=== PATIENT | female | born 1955 | race Caucasian/White ===

== ENCOUNTER → 2020-03-27 14:17 | Outpatient (BNVA) | payer OTHER, SELFPAY | PROVIDERS: PCP Internal Medicine; Referring Provider Internal Medicine; Visit Provider Orthopaedic Surgery | DX: M75.41 Impingement syndrome of right shoulder (principal) | CPT/HCPCS: 99213 ==

== ENCOUNTER 2020-04-03 08:35 | Outpatient (REF) | payer OTHER, SELFPAY ==
[2020-04-03 10:40] LABS: Hematocrit 34.2 % (37-47); Hemoglobin 10.8 g/dl (12.0-16.0); Mean Corpuscular HGB Conc 31.6 g/dl (31.0-35.0); Mean Corpuscular Hemoglobin 27.8 pg (27.0-33.0); Mean Corpuscular Volume 87.9 fL (80-98); Mean Platelet Volume 9.6 fL (9.4-12.3); Platelet Count 395 X10*3/uL (160-400); Red Blood Count 3.89 X10*6/uL (4.20-5.50); Red Cell Distribution Width 12.7 % (11.0-16.0); White Blood Count 7.3 X10*3/uL (4.8-10.8)
[2020-04-03 11:05] LABS: Anion Gap 16 (12-20); Blood Urea Nitrogen 13 mg/dL (9-16); Calcium 9.7 mg/dL (8.4-10.2); Carbon Dioxide 28 mmol/L (22-29); Chloride 97 mmol/L (96-108); Estimated Glomerular Filt Rate > 60; Glucose Random 145 mg/dL (60-115); Potassium 4.4 mmol/l (3.3-5.1); Sodium 137 mmol/L (135-145)
== END 2020-04-03 08:36 | disposition home or self-care (01) ==
LOC: HO.LAB 08:35
PROVIDERS: PCP Internal Medicine; Visit Provider Internal Medicine Cardiovascular Disease
DX: I10 Essential (primary) hypertension (principal); D64.9 Anemia, unspecified
CPT/HCPCS: 36415; 80048; 85027; 99212

== ENCOUNTER 2020-04-09 07:53 | Outpatient (REF) | payer OTHER, SELFPAY ==
[2020-04-09 09:32] LABS: Basophils Percent Auto 0.5 % (0-2); Eosinophils Absolute Auto 0.1 X10*3/uL (0.0-0.4); Eosinophils Percent Auto 2.6 % (0-4); Hematocrit 32.4 % (37-47); Hemoglobin 10.4 g/dl (12.0-16.0); Imm Gran Abs Auto 0.01 X10*3/uL (0.00-0.03); Imm Gran Pct Auto 0.3 % (0.0-0.4); Lymphocytes Absolute Auto 1.6 X10*3/uL (1.2-4.9); Lymphocytes Percent Auto 40.4 % (20-40); MANUAL DIFF FLAG NO; Mean Corpuscular HGB Conc 32.1 g/dl (31.0-35.0); Mean Corpuscular Hemoglobin 28.1 pg (27.0-33.0); Mean Corpuscular Volume 87.6 fL (80-98); Mean Platelet Volume 9.6 fL (9.4-12.3); Monocytes Absolute Auto 0.4 X10*3/uL (0.1-1.2); Monocytes Percent Auto 9.6 % (2-11); Neutrophils Absolute Auto 1.8 X10*3/uL (2.0-8.3); Neutrophils Percent Auto 46.6 % (45-73); Platelet Count 368 X10*3/uL (160-400); Red Cell Distribution Width 12.5 % (11.0-16.0); White Blood Count 3.8 X10*3/uL (4.8-10.8)
[2020-04-09 10:18] LABS: Alanine Aminotransferase 19 U/L (0-31); Albumin Level 4.3 g/dL (3.5-5.0); Alkaline Phosphatase 103 U/L (39-117); Anion Gap 14 (12-20); Aspartate Amino Transferase 19 U/L (5-31); Bilirubin Total 0.4 mg/dL (0.0-1.0); Blood Urea Nitrogen 17 mg/dL (9-16); C Reactive Protein 2.16 mg/dL (< or = 0.50); Calcium 8.9 mg/dL (8.4-10.2); Carbon Dioxide 30 mmol/L (22-29); Chloride 100 mmol/L (96-108); Estimated Glomerular Filt Rate > 60; Glucose Random 209 mg/dL (60-115); Potassium 4.2 mmol/l (3.3-5.1); Sodium 140 mmol/L (135-145); Total Protein 8.2 g/dL (6.5-8.0)
[2020-04-09 10:24] LABS: Thyroid Stimulating Hormone 1.64 mIU/mL (0.32-4.0)
[2020-04-09 10:31] LABS: Erythrocyte Sedimentation Rate 70 MM/HR (0-20)
[2020-04-10 14:11] LABS: Cyclic Citrullinated Peptide <16 UNITS
[2020-04-11 14:47] LABS: Anti Nuclear Antibody Screen NEGATIVE (NEGATIVE)
[2020-04-11 15:11] LABS: Prot Elec - Albumin 3.7 g/dL (3.8-4.8); Prot Elec - Alpha1 0.4 g/dL (0.2-0.3); Prot Elec - Alpha2 1.1 g/dL (0.5-0.9); Prot Elec - Beta 1 0.5 g/dL (0.4-0.6); Prot Elec - Beta 2 0.6 g/dL (0.2-0.5); Prot Elec - Gamma 1.6 g/dL (0.8-1.7)
[2020-04-11 16:41] LABS: PEU-Protein Creat Ratio Rand 0.137 (0.021-0.161); PEU-Rand. Prot/Creat Ratio 137 mg/g creat (21-161); PEU-Random Ur. Gamma Globulin 0 %; PEU-Random Urine A1 Globulin 0 %; PEU-Random Urine A2 Globulin 0 %; PEU-Random Urine Albumin 100 %; PEU-Random Urine Beta Globulin 0 %; PEU-Random Urine Creatinine 73 mg/dL (20-275); PEU-Random Urine Protein 10 mg/dL (5-24)
[2020-04-12 10:26] LABS: Antibody to SS-A Antigen <1.0 NEG AI (<1.0 NEG); Antibody to SS-B Antigen <1.0 NEG AI (<1.0 NEG)
[2020-04-13 13:11] LABS: Vitamin D 25-OH, D2 <4 ng/mL; Vitamin D 25-OH, D3 25 ng/mL; Vitamin D 25-OH, Total 25 ng/mL (30-100)
[2020-04-15 13:02] LABS: IgA 417 mg/dL (70-320); IgG 1798 mg/dL (600-1540); IgM 123 mg/dL (50-300)
== END 2020-04-09 07:54 | disposition home or self-care (01) ==
LOC: HO.LAB 07:53
PROVIDERS: PCP Internal Medicine; Referring Provider Internal Medicine; Visit Provider Student in an Organized Health Care Education/Training Program
DX: R79.82 Elevated C-reactive protein (CRP) (principal); M25.50 Pain in unspecified joint; M70.62 Trochanteric bursitis, left hip
CPT/HCPCS: 36415; 80053; 82306; 82570; 82784; 84155; 84156; 84165; 84166; 84443; 85025; 85652; 86038; 86039; 86140; 86200; 86235; 86334; 86335; 99202

== ENCOUNTER 2020-04-25 07:31 | Outpatient (RCR) | payer OTHER, SELFPAY ==
--- NOTE | 2020-04-25 13:54 | MHC.PT.EP ---
[facility] [place] Office [place] Office [place] Office [address] [phone] F: [phone] F: [phone] F: [phone] F: [phone] Physical Therapy Plan of Care Date of Evaluation: 04/25/20 Date of Surgery: NA Diagnosis: HIP PAIN Assessment: MIGUEL PRESENTS WITH LATERAL HIP PAIN FOLLOWING MECHANICAL FALL ABOUT 6 MONTHS AGO. SINCE THAT TIME SHE HAS BEEN REPORTING INCREASED HIP AND THIGH PAIN WITH IMPAIRMENTS INCLUDING DECREASED ROM, DECREASED STRENGTH, ALTERED POSTURE AND POSITIONING BOTH SEATED AND STANDING, INCREASED PAIN. FUNCTIONAL LIMITATIONS INCLUDE DECREASED TOLERANCE TO STATIC STANDING AND AMBULATION, DECREASED TOLERANCE TO STAIRS, DECREASED ABILITY TO PERFORM HOMEMAKING TASKS AND ADLs. DURING EVAL TODAY SHE BECAME NAUSEOUS AND DEMONSTRATED SOME S/S OF BPPV ? HORIZONTAL CANALITHISIS ALTHOUGH FAMILY STATES SHE HAS BEEN VOMITTING FOR 3 DAYS AND PCP FELT THIS WAS SECONDARY TO ANEMIA. AT THE CONCLUSION OF TREATMENT THE SON EXPRESSED DESIRE TO BRING MOM TO EMERGENCY DEPARTMENT TO ADDRESS N/V. THEY WILL CALL TO SCHEDULE VISITS PENDING ED VISIT. OF NOTE THERE IS SOME CONCERN OF HIP FRACTURE DUE TO RENE AND IMPAIRMENTS NOTED DURING EVAL. WE WILL ATTEMPT TO EVALUATE THIS FURTHER AT NEXT VISIT AND CONTACT MD PRN TO PURSUE RADIOGRAPHS. Frequency and Duration: The patient will be seen 2 X WEEK FOR 4 WEEKS Short Term Goals: INITATE HEP AND SELF MANAGEMENT OF SYMPTOMS IN 2 WEEKS TO CONTACT MD PRN FOR VESTIBULAR TREATMENT/NEED FOR RADIOGRAPHS Residential Goals: TO TOLERATE AMBULATION GREATER THAN 15 MINUTES WITHOUT SEATED REST BREAKS IN 4 WEEKS TO ASCEND AND DESCEND STAIRS WITHOUT PAIN GREATER THAN 2/10 IN 4 WEEKS TO RETURN TO HOMEMAKING TASKS WITHOUT RESTRICTION IN 4 WEEKS Treatment Plan: Modalities to reduce pain, spasms and effusion. Manual therapy to restore motion and function. Therapeutic exercise to improve strength and flexibility. Neuromuscular re-education for posture and balance. Therapeutic activities to return to functional activities of daily living. Please sign and return to therapist. Thank you for your referral.
--- NOTE | 2020-05-20 09:32 | MHC.PT.DC ---
[facility] [place] Office [place] Office [place] Office [address] [phone] F: [phone] F: [phone] F: [phone] F: [phone] Physical Therapy Discharge Report Diagnosis: HIP PAIN Date of Surgery: NA Date of Evaluation: 04/25/20 Date of Discharge: 05/20/20 Treatments to Date: 1 Cancellations to Date: 1 No Shows to Date: 0 Discharge Status: Patient Elected to Stop Visit Non-compliance Discharge Summary: ATTENDED INITIAL EVAL ONLY. ARRIVED IN CLINIC WITH NAUSEA AND VOMITING. LIMITED HISTORY OBTAINED AND PATIENT'S SON REQUESTED ED VISIT MOM HAD BEEN WITH N/V FOR SEVERAL DAYS. EVALUATION TERMINATED AND CLIENT WAS TO CONTACT US FOR ADDITIONAL VISITS BUT WE HAVE NOT HEARD FROM HER AND ARE DISCHARGING HER AT THIS TIME. Electronically signed by: NEVILLE ESTEVEZ PT, DPT Please sign and return to therapist. Thank you for your referral.
== END 2020-05-20 09:33 | disposition other institution (70) ==
LOC: HO.PT 07:31
PROVIDERS: Visit Provider Student in an Organized Health Care Education/Training Program
DX: M70.62 Trochanteric bursitis, left hip (principal)
CPT/HCPCS: 97163

== ENCOUNTER 2020-04-25 09:07 | Emergency (ER) | payer OTHER, SELFPAY ==
[2020-04-25 12:30] VITALS: BP 150/73; PULSE 74; RESP 16; TEMP 36.6; O2SAT 100; BMI 33.5
--- NOTE | 2020-04-25 12:59 | ECG_ITS ---
Test Reason : DIZZINESS Blood Pressure : / mmHG Vent. Rate : 080 BPM Atrial Rate : 080 BPM P-R Int : 142 ms QRS Dur : 078 ms QT Int : 384 ms P-R-T Axes : 040 -04 -03 degrees QTc Int : 442 ms Normal sinus rhythm Normal ECG When compared with ECG of 23-OCT-2019 11:48, No significant change was found Referred By: Sami Espinosa Electronically Signed By:TRICE PADILLA MD
--- NOTE | 2020-04-25 13:04 | CT_ITS ---
EXAMINATION: CT HEAD WITHOUT CONTRAST CLINICAL INFORMATION: Dizziness COMPARISON: None. TECHNIQUE: Contiguous axial imaging was performed from the skull base to vertex without intravenous contrast. This CT examination was performed using dose optimization techniques as appropriate, variously including the following: * Automated exposure control * Adjustment of mA and/or kV according to patient size (this includes techniques or standardized protocols for targeted exams where dose is matched to indication/reason for exam; i.e. extremities or head) Use of iterative reconstruction technique DLP: 624 mGy-cm. FINDINGS: There is no evidence of acute intracranial hemorrhage or territorial infarction. No abnormal mass effect or midline shift is seen. Villanueva to white matter differentiation is well preserved. No extra-axial fluid collections are identified. No hydrocephalus. Proportional prominence of the ventricles and sulcal spaces is consistent with mild volume loss. Patchy periventricular and deep white matter hypoattenuation is consistent with mild small vessel ischemic changes. The osseous structures and soft tissues are normal. The mastoid air cells and visualized portions of the paranasal sinuses are well aerated. CT/CT head/brain wo con IMPRESSION: No acute intracranial pathology.
--- NOTE | 2020-04-25 13:10 | ED_ITS ---
HPI - Dizziness General Chief Complaint: Dizziness Stated Complaint: vomiting,weak Time Seen by Provider: 04/25/20 12:59 Source: patient Mode of arrival: ambulatory Limitations: no limitations History of Present Illness HPI Narrative: Yg varnisher used for patient. patient states to the ED for dizziness, nausea, vomitting, and epigsatric pain radiating to chest after vomitting. patient describes chest pain occurs after vomitting. patient states 3 days of dizziness, nausea, and vomitting. patient describes dizziness as the room spinning, especially when she changes position. patient states no slurred speech, loss of vision, or paralysis of extremies. Patient denies facial droop. patient states no head trauma. patient states no headache. Patient states this happened to her 6 months ago and resolved after being given some pills as patient states. Patient denies any swelling of lower extretmies, calf pain, coughing, recent long travel, or recent surgery. patient states dizziness spell occurred again at 8:00am this morning while at therapy while changing position. Related Data Home Medications Medication Instructions Recorded Confirmed amlodipine 5 mg tablet 5 mg PO DAILY 03/07/20 03/13/20 apixaban 5 mg tablet 5 mg PO BID 03/07/20 03/13/20 cetirizine 10 mg tablet 10 mg PO DAILY 03/07/20 03/13/20 docusate sodium 100 mg capsule 100 mg PO BID 03/07/20 03/13/20 gabapentin 300 mg capsule 300 mg PO BEDTIME 03/07/20 03/13/20 metformin 500 mg tablet,extended 500 mg PO BID 03/07/20 03/13/20 release 24 hr omeprazole 40 mg capsule,delayed 40 mg PO BID 03/07/20 03/13/20 release ondansetron HCl 4 mg tablet 0 mg PO 03/07/20 03/13/20 simethicone 180 mg capsule 180 mg PO DAILY 03/07/20 03/13/20 atorvastatin 40 mg tablet 40 mg PO tab 04/03/20 chlorthalidone 25 mg tablet 25 mg PO DAILY 04/03/20 acetaminophen 650 mg 650 mg PO Q8H PRN 04/09/20 tablet,extended release Previous Rx's Medication Instructions Recorded lisinopril 40 mg tablet 40 mg PO DAILY 90 Days #90 tab 03/29/20 insulin glargine 100 unit/mL (3 30 unit SUBCUT BID 30 Days #18 ml 04/02/20 mL) subcutaneous pen diclofenac sodium 1 % topical gel 2 g TOPICAL QID #100 g 04/09/20 Allergies Allergy/AdvReac Type Severity Reaction Status Date / Time No Known Allergies Allergy Verified 04/09/20 08:01 [No Known Allergies*] Review of Systems Review of Systems: Yes all other systems are reviewed and are negative Constitutional: Constitutional: Reports as per HPI and Reports no additional constitutional complaints Eyes: Eyes: Reports as per HPI and Reports no additional eye complaints ENT: Reports system reviewed and no additional complaints, except as documented, Reports as per HPI, Reports vertigo and Reports dizziness Cardiovascular: Cardiovascular: Reports as per HPI, Reports no additional cardiovascular complaints and Reports chest pain (epigastric burning sensation after vomitting. ) Respiratory: Respiratory: Reports as per HPI and Reports no additional respiratory complaints Gastrointestinal: Gastrointestinal: Reports heartburn, Reports nausea and Reports vomiting Genitourinary: Genitourinary: Reports no additional female genitourinary complaints and Reports as per HPI Musculoskeletal: Musculoskeletal: Reports no additional musculoskeletal complaints and Reports as per HPI Neurologic: Reports system reviewed and no additional complaints, except as documented, Reports as per HPI, Reports vertigo and Reports dizziness Psychiatric: Psychiatric: Reports no additional psychiatric complaints and Reports as per HPI PMFSH Past Medical History Medical History (Updated 04/25/20 @ 17:25 by MARCEL Vanegas) Anemia Chronic GERD Chronic vertigo Constipation by delayed colonic transit Diabetic neuropathy Environmental allergies History of miscarriage Hypertension, essential IBS (irritable bowel syndrome) Insulin dependent diabetes mellitus Lipid disorder NSTEMI (non-ST elevated myocardial infarction) Surgical History Hx of cardiac cath Hx of colonoscopy Hx of endoscopy Family History Family History Father No problems noted. Mother No problems noted. Social History Social History Alcohol intake: never Smoking Status: Never smoker Smoked in Last 30 Days: No Use of substances other than those prescribed or required for medical reasons: No Advance Directives: No Advance Directives Information Provided: Yes Current occupation: Left handed Physical Exam Vital Signs: Vital Signs: Last Vital Signs Temp 97.9 F 04/25/20 12:30 Pulse 64 04/25/20 16:30 Resp 18 04/25/20 16:30 BP 111/62 04/25/20 16:30 Pulse Ox 98 04/25/20 16:30 Body Mass Index 33.5 Const: General: cooperative, healthy appearing, comfortable, no acute distress and well developed Orientation/consciousness: patient oriented x3 HENMT: Head: Yes normal to inspection and Yes No palpable skull fracture present Eyes: General: appearance normal, both eyes and all related structures Neck: Neck: Yes normal visual inspection, Yes full ROM, Yes no lymphadenopathy, Yes no meningeal signs, Yes trachea midline and No tender Chest: Chest palpation & inspection: normal inspection of the chest, normal palpation of entire chest wall and no localized rib tenderness Resp: Effort & Inspection: normal respiratory effort and able to speak in complete sentences Auscultation: clear to auscultation bilaterally Cardio: Jugular venous distension: no JVD Heart sounds: S1 normal heart sound present and S2 normal heart sound present GI: Inspection: Yes normal to inspection and No abdominal wall ecchymosis Palpation (GI): Soft to palpation, not firm, nontender and no guarding : General: No CVA tenderness and Yes no CVA tenderness Back/Spine/Pelvis: Back: no CVA tenderness, No CVA tenderness and No back tenderness Skin: General skin exam: no rashes or lesions noted Neuro: Other: positive for horizontal nystagmus to the left. Negative for vertical nystagmus. Negative for facial droop. Negative for pronator drift. Motor and strength of all extremities is intact. Patient's speech is normal. When patient was put down flat on the bed and should check for nystagmus she became extremely dizzy. General: patient oriented x3, no meningeal signs and CN's II-XI intact bilaterally Extrem: General: Yes normal to inspection and Yes full ROM Psych: Appearance: grossly normal, well kempt and not disheveled NIH Stroke Scale Internal: Initial- Upon Arrival Level of Consciousness: Alert Level of Consciousness Questions: Answers both questions correctly Level of Consciousness Commands: Performs both tasks correctly Best Gaze: Normal Visual: No visual loss Facial Palsy: Normal Motor Arm (Right): No drift Motor Arm (Left): No drift Motor Leg (Right): No drift Motor Leg (Left): No drift Limb Ataxia: Absent Sensory: Normal Best Language: No aphasia Dysarthia: Normal Extinction and Inattention: No abnormality Score: 0 Course Course Course Narrative: presently history physical exam did not indicate stroke. Negative for neuro deficit. History and exam presents vertigo versus atypical SC possibility. Patient will have EKG, labs, troponin, and head CT. Patient also has history of GERD will be giving antacid medications. patient NIH score 0. patient is on blood thinner Eliquis and his past 4 hours. Time stamp: 1:46pm Reevaluation(s) Reevaluation #1: Patient ordered Zofran, Pepcid, Reglan, and fluids. Time: 13:50 Reevaluation #2: patient main complaint presently is just dizziness. Patient denies any chest pain. Waiting for head CT results. Upon reviewing notes from Cardiology Dr. Gardiner he states patient was at [facility] in October 2019 with similar presentation and was admitted for NSTEMI. this indcates more cardiac presentation. awaiting from [facility] discharge papers and admission reports. [facility] Discharge papers were reviewed and showed that patient has similar presentation in october. Time: 14:40 Reevaluation #3: Patient was reassessed and states feeling dizzy on movement still. Patient able to do rapid hand movements and finger to nose exam are intact. Negative Romberg. No indication for MRI. Will order Ativan and Zofran. Orthostatics are negative. WHile changing position in bed patient state s dizziness sensation ( room spinning). Patient presently denies any chest pain. Case was discussed with Dr. Sandoval who agrees patient is not having an acute stroke or posterior cebellar infarction and no MRI indicated. She recommeds giving patient ativan 1mg. Time: 15:33 Additional Reevaluation(s): Case signed out to ALDEN ABDI - Dizziness Lab Data Result diagrams: 04/25/20 13:59 04/25/20 14:40 Labs: Lab Results 04/25/20 04/25/20 04/25/20 Range/Units 13:59 13:59 13:59 WBC 8.1 (4.8-10.8) X10*3/uL RBC 3.87 L (4.20-5.50) X10*6/uL Hgb 10.8 L (12.0-16.0) g/dl Hct 33.3 L (37-47) % MCV 86.0 (80-98) fL MCH 27.9 (27.0-33.0) pg MCHC 32.4 (31.0-35.0) g/dl RDW 12.5 (11.0-16.0) % Plt Count 437 H (160-400) X10*3/uL MPV 9.9 (9.4-12.3) fL Immature Gran % (Auto) 0.4 (0.0-0.4) % Neut % (Auto) 67.0 (45-73) % Lymph % (Auto) 28.0 (20-40) % [place] % (Auto) 4.0 (2-11) % Eos % (Auto) 0.2 (0-4) % Baso % (Auto) 0.4 (0-2) % Lymph # (Auto) 2.3 (1.2-4.9) X10*3/uL [place] # (Auto) 0.3 (0.1-1.2) X10*3/uL Eos # (Auto) 0.0 (0.0-0.4) X10*3/uL Baso # (Auto) 0.0 (0.0-0.2) X10*3/uL Abs Immat Gran (auto) 0.03 (0.00-0.03) X10*3/uL Absolute Neuts (auto) 5.4 (2.0-8.3) X10*3/uL Absolute Nucleated RBC 0.000 (0.0-0.012) X10*3/uL Nucleated RBC % (auto) 0.0 (0.0-0.2) /100WBC PT (10.8-13.0) SEC INR (0.9-1.1) APTT 38.5 H (24.1-38.0) SEC Sodium Cancelled Potassium Cancelled Chloride Cancelled Carbon Dioxide Cancelled Anion Gap Cancelled BUN Cancelled Creatinine Cancelled Estim Creat Clear Calc Cancelled Estimated GFR Cancelled POC Glucose (60-115) mg/dL Random Glucose Cancelled Calcium Cancelled Total Bilirubin Cancelled Direct Bilirubin Cancelled AST Cancelled ALT Cancelled Alkaline Phosphatase Cancelled Troponin I High Sens (<3.5-17.0) ng/L Total Protein Cancelled Albumin Cancelled Lipase Cancelled 04/25/20 04/25/20 04/25/20 Range/Units 13:59 14:40 16:17 WBC (4.8-10.8) X10*3/uL RBC (4.20-5.50) X10*6/uL Hgb (12.0-16.0) g/dl Hct (37-47) % MCV (80-98) fL MCH (27.0-33.0) pg MCHC (31.0-35.0) g/dl RDW (11.0-16.0) % Plt Count (160-400) X10*3/uL MPV (9.4-12.3) fL Immature Gran % (Auto) (0.0-0.4) % Neut % (Auto) (45-73) % Lymph % (Auto) (20-40) % [place] % (Auto) (2-11) % Eos % (Auto) (0-4) % Baso % (Auto) (0-2) % Lymph # (Auto) (1.2-4.9) X10*3/uL [place] # (Auto) (0.1-1.2) X10*3/uL Eos # (Auto) (0.0-0.4) X10*3/uL Baso # (Auto) (0.0-0.2) X10*3/uL Abs Immat Gran (auto) (0.00-0.03) X10*3/uL Absolute Neuts (auto) (2.0-8.3) X10*3/uL Absolute Nucleated RBC (0.0-0.012) X10*3/uL Nucleated RBC % (auto) (0.0-0.2) /100WBC PT (10.8-13.0) SEC INR (0.9-1.1) APTT (24.1-38.0) SEC Sodium 140 Potassium 3.8 Chloride 101 Carbon Dioxide 26 Anion Gap 17 BUN 14 Creatinine 0.82 Estim Creat Clear Calc 64.7 Estimated GFR > 60 POC Glucose 183 H (60-115) mg/dL Random Glucose 200 H Calcium 9.0 Total Bilirubin 0.4 Direct Bilirubin < 0.2 AST 15 ALT 14 Alkaline Phosphatase 104 Troponin I High Sens 17.7 H (<3.5-17.0) ng/L Total Protein 8.0 Albumin 4.2 Lipase 19 //20 Range/Units 17:00 WBC (4.8-10.8) X10*3/uL RBC (4.20-5.50) X10*6/uL Hgb (12.0-16.0) g/dl Hct (37-47) % MCV (80-98) fL MCH (27.0-33.0) pg MCHC (31.0-35.0) g/dl RDW (11.0-16.0) % Plt Count (160-400) X10*3/uL MPV (9.4-12.3) fL Immature Gran % (Auto) (0.0-0.4) % Neut % (Auto) (45-73) % Lymph % (Auto) (20-40) % [place] % (Auto) (2-11) % Eos % (Auto) (0-4) % Baso % (Auto) (0-2) % Lymph # (Auto) (1.2-4.9) X10*3/uL [place] # (Auto) (0.1-1.2) X10*3/uL Eos # (Auto) (0.0-0.4) X10*3/uL Baso # (Auto) (0.0-0.2) X10*3/uL Abs Immat Gran (auto) (0.00-0.03) X10*3/uL Absolute Neuts (auto) (2.0-8.3) X10*3/uL Absolute Nucleated RBC (0.0-0.012) X10*3/uL Nucleated RBC % (auto) (0.0-0.2) /100WBC PT 14.1 H (10.8-13.0) SEC INR 1.2 H (0.9-1.1) APTT (24.1-38.0) SEC Sodium Potassium Chloride Carbon Dioxide Anion Gap BUN Creatinine Estim Creat Clear Calc Estimated GFR POC Glucose (60-115) mg/dL Random Glucose Calcium Total Bilirubin Direct Bilirubin AST ALT Alkaline Phosphatase Troponin I High Sens (<3.5-17.0) ng/L Total Protein Albumin Lipase ECG Data Interpretation: NOrmal sinus rhythm, Vent rate 80. OR interval 142, QRS 78. negative stemi Discharge Plan Discharge Clinical Impression: Vertigo Prescriptions: No Action lisinopril 40 mg tablet 40 mg PO DAILY 90 Days Qty: 90 RF: 0 Lantus Solostar U-100 Insulin 100 unit/mL (3 mL) insulin pen 30 unit subcut BID 30 Days Qty: 18 RF: 2 acetaminophen [Tylenol 8 Hour] 650 mg tablet extended release 650 mg PO Q8H PRNRF: 0 diclofenac sodium [Voltaren] 1 % gel 2 g topical QID Qty: 100 RF: 2 omeprazole 40 mg capsule,delayed release(DR/EC) 40 mg PO BID RF: 0 ondansetron HCl 4 mg tablet 0 mg PO RF: 0 Eliquis 5 mg tablet 5 mg PO BID RF: 0 docusate sodium [Colace] 100 mg capsule 100 mg PO BID RF: 0 simethicone 180 mg capsule 180 mg PO DAILY RF: 0 amlodipine 5 mg tablet 5 mg PO DAILY RF: 0 cetirizine 10 mg tablet 10 mg PO DAILY RF: 0 gabapentin 300 mg capsule 300 mg PO BEDTIME RF: 0 metformin 500 mg tablet extended release 24 hr 500 mg PO BID RF: 0 atorvastatin 40 mg tablet 40 mg PO RF: 0 chlorthalidone 25 mg tablet 25 mg PO DAILY RF: 0
[2020-04-25 14:04] LABS: MANUAL DIFF FLAG NO
[2020-04-25] MEDS: Meclizine HCl 25 MG TABLET PO (14:06)
[2020-04-25] MEDS: 0.9 % Sodium Chloride 1,000 ML 999 ML IVCONT (14:06)
[2020-04-25] MEDS: Metoclopramide HCl 10 MG/2 ML VIAL IVPUSH (14:06)
[2020-04-25] MEDS: Famotidine/PF 20 MG/2 ML VIAL IVPUSH (14:06)
[2020-04-25 14:10] LABS: Basophils Percent Auto 0.4 % (0-2); Eosinophils Percent Auto 0.2 % (0-4); Hematocrit 33.3 % (37-47); Hemoglobin 10.8 g/dl (12.0-16.0); Imm Gran Abs Auto 0.03 X10*3/uL (0.00-0.03); Imm Gran Pct Auto 0.4 % (0.0-0.4); Lymphocytes Absolute Auto 2.3 X10*3/uL (1.2-4.9); Mean Corpuscular HGB Conc 32.4 g/dl (31.0-35.0); Mean Corpuscular Hemoglobin 27.9 pg (27.0-33.0); Mean Platelet Volume 9.9 fL (9.4-12.3); Monocytes Absolute Auto 0.3 X10*3/uL (0.1-1.2); Neutrophils Absolute Auto 5.4 X10*3/uL (2.0-8.3); Platelet Count 437 X10*3/uL (160-400); Red Blood Count 3.87 X10*6/uL (4.20-5.50); Red Cell Distribution Width 12.5 % (11.0-16.0); White Blood Count 8.1 X10*3/uL (4.8-10.8)
[2020-04-25 14:13] VITALS: PULSE 76; RESP 20
[2020-04-25 14:15] LABS: Partial Thromboplastin Time 38.5 SEC (24.1-38.0)
[2020-04-25 14:40] LABS: Troponin-I High Sensitivity 17.7 ng/L (<3.5-17.0)
--- NOTE | 2020-04-25 14:45 | PC.NURSE ---
pt still reports dizziness at this time. resting in bed. nsr 70s. aware of plan of care for repeat labs. denied having any questions.
[2020-04-25 15:09] VITALS: BP 126/60; BP 151/73; PULSE 73; PULSE 83
[2020-04-25 15:12] LABS: Alanine Aminotransferase 14 U/L (0-31); Albumin Level 4.2 g/dL (3.5-5.0); Alkaline Phosphatase 104 U/L (39-117); Anion Gap 17 (12-20); Aspartate Amino Transferase 15 U/L (5-31); Bilirubin Direct < 0.2 mg/dL (0.0-0.5); Bilirubin Total 0.4 mg/dL (0.0-1.0); Blood Urea Nitrogen 14 mg/dL (9-16); Carbon Dioxide 26 mmol/L (22-29); Chloride 101 mmol/L (96-108); Creatinine Clr Calc Pharmacy 64.7; Estimated Glomerular Filt Rate > 60; Glucose Random 200 mg/dL (60-115); Lipase 19 U/L (8-78); Potassium 3.8 mmol/l (3.3-5.1); Sodium 140 mmol/L (135-145)
[2020-04-25 15:14] VITALS: BP 138/75; PULSE 89
--- NOTE | 2020-04-25 15:23 | XR_ITS ---
EXAMINATION: XR CHEST CLINICAL INFORMATION: Resolved chest pain, dizziness. COMPARISON: Chest radiographs 10/23/2019, 03/28/2009 TECHNIQUE: Portable upright AP view of the chest was obtained. FINDINGS: There is mild fullness cardiopericardial silhouette similar to prior studies. The vascularity is normal. There is no airspace consolidation or groundglass opacity or effusion. The hilar and mediastinal contours and bony structures are stable. XR/XR chest 1V IMPRESSION: Unremarkable examination.
[2020-04-25] MEDS: LORazepam 2 MG/ML VIAL 1 MG IVPUSH (15:39)
[2020-04-25] MEDS: ondansetron HCL 4 MG/2 ML VIAL IVPUSH (15:39)
[2020-04-25 16:21] LABS: Glucose, Whole Blood 183 mg/dL (60-115)
[2020-04-25 16:30] VITALS: BP 111/62; PULSE 64; RESP 18; O2SAT 98
[2020-04-25 17:18] LABS: INTERNATIONAL NORM RATIO 1.2 (0.9-1.1); Prothrombin Time 14.1 SEC (10.8-13.0)
[2020-04-25 17:35] LABS: Troponin-I High Sensitivity 14.3 ng/L (<3.5-17.0)
--- NOTE | 2020-04-25 18:00 | PC.NURSE ---
SPOKE WITH MULTIPLE FAMILY MEMBERS. PLAN TO DC HOME. PT AWAITING RIDE FROM FAMILY
== END 2020-04-25 18:37 | disposition home or self-care (01) ==
PROVIDERS: Physician Assistant; Emergency Provider Emergency Medicine; PCP Internal Medicine
DX: R42 Dizziness and giddiness (principal); E11.9 Type 2 diabetes mellitus without complications; R07.9 Chest pain, unspecified; R10.13 Epigastric pain; R29.700 NIHSS score 0; Z79.899 Other long term (current) drug therapy; Z79.4 Long term (current) use of insulin
CPT/HCPCS: 36415; 70450; 71045; 80053; 80076; 82248; 82947; 83690; 84484; 85025; 85610; 85730; 93005; 96361; 96374; 96375; 99284; J2060; J2405; J2765

== ENCOUNTER → 2020-05-09 08:15 | Outpatient (BNVA) | payer OTHER, SELFPAY | PROVIDERS: PCP Internal Medicine; Referring Provider Internal Medicine; Visit Provider Student in an Organized Health Care Education/Training Program | DX: M35.3 Polymyalgia rheumatica (principal); M25.50 Pain in unspecified joint; M70.62 Trochanteric bursitis, left hip; R79.82 Elevated C-reactive protein (CRP); Z79.52 Long term (current) use of systemic steroids | CPT/HCPCS: 99212 ==

== ENCOUNTER → 2020-07-10 08:43 | Outpatient (BNVA) | payer OTHER, SELFPAY | PROVIDERS: PCP Internal Medicine; Visit Provider Internal Medicine Cardiovascular Disease | DX: I10 Essential (primary) hypertension (principal); R07.89 Other chest pain; I48.0 Paroxysmal atrial fibrillation | CPT/HCPCS: 99212 ==

== ENCOUNTER 2020-07-18 07:47 | Outpatient (REF) | payer OTHER, SELFPAY ==
[2020-07-18 09:57] LABS: MANUAL DIFF FLAG NO
[2020-07-18 10:06] LABS: Basophils Percent Auto 0.5 % (0-2); Eosinophils Absolute Auto 0.1 X10*3/uL (0.0-0.4); Eosinophils Percent Auto 0.8 % (0-4); Hematocrit 34.6 % (37-47); Imm Gran Abs Auto 0.03 X10*3/uL (0.00-0.03); Imm Gran Pct Auto 0.3 % (0.0-0.4); Lymphocytes Absolute Auto 3.7 X10*3/uL (1.2-4.9); Lymphocytes Percent Auto 42.7 % (20-40); Mean Corpuscular HGB Conc 31.8 g/dl (31.0-35.0); Mean Corpuscular Hemoglobin 27.4 pg (27.0-33.0); Mean Corpuscular Volume 86.3 fL (80-98); Mean Platelet Volume 10.2 fL (9.4-12.3); Monocytes Absolute Auto 0.6 X10*3/uL (0.1-1.2); Neutrophils Absolute Auto 4.3 X10*3/uL (2.0-8.3); Neutrophils Percent Auto 48.7 % (45-73); Platelet Count 406 X10*3/uL (160-400); Red Blood Count 4.01 X10*6/uL (4.20-5.50); Red Cell Distribution Width 13.3 % (11.0-16.0); White Blood Count 8.8 X10*3/uL (4.8-10.8)
[2020-07-18 10:24] LABS: Anion Gap 18 (12-20); Blood Urea Nitrogen 18 mg/dL (9-16); C Reactive Protein 1.37 mg/dL (< or = 0.50); Calcium 9.4 mg/dL (8.4-10.2); Carbon Dioxide 29 mmol/L (22-29); Chloride 102 mmol/L (96-108); Cholesterol 185 mg/dL; Estimated Glomerular Filt Rate 58; Glucose Fasting 97 mg/dL (60-99); HDL Cholesterol 53 mg/dL; LDL Cholesterol Calculated 100 mg/dl; Potassium 4.6 mmol/L (3.3-5.1); Sodium 144 mmol/L (135-145); Triglycerides 162 mg/dL
[2020-07-18 10:32] LABS: Creatinine Urine 61.28 mg/dL; Estimated Average Glucose 206 mg/dL; Hemoglobin A1c % 8.8 %; Microalbum/Creatinine Ratio Ur 24.4 ug/mg cr
[2020-07-18 11:49] LABS: Erythrocyte Sedimentation Rate 67 MM/HR (0-20)
== END 2020-07-18 07:48 | disposition home or self-care (01) ==
LOC: HO.LAB 07:47
PROVIDERS: PCP Internal Medicine; Referring Provider Internal Medicine; Visit Provider Student in an Organized Health Care Education/Training Program
DX: M35.3 Polymyalgia rheumatica (principal); Z79.52 Long term (current) use of systemic steroids; I10 Essential (primary) hypertension; E78.9 Disorder of lipoprotein metabolism, unspecified; K59.01 Slow transit constipation; K58.9 Irritable bowel syndrome, unspecified; K21.9 Gastro-esophageal reflux disease without esophagitis; E11.40 Type 2 diabetes mellitus with diabetic neuropathy, unspecified; R42 Dizziness and giddiness; Z91.09 Other allergy status, other than to drugs and biological substances
CPT/HCPCS: 36415; 80048; 80061; 82043; 83036; 85025; 85652; 86140; 99212

== ENCOUNTER 2020-07-25 08:30 | Outpatient (REF) | payer OTHER, SELFPAY ==
--- NOTE | ~2020-07-25 | MM_ITS ---
EXAMINATION: BONE DENSITOMETRY CLINICAL INDICATION: Polymyalgia rheumatica. COMPARISON: This is the patient's baseline examination. TECHNIQUE: Using a [employer] Display System DXA System (software version: 13.1) manufactured by [employer], dual-energy x-ray absorptiometry was performed of the lumbar spine and left hip. The images are of good technical quality. Summary results are attached. FINDINGS: AP SPINE L1-L4: BMD 0.977 g/cm2, Z-score -0.6, T-score -1.7, osteopenia. LEFT FEMUR, NECK: BMD 0.829 g/cm2, Z-score -0.4, T-score -1.5, osteopenia. LEFT FEMUR, TOTAL: BMD 1.016 g/cm2, Z-score 0.9, T-score 0.1, normal. IDENTIFIED RISK FACTORS: Menopause, anticonvulsants, glucocorticoids (chronic). HISTORY OF FRACTURE: None listed. MEDICATIONS: None listed. MM/XR DEXA axial skeleton IMPRESSION: 1. DIAGNOSIS: Osteopenia based on the lowest T-score value of -1.7 in the lumbar spine applying World Health Organization criteria. 2. 10-YEAR FRACTURE RISK PREDICTION, FRAX: Major osteoporotic fracture (clinical spine, forearm, hip or shoulder) 13.0%. Hip fracture 1.5%. 3. Treatment Recommendations: NOF guidelines recommend consideration for treatment in postmenopausal women and men age 50 and older presenting with the following: -A hip or vertebral (clinical or morphometric) fracture. -T-score less than or equal to -2.5 at the femoral neck or spine after appropriate evaluation to exclude secondary causes. -Low bone mass at the hip or spine and a 10-year fracture probability by FRAX of greater than or equal to 3% for hip fracture or greater than or equal to 20% for major osteoporotic fracture based on the [place] adapted WHO algorithm. 4. Other Recommendations: All treatment decisions require clinical judgment and consideration of individual patient factors, including patient preferences, comorbidities, previous drug use, risk factors not captured in the FRAX model (e.g. frailty, falls, vitamin D deficiency, increased bone turnover, interval significant decline in bone density) and possible under or overestimation of fracture risk by FRAX. Additional medical evaluation for secondary cause of low bone mineral density may be appropriate. FUTURE SCAN RECOMMENDATION: People with diagnosed cases of osteoporosis or at high risk for fracture should have regular bone mineral density tests. For patients eligible for Medicare, routine testing is allowed once every 2 years. The testing frequency can be increased to one year for patients who have rapidly progressing disease, those who are receiving or discontinuing medical therapy to restore bone mass, or have additional risk factors.
== END 2020-07-25 08:31 | disposition home or self-care (01) ==
LOC: HO.MAMMO 08:30
PROVIDERS: Visit Provider Student in an Organized Health Care Education/Training Program
DX: Z13.820 Encounter for screening for osteoporosis (principal); Z78.0 Asymptomatic menopausal state; M35.3 Polymyalgia rheumatica; Z79.52 Long term (current) use of systemic steroids; Z79.899 Other long term (current) drug therapy
CPT/HCPCS: 77080

== ENCOUNTER 2020-09-04 07:18 | Outpatient (REF) | payer OTHER, SELFPAY ==
--- NOTE | ~2020-09-04 | XR_ITS ---
EXAMINATION: XR BILATERAL SHOULDERS: 4 VIEWS EACH CLINICAL INFORMATION: Elevated CRP COMPARISON: Left shoulder radiographs dated 08/23/2018 TECHNIQUE: AP, Grashey, transscapular Y and axillary views of each shoulder FINDINGS: No acute fracture or dislocation. Small acromioclavicular marginal osteophytes. Glenohumeral joint unremarkable. No erosive changes. Soft tissues unremarkable. XR/XR shoulder RT min 2V IMPRESSION: No acute fracture or dislocation. No evidence of inflammatory arthropathy. Small marginal osteophytes along the bilateral acromioclavicular joints.
--- NOTE | ~2020-09-04 | XR_ITS ---
EXAMINATION: XR BILATERAL SHOULDERS: 4 VIEWS EACH CLINICAL INFORMATION: Elevated CRP COMPARISON: Left shoulder radiographs dated 08/23/2018 TECHNIQUE: AP, Grashey, transscapular Y and axillary views of each shoulder FINDINGS: No acute fracture or dislocation. Small acromioclavicular marginal osteophytes. Glenohumeral joint unremarkable. No erosive changes. Soft tissues unremarkable. XR/XR shoulder LT min 2V IMPRESSION: No acute fracture or dislocation. No evidence of inflammatory arthropathy. Small marginal osteophytes along the bilateral acromioclavicular joints.
--- NOTE | ~2020-09-04 | XR_ITS ---
EXAMINATION: XR HIP, LEFT CLINICAL INFORMATION: Pain COMPARISON: None TECHNIQUE: Two views of the left hip. FINDINGS: No acute fracture or dislocation. Mild joint space narrowing. Small acetabular osteophytes. Femoral head is spherical. Mild bilateral sacroiliac arthrosis. Mild degenerative change of the symphysis pubis. No suspicious osseous lesions. Soft tissues unremarkable. XR/XR hip LT min 2V IMPRESSION: No acute findings. Mild left hip arthrosis.
[2020-09-04 10:13] LABS: C Reactive Protein 1.36 mg/dL (< or = 0.50)
[2020-09-04 11:05] LABS: Erythrocyte Sedimentation Rate 72 MM/HR (0-20)
[2020-09-05 13:26] LABS: Prot Elec - Albumin 3.7 g/dL (3.8-4.8); Prot Elec - Alpha1 0.4 g/dL (0.2-0.3); Prot Elec - Alpha2 1.1 g/dL (0.5-0.9); Prot Elec - Beta 1 0.6 g/dL (0.4-0.6); Prot Elec - Beta 2 0.5 g/dL (0.2-0.5); Prot Elec - Gamma 1.4 g/dL (0.8-1.7); Prot Elec - Total Protein 7.6 g/dL (6.1-8.1)
[2020-09-05 18:17] LABS: IgA 388 mg/dL (70-320); IgG 1560 mg/dL (600-1540); IgM 126 mg/dL (50-300)
== END 2020-09-04 07:19 | disposition home or self-care (01) ==
LOC: HO.LAB 07:18
PROVIDERS: PCP Internal Medicine; Visit Provider Student in an Organized Health Care Education/Training Program
DX: M35.3 Polymyalgia rheumatica (principal); D64.9 Anemia, unspecified; M25.50 Pain in unspecified joint; R79.82 Elevated C-reactive protein (CRP); Z79.52 Long term (current) use of systemic steroids
CPT/HCPCS: 73030; 73502; 82784; 84155; 84165; 85652; 86140; 86334; 86335; 99212

== ENCOUNTER → 2020-10-25 07:46 | Outpatient (BNVA) | payer OTHER, SELFPAY | PROVIDERS: PCP Internal Medicine; Visit Provider Student in an Organized Health Care Education/Training Program | DX: M35.3 Polymyalgia rheumatica (principal); Z79.52 Long term (current) use of systemic steroids; D64.9 Anemia, unspecified | CPT/HCPCS: 99212 ==

== ENCOUNTER → 2020-11-12 08:56 | Outpatient (BNVA) | payer OTHER, SELFPAY | PROVIDERS: PCP Internal Medicine; Visit Provider Internal Medicine Gastroenterology | DX: D64.9 Anemia, unspecified (principal); K21.9 Gastro-esophageal reflux disease without esophagitis | CPT/HCPCS: 99212 ==

== ENCOUNTER 2020-11-14 09:05 | Day surgery (SDC) | payer OTHER, SELFPAY ==
--- NOTE | 2020-11-13 08:54 | HO.ANESPROP2 ---
Documented by User: Kelli Bazzi 11/13/20 08:59 HPI - Anesthesia Eval Consult details Narrative: 65yo F for Upper Endoscopy Eliquis for afib Stable at routine cardiac visit 07/2020 Chronic prednisone PMFSH Active Problems Active Problems: All Active Problems (Updated 10/30/20 @ 08:58 by John Fan MD) PAF (paroxysmal atrial fibrillation) (Acute) Musculoskeletal chest pain (Acute) senior living systemic 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 (Acute) Polymyalgia rheumatica (Acute) Trochanteric bursitis, left hip (Acute) Polyarthralgia (Acute) Elevated C-reactive protein (CRP) (Acute) Anemia (Acute) Rotator cuff impingement syndrome of right shoulder (Acute) Pelvic pain (Acute) Chronic vertigo (Acute) Diabetic neuropathy (Acute) Hypertension, essential (Acute) Chronic GERD (Acute) Environmental allergies (Acute) Insulin dependent diabetes mellitus (Acute) Lipid disorder (Acute) Constipation by delayed colonic transit (Acute) IBS (irritable bowel syndrome) (Acute) Past Medical History Medical History Anemia Chronic GERD Chronic vertigo Constipation by delayed colonic transit Diabetic neuropathy Environmental allergies History of miscarriage Hypertension, essential IBS (irritable bowel syndrome) Insulin dependent diabetes mellitus Lipid disorder senior living systemic 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 NSTEMI (non-ST elevated myocardial infarction) PAF (paroxysmal atrial fibrillation) Family History Family History Father No problems noted. Mother No problems noted. Surgical History Surgical History Hx of cardiac cath Hx of colonoscopy Hx of endoscopy Social History Social History Alcohol intake: former Patient Tobacco Use Status: Never used Tobacco Use of substances other than those prescribed or required for medical reasons: No Advance Directives: No Advance Directives Information Provided: Yes Current occupation: Left handed Meds Allergies Allergy/AdvReac Type Severity Reaction Status Date / Time No Known Allergies Allergy Verified 10/25/20 07:51 [No Known Allergies*] Home Medications Medication Instructions Recorded Confirmed Last Taken Type apixaban 5 mg tablet 5 mg PO BID 03/07/20 10/30/20 Unknown History chlorthalidone 25 mg tablet 25 mg PO DAILY 04/03/20 10/30/20 Unknown History lisinopril 20 1 tab PO DAILY 10/16/20 10/30/20 Unknown History mg-hydrochlorothiazide 12.5 mg tablet Exam Exam Date and Time: November 13, 2020 0854 Narrative Narrative: EKG 07/2020 NSR, nonspecific ST changes, QTc 425 msec Cardiac cath 11/2019 No significant coronary artery disease Documented by User: Tod Park MD 11/14/20 10:58 PMFSH Past Medical History Medical History Anemia Chronic GERD Chronic vertigo Constipation by delayed colonic transit Diabetic neuropathy Environmental allergies History of miscarriage Hypertension, essential IBS (irritable bowel syndrome) Insulin dependent diabetes mellitus Lipid disorder senior living systemic 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 NSTEMI (non-ST elevated myocardial infarction) PAF (paroxysmal atrial fibrillation) Family History Family History Father No problems noted. Mother No problems noted. Surgical History Surgical History Hx of cardiac cath Hx of colonoscopy Hx of endoscopy Social History Social History Alcohol intake: former Patient Tobacco Use Status: Never used Tobacco Use of substances other than those prescribed or required for medical reasons: No Advance Directives: No Advance Directives Information Provided: Yes Current occupation: Left handed Meds Allergies Allergy/AdvReac Type Severity Reaction Status Date / Time No Known Allergies Allergy Verified 10/25/20 07:51 [No Known Allergies*] Home Medications Medication Instructions Recorded Confirmed Last Taken Type apixaban 5 mg tablet 5 mg PO BID 03/07/20 10/30/20 Unknown History chlorthalidone 25 mg tablet 25 mg PO DAILY 04/03/20 10/30/20 Unknown History lisinopril 20 1 tab PO DAILY 10/16/20 10/30/20 Unknown History mg-hydrochlorothiazide 12.5 mg tablet Exam Airway Mallampati Class: II TM Dist: >3cm Denture: Upper and Lower Assessment and Plan Assessment Anesthesia Assessment: Anesthesia Plan Discussed and Chart Reviewed Final Anesthetic Review NPO: Yes ASA Class: III Final Preanesthetic Review: No Changes in Pt Med Stat, Meds/Allgs Chart Reviewed, Consent Obtained/Reviewed and Anes Risks/Benef Reviewed Patient Risk: Intermediate Procedure Risk: Low Anesthetic Plan Anesthetic Plan: MAC: Disposition: Standard PACU
--- NOTE | 2020-11-14 09:56 | MHC.SHP ---
Pre-Procedural Eval Section A The patient is an INPATIENT: No The History & Physical has been completed within 30 days and I have reviewed it.: Yes Section B Chief Complaint: reflux,anemia Allergies: Allergies Allergy/AdvReac Type Severity Reaction Status Date / Time No Known Allergies Allergy Verified 10/25/20 07:51 [No Known Allergies*] Plan Diagnosis/Plan: Unchanged I have reviewed the history and physical and performed a pertinent physical examination on my patient. No changes have occurred unless specified.
[2020-11-14 09:58] VITALS: BP 138/86; PULSE 81; RESP 16; TEMP 37.2; O2SAT 97; BMI 34.3
[2020-11-14 10:20] LABS: Glucose, Whole Blood 77 mg/dL (60-115)
[2020-11-14 12:44] VITALS: PULSE 75; RESP 18; TEMP 36.3; O2SAT 98
--- NOTE | 2020-11-14 12:44 | PM.OP ---
Brief Operative Note Date of Service: 11/14/20 Pre-op diagnosis: abdominal pain Post-op diagnosis: same Procedure: see op note Surgeon: Elly Ontiveros MD Anesthesia: MAC Was an Lead Java Software Engineer used for this Procedure?: No Estimated blood loss (mL): 0 Condition: stable Disposition: PACU
--- NOTE | 2020-11-14 12:44 | W.PM.OPN ---
Operative Note Operative Note Date of Service: 11/14/20 Narrative: Procedure Description: EGD FLEXIBLE TRANSORAL UPPER GASTROINTESTINAL ENDOSCOPY UPPER ENDOSCOPY Consent: Indications for the procedure and potential complications of bleeding, perforation, reaction to medications and missed diagnosis were discussed with the patient and informed consent was obtained. Instrument: Olympus GIF H 190 J mid size upper endoscope Monitoring: Vital signs and clinical assessment, continuous EKG monitoring, Pulse oximetry, Carbon Dioxide monitoring and blood pressure monitoring were done throughout the procedure. Procedure: The patient was placed in the left lateral decubitis position and pre-procedure medications were administered and a bite block was placed. The endoscope was inserted into the mouth and advanced under direct vision to the third part of duodenum. A careful inspection was made as the upper endoscope was withdrawn including a retroflexed examination of the proximal stomach; Findings and interventions are described below. Findings: Larynx:normal Esophagus: GE junction at 36 cm, diaphragm hiatus at 36 cm, mild esophagitis noted, bx taken. Stomach: Patchy gastric erythema with erosions in antrum. Biopsies were obtained. Grade 2 flap valve on retroflexed examination of the cardia. Duodenum: Normal bulb and descending duodenum, bx taken Intervention: Biopsies as noted above Impression/Findings: erosive gastritis esophagitis PLAN: cont PPI add carafate 1 g BID if sx persist and bx neg then US abdomen
[2020-11-14 12:59] VITALS: BP 125/78; PULSE 70; RESP 18; TEMP 36.1; O2SAT 96
== END 2020-11-14 13:20 | disposition home or self-care (01) ==
PROVIDERS: PCP Internal Medicine; Visit Provider Internal Medicine Gastroenterology
PROC: 0DJ08ZZ Inspection of Upper Intestinal Tract, Via Natural or Artificial Opening Endoscopic (ICD-10-PCS; CPT 43235; principal; 2020-11-14 10:20)
DX: K21.9 Gastro-esophageal reflux disease without esophagitis (principal); K29.60 Other gastritis without bleeding; K20.80 Other esophagitis without bleeding; K59.01 Slow transit constipation; K58.9 Irritable bowel syndrome, unspecified; K44.9 Diaphragmatic hernia without obstruction or gangrene; D64.9 Anemia, unspecified; I10 Essential (primary) hypertension; I48.0 Paroxysmal atrial fibrillation; E11.40 Type 2 diabetes mellitus with diabetic neuropathy, unspecified; Z79.4 Long term (current) use of insulin
CPT/HCPCS: 43239; 82947; 88305; 88312; 88342

== ENCOUNTER 2021-04-18 08:32 | Outpatient (REF) | payer OTHER, SELFPAY ==
[2021-04-18 11:23] LABS: Basophils Percent Auto 0.5 % (0-2); Eosinophils Absolute Auto 0.1 X10*3/uL (0.0-0.4); Hematocrit 34.6 % (37.0-47.0); Hemoglobin 11.2 g/dl (12.0-16.0); Imm Gran Abs Auto 0.01 X10*3/uL (0.00-0.03); Imm Gran Pct Auto 0.1 % (0.0-0.4); Lymphocytes Absolute Auto 3.6 X10*3/uL (1.2-4.9); Lymphocytes Percent Auto 44.5 % (20-40); MANUAL DIFF FLAG NO; Mean Corpuscular HGB Conc 32.4 g/dl (31.0-35.0); Mean Corpuscular Hemoglobin 27.7 pg (27.0-33.0); Mean Corpuscular Volume 85.6 fL (80.0-98.0); Monocytes Absolute Auto 0.6 X10*3/uL (0.1-1.2); Monocytes Percent Auto 6.7 % (2-11); Neutrophils Absolute Auto 3.9 x10*3/uL (2.0-8.3); Neutrophils Percent Auto 47.2 % (45-73); Platelet Count 408 X10*3/uL (160-400); Red Blood Count 4.04 X10*6/uL (4.20-5.50); Red Cell Distribution Width 13.2 % (11.0-16.0); White Blood Count 8.2 X10*3/uL (4.8-10.8)
[2021-04-18 11:48] LABS: Alanine Aminotransferase 16 U/L (0-31); Albumin Level 4.2 g/dL (3.5-5.0); Alkaline Phosphatase 98 U/L (39-117); Anion Gap 16 (12-20); Aspartate Amino Transferase 15 U/L (5-31); Bilirubin Direct 0.2 mg/dL (0.0-0.5); Bilirubin Total 0.3 mg/dL (0.0-1.0); Blood Urea Nitrogen 21 mg/dL (9-16); C Reactive Protein 0.91 mg/dL (< or = 0.50); Calcium 9.8 mg/dL (8.4-10.2); Carbon Dioxide 28 mmol/L (22-29); Chloride 100 mmol/L (96-108); Estimated Glomerular Filt Rate 56; Glucose Random 75 mg/dL (60-115); Potassium 4.4 mmol/L (3.3-5.1); Sodium 140 mmol/L (135-145); Total Protein 8.5 g/dL (6.5-8.0)
[2021-04-18 12:14] LABS: Estimated Average Glucose 235 mg/dL; Hemoglobin A1c % 9.8 %
[2021-04-18 12:17] LABS: Creatinine Urine 61.01 mg/dL; Microalbum/Creatinine Ratio Ur 11.4 ug/mg cr
[2021-04-18 13:03] LABS: Erythrocyte Sedimentation Rate 51 MM/HR (0-20)
== END 2021-04-18 08:33 | disposition home or self-care (01) ==
LOC: HO.HMGCLDS 08:32
PROVIDERS: Student in an Organized Health Care Education/Training Program; PCP Internal Medicine; Visit Provider Internal Medicine
DX: M35.3 Polymyalgia rheumatica (principal); D64.9 Anemia, unspecified; E78.9 Disorder of lipoprotein metabolism, unspecified; I10 Essential (primary) hypertension; K21.9 Gastro-esophageal reflux disease without esophagitis; K59.01 Slow transit constipation; R79.82 Elevated C-reactive protein (CRP); E10.49 Type 1 diabetes mellitus with other diabetic neurological complication; E10.40 Type 1 diabetes mellitus with diabetic neuropathy, unspecified
CPT/HCPCS: 36415; 80053; 82043; 82248; 83036; 85025; 85652; 86140

== ENCOUNTER 2021-08-15 08:23 | Outpatient (REF) | payer OTHER, SELFPAY ==
[2021-08-15 12:33] LABS: Alanine Aminotransferase 14 U/L (0-31); Albumin Level 4.2 g/dL (3.5-5.0); Alkaline Phosphatase 102 U/L (39-117); Anion Gap 16 (12-20); Aspartate Amino Transferase 19 U/L (5-31); Bilirubin Total 0.5 mg/dL (0.0-1.0); Blood Urea Nitrogen 15 mg/dL (9-16); Calcium 9.7 mg/dL (8.4-10.2); Carbon Dioxide 25 mmol/L (22-29); Chloride 106 mmol/L (96-108); Estimated Glomerular Filt Rate > 60; Glucose Random 101 mg/dL (60-115); Potassium 4.6 mmol/L (3.3-5.1); Sodium 142 mmol/L (135-145); Total Protein 8.5 g/dL (6.5-8.0)
== END 2021-08-15 08:24 | disposition home or self-care (01) ==
LOC: HO.HMGCLDS 08:23
PROVIDERS: Visit Provider Internal Medicine
DX: E78.9 Disorder of lipoprotein metabolism, unspecified (principal); E11.21 Type 2 diabetes mellitus with diabetic nephropathy; I10 Essential (primary) hypertension; K21.9 Gastro-esophageal reflux disease without esophagitis; Z91.09 Other allergy status, other than to drugs and biological substances
CPT/HCPCS: 36415; 80053

== ENCOUNTER → 2021-09-02 15:07 | Outpatient (BNVA) | payer OTHER, SELFPAY | PROVIDERS: PCP Internal Medicine; Visit Provider Internal Medicine Endocrinology, Diabetes & Metabolism | DX: E11.65 Type 2 diabetes mellitus with hyperglycemia (principal); Z79.84 Long term (current) use of oral hypoglycemic drugs; Z79.4 Long term (current) use of insulin | CPT/HCPCS: 82947; 99202 ==

== ENCOUNTER 2021-09-19 07:52 | Emergency (ER) | payer OTHER, SELFPAY ==
--- NOTE | ~2021-09-19 | CT_ITS ---
EXAMINATION: CT ABDOMEN AND PELVIS WITH CONTRAST CLINICAL INFORMATION: Vomiting. Constipation COMPARISON: 03/01/2010 TECHNIQUE: Multidetector volumetric images were obtained from the superior aspect of the liver through the pubic symphysis following administration 85 mL of Omnipaque 350 intravenous contrast. Sagittal and coronal reformatted images were obtained on the technologist's workstation. Oral contrast: No This CT examination was performed using dose optimization techniques as appropriate, variously including the following: *Automated exposure control *Adjustment of mA and/or kV according to patient size (this includes techniques or standardized protocols for targeted exams where dose is matched to indication/reason for exam; i.e. extremities or head) *Use of iterative reconstruction technique DLP: 552 mGy-cm FINDINGS: LUNG BASES: The visualized lung bases are unremarkable. LIVER, GALLBLADDER, AND BILIARY TREE: The liver is normal in size, shape, and attenuation. No focal hepatic lesion or biliary ductal dilatation is present. The gallbladder is unremarkable with no evidence of radiopaque gallstones, gallbladder wall thickening, or obvious pericholecystic inflammatory changes. PANCREAS: Unremarkable. SPLEEN: Unremarkable. ADRENAL GLANDS: No lesion. Clips adjacent to the left adrenal gland noted. KIDNEYS AND URETERS: The kidneys are normal in size, shape, and attenuation. No hydronephrosis, hydroureter, or calculi seen. No perinephric stranding. BLADDER: Unremarkable. GASTROINTESTINAL TRACT: Small hiatus hernia. The small and large bowel are unremarkable. The appendix is unremarkable. ABDOMINAL WALL: No significant hernia is appreciated. LYMPH NODES: Normal. VASCULAR: Unremarkable. PELVIC VISCERA: Unremarkable. OSSEOUS STRUCTURES: Unremarkable. CT/CT abdomen pelvis w con IMPRESSION: No focal lesion to explain patient's symptoms. Chronic findings as above. Fleischner guidelines were followed.
--- NOTE | ~2021-09-19 | XR_ITS ---
EXAMINATION: XR CHEST CLINICAL INFORMATION: Chest pain COMPARISON: Chest x-ray 04/25/2020 TECHNIQUE: 2 views of the chest were obtained. FINDINGS: The lungs are well-expanded and clear of acute process. The heart size and pulmonary vascularity is normal. There is mild spondylosis dorsal spine. No lytic process. XR/XR chest 2V IMPRESSION: Unremarkable chest examination.
[2021-09-19 07:55] VITALS: BP 137/71; PULSE 84; RESP 16; TEMP 36.6; O2SAT 100; BMI 25.8
--- NOTE | 2021-09-19 08:14 | ECG_ITS ---
Test Reason : CP Blood Pressure : / mmHG Vent. Rate : 068 BPM Atrial Rate : 068 BPM P-R Int : 152 ms QRS Dur : 076 ms QT Int : 414 ms P-R-T Axes : 035 -04 007 degrees QTc Int : 440 ms Normal sinus rhythm Low voltage QRS Cannot rule out Inferior infarct , age undetermined Abnormal ECG When compared with ECG of 25-APR-2020 14:03, No significant change was found Referred By: Marta Hernandez Electronically Signed By:Imtiaz Arechiga
--- NOTE | 2021-09-19 08:16 | ED.NAVMDI ---
HPI - Nausea/Vomiting/Diarrhea General Chief complaint: Nausea/Vomiting/Diarrhea Stated complaint: vomiting Time Seen by Provider: 09/19/21 08:01 Source: patient, family and md pediatric allergist Mode of arrival: ambulatory Limitations: language barrier (omani speaking ) History of Present Illness HPI Narrative: 66 female with history of insulin dependent diabetes, hypertension, hyperlipidemia, diabetic neuropathy, NSTEMI, PMR on chronic prednisone here with complaints of vomiting since afternoon with epigastric pain, chest tightness, tactile temps, gen weakness. no diarrhea, constipation, urinary symptoms, dizziness, headache, paresthesias, weakness of extremities. No recent sick contacts or travel Patient received COVID vaccine x2 Associated nausea: Yes Related Data Home Medications Medication Instructions Recorded Confirmed chlorthalidone 25 mg tablet 25 mg PO DAILY 04/03/20 09/02/21 prednisone 2.5 mg tablet 2.5 mg PO DAILY 04/22/21 09/02/21 Previous Rx's Medication Instructions Recorded acetaminophen 650 mg 650 mg PO Q8H PRN #60 tab 07/30/20 tablet,extended release (Tylenol 8 Hour) sennosides 8.6 mg-docusate sodium 2 tab-cap PO BEDTIME PRN 30 Days 10/16/20 50 mg tablet (Senokot-S) #60 tab sucralfate 100 mg/mL oral 10 ml PO BID #1000 ml 11/14/20 suspension (Carafate) diclofenac sodium 1 % topical gel 2 g TOPICAL BID PRN #100 g 12/17/20 amlodipine 5 mg tablet 5 mg PO DAILY #90 tab 12/23/20 apixaban 5 mg tablet (Eliquis) 5 mg PO BID 90 Days #180 tab 12/23/20 gabapentin 300 mg capsule 300 mg PO BEDTIME #90 cap 12/23/20 lisinopril 40 mg tablet 40 mg PO DAILY #90 tab 12/23/20 pen needle, diabetic 32 gauge x #100 ea 12/23/20 (Comfort EZ Pen [place]) pantoprazole 40 mg tablet,delayed 40 mg PO BID 30 Days #60 tab 02/03/21 release nystatin 100,000 unit/gram topical 1 appl TOPICAL DAILY 30 Days #30 g 04/18/21 cream atorvastatin 40 mg tablet 40 mg PO DAILY #90 tab 06/16/21 metformin 500 mg tablet,extended 500 mg PO BID 90 Days #180 tab 06/16/21 release 24 hr escitalopram oxalate 10 mg tablet 10 mg PO DAILY 90 Days #90 tab 07/14/21 (Lexapro) cetirizine 10 mg tablet 10 mg PO DAILY #90 tab 08/04/21 ferrous sulfate 325 mg (65 mg 325 mg PO DAILY #90 tab 08/04/21 iron) tablet dulaglutide 0.75 mg/0.5 mL 0.75 mg (0.5 mL) SUBCUT QWEEK #1 ml 09/02/21 subcutaneous pen injector (Trulicity) glucagon 3 mg/actuation nasal 3 mg INTRANASAL ONCE #2 ea 09/02/21 spray (Baqsimi) insulin glargine 100 unit/mL 30 unit (0.3 mL) SUBCUT DAILY #10 09/02/21 subcutaneous solution (Lantus ml U-100 Insulin) lancets 28 gauge (FreeStyle #100 ea 09/02/21 Lancets) blood sugar diagnostic (FreeStyle #50 ea 09/10/21 Lite Strips) cefuroxime axetil 250 mg tablet 250 mg PO BID #14 tab 09/19/21 ondansetron 4 mg disintegrating 4 mg PO Q6H PRN #10 tab 09/19/21 tablet Allergies Allergy/AdvReac Type Severity Reaction Status Date / Time No Known Allergies Allergy Verified 09/02/21 15:28 [No Known Allergies*] Review of Systems Review of Systems: Yes all other systems are reviewed and are negative Constitutional: Constitutional: Reports no additional constitutional complaints, Denies body ache(s), Denies chills, Denies fever(s), Denies headache(s) and Reports weakness Eyes: Eyes: Reports no additional eye complaints and Denies change in vision ENT: Reports system reviewed and no additional complaints, except as documented, Denies dizziness, Denies headache(s), Denies nasal congestion, Denies nasal discharge and Denies neck pain Cardiovascular: Cardiovascular: Reports no additional cardiovascular complaints, Reports chest pain, Denies leg edema and Denies dyspnea Respiratory: Respiratory: Reports no additional respiratory complaints, Denies cough and Denies dyspnea Gastrointestinal: Gastrointestinal: Reports no additional gastrointestinal complaints, Denies abdominal pain, Denies diarrhea, Reports nausea and Reports vomiting Genitourinary: Genitourinary: Reports no additional female genitourinary complaints and Denies urinary incontinence Musculoskeletal: Musculoskeletal: Reports no additional musculoskeletal complaints, Denies back pain, Denies arthralgias, Denies joint swelling, Denies neck pain, Denies numbness and Denies tingling Integumentary/Breasts: Skin/Breast: Reports system reviewed and no additional complaints, except as docu and Denies rash Neurologic: Reports system reviewed and no additional complaints, except as documented, Denies Abnormal speech present, Denies dizziness, Denies headache(s), Denies numbness, Denies tingling and Reports weakness PMFSH Past Medical History Attestation statement: The following information was validated with the patient. Source: old records reviewed and nursing notes reviewed Medical History Anemia Chronic GERD Chronic vertigo Constipation by delayed colonic transit Diabetic neuropathy Environmental allergies History of miscarriage Hypertension, essential IBS (irritable bowel syndrome) Insulin dependent diabetes mellitus Lipid disorder [facility] systemic 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 NSTEMI (non-ST elevated myocardial infarction) PAF (paroxysmal atrial fibrillation) Surgical History Hx of cardiac cath Hx of colonoscopy Hx of endoscopy Family History Family History Father No problems noted. Mother No problems noted. Social History Social History Housing: House Alcohol intake: never Patient Tobacco Use Status: Never used Tobacco Use of substances other than those prescribed or required for medical reasons: No Advance Directives: No Advance Directives Information Provided: No Current occupational status: retired Current occupation: Left handed Physical Exam Vital Signs: Vital Signs: Last Vital Signs Temp 97.9 F 09/19/21 12:14 Pulse 64 09/19/21 14:40 Resp 17 09/19/21 14:40 BP 124/71 09/19/21 14:40 Pulse Ox 97 09/19/21 14:40 BMI result Body Mass Index 25.8 Const: General: cooperative, healthy appearing, comfortable and no acute distress Orientation/consciousness: patient oriented x3 Limitations: no limitations HEENT: Head: Yes normal to inspection Ears: hearing grossly normal bilaterally and TM's normal bilaterally General nose exam: Normal external nose present Face and sinus: Yes normal facial exam Mouth: Normal oral and palatal mucosa present Throat: Yes posterior oropharynx normal, Yes tonsils normal and Yes uvula midline Eyes: General: appearance normal, both eyes and all related structures Pupils: Equal, round and reactive pupils present Neck: Neck: Yes normal visual inspection, Yes full ROM, Yes no lymphadenopathy and Yes no meningeal signs Chest: Chest palpation & inspection: normal inspection of the chest Resp: Effort & Inspection: normal respiratory effort Auscultation: clear to auscultation bilaterally Cardio: Rate: regular rate Rhythm: regular rhythm Peripheral pulses: Peripheral pulses 2+ throughout GI: Inspection: Yes normal to inspection Palpation (GI): Soft to palpation and Tenderness to palpation present (GI) (epigastric) Auscultation: normal bowel sounds Back/Spine/Pelvis: Thoracic/Lumbar Spine: thoracic and lumbar spine normal to inspection Skin: General skin exam: no rashes or lesions noted Neuro: General: patient oriented x3, moves all extremities, no meningeal signs, no focal motor deficits and normal sensation to monofilament Cranial nerves: Yes CN's II-XII intact bilaterally, Yes Equal, round and reactive pupils present, Yes Bilaterally intact EOM present, Yes Nystagmus not present, Yes Normal facial strength present and Yes Midline tongue present Cognition (Neuro): normal cognition Speech: No Abnormal speech present Gait exam (Neuro): Normal gait present Motor exam (neuro): 5/5 motor strength present throughout Sensory Exam: Normal double simultaneous stimulation for sensation Coordination: [id number] test normal, [id number] test normal and tandem gait normal Extrem: General: Yes normal to inspection Course Course Course Narrative: 66-year-old female here with reports of epigastric pain, chest tightness, vomiting, generalized weakness since yesterday. No focal abdominal pain on exam. Normal neuro exam. Vitals are stable. Will check labs, EKG, UA, flu and COVID testing. Chest tightness seems atypical for ACS. Reevaluation(s) Reevaluation #1: Continued pain and nausea. Will check CT, provide analgesia Time: 09:25 Reevaluation #2: CT shows no acute finding. Labs are unremarkable. UA shows mild UTI. Rapid COVID and flu are negative. Orthostatics are negative. ?viral syndrome Troponin is indeterminate. Plan for repeat 3 hour troponin. Time: 11:40 Reevaluation #3: Repeat troponin unchanged. patient reports abdominal pain is improved but still having some nausea. Will repeat doses Zofran prior to dispo Time: 13:20 Additional Reevaluation(s): 1357- unfortunately the patient is still vomiting. Will give Benadryl and Reglan and reassess 1500- The patient tells me that she overall is feeling improved. She does still have some slight nausea but she is able to drink water with no additional vomiting episodes. The patient is here with her son. She would like to go home with Zofran as needed. I did recommend continuing to monitor her for a period of time before discharging her to make sure she is able to tolerate additional fluids but the patient would like to go home. I instructed her to return for any additional vomiting episodes that are not responding to Zofran. Reviewed worrisome signs and symptoms and when to return to the emergency department. Comfortable discharge home. MDM - Nausea/Vomiting/Diarrhea MDM Narrative Medical decision making narrative: ACS, cholecystitis, gallstones, gastritis, GERD, pancreatitis Medical Records Attestation: I reviewed the patient's medical records. Lab Data Attestation: I reviewed the patient's lab results. Result diagrams: 09/19/21 08:41 09/19/21 08:41 Labs: Lab Results 09/19/21 09/19/21 09/19/21 Range/Units 08:31 08:31 08:31 WBC (4.8-10.8) X10*3/uL RBC (4.20-5.50) X10*6/uL Hgb (12.0-16.0) g/dl Hct (37.0-47.0) % MCV (80.0-98.0) fL MCH (27.0-33.0) pg MCHC (31.0-35.0) g/dl RDW (11.0-16.0) % Plt Count (160-400) X10*3/uL MPV (9.4-12.3) fL Immature Gran % (Auto) (0.0-0.4) % Neut % (Auto) (45-73) % Lymph % (Auto) (20-40) % [place] % (Auto) (2-11) % Eos % (Auto) (0-4) % Baso % (Auto) (0-2) % Lymph # (Auto) (1.2-4.9) X10*3/uL [place] # (Auto) (0.1-1.2) X10*3/uL Eos # (Auto) (0.0-0.4) X10*3/uL Baso # (Auto) (0.0-0.2) X10*3/uL Abs Immat Gran (auto) (0.00-0.03) X10*3/uL Absolute Neuts (auto) (2.0-8.3) x10*3/uL Absolute Nucleated RBC (0.0-0.012) X10*3/uL Nucleated RBC % (auto) (0.0-0.2) /100WBC PT (9.9-13.0) SEC INR (0.9-1.1) Sodium (135-145) mmol/L Potassium (3.3-5.1) mmol/L Chloride (96-108) mmol/L Carbon Dioxide (22-29) mmol/L Anion Gap (12-20) BUN (9-16) mg/dL Creatinine (0.5-1.4) mg/dL Estim Creat Clear Calc Estimated GFR Random Glucose (60-115) mg/dL Calcium (8.4-10.2) mg/dL Magnesium (1.6-2.6) mg/dL Total Bilirubin (0.0-1.0) mg/dL Direct Bilirubin (0.0-0.5) mg/dL AST (5-31) U/L ALT (0-31) U/L Alkaline Phosphatase (39-117) U/L Troponin I High Sens (<3.5-17.0) ng/L Total Protein (6.5-8.0) g/dL Albumin (3.5-5.0) g/dL Lipase (8-78) U/L Urine Color YELLOW Urine Appearance CLEAR Urine pH 5.5 (5.0-8.0) Ur Specific [place] 1.025 (1.005-1.025) Urine Protein 1+ H (NEG-TRACE) MG/DL Urine Glucose (UA) NEG (NEG) MG/DL Urine Ketones NEG (NEG) MG/DL Urine Blood 2+ H (NEG) Urine Nitrite NEG (NEG) Ur Leukocyte Esterase NEG (NEG) Urine RBC 1-4 (0) /HPF Urine WBC 5-9 H (0-4) /HPF Ur Squamous Epith Cells 2+ /LPF Urine Bacteria TRACE /LPF COVID-19 (CALLI) Negative (Negative) COVID-19 Clin Com See Note Influenza Type A (RODY) Negative (Negative) Influenza Type B (RODY) Negative (Negative) Influenza A & B Note See Note 09/19/21 09/19/21 09/19/21 Range/Units 08:41 08:41 08:41 WBC 5.6 (4.8-10.8) X10*3/uL RBC 4.07 L (4.20-5.50) X10*6/uL Hgb 11.1 L (12.0-16.0) g/dl Hct 34.7 L (37.0-47.0) % MCV 85.3 (80.0-98.0) fL MCH 27.3 (27.0-33.0) pg MCHC 32.0 (31.0-35.0) g/dl RDW 13.1 (11.0-16.0) % Plt Count 362 (160-400) X10*3/uL MPV 10.1 (9.4-12.3) fL Immature Gran % (Auto) 0.2 (0.0-0.4) % Neut % (Auto) 66.2 (45-73) % Lymph % (Auto) 26.4 (20-40) % [place] % (Auto) 5.6 (2-11) % Eos % (Auto) 1.1 (0-4) % Baso % (Auto) 0.5 (0-2) % Lymph # (Auto) 1.5 (1.2-4.9) X10*3/uL [place] # (Auto) 0.3 (0.1-1.2) X10*3/uL Eos # (Auto) 0.1 (0.0-0.4) X10*3/uL Baso # (Auto) 0.0 (0.0-0.2) X10*3/uL Abs Immat Gran (auto) 0.01 (0.00-0.03) X10*3/uL Absolute Neuts (auto) 3.7 (2.0-8.3) x10*3/uL Absolute Nucleated RBC 0.000 (0.0-0.012) X10*3/uL Nucleated RBC % (auto) 0.0 (0.0-0.2) /100WBC PT (9.9-13.0) SEC INR (0.9-1.1) Sodium 137 (135-145) mmol/L Potassium 4.9 (3.3-5.1) mmol/L Chloride 103 (96-108) mmol/L Carbon Dioxide 25 (22-29) mmol/L Anion Gap 14 (12-20) BUN 13 (9-16) mg/dL Creatinine 0.77 (0.5-1.4) mg/dL Estim Creat Clear Calc 58.9 Estimated GFR > 60 Random Glucose 149 H (60-115) mg/dL Calcium 9.6 (8.4-10.2) mg/dL Magnesium 1.8 (1.6-2.6) mg/dL Total Bilirubin 0.5 (0.0-1.0) mg/dL Direct Bilirubin < 0.2 (0.0-0.5) mg/dL AST 22 (5-31) U/L ALT 11 (0-31) U/L Alkaline Phosphatase 107 (39-117) U/L Troponin I High Sens 16.6 (<3.5-17.0) ng/L Total Protein 8.6 H (6.5-8.0) g/dL Albumin 4.1 (3.5-5.0) g/dL Lipase 28 (8-78) U/L Urine Color Urine Appearance Urine pH (5.0-8.0) Ur Specific [place] (1.005-1.025) Urine Protein (NEG-TRACE) MG/DL Urine Glucose (UA) (NEG) MG/DL Urine Ketones (NEG) MG/DL Urine Blood (NEG) Urine Nitrite (NEG) Ur Leukocyte Esterase (NEG) Urine RBC (0) /HPF Urine WBC (0-4) /HPF Ur Squamous Epith Cells /LPF Urine Bacteria /LPF COVID-19 (CALLI) (Negative) COVID-19 Clin Com Influenza Type A (RODY) (Negative) Influenza Type B (RODY) (Negative) Influenza A & B Note 09/19/21 09/19/21 Range/Units 08:41 11:52 WBC (4.8-10.8) X10*3/uL RBC (4.20-5.50) X10*6/uL Hgb (12.0-16.0) g/dl Hct (37.0-47.0) % MCV (80.0-98.0) fL MCH (27.0-33.0) pg MCHC (31.0-35.0) g/dl RDW (11.0-16.0) % Plt Count (160-400) X10*3/uL MPV (9.4-12.3) fL Immature Gran % (Auto) (0.0-0.4) % Neut % (Auto) (45-73) % Lymph % (Auto) (20-40) % [place] % (Auto) (2-11) % Eos % (Auto) (0-4) % Baso % (Auto) (0-2) % Lymph # (Auto) (1.2-4.9) X10*3/uL [place] # (Auto) (0.1-1.2) X10*3/uL Eos # (Auto) (0.0-0.4) X10*3/uL Baso # (Auto) (0.0-0.2) X10*3/uL Abs Immat Gran (auto) (0.00-0.03) X10*3/uL Absolute Neuts (auto) (2.0-8.3) x10*3/uL Absolute Nucleated RBC (0.0-0.012) X10*3/uL Nucleated RBC % (auto) (0.0-0.2) /100WBC PT 12.7 (9.9-13.0) SEC INR 1.1 (0.9-1.1) Sodium (135-145) mmol/L Potassium (3.3-5.1) mmol/L Chloride (96-108) mmol/L Carbon Dioxide (22-29) mmol/L Anion Gap (12-20) BUN (9-16) mg/dL Creatinine (0.5-1.4) mg/dL Estim Creat Clear Calc Estimated GFR Random Glucose (60-115) mg/dL Calcium (8.4-10.2) mg/dL Magnesium (1.6-2.6) mg/dL Total Bilirubin (0.0-1.0) mg/dL Direct Bilirubin (0.0-0.5) mg/dL AST (5-31) U/L ALT (0-31) U/L Alkaline Phosphatase (39-117) U/L Troponin I High Sens 18.3 H (<3.5-17.0) ng/L Total Protein (6.5-8.0) g/dL Albumin (3.5-5.0) g/dL Lipase (8-78) U/L Urine Color Urine Appearance Urine pH (5.0-8.0) Ur Specific [place] (1.005-1.025) Urine Protein (NEG-TRACE) MG/DL Urine Glucose (UA) (NEG) MG/DL Urine Ketones (NEG) MG/DL Urine Blood (NEG) Urine Nitrite (NEG) Ur Leukocyte Esterase (NEG) Urine RBC (0) /HPF Urine WBC (0-4) /HPF Ur Squamous Epith Cells /LPF Urine Bacteria /LPF COVID-19 (CALLI) (Negative) COVID-19 Clin Com Influenza Type A (RODY) (Negative) Influenza Type B (RODY) (Negative) Influenza A & B Note Imaging Data Chest x-ray: Attestation: I personally reviewed and interpreted this imaging study as follows: Radiologist's impression: EXAMINATION: XR CHEST CLINICAL INFORMATION: Chest pain COMPARISON: Chest x-ray 04/25/2020 TECHNIQUE: 2 views of the chest were obtained. FINDINGS: The lungs are well-expanded and clear of acute process. The heart size and pulmonary vascularity is normal. There is mild spondylosis dorsal spine. No lytic process. XR/XR chest 2V IMPRESSION: Unremarkable chest examination. CT scan - abdomen: Attestation: I personally reviewed and interpreted this imaging study as follows: Radiologist's impression: FINDINGS: LUNG BASES: The visualized lung bases are unremarkable.? LIVER, GALLBLADDER, AND BILIARY TREE: The liver is normal in size, shape, and attenuation. No focal hepatic lesion or biliary ductal dilatation is present. The gallbladder is unremarkable with no evidence of radiopaque gallstones, gallbladder wall thickening, or obvious pericholecystic inflammatory changes.? PANCREAS: Unremarkable.? SPLEEN: Unremarkable.? ADRENAL GLANDS: No lesion. Clips adjacent to the left adrenal gland noted.? KIDNEYS AND URETERS: The kidneys are normal in size, shape, and attenuation. No hydronephrosis, hydroureter, or calculi seen. No perinephric stranding. ? BLADDER: Unremarkable.? GASTROINTESTINAL TRACT: Small hiatus hernia. The small and large bowel are unremarkable. The appendix is unremarkable.? ABDOMINAL WALL: No significant hernia is appreciated.? LYMPH NODES: Normal. VASCULAR: Unremarkable. PELVIC VISCERA: Unremarkable.? OSSEOUS STRUCTURES: Unremarkable.? CT/CT abdomen pelvis w con IMPRESSION: No focal lesion to explain patient's symptoms. Chronic findings as above.? ECG Data Attestation: I personally reviewed and interpreted this ECG as follows: ECG interpretation date: 09/19/21 ECG interpretation time: 08:52 Interpretation: normal sinus rhythm with a rate of 68, nonspecific ST changes V1 through V3 Discharge Plan Discharge Clinical Impression: Acute viral syndrome, Acute UTI Patient Disposition: Home, Self-Care Additional Instructions: your blood work was normal. Your EKG, chest x-ray and CT scan all look okay. You do have a urine infection increase fluids, rest. start with clear liquids and advance diet as tolerated Prescriptions: New ondansetron 4 mg tablet,disintegrating 4 mg PO Q6H PRN (Reason: nausea and vomiting) Qty: 10 0RF cefuroxime axetil 250 mg tablet 250 mg PO BID Qty: 14 0RF No Action acetaminophen [Tylenol 8 Hour] 650 mg tablet extended release 650 mg PO Q8H PRN (Reason: fever or pain) Qty: 60 0RF diclofenac sodium 1 % gel 2 g topical BID PRN (Reason: for pain) Qty: 100 3RF amlodipine 5 mg tablet 5 mg PO DAILY Qty: 90 0RF Eliquis 5 mg tablet 5 mg PO BID 90 Days Qty: 180 0RF gabapentin 300 mg capsule 300 mg PO BEDTIME Qty: 90 0RF lisinopril 40 mg tablet 40 mg PO DAILY Qty: 90 0RF (DME) pen needle, diabetic [Comfort EZ Pen [place]] 32 gauge x 5/32 needle See Rx Instructions .ROUTE .MEDSUPPLY Qty: 100 3RF Rx Instructions: use one needle twice a day for insulin injections pantoprazole 40 mg tablet,delayed release (DR/EC) 40 mg PO BID 30 Days Qty: 60 1RF atorvastatin 40 mg tablet 40 mg PO DAILY Qty: 90 0RF metformin 500 mg tablet extended release 24 hr 500 mg PO BID 90 Days Qty: 180 0RF escitalopram oxalate [Lexapro] 10 mg tablet 10 mg PO DAILY 90 Days Qty: 90 0RF cetirizine 10 mg tablet 10 mg PO DAILY Qty: 90 0RF ferrous sulfate 325 mg (65 mg iron) tablet 325 mg PO DAILY Qty: 90 0RF (DME) lancets [FreeStyle Lancets] 28 gauge misc See Rx Instructions .ROUTE .MEDSUPPLY Qty: 100 0RF Rx Instructions: B.i.d. p.r.n. (DME) FreeStyle Lite Strips Strip See Rx Instructions .Route Qty: 50 11RF Rx Instructions: As directed twice a day sucralfate [Carafate] 100 mg/mL suspension 10 ml PO BID Qty: 1000 2RF sennosides-docusate sodium [Senokot-S] 8.6-50 mg tablet 2 tab-cap PO BEDTIME PRN (Reason: constipation) 30 Days Qty: 60 2RF nystatin 100,000 unit/gram cream 1 appl topical DAILY 30 Days Qty: 30 1RF prednisone 2.5 mg tablet 2.5 mg PO DAILY 0RF chlorthalidone 25 mg tablet 25 mg PO DAILY 0RF Lantus U-100 Insulin 100 unit/mL solution 30 unit subcut DAILY Qty: 10 5RF Trulicity 0.75 mg/0.5 mL pen injector 0.75 mg subcut QWEEK Qty: 1 4RF Baqsimi 3 mg/actuation spray,non-aerosol 3 mg intranasal ONCE Qty: 2 4RF Referrals: Roxana Olivarez MD [Primary Care Provider] - 5 days (for persistent symptoms ) Discharge Date/Time: 09/19/21 15:57
[2021-09-19 08:45] LABS: MANUAL DIFF FLAG NO
[2021-09-19] MEDS: 0.9 % Sodium Chloride 1,000 ML 999 ML IV (08:46)
[2021-09-19] MEDS: ondansetron HCL 4 MG/2 ML VIAL IVPUSH ×2 (08:46→13:36)
[2021-09-19 08:49] VITALS: BP 114/71; PULSE 68; RESP 15; TEMP 36.9; O2SAT 96
[2021-09-19 08:52] LABS: Appearance Urine CLEAR; Color Urine YELLOW; Glucose Urine UA NEG (NEG); Leukocyte Esterase Urine NEG (NEG); Nitrite Urine NEG (NEG); PH 5.5 (5.0-8.0); Specific Gravity - Urine 1.025 (1.005-1.025); UACC Culture Trigger NO; Urine Blood 2+ (NEG); Urine Ketones NEG (NEG); Urine Protein 1+ MG/DL (NEG-TRACE)
[2021-09-19 08:54] LABS: Basophils Percent Auto 0.5 % (0-2); Eosinophils Absolute Auto 0.1 X10*3/uL (0.0-0.4); Eosinophils Percent Auto 1.1 % (0-4); Hematocrit 34.7 % (37.0-47.0); Hemoglobin 11.1 g/dl (12.0-16.0); Imm Gran Abs Auto 0.01 X10*3/uL (0.00-0.03); Imm Gran Pct Auto 0.2 % (0.0-0.4); Lymphocytes Absolute Auto 1.5 X10*3/uL (1.2-4.9); Lymphocytes Percent Auto 26.4 % (20-40); Mean Corpuscular Hemoglobin 27.3 pg (27.0-33.0); Mean Corpuscular Volume 85.3 fL (80.0-98.0); Mean Platelet Volume 10.1 fL (9.4-12.3); Monocytes Absolute Auto 0.3 X10*3/uL (0.1-1.2); Monocytes Percent Auto 5.6 % (2-11); Neutrophils Absolute Auto 3.7 x10*3/uL (2.0-8.3); Neutrophils Percent Auto 66.2 % (45-73); Platelet Count 362 X10*3/uL (160-400); Red Blood Count 4.07 X10*6/uL (4.20-5.50); Red Cell Distribution Width 13.1 % (11.0-16.0); White Blood Count 5.6 X10*3/uL (4.8-10.8)
[2021-09-19 09:00] LABS: INTERNATIONAL NORM RATIO 1.1 (0.9-1.1); Prothrombin Time 12.7 SEC (9.9-13.0)
[2021-09-19 09:04] LABS: Bacteria Urine TRACE /LPF; Squamous Epithelial Cell Urine 2+ /LPF; UACC CULT YES
[2021-09-19 09:05] LABS: COVID-19 Test Negative (Negative); IDNOW Serial# 16C4AD1C; Influenza A Negative (Negative); Influenza B2 Negative (Negative)
[2021-09-19 09:14] LABS: Troponin-I High Sensitivity 16.6 ng/L (<3.5-17.0)
[2021-09-19 09:17] LABS: Alanine Aminotransferase 11 U/L (0-31); Albumin Level 4.1 g/dL (3.5-5.0); Alkaline Phosphatase 107 U/L (39-117); Anion Gap 14 (12-20); Aspartate Amino Transferase 22 U/L (5-31); Bilirubin Direct < 0.2 mg/dL (0.0-0.5); Bilirubin Total 0.5 mg/dL (0.0-1.0); Blood Urea Nitrogen 13 mg/dL (9-16); Calcium 9.6 mg/dL (8.4-10.2); Carbon Dioxide 25 mmol/L (22-29); Chloride 103 mmol/L (96-108); Creatinine Clr Calc Pharmacy 58.9; Estimated Glomerular Filt Rate > 60; Glucose Random 149 mg/dL (60-115); Magnesium 1.8 mg/dL (1.6-2.6); Potassium 4.9 mmol/L (3.3-5.1); Sodium 137 mmol/L (135-145); Total Protein 8.6 g/dL (6.5-8.0)
[2021-09-19 09:33] VITALS: BP 113/68; BP 118/60; BP 121/69; PULSE 64; PULSE 70; PULSE 78
--- NOTE | 2021-09-19 09:34 | PC.NURSE ---
Granddaughter contact Day [phone] Daughter Cathy [phone] Son Héctor [phone]
[2021-09-19] MEDS: iohexoL 350 MG/ML 100 ML INFUS..BTL IV (09:51)
[2021-09-19 09:55] LABS: Lipase 28 U/L (8-78)
[2021-09-19 10:07] VITALS: BP 128/71; PULSE 67; O2SAT 96
[2021-09-19] MEDS: Morphine Sulfate 4 MG/ML CARTRIDGE IVPUSH (10:10)
[2021-09-19] MEDS: Famotidine/PF 20 MG/2 ML VIAL IVPUSH (10:11)
[2021-09-19 12:14] VITALS: BP 112/64; PULSE 62; RESP 15; TEMP 36.6; O2SAT 96
[2021-09-19 12:19] LABS: Troponin-I High Sensitivity 18.3 ng/L (<3.5-17.0)
[2021-09-19] MEDS: Magnesium Hydrox/Alum Hydrox 30 ML ORAL.SUSP PO (12:38)
[2021-09-19] MEDS: Lidocaine HCl Viscous 2 % 15 ML SOLUTION MUCOUS MEM (12:38)
--- NOTE | 2021-09-19 13:59 | PC.NURSE ---
attempted to d/c pt however pt continues to vomit despite Marta harris aware, will medicate further and reassess for d/c
[2021-09-19] MEDS: diphenhydrAMINE HCL 50 MG/ML VIAL 25 MG IVPUSH (14:32)
[2021-09-19] MEDS: Metoclopramide HCl 10 MG/2 ML VIAL IVPUSH (14:33)
[2021-09-19 14:40] VITALS: BP 124/71; PULSE 64; RESP 17; O2SAT 97
== END 2021-09-19 15:57 | disposition home or self-care (01) ==
PROVIDERS: Nurse Practitioner Family; Emergency Provider Emergency Medicine; PCP Internal Medicine
DX: B34.9 Viral infection, unspecified (principal); N39.0 Urinary tract infection, site not specified; R11.2 Nausea with vomiting, unspecified; R07.89 Other chest pain; R10.9 Unspecified abdominal pain; E11.9 Type 2 diabetes mellitus without complications; Z20.822 Contact with and (suspected) exposure to COVID-19; Z79.899 Other long term (current) drug therapy; Z79.4 Long term (current) use of insulin
CPT/HCPCS: 36415; 71046; 74177; 80048; 80076; 81001; 83690; 83735; 84484; 85025; 85610; 87086; 87502; 87635; 93005; 96361; 96374; 96375; 96376; 99285; J1200; J2270; J2405; J2765; Q9967

== ENCOUNTER 2021-10-03 17:17 | Outpatient (REF) | payer OTHER, SELFPAY ==
[2021-10-03 17:30] LABS: Appearance Urine CLEAR; Color Urine STRAW; Glucose Urine UA NEG (NEG); Leukocyte Esterase Urine NEG (NEG); Nitrite Urine NEG (NEG); PH 5.5 (5.0-8.0); Specific Gravity - Urine <= 1.005 (1.005-1.025); UACC Culture Trigger NO; Urine Blood TRACE (NEG); Urine Ketones NEG (NEG); Urine Protein NEG (NEG-TRACE)
[2021-10-03 17:38] LABS: WBC Urine 0 /HPF (0-4)
== END 2021-10-03 17:18 | disposition home or self-care (01) ==
LOC: HO.LNP 17:17
PROVIDERS: Visit Provider Nurse Practitioner Acute Care
DX: R53.83 Other fatigue (principal)
CPT/HCPCS: 81001

== ENCOUNTER → 2021-10-14 12:16 | Outpatient (BNVA) | payer OTHER, SELFPAY | PROVIDERS: PCP Internal Medicine; Visit Provider Dietitian, Registered | DX: E11.65 Type 2 diabetes mellitus with hyperglycemia (principal) | CPT/HCPCS: 97802 ==

== ENCOUNTER 2021-11-24 09:59 | Outpatient (REF) | payer OTHER, SELFPAY ==
[2021-11-24 10:58] LABS: Hematocrit 34.7 % (37.0-47.0); Hemoglobin 11.3 g/dl (12.0-16.0)
[2021-11-24 11:16] LABS: Estimated Average Glucose 160 mg/dL; Hemoglobin A1c % 7.2 %
[2021-11-24 11:42] LABS: Anion Gap 17 (12-20); Blood Urea Nitrogen 15 mg/dL (9-16); C Reactive Protein 1.41 mg/dL (< or = 0.50); Calcium 9.5 mg/dL (8.4-10.2); Carbon Dioxide 25 mmol/L (22-29); Chloride 103 mmol/L (96-108); Estimated Glomerular Filt Rate > 60; Glucose Random 139 mg/dL (60-115); Potassium 4.9 mmol/L (3.3-5.1); Sodium 140 mmol/L (135-145)
== END 2021-11-24 10:00 | disposition home or self-care (01) ==
LOC: HO.LAB 09:59
PROVIDERS: PCP Internal Medicine; Visit Provider Internal Medicine Endocrinology, Diabetes & Metabolism
DX: D64.9 Anemia, unspecified (principal); E78.9 Disorder of lipoprotein metabolism, unspecified; I10 Essential (primary) hypertension; K21.9 Gastro-esophageal reflux disease without esophagitis; K59.01 Slow transit constipation; E11.40 Type 2 diabetes mellitus with diabetic neuropathy, unspecified; R79.82 Elevated C-reactive protein (CRP)
CPT/HCPCS: 36415; 80048; 83036; 85014; 85018; 86140

== ENCOUNTER 2021-11-25 07:46 | Outpatient (REF) | payer OTHER, SELFPAY ==
[2021-11-25 08:59] LABS: Cholesterol 238 mg/dL; HDL Cholesterol 36 mg/dL; LDL Cholesterol Calculated 168 mg/dl; Triglycerides 173 mg/dL
== END 2021-11-25 07:47 | disposition home or self-care (01) ==
LOC: HO.LAB 07:46
PROVIDERS: PCP Internal Medicine; Visit Provider Internal Medicine Endocrinology, Diabetes & Metabolism
DX: E11.65 Type 2 diabetes mellitus with hyperglycemia (principal)
CPT/HCPCS: 36415; 80061

== ENCOUNTER → 2021-12-02 14:16 | Outpatient (BNVA) | payer OTHER, SELFPAY | PROVIDERS: PCP Internal Medicine; Visit Provider Internal Medicine Endocrinology, Diabetes & Metabolism | DX: E11.65 Type 2 diabetes mellitus with hyperglycemia (principal); E78.9 Disorder of lipoprotein metabolism, unspecified; Z79.4 Long term (current) use of insulin; Z79.899 Other long term (current) drug therapy | CPT/HCPCS: 82947; 99212 ==

== ENCOUNTER 2021-12-11 13:51 | Outpatient (REF) | payer OTHER, SELFPAY | END 2021-12-11 13:52 | disposition home or self-care (01) | LOC: HO.LNP 13:51 | PROVIDERS: Visit Provider Internal Medicine | DX: R30.0 Dysuria (principal); E11.21 Type 2 diabetes mellitus with diabetic nephropathy | CPT/HCPCS: 87086 ==

== ENCOUNTER → 2022-04-20 09:33 | Outpatient (BNVA) | payer OTHER, SELFPAY | PROVIDERS: PCP Internal Medicine; Referring Provider Internal Medicine; Visit Provider Internal Medicine Cardiovascular Disease | DX: I10 Essential (primary) hypertension (principal); R10.13 Epigastric pain | CPT/HCPCS: 93005; 99212 ==

== ENCOUNTER 2022-06-02 09:22 | Outpatient (REF) | payer OTHER, SELFPAY ==
[2022-06-02 11:25] LABS: Cholesterol 153 mg/dL; HDL Cholesterol 35 mg/dL; LDL Cholesterol Calculated 84 mg/dl; Triglycerides 172 mg/dL
== END 2022-06-02 09:23 | disposition home or self-care (01) ==
LOC: HO.LAB 09:22
PROVIDERS: PCP Internal Medicine; Visit Provider Internal Medicine Endocrinology, Diabetes & Metabolism
DX: E11.65 Type 2 diabetes mellitus with hyperglycemia (principal); E78.9 Disorder of lipoprotein metabolism, unspecified
CPT/HCPCS: 36415; 80061; 82947; 83036; 99212

== ENCOUNTER 2022-06-22 09:18 | Outpatient (REF) | payer OTHER, SELFPAY ==
[2022-06-24 11:31] LABS: H Pylori Breath Test Negative (Negative)
== END 2022-06-22 09:19 | disposition home or self-care (01) ==
LOC: CF 09:18
PROVIDERS: PCP Internal Medicine; Referring Provider Internal Medicine; Visit Provider Internal Medicine Gastroenterology
DX: Z11.2 Encounter for screening for other bacterial diseases (principal); R10.13 Epigastric pain
CPT/HCPCS: 36415; 83013; 99212

== ENCOUNTER 2023-03-11 08:40 | Outpatient (AMB) | payer OTHER, SELFPAY ==
--- NOTE | 2023-03-11 09:41 | MHC.OFFWIV ---
Intake Vital Signs 03/11/23 09:42 Height 4 ft 11 in Weight 146 lb BMI 29.5 BP 118/74 Blood Pressure Location Rt brachial Position Sitting Pulse 62 Pulse Source Pulse Oximeter Pulse Oximetry (%) 97 Oxygen Delivery Method Room Air Intake Visit Reasons: EP LT arm pain [phone] Intake Note: Patient here for left arm pain, she was in [place] and fell and broke her arm in january and believes it was taken off to soon since her arm is still swollen and painful. she also was sick while over there which they said was GI issues and to see someone once she returned to the [facility]. Patient Tobacco Use Status: Never used Tobacco Allergies No Known Allergies [No Known Allergies*] Allergy (Verified 03/11/23 09:44) Do you need a note to return to daycare/school/sports/work: No HPI EP LT arm pain [phone] HPI Details 67-year-old female patient presents today with her granddaughter present for evaluation of her left lower arm. She reports that she broke her forearm while in [facility] in January. This was casted, and then the cast was removed only 2 weeks later. Patient has experienced ongoing pain and swelling since then. She is unsure of the exact nature of the fracture, and does not have any records with her. She also reports nausea and occasional vomiting, which have been ongoing since she was in [place]. She denies any fever or chills. She is able to eat food. She had been previously taking Zofran which had been helpful, however she does not have any more at this time. 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 Mother No problems noted. Social History (Reviewed 03/11/23 @ 10:11 by VERITO Vivas Housing: House Alcohol intake: never Patient Tobacco Use Status: Never used Tobacco e-Cigarette/Vaping Use: Never Used service: No Current occupational status: retired Current occupation: Left handed Cognitive needs: No Hearing needs: No Vision needs: Yes Review of Systems Const All systems reviewed & are unremarkable except as noted in HPI and below Physical Exam Vital Signs: Last Vital Signs Pulse 62 03/11/23 09:42 BP 118/74 03/11/23 09:42 Pulse Ox 97 03/11/23 09:42 Oxygen Delivery Method Room Air 03/11/23 09:42 BMI result Body Mass Index 29.5 Const General: cooperative, healthy appearing and no acute distress Neck Neck: Yes no lymphadenopathy Resp Effort & Inspection: normal respiratory effort and able to speak in complete sentences Auscultation: clear to auscultation bilaterally Cardio Jugular venous distension: no JVD Palpation: normal PMI Rate: regular rate Rhythm: regular rhythm GI Other: no tenderness Inspection: Yes normal to inspection Palpation (GI): Soft to palpation and No hepatosplenomegaly present Skin General skin exam: no rashes or lesions noted Extrem Other: Pain to palpation over dorsal aspect of left forearm. No erythema or excessive warmth. 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 No obvious deformity. Normal cap refill. No edema. Elbow/forearm/wrist images: 1. pain Psych Appearance: grossly normal Mental Status: mental status grossly normal Speech and movement: Normal speech and movement present Assessment & Plan Assessment & Plan (1) Pain in left forearm: Code(s): M79.632 - Pain in left forearm Plan: Patient had prior fracture back in January while in [place]. This was temporarily casted, however she has been experiencing ongoing pain and occasional swelling in that arm since then. Vascular exam is normal. She does have some weakness in that left hand, and pain to palpation in dorsal aspect of left forearm. I will obtain new x-ray today, and discuss with PCP Dr. Olivarez regarding referral to Orthopedics for follow-up. In the meantime, I have advised patient to utilize Tylenol, which I have refilled, and ice as needed to area. (2) Nausea and vomiting: Code(s): R11.2 - Nausea with vomiting, unspecified Qualifiers: Vomiting type: unspecified Qualified Code(s): R11.2 - Nausea with vomiting, unspecified Plan: Patient reports a GI illness while in [place] over the summer. She has some ongoing nausea and occasional vomiting. Abdominal exam is normal. I encouraged her to follow-up with PCP. I have refilled a short course of ondansetron for p.r.n. use. If this worsens or fever, chills, or abdominal pain develop, she should go to the emergency department for evaluation. She and granddaughter present at visit verbalized understanding and agree to plan. Orders: Orders XR forearm LT 2V Today M79.632 - Pain in left forearm Medications: Refilled acetaminophen ER (Tylenol 8 Hour) 650 mg PO Q8H PRN 60 tabs 0RF fever or pain ondansetron HCl 4 mg PO Q8H 7 days PRN 14 tabs 0RF nausea and vomiting R11.0 - Nausea Coding Level of Care Code Est Pt Level 3 (14871) Diagnoses Pain in left forearm M79.632 Nausea and vomiting, unspecified vomiting type R11.2 Vomiting type: unspecified
[2023-03-11 09:42] VITALS: BP 118/74; PULSE 62; O2SAT 97; BMI 29.5
== END 2023-03-11 10:09 | disposition home or self-care (01) ==
PROVIDERS: PCP Internal Medicine; Visit Provider Nurse Practitioner Family
DX: M79.632 Pain in left forearm (principal); R11.2 Nausea with vomiting, unspecified
CPT/HCPCS: 99213

== ENCOUNTER 2023-03-11 10:09 | Outpatient (REF) | payer OTHER, SELFPAY | END 2023-03-11 10:10 | disposition home or self-care (01) | LOC: HO.HMGCX 10:09 | PROVIDERS: PCP Internal Medicine; Visit Provider Nurse Practitioner Family | DX: M79.632 Pain in left forearm (principal) | CPT/HCPCS: 73090 ==

== ENCOUNTER 2023-04-28 08:54 | Outpatient (AMB) | payer OTHER, SELFPAY ==
[2023-04-28 08:58] VITALS: BP 144/90; PULSE 64; O2SAT 96; BMI 27.9
--- NOTE | 2023-04-28 08:58 | A.OFFVIS_ITS ---
Intake Vital Signs 04/28/23 08:58 Height 4 ft 11 in Weight 138 lb 6 oz BMI 27.9 BP 144/90 H Blood Pressure Location Rt brachial Position Sitting Pulse 64 Pulse Source Pulse Oximeter Pulse Oximetry (%) 96 Oxygen Delivery Method Room Air Intake Visit Reasons: DILIA G0439 04/18/22 Discuss/Bill ACP Allergies No Known Allergies [No Known Allergies*] Allergy (Verified 04/28/23 08:58) Medication List - Last Reconciled 04/28/23 by Roxana Olivarez MD acetaminophen ER (Tylenol 8 Hour) 650 mg PO Q8H PRN amlodipine 5 mg PO DAILY apixaban (Eliquis) 5 mg PO BID atorvastatin 80 mg PO DAILY blood sugar diagnostic (FreeStyle Lite Strips) USE DIRECTED TWICE A DAY cetirizine 10 mg PO DAILY chlorthalidone 25 mg PO DAILY dulaglutide (Trulicity) 1.5 mg (0.5 mL) subcut QWEEK escitalopram oxalate (Lexapro) 10 mg PO DAILY 90 days glucagon 3 mg/actuation (Baqsimi) 3 mg intranasal ONCE insulin glargine (Lantus U-100 Insulin) 30 units (0.3 mL) subcut DAILY lancets (FreeStyle Lancets) B.i.d. p.r.n. lisinopril 40 mg PO DAILY ondansetron HCl 4 mg PO Q8H PRN 7 days pantoprazole 40 mg PO BID 30 days pen needle, diabetic (Comfort EZ Pen [place]) use one needle twice a day for insulin injections Do you need a note to return to daycare/school/sports/work: No HPI [facility] G0439 04/18/22 Discuss/Bill ACP HPI Details Patient is 67-year-old female who has not seen any doctor in over 6 months Patient have a history of paroxysmal atrial fibrillation she is established with Dr. Arechiga [facility] History of insulin-dependent diabetes mellitus patient was seeing Dr. Esparza [facility] and currently is taking Trulicity only We do not know the status of her diabetes I have ordered labs While back at home in your patient broke her left forearm 2 months ago, she says that her arm was in cast however she is having difficulty using her left hand now I have ordered x-ray to evaluate. She is here with a daughter who says that patient is having memory issues and is feeling depressed, she keeps saying nobody cares She is also having difficulty keeping up with her medications and sometimes skips the doses and sometimes take it twice All family members work so they can not monitor her. I have refer her to Neurology for proper diagnosis. Hypertension: She is on 3 blood pressure medications and I am not sure if she is taking those she did not bring her bottles with her I have told daughter to call the specialists and book appointment For irritable bowel and GERD, she was seeing Dr. Ontiveros at [facility]. I have sent her medications refills She will return next week for follow-up HPI Comments History of Present Illness Details AWV Medical/social history reviewed Past medical history reviewed Morongo of care / care team list updated Surgical/ hospitalization history reviewed Current medications including OTC and supplements reviewed Family history reviewed Tobacco controlled form updated Alcohol use form updated Illicit drug use in social history reviewed Current diagnosis of depression ?screening updated Appropriate PHQ 2/PHQ-9 completed . Vital signs reviewed Alcohol tobacco drug use reviewed and discussed . MMSE completed . ? Fall risk: ?Assessed Fall history: yes Have you had any falls with injury in the past year?? yes Have you had 2 or more falls in the past year?? No Fall risk assessment completed Home safety discussed with the patient Functional ability assessed and discussed and documented Activities of daily living reviewed and appropriate actions taken . HRA filled out by the patient and reviewed by provider and scanned . Appropriate written screening schedule established . Any health advise needed provided . Advance care planning discussed with the patient , necessary paperwork filled Examination IPPE/AWE: Balance intact Romberg intact Tandem walk intact walk-in turn intact rise from sit to stand intact . ?Hearing ?whisper test pass . Medication list reviewed, patient is stable on medications All other providers patient is seeing discussed and noted . 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 Mother No problems noted. Housing: House Alcohol intake: never Patient Tobacco Use Status: Never used Tobacco e-Cigarette/Vaping Use: Never Used service: No Current occupational status: retired Current occupation: Left handed Cognitive needs: No Hearing needs: No Vision needs: Yes Questionnaire Medicare Wellness Checkup [age] What gender do you identify with?: female During the past 4 weeks, how much have you been bothered by emotional problems such as feeling anxious, depressed, irritable, sad or downhearted, and blue?: slightly During the past 4 weeks, has your physical & emotional health limited your social activities with family, friends, neighbors, or groups?: not at all During the past 4 weeks, how much bodily pain have you generally had?: mild pain During the past 4 weeks, was someone available to help you if you needed & wanted help?: yes, some During the past 4 weeks, what was the hardest physical activity you could do for at least 2 minutes?: very light Can you get to places out of walking distance without help? (For eg., can you travel alone on buses, taxis or drive your car?): No Can you go shopping for groceries or clothes without someone's help?: No Can you prepare your own meals?: No Can you do your housework without help?: No Because of any health problems, do you need the help of another person with your personal care needs such as eating, bathing, dressing or getting around the house?: Yes Can you handle your own money without help?: No During the past 4 weeks how have things been going for you?: good & bad parts about equal Are you having difficulties driving your car?: not applicable, I don't use a car Do you always fasten your seat belt when you are in a car?: yes, sometimes During past 4 weeks, have you been bothered by the following: never: Sexual problems? and Teeth or denture problems?, sometimes: Trouble eating well?, often: Problems using the telephone? and Tiredness or fatigue? and always: Falling or dizzy when standing up Have you fallen 2 or more times in the past year?: Yes Are you afraid of falling?: Yes Are you a smoker?: no During the past 4 weeks, how many drinks of wine, beer, or other alcoholic beverages did you have?: no alcohol at all Do you exercise for about 20 minutes 3 or more times a week?: no, I usually do not exercise this much Have you been given information to help with the following?: yes: Keeping track of your medications? and no: Hazards in your house that might hurt you? How often do you have trouble taking medicines the way you have been told to take them?: sometimes I take medicine as prescribed How confident are you that you can control & manage most of your health problems?: not very confident What is your race?: White Mini Mental State Exam (MMSE) Orientation What is the (year) (season) (date) (day) (month)?: year, season, date, day and month Where are we (state) (county) (town or city) (hospital) (floor)?: state, county, town or city, hospital/clinic and floor Score Score: 10 Activity of Daily Living Bathing - sponge bath, tub bath or shower: receives no assistance (gets in/out by self, if usual bathing means Dressing - getting clothes from closets & drawers, including inner/outer garments & fasteners.: gets clothes & gets dressed without help, except for help tying shoes Toileting - going to the 'toilet room' for urine/bowel elimination & cleaning self/arranging clothes: goes to toilet room, cleans self, arranges clothes without help Transfer: moves in & out of bed and chair without help (may use support object) Continence: has occasional 'accidents' Feeding: feeds self without help Total Score: 0 Information obtained from: informant Using telephone: needs assistance Traveling: dependent Shopping: dependent Preparing meals: dependent Housework: dependent Taking medicine: needs assistance Managing money: dependent PHQ-9 Over the last 2 weeks, how often have you been bothered by any of the following problems? 1. Little interest or pleasure in doing things: not at all 2. Feeling down, depressed, or hopeless: nearly every day 3. Trouble falling or staying asleep, or sleeping too much: nearly every day 4. Feeling tired or having little energy: nearly every day 5. Poor appetite or overeating: nearly every day 6. Feeling bad about yourself - or that you are a failure or have let yourself or your family down: more than half the days 7. Trouble concentrating on things, such as reading the newspaper or watching television: nearly every day 8. Moving or speaking so slowly that other people could have noticed. Or the opposite - being so fidgety or restless that you have been moving around a lot more than usual: more than half the days 9. Thoughts that you would be better off or of hurting yourself in some way: not at all Total score: 19 Depression Screening Interpretation: Positive Depression Screening Follow-up: Existing condition and In treatment Depression Screening Done: Yes 85670 - PHQ-9 Billing: Yes Source: Developed by Drs. Miles Barkley, Luzma Marino, Calderon Wilkerson and colleagues, with an educational chu from [employer]. Review of Systems Const Denies chills and Denies fever(s) ENT Denies epistaxis and Denies nasal discharge Card Denies chest pain Resp Denies chest congestion, Denies cough and Denies hemoptysis GI Denies diarrhea and Denies nausea Skin/Breast Denies rash Neuro Reports no additional complaints Psych Reports no additional complaints Endo Reports no additional complaints Physical Exam Vital Signs: Last Vital Signs Pulse 64 04/28/23 08:58 BP 144/90 H 04/28/23 08:58 Pulse Ox 96 04/28/23 08:58 Oxygen Delivery Method Room Air 04/28/23 08:58 BMI result Body Mass Index 27.9 Const General: cooperative, comfortable and no acute distress Orientation/consciousness: patient oriented x3 HEENT Head: Yes normocephalic Eyes General: appearance normal, both eyes and all related structures Neck Other: Supple Neck: Yes supple Resp Effort & Inspection: normal respiratory effort, no cough and no stridor Cardio Rhythm: regular rhythm Heart sounds: S1 normal heart sound present and S2 normal heart sound present Skin General skin exam: turgor normal Neuro Other: Motor sensory intact General: patient oriented x3, tone normal and moves all extremities Extrem Other: No lower extremity swelling. Keeping left forearm still, limited range of motion of wrist, and elbow due to pain Right lower extremity: no edema Left lower extremity: no edema Assessment & Plan Assessment & Plan (1) Uncontrolled diabetes mellitus: Code(s): E11.65 - Type 2 diabetes mellitus with hyperglycemia Qualifiers: Diabetes mellitus type: type 1 Glycemic state: with hyperglycemia Qualified Code(s): E10.65 - Type 1 diabetes mellitus with hyperglycemia (2) Diabetic nephropathy: Code(s): E11.21 - Type 2 diabetes mellitus with diabetic nephropathy Qualifiers: Diabetes mellitus type: type 1 Qualified Code(s): E10.21 - Type 1 maria teresa betes mellitus with diabetic nephropathy (3) Major depression, recurrent: Code(s): F33.9 - Major depressive disorder, recurrent, unspecified Qualifiers: Active/Remission status: currently active Major depression episode severity: moderate Qualified Code(s): F33.1 - Major depressive disorder, recurrent, moderate (4) PAF (paroxysmal atrial fibrillation): Comment: Stable Code(s): I48.0 - Paroxysmal atrial fibrillation (5) Anxiety, generalized: Code(s): F41.1 - Generalized anxiety disorder (6) Polymyalgia rheumatica: Code(s): M35.3 - Polymyalgia rheumatica (7) Diabetic neuropathy: Code(s): E11.40 - Type 2 diabetes mellitus with diabetic neuropathy, unspecified Qualifiers: Diabetes mellitus complication detail: with other neurological complication Diabetes mellitus type: type 1 Qualified Code(s): E10.49 - Type 1 diabetes mellitus with other diabetic neurological complication (8) Chronic vertigo: Code(s): R42 - Dizziness and giddiness (9) Hypertension, essential: Comment: Stable Code(s): I10 - Essential (primary) hypertension (10) Chronic GERD: Code(s): K21.9 - Gastro-esophageal reflux disease without esophagitis (11) Environmental allergies: Code(s): Z91.09 - Other allergy status, other than to drugs and biological substances (12) Lipid disorder: Code(s): E78.9 - Disorder of lipoprotein metabolism, unspecified (13) Constipation by delayed colonic transit: Code(s): K59.01 - Slow transit constipation (14) Fracture of forearm, left, closed: Code(s): S52.92XA - Unspecified fracture of left forearm, initial encounter for closed fracture Qualifiers: Encounter type: initial encounter Qualified Code(s): S52.92XA - Unspecified fracture of left forearm, initial encounter for closed fracture (15) Mild cognitive disorder: Code(s): F09 - Unspecified mental disorder due to known physiological condition Plan Patient is 67-year-old female who has not seen any doctor in over 6 months Patient have a history of paroxysmal atrial fibrillation she is established with Dr. Arechiga [facility] History of insulin-dependent diabetes mellitus patient was seeing Dr. Esparza [facility] and currently is taking Trulicity only We do not know the status of her diabetes I have ordered labs, daughter says that her sugars have been uncontrolled While back at home in your patient broke her left forearm 2 months ago, she says that her arm was in cast however she is having difficulty using her left hand now I have ordered x-ray to evaluate. She is here with a daughter who says that patient is having memory issues and is feeling depressed, she keeps saying nobody cares She is also having difficulty keeping up with her medications and sometimes skips the doses and sometimes take it twice All family members work so they can not monitor her. I have refer her to Neurology for proper diagnosis. Hypertension: She is on 3 blood pressure medications and I am not sure if she is taking those she did not bring her bottles with her I have told daughter to call the specialists and book appointment For irritable bowel and GERD, she was seeing Dr. Ontiveros at [facility]. I have sent her medications refills She will return next week for follow-up Orders: Orders Complete Blood Count Auto Diff Today E11.21 - Type 2 diabetes mellitus with diabetic nephropathy, E11.40 - Type 2 diabetes mellitus with diabetic misa ropathy, unspecified, E11.65 - Type 2 diabetes mellitus with hyperglycemia, E78.9 - Disorder of lipoprotein metabolism, unspecified, F33.9 - Major depressive disorder, recurrent, unspecified, F41.1 - Generalized anxiety disorder, I10 - Essential (primary) hypertension, I48.0 - Paroxysmal atrial fibrillation, K21.9 - Gastro-esophageal reflux disease without esophagitis, K59.01 - Slow transit constipation, M35.3 - Polymyalgia rheumatica, R42 - Dizziness and giddiness, Z91.09 - Other allergy status, other than to drugs and biological substances Comprehensive [place]. Panel Fast Today E11.21 - Type 2 diabetes mellitus with diabetic nephropathy, E11.40 - Type 2 diabetes mellitus with diabetic neuropathy, unspecified, E11.65 - Type 2 diabetes mellitus with hyperglycemia, E78.9 - Disorder of lipoprotein metabolism, unspecified, F33.9 - Major depressive disorder, recurrent, unspecified, F41.1 - Generalized anxiety disorder, I10 - Essential (primary) hypertension, I48.0 - Paroxysmal atrial fibrillation, K21.9 - Gastro-esophageal reflux disease without esophagitis, K59.01 - Slow transit constipation, M35.3 - Polymyalgia rheumatica, R42 - Dizziness and giddiness, Z91.09 - Other allergy status, other than to drugs and biological substances Lipid Panel Today E11.21 - Type 2 diabetes mellitus with diabetic nephropathy, E11.40 - Type 2 diabetes mellitus with diabetic neuropathy, unspecified, E11.65 - Type 2 diabetes mellitus with hyperglycemia, E78.9 - Disorder of lipoprotein metabolism, unspecified, F33.9 - Major depressive disorder, recurrent, unspecified, F41.1 - Generalized anxiety disorder, I10 - Essential (primary) hypertension, I48.0 - Paroxysmal atrial fibrillation, K21.9 - Gastro-esophageal reflux disease without esophagitis, K59.01 - Slow transit constipation, M35.3 - Polymyalgia rheumatica, R42 - Dizziness and giddiness, Z91.09 - Other allergy status, other than to drugs and biological substances Hemoglobin A1c Today E11.21 - Type 2 diabetes mellitus with diabetic nephropathy, E11.40 - Type 2 diabetes mellitus with diabetic neuropathy, unspecified, E11.65 - Type 2 diabetes mellitus with hyperglycemia, E78.9 - Disorder of lipoprotein metabolism, unspecified, F33.9 - Major depressive disorder, recurrent, unspecified, F41.1 - Generalized anxiety disorder, I10 - Essential (primary) hypertension, I48.0 - Paroxysmal atrial fibrillation, K21.9 - Gastro-esophageal reflux disease without esophagitis, K59.01 - Slow transit constipation, M35.3 - Polymyalgia rheumatica, R42 - Dizziness and giddiness, Z91.09 - Other allergy status, other than to drugs and biological substances Microalbumin, Random (w Creat) Today E11.21 - Type 2 diabetes mellitus with diabetic nephropathy, E11.40 - Type 2 diabetes mellitus with diabetic neuropathy, unspecified, E11.65 - Type 2 diabetes mellitus with hyperglycemia, E78.9 - Disorder of lipoprotein metabolism, unspecified, F33.9 - Major depressive disorder, recurrent, unspecified, F41.1 - Generalized anxiety disorder, I10 - Essential (primary) hypertension, I48.0 - Paroxysmal atrial fibrillation, K21.9 - Gastro-esophageal reflux disease without esophagitis, K59.01 - Slow transit constipation, M35.3 - Polymyalgia rheumatica, R42 - Dizziness and giddiness, Z91.09 - Other allergy status, other than to drugs and biological substances XR forearm LT 2V Today S52.92XA - Unspecified fracture of left forearm, initial encounter for closed fracture Referrals Neurology Referral F09 - Unspecified mental disorder due to known physiological condition Medications: New chlorthalidone 25 mg PO DAILY 90 tabs 0RF Refilled amlodipine 5 mg PO DAILY 90 tabs 0RF cetirizine 10 mg PO DAILY 90 tabs 3RF atorvastatin 80 mg PO DAILY 30 tabs 5RF escitalopram oxalate (Lexapro) 10 mg PO DAILY 90 tabs 3RF 90 days F41.0 - Panic disorder [episodic paroxysmal anxiety] lisinopril 40 mg PO DAILY 90 tabs 0RF pantoprazole 40 mg PO BID 60 tabs 6RF 30 days Quality Reporting (2019) Depression/Bipolar (159/160/161/177) PHQ-9: Total score: 19 Coding Level of Care Code Medicare Subsequent (G0439) Est Pt Level 4 (52711) Diagnoses Uncontrolled type 1 diabetes mellitus with hyperglycemia E10.65 Diabetes mellitus type: type 1 Glycemic state: with hyperglycemia 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 E10.21 Diabetes mellitus type: type 1 Moderate episode of recurrent major depressive disorder F33.1 Active/Remission status: currently active Major depression episode severity: moderate PAF (paroxysmal atrial fibrillation) I48.0 Anxiety, generalized F41.1 Polymyalgia rheumatica M35.3 Other diabetic neurological complication associated with type 1 diabetes mellitus E10.49 Diabetes mellitus complication detail: with other neurological complication Diabetes mellitus type: type 1 Chronic vertigo R42 Hypertension, essential I10 Chronic GERD K21.9 Environmental allergies Z91.09 Lipid disorder E78.9 Constipation by delayed colonic transit K59.01 Closed fracture of left forearm, initial encounter S52.92XA Encounter type: initial encounter Mild cognitive disorder F09 CPT Codes Advance Care Planning - Time spent: 1-15 minutes, not on file ([id number]) Advance Care Planning Advance Care Planning discussion: Completed/Scanned Forms completed: JAVIER Time spent: 1-15 minutes, not on file
== END 2023-04-28 09:38 | disposition home or self-care (01) ==
PROVIDERS: Visit Provider Internal Medicine
DX: E10.65 Type 1 diabetes mellitus with hyperglycemia (principal); E10.21 Type 1 diabetes mellitus with diabetic nephropathy; F33.1 Major depressive disorder, recurrent, moderate; I48.0 Paroxysmal atrial fibrillation; M35.3 Polymyalgia rheumatica; E10.49 Type 1 diabetes mellitus with other diabetic neurological complication; F41.1 Generalized anxiety disorder; R42 Dizziness and giddiness; I10 Essential (primary) hypertension; K21.9 Gastro-esophageal reflux disease without esophagitis; Z91.09 Other allergy status, other than to drugs and biological substances; E78.9 Disorder of lipoprotein metabolism, unspecified
CPT/HCPCS: 1124F; 99214; G0439

== ENCOUNTER 2023-04-28 09:40 | Outpatient (REF) | payer OTHER, SELFPAY ==
--- NOTE | ~2023-04-28 | XR_ITS ---
EXAMINATION: XR FOREARM, LEFT CLINICAL INFORMATION: Unspecified fracture left forearm COMPARISON: Left forearm 03/11/2023 TECHNIQUE: AP and lateral views of the left forearm were obtained. FINDINGS: There is a healed distal radial fracture with no acute fractures seen at this time. The visualized entire reason alignment is unremarkable. The soft tissues are normal. XR/XR forearm LT 2V IMPRESSION: Healed distal radial fracture. No acute fracture or dislocation seen.
[2023-04-28 13:17] LABS: MANUAL DIFF FLAG NO
[2023-04-28 13:22] LABS: Basophils Percent Auto 0.3 % (0-2); Eosinophils Percent Auto 0.6 % (0-4); Hematocrit 39.9 % (37.0-47.0); Hemoglobin 12.8 g/dl (12.0-16.0); Imm Gran Abs Auto 0.02 X10*3/uL (0.00-0.03); Imm Gran Pct Auto 0.3 % (0.0-0.4); Lymphocytes Percent Auto 31.3 % (20-40); Mean Corpuscular HGB Conc 32.1 g/dl (31.0-35.0); Mean Corpuscular Hemoglobin 28.1 pg (27.0-33.0); Mean Corpuscular Volume 87.5 fL (80.0-98.0); Mean Platelet Volume 10.8 fL (9.4-12.3); Monocytes Absolute Auto 0.3 X10*3/uL (0.1-1.2); Monocytes Percent Auto 5.2 % (2-11); Neutrophils Percent Auto 62.3 % (45-73); Platelet Count 344 X10*3/uL (160-400); Red Blood Count 4.56 X10*6/uL (4.20-5.50); Red Cell Distribution Width 12.3 % (11.0-16.0); White Blood Count 6.4 X10*3/uL (4.8-10.8)
[2023-04-28 13:34] LABS: Estimated Average Glucose 289 mg/dL; Hemoglobin A1c % 11.7 % (<6.0)
[2023-04-28 13:42] LABS: Alanine Aminotransferase 13 U/L (0-31); Albumin Level 4.4 g/dL (3.5-5.0); Alkaline Phosphatase 106 U/L (39-117); Anion Gap 11 (12-20); Aspartate Amino Transferase 17 U/L (5-31); Bilirubin Total 0.4 mg/dL (0.0-1.0); Blood Urea Nitrogen 9 mg/dL (9-16); Carbon Dioxide 29 mmol/L (22-29); Chloride 102 mmol/L (96-108); Cholesterol 211 mg/dL (<200); Estimated Glomerular Filt Rate > 60; Glucose Fasting 265 mg/dL (60-99); HDL Cholesterol 42 mg/dL (>40); LDL Cholesterol Calculated 137 mg/dL (<100); Potassium 4.1 mmol/L (3.3-5.1); Sodium 138 mmol/L (135-145); Total Protein 8.7 g/dL (6.5-8.0); Triglycerides 163 mg/dL (<150)
[2023-04-28 13:54] LABS: Microalbum/Creatinine Ratio Ur 50.6 ug/mg cr (<30)
== END 2023-04-28 09:41 | disposition home or self-care (01) ==
LOC: HO.HMGCX 09:40
PROVIDERS: PCP Internal Medicine; Visit Provider Internal Medicine
DX: S52.92XA Unspecified fracture of left forearm, initial encounter for closed fracture (principal); E11.65 Type 2 diabetes mellitus with hyperglycemia; E11.21 Type 2 diabetes mellitus with diabetic nephropathy; F41.1 Generalized anxiety disorder; M35.3 Polymyalgia rheumatica; E11.40 Type 2 diabetes mellitus with diabetic neuropathy, unspecified; R42 Dizziness and giddiness; I10 Essential (primary) hypertension; K21.9 Gastro-esophageal reflux disease without esophagitis; Z91.09 Other allergy status, other than to drugs and biological substances; E78.9 Disorder of lipoprotein metabolism, unspecified; K59.01 Slow transit constipation; I48.0 Paroxysmal atrial fibrillation; F33.9 Major depressive disorder, recurrent, unspecified
CPT/HCPCS: 36415; 73090; 80053; 80061; 82043; 82570; 83036; 85025

== ENCOUNTER 2023-05-14 09:03 | Outpatient (AMB) | payer OTHER, SELFPAY ==
--- NOTE | 2023-05-14 09:16 | A.OFFVIS_ITS ---
Intake Vital Signs 05/14/23 09:42 Height 4 ft 11 in Weight 134 lb 2 oz BMI 27.1 BP 102/66 Blood Pressure Location Rt brachial Position Sitting Respiration 16 Pulse 81 Pulse Source Pulse Oximeter Pulse Oximetry (%) 96 Oxygen Delivery Method Room Air Intake Visit Reasons: INP - Mild Cognitive Disorder - Conf Intake Note: Pt presents tot he office for new pt evaluation for memory loss x 3 years. Line Tender Flakeboard Required: No Allergies No Known Allergies [No Known Allergies*] Allergy (Verified 05/14/23 09:16) Medication List - Last Reconciled 05/14/23 by Ricarda Peguero MD acetaminophen ER (Tylenol 8 Hour) 650 mg PO Q8H PRN atorvastatin 80 mg PO DAILY blood sugar diagnostic (FreeStyle Lite Strips) USE DIRECTED TWICE A DAY cetirizine 10 mg PO DAILY chlorthalidone 25 mg PO DAILY dulaglutide (Trulicity) 1.5 mg (0.5 mL) subcut QWEEK escitalopram oxalate (Lexapro) 10 mg PO DAILY 90 days glucagon 3 mg/actuation (Baqsimi) 3 mg intranasal ONCE lancets (FreeStyle Lancets) B.i.d. p.r.n. lisinopril 40 mg PO DAILY pantoprazole 40 mg PO BID 30 days pen needle, diabetic (Comfort EZ Pen [place]) use one needle twice a day for insulin injections HPI HPI Comments History of Present Illness Details 68y/o Turkish female comes for evaluati on of cognitive issues. she is accompanied by her son who helps with history. Her family started noticing cognitive issues about 3 years ago and it was mild until last year when her . Since then she has been depressed and her cognition has worsened. SHe forgets to take her medictaions, gets confused while watching TV and thinks that the characters are conversing with her.she frequently misplaces things around the house.She got lost at the airport in [place] and was found wandering. she missed her flight to [facility].she gets confused with her children - confuses names of her children. she needs assistance with showers- due to dizziness. She knows how to dress .she used to cook but now she stopped. she has trouble falling asleep, staying asleep and is tired at home. She cannot read or write- did not go to school she also reports dizziness especially in the morning - when she moves - she feels like her body is spinning around. No tinnitus or hearing issues . 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 Mother No problems noted. Social History Housing: House Alcohol intake: never Patient Tobacco Use Status: Never used Tobacco e-Cigarette/Vaping Use: Never Used service: No Current occupational status: retired Current occupation: Left handed Cognitive needs: No Hearing needs: No Vision needs: Yes Review of Systems Neuro Reports confusion Psych Reports confusion Physical Exam Vital Signs: Last Vital Signs Pulse 81 05/14/23 09:42 Resp 16 05/14/23 09:42 BP 102/66 05/14/23 09:42 Pulse Ox 96 05/14/23 09:42 Oxygen Delivery Method Room Air 05/14/23 09:42 BMI result Body Mass Index 27.1 Const General: cooperative, healthy appearing, comfortable and confusion Nutritional Appearance: average body habitus Orientation/consciousness: confusion Eyes Pupils: Equal, round and reactive pupils present Neuro Other: feel vertiginous and off balance General: tone normal, moves all extremities, no focal motor deficits and confusion Cranial nerves: Yes Equal, round and reactive pupils present, Yes Bilaterally intact EOM present, Yes Nystagmus not present, Yes Normal facial strength present, Yes Midline tongue present and Yes Symmetric palate elevation present Deep tendon reflexes (DTR's): Right triceps reflex intensity grade: 1+, Left triceps reflex intensity grade: 1+, Rt Biceps (C5, C6): 1+, Left biceps reflex intensity grade: 1+, Right brachioradialis reflex intensity grade: 1+, Left brachioradialis reflex intensity grade: 1+, Right patellar reflex intensity grade: 1+ and Left patellar reflex intensity grade: 1+ Coordination: [id number] test normal Orientation What is the (year) (season) (date) (day) (month)?: season Where are we (state) (county) (town or city) (hospital) (floor)?: town or city and hospital/clinic Registration Name of 3 unrelated objects clearly and slowly, then ask patient to repeat all 3 of them. (1st repeat determines score. Make sure they can repeat all three): object 1, object 2 and object 3 Recall Ask patient to repeat the 3 items from question #3.: object 1, object 2 and object 3 Language Show patient a wristwatch & ask what it is. Repeat for pencil.: watch and pencil Ask the patient to 'take a piece of paper with their right hand' 'fold paper in half' 'place paper on floor': take paper in right hand, fold paper in half and place paper on floor Ask patient to copy figure of intersecting pentagons exactly. Score if all 10 angles & 2 intersects are included.: all 10 angles present & 2 are intersected Score Score: 15 Assessment & Plan Assessment & Plan (1) Cognitive disorder: Comment: ? early dementia , worsened by mood ?. she did not test well on MMSE due to her education level Code(s): F09 - Unspecified mental disorder due to known physiological condition Plan: MRI brain check TSH VIt B 12 Vit D ESR I will increase her lexapro to 20 mg qd and will consider adding memantine (2) Vertigo: Code(s): R42 - Dizziness and giddiness Plan: Vestibular therapy Orders: Orders TSH reflex Free T4 Today F09 - Unspecified mental disorder due to known physiological condition PT Evaluation and Treatment Today R42 - Dizziness and giddiness MR brain wo con w neuroquant Today F09 - Unspecified mental disorder due to known physiological condition Vitamin B12 and Folate Today F09 - Unspecified mental disorder due to known physiological condition Vitamin D 25-OH (D2 and D3) Today F09 - Unspecified mental disorder due to known physiological condition Erythrocyte Sedimentation Rate Today F09 - Unspecified mental disorder due to known physiological condition Medications: Changed From escitalopram oxalate (Lexapro) 10 mg PO DAILY 90 days 90 tabs 3RF F41.0 - Panic disorder [episodic paroxysmal anxiety] To escitalopram oxalate 20 mg PO DAILY 90 days 90 tabs 3RF F41.0 - Panic disorder [episodic paroxysmal anxiety] Coding Level of Care Code New Pt Level 4 (15480) Diagnoses Cognitive disorder F09 Vertigo R42
[2023-05-14 09:42] VITALS: BP 102/66; PULSE 81; RESP 16; O2SAT 96; BMI 27.1
== END 2023-05-14 10:23 | disposition home or self-care (01) ==
PROVIDERS: PCP Internal Medicine; Visit Provider Psychiatry & Neurology Neurology
DX: G31.84 Mild cognitive impairment of uncertain or unknown etiology (principal); R42 Dizziness and giddiness
CPT/HCPCS: 99204

== ENCOUNTER → 2023-05-14 09:03 | Outpatient (BNVA) | payer OTHER, SELFPAY | PROVIDERS: PCP Internal Medicine; Visit Provider Psychiatry & Neurology Neurology | DX: F09 Unspecified mental disorder due to known physiological condition (principal); R42 Dizziness and giddiness | CPT/HCPCS: 99202 ==

== ENCOUNTER 2023-05-14 12:17 | Outpatient (AMB) | payer OTHER, SELFPAY ==
--- NOTE | 2023-05-14 12:19 | MHC.PC.OV ---
Vital Signs 05/14/23 12:20 Height 4 ft 11 in Weight 134 lb BMI 27.1 BP 94/68 Blood Pressure Location Rt brachial Position Sitting Pulse 79 Pulse Source Pulse Oximeter Pulse Oximetry (%) 97 Oxygen Delivery Method Room Air Intake Visit Reasons: follow up, per Dr. Olivarez Allergies No Known Allergies [No Known Allergies*] Allergy (Verified 05/14/23 12:20) Medication List - Last Reconciled 05/14/23 by Roxana Olivarez MD acetaminophen ER (Tylenol 8 Hour) 650 mg PO Q8H PRN amlodipine 5 mg PO DAILY atorvastatin 80 mg PO DAILY blood sugar diagnostic (FreeStyle Lite Strips) USE DIRECTED TWICE A DAY cetirizine 10 mg PO DAILY chlorthalidone 25 mg PO DAILY dulaglutide (Trulicity) 1.5 mg (0.5 mL) subcut QWEEK escitalopram oxalate 20 mg PO DAILY 90 days lancets (FreeStyle Lancets) B.i.d. p.r.n. lisinopril 40 mg PO DAILY pantoprazole 40 mg PO BID 30 days pen needle, diabetic (Comfort EZ Pen [place]) use one needle twice a day for insulin injections sennosides (senna) 8.6 mg PO BEDTIME Tobacco use date assessed: 05/14/23 Fall risk assessment: 2 + Falls in past year Last assessed Fall Risk: 05/14/23 Dental Screening Dental Screen Date: 05/14/23 Did you have a dental visit in the last 12 months?: No Was dental information given to patient?: No HPI follow up, per Dr. Olivarez HPI Details Patient is a 68-year-old female came in today for follow-up appointment on her labs Patient is insulin dependent diabetic, her hemoglobin A1c came back at 11.7 [place] went [place] almost whole year she was seeing Dr. Esparza I noticed that her last hemoglobin A1c checked May of last year was also in 11 range Patient says that the only medication she was taking was Trulicity as per Dr. Esparza's instructions She is still taking Trulicity same dose but sugar is out of control I have added long-acting insulin 10 units, I have told her daughter to start checking sugar 3 times a day fasting before supper and before bedtime She will return in 1 week for follow-up appointment I am also restarting metformin She is complaining of constipation metformin might help with that as well. I am going to stop amlodipine as her blood pressure is running low she may continue with lisinopril and chlorthalidone for now She saw neurologist for memory issues and MRI is ordered. Patient have a history of paroxysmal atrial fibrillation, I see that she has stopped Eliquis her heart rate is regular at this time History of polymyalgia rheumatica however patient has no pain at this time GERD is stable with pantoprazole Continued to feel depressed, she is to continue with Lexapro 20 mg Allergies are stable Lipid disorder: Continue atorvastatin 80 mg [facility] Medical History Cognitive disorder PAF (paroxysmal atrial fibrillation) longterm systemic 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 History of miscarriage Anemia NSTEMI (non-ST elevated myocardial infarction) Chronic vertigo Diabetic neuropathy Hypertension, essential Chronic GERD Environmental allergies Insulin dependent diabetes mellitus Lipid disorder Constipation by delayed colonic transit IBS (irritable bowel syndrome) Surgical History Hx of cardiac cath Hx of endoscopy Hx of colonoscopy Family History Father No problems noted. Mother No problems noted. Social History Housing: House Alcohol intake: never Patient Tobacco Use Status: Never used Tobacco e-Cigarette/Vaping Use: Never Used service: No Current occupational status: retired Current occupation: Left handed Cognitive needs: No Hearing needs: No Vision needs: Yes Questionnaire PHQ-9 Over the last 2 weeks, how often have you been bothered by any of the following problems? 1. Little interest or pleasure in doing things: several days 2. Feeling down, depressed, or hopeless: more than half the days 3. Trouble falling or staying asleep, or sleeping too much: not at all 4. Feeling tired or having little energy: more than half the days 5. Poor appetite or overeating: more than half the days 6. Feeling bad about yourself - or that you are a failure or have let yourself or your family down: several days 7. Trouble concentrating on things, such as reading the newspaper or watching television: several days 8. Moving or speaking so slowly that other people could have noticed. Or the opposite - being so fidgety or restless that you have been moving around a lot more than usual: not at all 9. Thoughts that you would be better off or of hurting yourself in some way: not at all Total score: 9 Depression Screening Interpretation: Positive Depression Screening Follow-up: Existing condition and In treatment Depression Screening Done: Yes 35691 - PHQ-9 Billing: Yes Source: Developed by Drs. Miles Barkley, Luzma Marino, Calderon Wilkerson and colleagues, with an educational chu from [employer]. Thrive Questionnaire Date Thrive assessed: 05/14/23 I am a: Patient What is your living situation today?: I have a steady place to live Within the past 12 months, did the food you bought not last and you didn't have the money to get more?: Never true Within the past 12 months, did you worry whether your food would run out before you got money to buy more?: Never true Do you have trouble paying for medicines?: No Do you have trouble getting transportation to medical appointments?: No Do you have trouble paying your heating and electricity bill?: No Do you have trouble taking care of your child, family member or friend?: No Do you have trouble with day-to-day activities such as bathing, preparing meals, shopping, managing finances, etc.?: No Are you currently unemployed and looking for a job?: No Are you interested in more education?: No Please select the resources that you would like help with: None Currently or been in a relationship where the following occur: no concerns reported GIANLUCA-7 AMB Questionnaire GIANLUCA-7 Date GIANLUCA - 7 assessed: 05/14/23 Feeling nervous, anxious, or on edge: 0 = Not at all Not being able to stop or control worryin = Several days Worrying too much about different things: 1 = Several days Trouble relaxin = Not at all Being so restless that it is hard to sit still: 0 = Not at all Becoming easily annoyed or irritable: 0 = Not at all Feeling afraid as if something awful might happen: 1 = Several days Total GIANLUCA-7 score (0-4 normal; 5-9 mild; 10-14 moderate; 15-21 severe): 3 Source: Developed by Drs. Miles Barkley, Luzma Marino, Calderon Wilkerson and colleagues, with an educational chu from [employer]. GIANLUCA-7 Assessment Billing GIANLUCA-7 Assessment Tool: GIANLUCA-7 Assessment 19927 Review of Systems Const Denies chills and Denies fever(s) ENT Denies epistaxis and Denies nasal discharge Card Denies chest pain Resp Denies chest congestion, Denies cough and Denies hemoptysis GI Denies diarrhea and Denies nausea Skin/Breast Denies rash Neuro Reports no additional complaints Psych Reports no additional complaints Endo Reports no additional complaints Physical exam (Primary Care) Vital Signs: Last Vital Signs Pulse 79 05/14/23 12:20 BP 94/68 05/14/23 12:20 Pulse Ox 97 05/14/23 12:20 Oxygen Delivery Method Room Air 05/14/23 12:20 BMI result Body Mass Index 27.1 Tobacco/Smoking Status: Tobacco use Status Tobacco use date assessed 05/14/23 05/14/23 12:27 Patient Tobacco Use Status Never used Tobacco 05/14/23 12:27 e-Cigarette/Vaping Use Never Used 05/14/23 12:27 PHQ-9: PHQ-9 Score PHQ-9: Total score 9 05/14/23 12:51 Depression Screening Interpretation: Positive Depression Screening Follow-up: Existing condition and In treatment Thrive Assessment: Date of Thrive Assessment Date Thrive assessed 05/14/23 05/14/23 12:51 Currently or been in a relationship where the following occur: no concerns reported Const General: cooperative, comfortable and no acute distress Orientation/consciousness: patient oriented x3 HENIL Head: Yes normocephalic Eyes General: appearance normal, both eyes and all related structures Neck Neck: Yes supple Resp Effort & Inspection: normal respiratory effort, no cough and no stridor Cardio Rhythm: regular rhythm Heart sounds: S1 normal heart sound present and S2 normal heart sound present Skin General skin exam: turgor normal Neuro General: patient oriented x3, tone normal and moves all extremities Extrem Right lower extremity: no edema Left lower extremity: no edema Assessment and Plan Assessment & Plan (1) Diabetic neuropathy: Code(s): E11.40 - Type 2 diabetes mellitus with diabetic neuropathy, unspecified Qualifiers: Diabetes mellitus complication detail: with other neurological complication Diabetes mellitus type: type 1 Qualified Code(s): E10.49 - Type 1 diabetes mellitus with other diabetic neurological complication (2) Hypertension, essential: Comment: Stable Code(s): I10 - Essential (primary) hypertension (3) Lipid disorder: Code(s): E78.9 - Disorder of lipoprotein metabolism, unspecified (4) Constipation by delayed colonic transit: Code(s): K59.01 - Slow transit constipation (5) Polymyalgia rheumatica: Code(s): M35.3 - Polymyalgia rheumatica (6) Uncontrolled diabetes mellitus: Code(s): E11.65 - Type 2 diabetes mellitus with hyperglycemia Qualifiers: Diabetes mellitus type: type 1 Glycemic state: with hyperglycemia Qualified Code(s): E10.65 - Type 1 diabetes mellitus with hyperglycemia (7) Diabetic nephropathy: Code(s): E11.21 - Type 2 diabetes mellitus with diabetic nephropathy Qualifiers: Diabetes mellitus type: type 1 Qualified Code(s): E10.21 - Type 1 diabetes mellitus with diabetic nephropathy (8) Major depression, recurrent: Code(s): F33.9 - Major depressive disorder, recurrent, unspecified Qualifiers: Active/Remission status: currently active Major depression episode severity: moderate Qualified Code(s): F33.1 - Major depressive disorder, recurrent, moderate (9) PAF (paroxysmal atrial fibrillation): Comment: Stable Code(s): I48.0 - Paroxysmal atrial fibrillation (10) Cognitive disorder: Comment: ? early dementia , worsened by mood ?. she did not test well on MMSE due to her education level Code(s): F09 - Unspecified mental disorder due to known physiological condition (11) Anxiety, generalized: Code(s): F41.1 - Generalized anxiety disorder Plan Patient is a 68-year-old female came in today for follow-up appointment on her labs Patient is insulin dependent diabetic, her hemoglobin A1c came back at 11.7 [place] went [place] she was seeing Dr. Esparza I noticed that her last hemoglobin A1c checked May of last year was also in 11 range Patient says that the only medication she was taking was Trulicity as per Dr. Esparza's instructions She is still taking Trulicity same dose but sugar is out of control I have added long-acting insulin 10 units, I have told her daughter to start checking sugar 3 times a day fasting before supper and before bedtime She will return in 1 week for follow-up appointment I am also restarting metformin She is complaining of constipation metformin might help with that as well. I am going to stop amlodipine as her blood pressure is running low she may continue with lisinopril and chlorthalidone for now She saw neurologist for memory issues and MRI is ordered. Patient have a history of paroxysmal atrial fibrillation, I see that she has stopped Eliquis her heart rate is regular at this time History of polymyalgia rheumatica however patient has no pain at this time GERD is stable with pantoprazole Continued to feel depressed, she is to continue with Lexapro 20 mg Allergies are stable Lipid disorder: Continue atorvastatin 80 mg X-ray of her left forearm showed healed fracture, I have encouraged patient to start using her left handGeneralized anxiety disorder Generalized anxiety disorder, continue Lexapro , Medications: Changed From insulin glargine (Lantus U-100 Insulin) 30 units (0.3 mL) subcut DAILY 20 mL 2RF To insulin glargine (Lantus U-100 Insulin) 10 units (0.1 mL) subcut DAILY 3 mL 2RF 30 days Refilled lancets (FreeStyle Lancets) B.i.d. p.r.n. 100 ea 3RF blood sugar diagnostic (FreeStyle Lite Strips) USE DIRECTED TWICE A DAY 50 strips 11RF E11.65 - Type 2 diabetes mellitus with hyperglycemia metformin ER 500 mg PO BID 180 tabs 0RF 90 days Coding Level of Care Code Est Pt Level 4 (99036) Diagnoses Other diabetic neurological complication associated with type 1 diabetes mellitus E10.49 Diabetes mellitus complication detail: with other neurological complication Diabetes mellitus type: type 1 Hypertension, essential I10 Lipid disorder E78.9 Constipation by delayed colonic transit K59.01 Polymyalgia rheumatica M35.3 Uncontrolled type 1 diabetes mellitus with hyperglycemia E10.65 Diabetes mellitus type: type 1 Glycemic state: with hyperglycemia 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
[2023-05-14 12:20] VITALS: BP 94/68; PULSE 79; O2SAT 97; BMI 27.1
== END 2023-05-14 15:08 | disposition home or self-care (01) ==
PROVIDERS: PCP Internal Medicine; Visit Provider Internal Medicine
DX: E10.65 Type 1 diabetes mellitus with hyperglycemia (principal); E10.49 Type 1 diabetes mellitus with other diabetic neurological complication; M35.3 Polymyalgia rheumatica; E10.21 Type 1 diabetes mellitus with diabetic nephropathy; F33.1 Major depressive disorder, recurrent, moderate; I48.0 Paroxysmal atrial fibrillation; I10 Essential (primary) hypertension; E78.9 Disorder of lipoprotein metabolism, unspecified; K59.01 Slow transit constipation; F09 Unspecified mental disorder due to known physiological condition; F41.1 Generalized anxiety disorder
CPT/HCPCS: 96127; 99214

== ENCOUNTER 2023-05-19 09:15 | Outpatient (AMB) | payer OTHER, SELFPAY ==
--- NOTE | 2023-05-19 09:19 | MHC.OFFVIS ---
Intake Vital Signs 05/19/23 09:20 Height 4 ft 11 in Weight 135 lb 9.349 oz BMI 27.4 BP 102/64 Blood Pressure Location Lt brachial Position Sitting Pulse 85 Pulse Source Pulse Oximeter Intake Visit Reasons: DM-CONFIRMED Intake Note: Patient presents today to follow up on DMT2. Last Diabetic Eye exam:Unsure Last Podiatry Visit: None Random Glucose: 298 mg/dl HgA1C: 11.7% 04/28/23 Jewelry Model Maker Required: Yes Jewelry Model Maker Language: Yg Jewelry Model Maker Name: Cathy daughter Information Interpreted: non-clinical & clinical Accompanied by: Daughter Allergies No Known Allergies [No Known Allergies*] Allergy (Verified 05/19/23 09:27) HPI HPI Comments History of Present Illness Details 67 YO F who is seen in consultation for T2DM at the request of PCP. Initially diagnosed with T2DM in 10 yrs . Was initially started on treatment with metformin. Current regimen metformin 500 mg BID Lantus 30 units QD not taking Trulicity 1.5 mg qwkly Unfortunately does not bring a log book or glucometer to follow-up visit. Few glucoses handwritten with glucose high 100s Reports low sugars frequently . Family history of T2DM in mother . Has eyes checked yearly, last eye exam , denies retinopathy. Denies neuropathy, last foot exam , not sees podiatry. Denies nephropathy, on ARA/ARB. Has HLD, on statin. has CAD with SC w/i 1-1 1/2 yrs . Not Had diabetes education. 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 Mother No problems noted. Social History Housing: House Alcohol intake: never Patient Tobacco Use Status: Never used Tobacco e-Cigarette/Vaping Use: Never Used service: No Current occupational status: retired Current occupation: Left handed Cognitive needs: No Hearing needs: No Vision needs: Yes Physical Exam Vital Signs: Last Vital Signs Pulse 85 05/19/23 09:20 BP 102/64 05/19/23 09:20 BMI result Body Mass Index 27.4 Absence of Cushingoid features. Absence of acromegalic features. Neck exam reveals nl size thyroid about 15 gms. No thyroid nodules palpable. No carotid bruits present. Lungs CTA. Heart S1 S2, Reg R/R. No M/R/ G. Skin exam reveals absence of vitiligo or acanthosis nigricans. Abdominal exam reveals Soft NT/ND with NA BS. No organomegaly present. Neck Other: . Extrem Other: Visual exam of foot performed. No ulcerations or open lesions. No onchomycosis, no callouses.Pulses 2 + distally Sensation intact to monofilament exam. Vibratory sensation sensed is intact with 128 Hz tuning fork Assessment & Plan Assessment & Plan (1) Uncontrolled diabetes mellitus: Code(s): E11.65 - Type 2 diabetes mellitus with hyperglycemia Qualifiers: Diabetes mellitus type: type 1 Glycemic state: with hyperglycemia Qualified Code(s): E10.65 - Type 1 diabetes mellitus with hyperglycemia Plan: This 68-year-old white female with a history of type 2 diabetes being treated metformin, Trulicity and basal insulin with poor glycemic control and no known microvascular or macrovascular complications Plan is to Re-emphasized to son and patient need to take insulin each day. Also emphasized need to check point cares pre and post meals and to see the staff educator. Will try to get her a Harvinder 2. She may need prandial insulin in conjunction with Lantus, metformin and Trulicity but she needs to bring her glucometer with her to the CDE appointment and all subsequent appointments. Once again I went over with the patient's son the correlation of poor glycemic control to development and progression of complications (2) Insulin dependent diabetes mellitus: Plan: See plan for uncontrolled diabetes (3) Lipid disorder: Code(s): E78.9 - Disorder of lipoprotein metabolism, unspecified Plan: On atorvastatin [address] with LDL way above goal. Plan is to recheck lipid profile Orders: Orders Lipid Panel 1 Day E78.9 - Disorder of lipoprotein metabolism, unspecified Referrals Nutrition/Dietitian Referral E11.65 - Type 2 diabetes mellitus with hyperglycemia Diabetes Education Referral E11.65 - Type 2 diabetes mellitus with hyperglycemia Medications: New insulin glargine (Lantus Solostar U-100 Insulin) 18 units (0.18 mL) subcut DAILY 30 mL 4RF flash glucose sensor (FreeStyle Harvinder 2 Sensor kit) As directed change every 14 days 2 ea 4RF flash glucose scanning reader (FreeStyle Harvinder 2 [place]) As directed 1 ea 0RF Discontinued insulin glargine (Lantus U-100 Insulin) Discontinued Reason: Doctor's Order 10 units (0.1 mL) subcut DAILY 30 days 3 mL 2RF Coding Level of Care Code Est Pt Level 4 (58780) Diagnoses Uncontrolled type 1 diabetes mellitus with hyperglycemia E10.65 Diabetes mellitus type: type 1 Glycemic state: with hyperglycemia Insulin dependent diabetes mellitus Lipid disorder E78.9
[2023-05-19 09:20] VITALS: BP 102/64; PULSE 85; BMI 27.4
[2023-05-19 09:45] LABS: Glucose, Whole Blood 298 mg/dL (60-115)
== END 2023-05-19 09:54 | disposition home or self-care (01) ==
PROVIDERS: PCP Internal Medicine; Visit Provider Internal Medicine Endocrinology, Diabetes & Metabolism
DX: E10.65 Type 1 diabetes mellitus with hyperglycemia (principal); E78.9 Disorder of lipoprotein metabolism, unspecified
CPT/HCPCS: 99214

== ENCOUNTER → 2023-05-19 09:15 | Outpatient (BNVA) | payer OTHER, SELFPAY | PROVIDERS: PCP Internal Medicine; Visit Provider Internal Medicine Endocrinology, Diabetes & Metabolism | DX: E10.65 Type 1 diabetes mellitus with hyperglycemia (principal); E78.9 Disorder of lipoprotein metabolism, unspecified | CPT/HCPCS: 82947; 99212 ==

== ENCOUNTER 2023-05-19 11:30 | Outpatient (AMB) | payer OTHER, SELFPAY ==
[2023-05-19 11:41] VITALS: BP 112/70; PULSE 81; O2SAT 95; BMI 27.5
--- NOTE | 2023-05-19 11:41 | A.OFFPC_ITS ---
Vital Signs 05/19/23 11:41 Height 4 ft 11 in Weight 136 lb 4 oz BMI 27.5 BP 112/70 Blood Pressure Location Rt brachial Position Sitting Pulse 81 Pulse Source Pulse Oximeter Pulse Oximetry (%) 95 Oxygen Delivery Method Room Air Intake Visit Reasons: follow up Allergies No Known Allergies [No Known Allergies*] Allergy (Verified 05/19/23 11:42) Medication List - Last Reconciled 05/19/23 by Roxana Olivarez MD acetaminophen ER (Tylenol 8 Hour) 650 mg PO Q8H PRN amlodipine 5 mg PO DAILY atorvastatin 80 mg PO DAILY blood sugar diagnostic (FreeStyle Lite Strips) USE DIRECTED TWICE A DAY cetirizine 10 mg PO DAILY chlorthalidone 25 mg PO DAILY dulaglutide (Trulicity) 1.5 mg (0.5 mL) subcut QWEEK escitalopram oxalate 20 mg PO DAILY 90 days flash glucose scanning reader (PaymentWorksStyle Harvinder 2 [place]) As directed flash glucose sensor (FreeStyle Harvinder 2 Sensor kit) As directed change every 14 days insulin glargine (Lantus Solostar U-100 Insulin) 18 units (0.18 mL) subcut DAILY lancets (FreeStyle Lancets) B.i.d. p.r.n. lisinopril 40 mg PO DAILY metformin ER 500 mg PO BID 90 days nitrofurantoin macrocrystal mg PO ondansetron HCl 4 mg PO .PRN pantoprazole 40 mg PO BID 30 days pen needle, diabetic (Comfort EZ Pen [employer]) use one needle twice a day for insulin injections sennosides (senna) 8.6 mg PO BEDTIME Tobacco use date assessed: 05/19/23 Fall risk assessment: 2 + Falls in past year Last assessed Fall Risk: 05/19/23 HPI follow up HPI Details Patient is 68-year-old female came in today for follow-up appointment Patient has been struggling with uncontrolled diabetes mellitus with very high sugars Patient's daughter is here with her to translate, she tells me that patient got sick and they had to take her to the hospital and they found out that patient have a urinary tract infection She was admitted treated and then discharged. She has already seen buffet manager after that today, she is currently on Trulicity and 18 units of long-acting insulin I will be checking UA today to make sure the infection has cleared Hypertension: she is on amlodipine 5 mg which I will be stopping as her blood pressure is running low She is to continue with chlorthalidone and lisinopril 40 mg Patient was not able to give us urine sample today, I have ordered UA, patient is due to have labs done through endocrinology in the morning And she will have a urine test as well. 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 Mother No problems noted. Social History Housing: House Alcohol intake: never Patient Tobacco Use Status: Never used Tobacco e-Cigarette/Vaping Use: Never Used service: No Current occupational status: retired Current occupation: Left handed Cognitive needs: No Hearing needs: No Vision needs: Yes Questionnaire PHQ-9 Over the last 2 weeks, how often have you been bothered by any of the following problems? 1. Little interest or pleasure in doing things: several days 2. Feeling down, depressed, or hopeless: more than half the days 3. Trouble falling or staying asleep, or sleeping too much: not at all 4. Feeling tired or having little energy: several days 5. Poor appetite or overeating: more than half the days 6. Feeling bad about yourself - or that you are a failure or have let yourself or your family down: several days 7. Trouble concentrating on things, such as reading the newspaper or watching television: several days 8. Moving or speaking so slowly that other people could have noticed. Or the opposite - being so fidgety or restless that you have been moving around a lot more than usual: not at all 9. Thoughts that you would be better off or of hurting yourself in some way: not at all Total score: 8 Depression Screening Interpretation: Negative Depression Screening Done: Yes 63515 - PHQ-9 Billing: Yes Source: Developed by Drs. Miles Barkley, Luzma Marino, Calderon Wilkerson and colleagues, with an educational chu from [employer]. Thrive Questionnaire Date Thrive assessed: 05/19/23 I am a: Patient What is your living situation today?: I have a steady place to live Within the past 12 months, did the food you bought not last and you didn't have the money to get more?: Never true Within the past 12 months, did you worry whether your food would run out before you got money to buy more?: Never true Do you have trouble paying for medicines?: No Do you have trouble getting transportation to medical appointments?: No Do you have trouble paying your heating and electricity bill?: No Do you have trouble taking care of your child, family member or friend?: No Do you have trouble with day-to-day activities such as bathing, preparing meals, shopping, managing finances, etc.?: No Are you currently unemployed and looking for a job?: No Are you interested in more education?: No Please select the resources that you would like help with: None Currently or been in a relationship where the following occur: no concerns reported AUDIT C Alcohol Use Questionnaire (AUDIT-C) 1. How often do you have a drink containing alcohol?: Never 3. How often do you have six or more drinks on one occasion?: Never Total Score: 0 GIANLUCA-7 AMB Questionnaire GIANLUCA-7 Date GIANLUCA - 7 assessed: 05/19/23 Feeling nervous, anxious, or on edge: 0 = Not at all Not being able to stop or control worryin = Several days Worrying too much about different things: 1 = Several days Trouble relaxin = Not at all Being so restless that it is hard to sit still: 0 = Not at all Becoming easily annoyed or irritable: 0 = Not at all Feeling afraid as if something awful might happen: 1 = Several days Total GIANLUCA-7 score (0-4 normal; 5-9 mild; 10-14 moderate; 15-21 severe): 3 Source: Developed by Luzma Neumann Kurt Kroenke and colleagues, with an educational chu from [employer]. GIANLUCA-7 Assessment Billing GIANLUCA-7 Assessment Tool: GIANLUCA-7 Assessment 22931 Review of Systems Const Denies fever(s) ENT Denies epistaxis and Denies nasal discharge Card Denies chest pain Resp Denies chest congestion, Denies cough and Denies hemoptysis GI Denies diarrhea and Denies nausea Skin/Breast Denies rash Neuro Reports no additional complaints Psych Reports no additional complaints Endo Reports no additional complaints Physical exam (Primary Care) Vital Signs: Last Vital Signs Pulse 81 05/19/23 11:41 BP 112/70 05/19/23 11:41 Pulse Ox 95 05/19/23 11:41 Oxygen Delivery Method Room Air 05/19/23 11:41 BMI result Body Mass Index 27.5 Tobacco/Smoking Status: Tobacco use Status Tobacco use date assessed 05/19/23 05/19/23 11:45 Patient Tobacco Use Status Never used Tobacco 05/19/23 11:45 e-Cigarette/Vaping Use Never Used 05/19/23 11:45 PHQ-9: PHQ-9 Score PHQ-9: Total score 8 05/19/23 12:02 Depression Screening Interpretation: Negative Thrive Assessment: Date of Thrive Assessment Date Thrive assessed 05/19/23 05/19/23 11:56 Currently or been in a relationship where the following occur: no concerns reported Const General: cooperative, comfortable and no acute distress Orientation/consciousness: patient oriented x3 HENMT Head: Yes normocephalic Eyes General: appearance normal, both eyes and all related structures Neck Neck: Yes supple Resp Effort & Inspection: normal respiratory effort, no cough and no stridor Cardio Rhythm: regular rhythm Heart sounds: S1 normal heart sound present and S2 normal heart sound present Skin General skin exam: turgor normal Neuro General: patient oriented x3, tone normal and moves all extremities Extrem Right lower extremity: no edema Left lower extremity: no edema Assessment and Plan Assessment & Plan (1) Acute cystitis: Code(s): N30.00 - Acute cystitis without hematuria Qualifiers: Hematuria presence: with hematuria Qualified Code(s): N30.01 - Acute cystitis with hematuria Plan Patient is 68-year-old female came in today for follow-up appointment Patient has been struggling with uncontrolled diabetes mellitus with very high sugars Patient's daughter is here with her to translate, she tells me that patient got sick and they had to take her to the hospital and they found out that patient have a urinary tract infection She was admitted treated and then discharged. She has already seen buffet manager after that today, she is currently on Trulicity and 18 units of long-acting insulin I will be checking UA today to make sure the infection has cleared Hypertension: she is on amlodipine 5 mg which I will be stopping as her blood pressure is running low She is to continue with chlorthalidone and lisinopril 40 mg Patient was not able to give us urine sample today, I have ordered UA, patient is due to have labs done through endocrinology in the morning And she will have a urine test as well. Orders: Orders UA CC w/rflx Micro + Cult Today N30.00 - Acute cystitis without hematuria Coding Level of Care Code Est Pt Level 3 (48043) Diagnoses Acute cystitis with hematuria N30.01 Hematuria presence: with hematuria Additional Codes GIANLUCA-7 Assessment Billing - GIANLUCA-7 Assessment Tool: GIANLUCA-7 Assessment 18988 ([id number])
== END 2023-05-19 12:37 | disposition home or self-care (01) ==
PROVIDERS: PCP Internal Medicine; Visit Provider Internal Medicine
DX: N30.01 Acute cystitis with hematuria (principal)
CPT/HCPCS: 99213

== ENCOUNTER 2023-05-21 06:01 | Outpatient (REF) | payer OTHER, SELFPAY ==
[2023-05-21 07:36] LABS: Cholesterol 137 mg/dL (<200); HDL Cholesterol 31 mg/dL (>40); LDL Cholesterol Calculated 82 mg/dL (<100); Triglycerides 120 mg/dL (<150)
[2023-05-21 07:55] LABS: TSH reflex Free T4 5.55 uIU/mL (0.32-4.0)
[2023-05-21 07:56] LABS: Erythrocyte Sedimentation Rate 81 MM/HR (0-20)
[2023-05-21 08:05] LABS: Folate 8.9 ng/mL (> or = 4.0); Vitamin B12 424 pg/mL (200-900)
[2023-05-21 08:27] LABS: Free T4 (Free Thyroxine) 1.13 ng/dL (0.71-1.85)
[2023-05-25 17:38] LABS: Vitamin D 25-OH, D2 <4 ng/mL; Vitamin D 25-OH, D3 20 ng/mL; Vitamin D 25-OH, Total 20 ng/mL (30-100)
== END 2023-05-21 06:02 | disposition home or self-care (01) ==
LOC: HO.LAB 06:01
PROVIDERS: Psychiatry & Neurology Neurology; Absent Provider Internal Medicine; PCP Internal Medicine; Visit Provider Internal Medicine Endocrinology, Diabetes & Metabolism
DX: E78.9 Disorder of lipoprotein metabolism, unspecified (principal); F09 Unspecified mental disorder due to known physiological condition; N30.00 Acute cystitis without hematuria
CPT/HCPCS: 36415; 80061; 82306; 82607; 82746; 84439; 84443; 85652

== ENCOUNTER 2023-06-04 10:46 | Outpatient (AMB) | payer OTHER, SELFPAY ==
--- NOTE | 2023-06-04 11:34 | A.OFFVIS_ITS ---
Intake Intake Visit Reasons: t2dm mellitus with hyperglycemia//CONFIRMED Environmental Control Administrator Required: Yes Environmental Control Administrator Language: Greenlandic Environmental Control Administrator Name: Cathy Hensley's Daughter Accompanied by: Daughter Allergies No Known Allergies [No Known Allergies*] Allergy (Verified 05/19/23 11:42) HPI Comprehensive Diabetes Asmnt Most Recent Diabetes Results: Microalb/Creat Ratio 50.6 ug/mg cr (<30) H 04/28/23 Cholesterol 137 mg/dL (<200) 05/21/23 HDL Cholesterol 31 mg/dL (>40) L 05/21/23 Triglycerides 120 mg/dL (<150) 05/21/23 Creatinine 0.81 mg/dL (0.5-1.4) 04/28/23 Blood Urea Nitrogen 9 mg/dL (9-16) 04/28/23 Sodium 138 mmol/L (135-145) 04/28/23 Potassium 4.1 mmol/L (3.3-5.1) 04/28/23 Chloride 102 mmol/L (96-108) 04/28/23 Carbon Dioxide 29 mmol/L (22-29) 04/28/23 Calcium 10.0 mg/dL (8.4-10.2) 04/28/23 AST 17 U/L (5-31) 04/28/23 ALT 13 U/L (0-31) 04/28/23 Total Protein 8.7 g/dL (6.5-8.0) H 04/28/23 Albumin 4.4 g/dL (3.5-5.0) 04/28/23 PFSH Medical History Cognitive disorder 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 Mother No problems noted. Social History Housing: House Alcohol intake: never Patient Tobacco Use Status: Never used Tobacco e-Cigarette/Vaping Use: Never Used service: No Current occupational status: retired Current occupation: Left handed Cognitive needs: No Hearing needs: No Vision needs: Yes Assessment & Plan Assessment & Plan (1) Uncontrolled diabetes mellitus: Code(s): E11.65 - Type 2 diabetes mellitus with hyperglycemia Qualifiers: Diabetes mellitus type: type 1 Glycemic state: with hyperglycemia Qualified Code(s): E10.65 - Type 1 diabetes mellitus with hyperglycemia Plan: Learning objectives: The patient was provided with verbal and written education on the following topics as outlined below. The patient met all learning objectives and was able to verbalize understanding and provide teach back of education topics discussed . The patient was provided with the opportunity to ask questions and all questions were answered. Patient Assessment Assess patient education level/literacy/barriers, patient's daughter reports that patient is not able to read numbers or letters Patient questions/concerns, patient's last A1c on 04/29/2023 11.7%. Patient is using freestyle Lite meter to check glucose several times a day. Patient is waiting on approval for freestyle Harvinder 2, numbers on meter to not reflect A1c value. Patient's daughter reports that patient was in your up for 4-5 months. While she was there she had seen a doctor whom stopped all of her S[place]inese diabetes medications. This may have led to that deterioration of patient's A1c Patient currently lives with her son and her [id number] prepare most of her meals Brief overview of Diabetes Management Monitoring blood sugar Following a meal plan Regular exercise Blood glucose monitoring When/how often to test Target blood sugar ranges Patient checking glucose with freestyle Lite meter 1-3 times daily [place] range from 70-119 mg/dL Glucose later on in the day range from 87 mg/dL to 237 mg/dL Introduction to Nutrition Importance of healthy diet in managing DM Diet is personalized to individual preference Review patient?s regular diet/food preferences Who prepares meals/does food shopping/ Dining out?/ Barriers? How diet effects glucose Eating 3 balanced meals a day with small, healthy snacks between meals Review food groups Carbohydrates: What is a carbohydrate/Which food/food groups are considered carbohydrates Effect of carbohydrates on blood glucose Portion sizes Reading food labels Basic carb counting (if applicable per nursing assessment) Plate method Meal planning Recommendations: Follow plate method, consistent carbs and read nutritional labels. Educational Materials: The patient was provided with the following written educational materials: Planning Healthy Meals Handout Patient Response to instructions: Comprehension of Instructions: Fair Readiness to make changes: Contemplation How confident they feel about making changes: fair Patient Instructions: Include regular daily activity. ADA recommends 30 minutes of exercise 5 days a week. Weight loss talk to PCP or Cement Sprayer Helper before starting new plan. Test blood sugar as directed; Fasting and 2hpp largest meal. Watch trends in results. Utilize results and to assess how food, physical activity and medications affect blood sugar results. Bring glucometer or CGM to next visit. Be knowledgeable about diabetes medication, its action, side effects, efficacy, toxicity, prescribed dosage, appropriate timing and frequency of administration, effect of missed and delayed doses and instructions for storage, travel and safety. Problem solving techniques to monitor hypo/hyperglycemia episodes and treatments. Reduce risk reduction behaviors, smoking cessation, regular eye, foot and dental examinations. Coding Level of Care Code Est Pt Level 1 (82298) Diagnoses Uncontrolled type 1 diabetes mellitus with hyperglycemia E10.65 Diabetes mellitus type: type 1 Glycemic state: with hyperglycemia
== END 2023-06-04 11:36 | disposition home or self-care (01) ==
PROVIDERS: PCP Internal Medicine; Visit Provider Registered Nurse Diabetes Educator
DX: E10.65 Type 1 diabetes mellitus with hyperglycemia (principal)

== ENCOUNTER → 2023-06-04 10:46 | Outpatient (BNVA) | payer OTHER, SELFPAY | PROVIDERS: PCP Internal Medicine; Visit Provider Registered Nurse Diabetes Educator | DX: E10.65 Type 1 diabetes mellitus with hyperglycemia (principal) | CPT/HCPCS: 99211 ==

== ENCOUNTER 2023-06-11 08:04 | Outpatient (REF) | payer OTHER, SELFPAY | END 2023-06-11 08:05 | disposition home or self-care (01) | LOC: HO.NEURO 08:04 | PROVIDERS: PCP Internal Medicine; Visit Provider Psychiatry & Neurology Neurology | DX: F09 Unspecified mental disorder due to known physiological condition (principal) | CPT/HCPCS: 95816 ==

== ENCOUNTER 2023-06-22 17:53 | Outpatient (REF) | payer OTHER, SELFPAY ==
--- NOTE | ~2023-06-22 | MR_ITS ---
EXAMINATION: MR BRAIN WITHOUT CONTRAST CLINICAL INFORMATION: Dementia with rapid decline. Headaches. Decreased vision. Vertigo. Tinnitus. COMPARISON: Head CT dated 04/25/2020. TECHNIQUE: Multiplanar, multisequence imaging of the brain was performed without contrast. FINDINGS: No diffusion abnormalities are identified to suggest an acute infarct. No mass effect or midline shift is seen. Significant volume loss is evident in the frontal lobes with profound ex vacuo dilatation of the frontal horns of the lateral ventricles. Additional volume loss is evident elsewhere in the temporoparietal lobes bilaterally, though to a lesser degree. Mild chronic white matter microangiopathic changes visible, more so around the frontal horns of the lateral ventricles. No extra-axial fluid collections are seen. The brainstem and cerebellum are normal. The gradient refocused acquisition demonstrates no pathologic magnetic susceptibility artifact to indicate underlying acute or chronic blood products. The craniovertebral junction, marrow signal, and midline structures are normal. The major intracranial flow voids at the level of the tetlin of [place] are preserved. The dural venous sinus flow voids are maintained. There is a mild amount of fluid in the dependent right mastoid air cells. Left mastoid air cells are clear. Very mild mucosal thickening noted in the paranasal sinuses. MR/MR brain wo con w neuroquant IMPRESSION: Severe bifrontal lobe volume loss with ex vacuo dilatation of the ventricles. Milder temporoparietal volume loss as well. Mild chronic white matter microangiopathy, more so around the frontal horns of the lateral ventricles. Otherwise, no acute intracranial process.
== END 2023-06-22 17:54 | disposition home or self-care (01) ==
LOC: HO.MRI 17:53
PROVIDERS: PCP Internal Medicine; Visit Provider Psychiatry & Neurology Neurology
DX: F09 Unspecified mental disorder due to known physiological condition (principal)
CPT/HCPCS: 70551; 76377

== ENCOUNTER 2023-08-11 09:46 | Outpatient (AMB) | payer OTHER, SELFPAY ==
--- NOTE | 2023-08-11 09:58 | MHC.OFFVIS ---
Intake Vital Signs 08/11/23 10:03 Height 4 ft 11 in Weight 134 lb 2 oz BMI 27.1 BP 100/60 Blood Pressure Location Lt brachial Position Sitting Pulse 61 Pulse Source Pulse Oximeter Pulse Oximetry (%) 98 Oxygen Delivery Method Room Air Intake Visit Reasons: 3m f/u for mild cognitive - CONF w/address Intake Note: Patient presents for 3 month f/u. Allergies No Known Allergies [No Known Allergies*] Allergy (Verified 08/31/23 08:25) HPI HPI Comments History of Present Illness Details 68 y/o [place] female comes for evaluation of cognitive issues. she is accompanied by her son who helps with history. Her family started noticing cognitive issues about 3 years ago and it was mild until last year when her . Since then she has been depressed and her cognition has worsened. Pt started memantine 5 mg daily, Pt's son states that patient still very confused, Memantine 5 mg does not really helpful. She forgets to take her medications, gets confused while watching TV and thinks that the characters are conversing with her. She frequently misplaces things around the house. She gets confused with her children - confuses names of her children. Pt needs assistance with showers- due to dizziness. She knows how to dress. She stopped cooking. She has trouble falling asleep, staying asleep and is tired at home. She cannot read or write- did not go to school She sleeps a lot during daytime, and wondering and restless. She also reports dizziness especially in the morning - when she moves - she feels like her body is spinning around. No tinnitus or hearing issues . Pt started lexapro for mood, and she states that her mood is good, no depression. Lab result was vitamin D deficiency, and supplement vitamin D 125 mcg started. EEG result was Mild generalized slowing with no evidence of seizure disorder. 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 Mother No problems noted. Social History Housing: House Alcohol intake: never Patient Tobacco Use Status: Never used Tobacco e-Cigarette/Vaping Use: Never Used service: No Current occupational status: retired Current occupation: Left handed Cognitive needs: No Hearing needs: No Vision needs: Yes Review of Systems Const All systems reviewed & are unremarkable except as noted in HPI and below Neuro Reports confusion Psych Reports confusion Physical Exam Vital Signs: Last Vital Signs Pulse 61 08/11/23 10:03 BP 100/60 08/11/23 10:03 Pulse Ox 98 08/11/23 10:03 Oxygen Delivery Method Room Air 08/11/23 10:03 BMI result Body Mass Index 27.1 Const General: cooperative, healthy appearing, comfortable and confusion Nutritional Appearance: average body habitus Orientation/consciousness: confusion Eyes Pupils: Equal, round and reactive pupils present Neuro Other: feel vertiginous and off balance General: tone normal, moves all extremities, no focal motor deficits and confusion Cranial nerves: Yes Equal, round and reactive pupils present, Yes Bilaterally intact EOM present, Yes Nystagmus not present, Yes Normal facial strength present, Yes Midline tongue present and Yes Symmetric palate elevation present Deep tendon reflexes (DTR's): Right triceps reflex intensity grade: 1+, Left triceps reflex intensity grade: 1+, Rt Biceps (C5, C6): 1+, Left biceps reflex intensity grade: 1+, Right brachioradialis reflex intensity grade: 1+, Left brachioradialis reflex intensity grade: 1+, Right patellar reflex intensity grade: 1+ and Left patellar reflex intensity grade: 1+ Coordination: [id number] test normal Assessment & Plan Assessment & Plan (1) Cognitive disorder: Comment: ? early dementia , worsened by mood ?. she did not test well on MMSE due to her education level Code(s): F09 - Unspecified mental disorder due to known physiological condition (2) Difficulty sleeping: Code(s): G47.9 - Sleep disorder, unspecified Plan Advised patient to try mematine 10 mg qHS along with donepezil 5 mg daily. Continue lexapro to 20 mg qd and vitamin D 125 mcg daily. Manage blood sugar and blood pressure well. Advised patient to try melatonin 3mg qHS for sleep. Medications: New memantine 10 mg PO QPM 30 tabs 6RF 30 days donepezil 5 mg PO DAILY 30 tabs 6RF 30 days melatonin 3 mg PO BEDTIME 30 tabs 6RF sleep 30 days Discontinued memantine Discontinued Reason: Doctor's Order 5 mg PO QAM 90 days 90 tabs 0RF Coding Level of Care Code Est Pt Level 4 (97821) Diagnoses Cognitive disorder F09 Difficulty sleeping G47.9
[2023-08-11 10:03] VITALS: BP 100/60; PULSE 61; O2SAT 98; BMI 27.1
== END 2023-08-11 10:28 | disposition home or self-care (01) ==
PROVIDERS: PCP Internal Medicine; Visit Provider Nurse Practitioner Family
DX: R41.89 Other symptoms and signs involving cognitive functions and awareness (principal); G47.9 Sleep disorder, unspecified
CPT/HCPCS: 99214

== ENCOUNTER → 2023-08-11 09:46 | Outpatient (BNVA) | payer OTHER, SELFPAY | PROVIDERS: PCP Internal Medicine; Visit Provider Nurse Practitioner Family | DX: F09 Unspecified mental disorder due to known physiological condition (principal); G47.9 Sleep disorder, unspecified | CPT/HCPCS: 99212 ==

== ENCOUNTER 2023-08-31 08:16 | Outpatient (AMB) | payer OTHER, SELFPAY ==
--- NOTE | 2023-08-31 08:17 | A.OFFVIS_ITS ---
Intake Vital Signs 08/31/23 08:18 Height 4 ft 11 in Weight 137 lb 9.095 oz BMI 27.8 BP 106/66 Blood Pressure Location Lt brachial Position Sitting Pulse 68 Pulse Source Pulse Oximeter Intake Visit Reasons: f/u Type 2 DM /hyperlipidemia-confirmed Intake Note: Patient present today to follow up on Type 2 Diabetes Mellitus and Hyperlipidemia. 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 Information Interpreted: non-clinical & clinical Accompanied by: Son Allergies No Known Allergies [No Known Allergies*] Allergy (Verified 08/31/23 08:25) Medication List - Last Reconciled 08/31/23 by Miles Esparza MD acetaminophen ER (Tylenol 8 Hour) 650 mg PO Q8H PRN apixaban (Eliquis) 5 mg PO BID atorvastatin 80 mg PO DAILY blood sugar diagnostic (FreeStyle Lite Strips) USE DIRECTED TWICE A DAY cetirizine 10 mg PO DAILY chlorthalidone 25 mg PO DAILY cholecalciferol (vitamin D3) 125 mcg PO DAILY donepezil 5 mg PO DAILY 30 days escitalopram oxalate 20 mg PO DAILY 90 days flash glucose scanning reader (FreeStyle Harvinder 2 Novelty) As directed flash glucose sensor (FreeStyle Harvinder 2 Sensor kit) As directed change every 14 days insulin glargine (Lantus Solostar U-100 Insulin) 18 units (0.18 mL) subcut DAILY lancets (FreeStyle Lancets) B.i.d. p.r.n. levothyroxine 25 mcg PO DAILY lisinopril 40 mg PO DAILY melatonin 3 mg PO BEDTIME 30 days memantine 10 mg PO QPM 30 days metformin ER 500 mg PO BID 90 days nitrofurantoin macrocrystal mg PO ondansetron HCl 4 mg PO .PRN pantoprazole 40 mg PO BID 30 days pen needle, diabetic (Comfort EZ Pen [place]) use one needle twice a day for insulin injections sennosides (senna) 8.6 mg PO BEDTIME tirzepatide (Mounjaro) 2.5 mg (0.5 mL) subcut QWEEK 4 weeks HPI HPI Comments History of Present Illness Details 67 YO F who is seen in consultation for T2DM at the request of PCP. Initially diagnosed with T2DM in 10 yrs . Was initially started on treatment with metformin. Current regimen metformin 500 mg BID Lantus 18 units QD Trulicity 1.5 mg Qwkly Harvinder download from 08/18/23-08/31/23 shows the sensor is active 72% of the time. Average glucose is 144 with G mi of 6.8% and variability 46.8%. 75% in target with 22% hyperglycemia and 3% hypoglycemia. Hypoglycemia is primarily occurring overnight Family history of T2DM in mother . Has eyes checked yearly, last eye exam , denies retinopathy. Denies neuropathy, last foot exam , needs to make appt not sees podiatry. Denies nephropathy, on ARA/ARB. Has HLD, on statin. has CAD with [place] w/i 1-1 1/2 yrs . Not Had diabetes education. 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 Mother No problems noted. Social History Housing: House Alcohol intake: never Patient Tobacco Use Status: Never used Tobacco e-Cigarette/Vaping Use: Never Used service: No Current occupational status: retired Current occupation: Left handed Cognitive needs: No Hearing needs: No Vision needs: Yes Physical Exam Vital Signs: Last Vital Signs Pulse 68 08/31/23 08:18 BP 106/66 08/31/23 08:18 BMI result Body Mass Index 27.8 Absence of Cushingoid features. Absence of acromegalic features. Neck exam reveals nl size thyroid about 15 gms. No thyroid nodules palpable. No carotid bruits present. Lungs CTA. Heart S1 S2, Reg R/R. No M/R/ G. Skin exam reveals absence of vitiligo or acanthosis nigricans. Abdominal exam reveals Soft NT/ND with NA BS. No organomegaly present. Neck Other: . Extrem Other: Visual exam of foot performed. No ulcerations or open lesions. No onchomycosis, no callouses.Pulses 2 + distally Sensation intact to monofilament exam. Vibratory sensation sensed is intact with 128 Hz tuning fork Results AMB Hemoglobin A1c AMB Hemoglobin A1c 7.1 % Last Edit by LUIS ALBERTO Merchant on 08/31/23 08:38 Results Reviewed Results Reviewed: Laboratory Last Values Glucose (Clinic) 75 mg/dL (60-115) 08/31/23 08:29 Assessment & Plan Assessment & Plan (1) Uncontrolled diabetes mellitus: Code(s): E11.65 - Type 2 diabetes mellitus with hyperglycemia Qualifiers: Diabetes mellitus type: type 1 Glycemic state: with hyperglycemia Qualified Code(s): E10.65 - Type 1 diabetes mellitus with hyperglycemia Plan: This 68-year-old white female with a history of type 2 diabetes being treated metformin, Trulicity and basal insulin with improved excellent glycemic control but overnight hypoglycemia and no known microvascular or macrovascular complications Plan is to reduce the Lantus to 10 units and further to 6 units if continued overnight hypoglycemia. Patient's glycemic control is optimized at this point. Patient can follow up with primary care provider returned back to endocrinology should her HbA1c deteriorate (2) Insulin dependent diabetes mellitus: Plan: See plan for uncontrolled diabetes (3) Lipid disorder: Code(s): E78.9 - Disorder of lipoprotein metabolism, unspecified Plan: On atorvastatin [address] with LDL way above goal. Plan is to recheck lipid profile Orders: Orders AMB Hemoglobin A1c Today E11.65 - Type 2 diabetes mellitus with hyperglycemia, Z13.9 - Encounter for screening, unspecified Coding Level of Care Code Est Pt Level 4 (65712) Diagnoses Uncontrolled type 1 diabetes mellitus with hyperglycemia E10.65 Diabetes mellitus type: type 1 Glycemic state: with hyperglycemia Insulin dependent diabetes mellitus Lipid disorder E78.9
[2023-08-31 08:18] VITALS: BP 106/66; PULSE 68; BMI 27.8
[2023-08-31 08:33] LABS: Glucose, Whole Blood 75 mg/dL (60-115)
== END 2023-08-31 08:49 | disposition home or self-care (01) ==
PROVIDERS: PCP Internal Medicine; Visit Provider Internal Medicine Endocrinology, Diabetes & Metabolism
DX: Z13.9 Encounter for screening, unspecified (principal); E11.65 Type 2 diabetes mellitus with hyperglycemia; E10.65 Type 1 diabetes mellitus with hyperglycemia; E78.9 Disorder of lipoprotein metabolism, unspecified
CPT/HCPCS: 99214

== ENCOUNTER → 2023-08-31 08:16 | Outpatient (BNVA) | payer OTHER, SELFPAY | PROVIDERS: PCP Internal Medicine; Visit Provider Internal Medicine Endocrinology, Diabetes & Metabolism | DX: E10.65 Type 1 diabetes mellitus with hyperglycemia (principal); E78.9 Disorder of lipoprotein metabolism, unspecified; Z79.4 Long term (current) use of insulin; Z79.84 Long term (current) use of oral hypoglycemic drugs; Z79.899 Other long term (current) drug therapy | CPT/HCPCS: 82947; 83036; 99212 ==

== ENCOUNTER 2023-10-04 10:46 | Outpatient (AMB) | payer OTHER, SELFPAY ==
--- NOTE | 2023-10-04 11:13 | A.OFFVIS_ITS ---
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 Accompanied by: Grand Child Allergies No Known Allergies [No Known Allergies*] Allergy (Verified 08/31/23 08:25) HPI Comprehensive Diabetes Asmnt Most Recent Diabetes Results: Microalb/Creat Ratio 50.6 ug/mg cr (<30) H 04/28/23 Cholesterol 137 mg/dL (<200) 05/21/23 HDL Cholesterol 31 mg/dL (>40) L 05/21/23 Triglycerides 120 mg/dL (<150) 05/21/23 Creatinine 0.81 mg/dL (0.5-1.4) 04/28/23 Blood Urea Nitrogen 9 mg/dL (9-16) 04/28/23 Sodium 138 mmol/L (135-145) 04/28/23 Potassium 4.1 mmol/L (3.3-5.1) 04/28/23 Chloride 102 mmol/L (96-108) 04/28/23 Carbon Dioxide 29 mmol/L (22-29) 04/28/23 Calcium 10.0 mg/dL (8.4-10.2) 04/28/23 AST 17 U/L (5-31) 04/28/23 ALT 13 U/L (0-31) 04/28/23 Total Protein 8.7 g/dL (6.5-8.0) H 04/28/23 Albumin 4.4 g/dL (3.5-5.0) 04/28/23 PFSH Medical History Cognitive disorder 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 Mother No problems noted. Social History Housing: House Alcohol intake: never Patient Tobacco Use Status: Never used Tobacco e-Cigarette/Vaping Use: Never Used service: No Current occupational status: retired Current occupation: Left handed Cognitive needs: No Hearing needs: No Vision needs: Yes Assessment & Plan Assessment & Plan (1) Uncontrolled diabetes mellitus: Code(s): E11.65 - Type 2 diabetes mellitus with hyperglycemia Qualifiers: Diabetes mellitus type: type 1 Glycemic state: with hyperglycemia Qualified Code(s): E10.65 - Type 1 diabetes mellitus with hyperglycemia Plan: Learning objectives: The patient was provided with verbal and written education on the following topics as outlined below. Assess patient education level/literacy/barriers Patient questions/concerns, patient did not bring meter to today's visit. Patient denies any hypoglycemia since Dr. Esparza lowered Lantus from 18 units to 10 units She is taking Humalog 7 or 8 units before meals Patient reports that she has stopped Mounjaro 2.5 mg, reports she was told by a doctor, did not know which doctor. Asked granddaughter to follow-up with PCP for diabetes medication management, as Dr. Esparza in last visit note reports he is sending her back to PCP Her last A1c on 08/31/2023 7.1%, down from A1c in 05/2023 which was greater than 11 % The patient met all learning objectives and was able to verbalize understanding and provide teach back of education topics discussed . The patient was provided with the opportunity to ask questions and all questions were answered. Topics covered in today?s session included: Medications (If applicable) * Name of medication? * Dosing/administration instructions? * Mechanism of action? * Potential side effects? * Potential adverse reaction and appropriate treatment? * Review onset, peak, duration Assess for concerns re: insurance coverage, cost, barriers to compliance Insulin/Injectables (If applicable) * Storage/care of insulin?? * Injection sites? * Site rotation? * Onset, peak, duration * Drawing up insulin? * Injecting insulin/other injectables? * Sharps disposal Continuous blood glucose monitoring (if applicable) Hypoglycemia and Hyperglycemia * Signs and symptoms? * Causes?? * Treatment? * Preventing hypoglycemia? * When to seek medical attention * Blood glucose targets and how you feel when your blood glucose is in and out of your target ranges. * Monitoring and knowing your A1C. * What can make blood glucose go up and down and preventing high and low blood glucose. * Review of blood sugar targets in expected goal range and outside of expected goal range. * Problem solving and preventing hyper/hypoglycemia. * Sick day management of diabetes. * Using blood sugar results in decision making process in managing diabetes. ?Patient was receptive to information provided and participated in the discussion. Asked?appropriate questions and demonstrated good understanding of the topics discussed.? ? Educational Materials: The patient was provided with the following written educational materials: Target Goal handout Goal: Patient has diabetes medication Patient Response to instructions: Comprehension of Instructions: Fair Readiness to make changes:? Contemplation How confident they feel about making changes: Fair Coding Level of Care Code Est Pt Level 1 (92136) Diagnoses Uncontrolled type 1 diabetes mellitus with hyperglycemia E10.65 Diabetes mellitus type: type 1 Glycemic state: with hyperglycemia
== END 2023-10-04 12:11 | disposition home or self-care (01) ==
PROVIDERS: PCP Internal Medicine; Visit Provider Registered Nurse Diabetes Educator
DX: E10.65 Type 1 diabetes mellitus with hyperglycemia (principal)

== ENCOUNTER → 2023-10-04 10:46 | Outpatient (BNVA) | payer OTHER, SELFPAY | PROVIDERS: PCP Internal Medicine; Visit Provider Registered Nurse Diabetes Educator | DX: E10.65 Type 1 diabetes mellitus with hyperglycemia (principal); Z71.89 Other specified counseling; Z79.4 Long term (current) use of insulin | CPT/HCPCS: 99211 ==

== ENCOUNTER 2023-10-07 08:43 | Outpatient (AMB) | payer OTHER, SELFPAY ==
--- NOTE | 2023-10-07 09:45 | MHC.PC.OV ---
Intake Visit Reasons: [phone]([facility]) Allergies No Known Allergies [No Known Allergies*] Allergy (Verified 10/07/23 09:45) Medication List - Last Reconciled 10/07/23 by Roxana Olivarez MD acetaminophen ER (Tylenol 8 Hour) 650 mg PO Q8H PRN apixaban (Eliquis) 5 mg PO BID atorvastatin 80 mg PO DAILY blood sugar diagnostic (FreeStyle Lite Strips) USE DIRECTED TWICE A DAY cetirizine 10 mg PO DAILY chlorthalidone 25 mg PO DAILY cholecalciferol (vitamin D3) 125 mcg PO DAILY donepezil 5 mg PO DAILY 30 days escitalopram oxalate 20 mg PO DAILY 90 days flash glucose scanning reader ([employer] Harvinder 2 [place]) As directed flash glucose sensor (FreeStyle Harvinder 2 Sensor kit) As directed change every 14 days insulin glargine (Lantus Solostar U-100 Insulin) 18 units (0.18 mL) subcut DAILY lancets (FreeStyle Lancets) B.i.d. p.r.n. levothyroxine 25 mcg PO DAILY lisinopril 40 mg PO DAILY melatonin 3 mg PO BEDTIME 30 days memantine 10 mg PO QPM 30 days metformin ER 500 mg PO BID 90 days ondansetron HCl 4 mg PO .PRN pantoprazole 40 mg PO BID 30 days pen needle, diabetic (Comfort EZ Pen [place]) use one needle twice a day for insulin injections sennosides (senna) 8.6 mg PO BEDTIME tirzepatide (Mounjaro) 2.5 mg (0.5 mL) subcut QWEEK 4 weeks Tobacco use date assessed: 10/07/23 Fall risk assessment: 1 Fall in past year Last assessed Fall Risk: 10/07/23 Dental Screening Dental Screen Date: 10/07/23 Did you have a dental visit in the last 12 months?: No Did you have a dental problem in the last 6 months where you did not have access to dental care?: No Was dental information given to patient?: No HPI [phone]([facility]) HPI Details Patient is 68-year-old female, this is a telemedicine visit to follow-up after visiting emergency room on of last month. Patient have a history of insulin-dependent diabetes, hypertension, lipid disorder, diabetic neuropathy, history of NSTEMI, PMR on chronic prednisone presented with a chief complaint of vomiting epigastric pain and chest discomfort In emergency room she was afebrile blood pressure was well controlled at 124/71 Abdominal exam was benign CT scan of abdomen was ordered which showed no acute findings Labs were unremarkable However urinalysis showed mild UTI COVID test was negative Tropes were indeterminate so they were repeated again in 3 hours and came back negative Eventually her abdominal pain improved with Zofran But she continued to vomit so Benadryl and Reglan was given which improved her nausea Patient was eventually discharged home On cefuroxime 250 mg b.i.d. 14 tablets and Zofran Today's visit happen in presence of patient's nurse who comes in once a week on and was present during this visit Patient's son is also present and patient is present I came to know that patient is no longer taking any blood pressure medications In the past she was on amlodipine 5 mg Chlorthalidone 25 mg Lisinopril 40 mg Reviewing emergency room note I see that lisinopril and chlorthalidone was continued at her discharge Nurse has been monitoring her blood pressure which is running between 118,-136 systolic without blood pressure medications Wing difficulty swallowing larger medications like metformin and would like to stop that as she is no longer taking it She is also not taking sucralfate because of difficulty taking the medication And nurse has noticed that there is no cetirizine in her medications We will make a follow-up appointment next week in presence of nurse to see how her blood pressure is doing. 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 Mother No problems noted. Social History Housing: House Alcohol intake: never Patient Tobacco Use Status: Never used Tobacco e-Cigarette/Vaping Use: Never Used service: No Current occupational status: retired Current occupation: Left handed Cognitive needs: No Hearing needs: No Vision needs: Yes Questionnaire Thrive Questionnaire Date Thrive assessed: 05/19/23 AUDIT C Alcohol Use Questionnaire (AUDIT-C) 1. How often do you have a drink containing alcohol?: Never 3. How often do you have six or more drinks on one occasion?: Never Total Score: 0 Score Reviewed/Action Taken: Yes GIANLUCA-7 AMB Questionnaire GIANLUCA-7 Date GIANLUCA - 7 assessed: 05/19/23 Source: Developed by Drs. Miles Barkley, Luzma Marino, Calderon Wilkerson and colleagues, with an educational chu from [employer]. Review of Systems Const Denies chills and Denies fever(s) ENT Denies epistaxis and Denies nasal discharge Card Denies chest pain Resp Denies chest congestion, Denies cough and Denies hemoptysis GI Denies diarrhea and Denies nausea Skin/Breast Denies rash Neuro Reports no additional complaints Psych Reports no additional complaints Endo Reports no additional complaints Physical exam (Primary Care) Tobacco/Smoking Status: Tobacco use Status Tobacco use date assessed 10/07/23 10/07/23 09:51 Patient Tobacco Use Status Never used Tobacco 10/07/23 09:51 e-Cigarette/Vaping Use Never Used 10/07/23 09:51 Thrive Assessment: Date of Thrive Assessment Date Thrive assessed 05/19/23 10/07/23 09:51 Telehealth Telehealth Telehealth Platform: [facility] Location of provider rendering services: practice address Location of patient: address on file Patient Identification confirmed using: Name, : Yes Telehealth method: video (Was attempted) Patient verbally consented to treatment: Yes Patient verbally consented to billing insurance company: Yes Patient informed of any privacy concerns related to visit: Yes Assessment and Plan Assessment & Plan (1) Insulin dependent diabetes mellitus: (2) Lipid disorder: Code(s): E78.9 - Disorder of lipoprotein metabolism, unspecified (3) Diabetic nephropathy: Code(s): E11.21 - Type 2 diabetes mellitus with diabetic nephropathy Qualifiers: Diabetes mellitus type: type 1 Qualified Code(s): E10.21 - Type 1 diabetes mellitus with diabetic nephropathy (4) Polymyalgia rheumatica: Code(s): M35.3 - Polymyalgia rheumatica (5) Diabetic neuropathy: Code(s): E11.40 - Type 2 diabetes mellitus with diabetic neuropathy, unspecified Qualifiers: Diabetes mellitus type: type 1 Diabetes mellitus complication detail: with other neurological complication Qualified Code(s): E10.49 - Type 1 diabetes mellitus with other diabetic neurological complication (6) Hypertension, essential: Comment: Stable Code(s): I10 - Essential (primary) hypertension (7) Chronic GERD: Code(s): K21.9 - Gastro-esophageal reflux disease without esophagitis (8) Environmental allergies: Code(s): Z91.09 - Other allergy status, other than to drugs and biological substances (9) Constipation by delayed colonic transit: Code(s): K59.01 - Slow transit constipation Plan Patient is 68-year-old female, this is a telemedicine visit to follow-up after visiting emergency room on of last month. Patient have a history of insulin-dependent diabetes, hypertension, lipid disorder, diabetic neuropathy, history of NSTEMI, PMR on chronic prednisone presented with a chief complaint of vomiting epigastric pain and chest discomfort In emergency room she was afebrile blood pressure was well controlled at 124/71 Abdominal exam was benign CT scan of abdomen was ordered which showed no acute findings Labs were unremarkable However urinalysis showed mild UTI COVID test was negative Tropes were indeterminate so they were repeated again in 3 hours and came back negative Eventually her abdominal pain improved with Zofran But she continued to vomit so Benadryl and Reglan was given which improved her nausea Patient was eventually discharged home On cefuroxime 250 mg b.i.d. 14 tablets and Zofran Today's visit happen in presence of patient's nurse who comes in once a week on and was present during this visit Patient's son is also present and patient is present I came to know that patient is no longer taking any blood pressure medications In the past she was on amlodipine 5 mg Chlorthalidone 25 mg Lisinopril 40 mg Reviewing emergency room note I see that lisinopril and chlorthalidone was continued at her discharge Nurse has been monitoring her blood pressure which is running between 118,-136 systolic without blood pressure medications Wing difficulty swallowing larger medications like metformin and would like to stop that as she is no longer taking it She is also not taking sucralfate because of difficulty taking the medication And nurse has noticed that there is no cetirizine in her medications She is having difficulty moving her bowels as well, I have sent Senokot S tablet patient is to start taking 2 at night and push more fluids We will make a follow-up appointment next week in presence of nurse to see how her blood pressure is doing. 60 minutes spent in care of this patient discussing her medical problems with patient's son, patient's nurse and patient Sorting out medications, charting, reviewing chart, hospital notes, coordination of care Medications: New sennosides-docusate sodium 8.6-50 mg (Senna Plus) 2 tab-caps (2 x 8.6-50 mg) PO BEDTIME 90 days PRN 180 caps 0RF constipation Coding Level of Care Code Tele Est Pt Level 5 (22098) Diagnoses Insulin dependent diabetes mellitus Lipid disorder E78.9 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 E10.21 Diabetes mellitus type: type 1 Polymyalgia rheumatica M35.3 Other diabetic neurological complication associated with type 1 diabetes mellitus E10.49 Diabetes mellitus type: type 1 Diabetes mellitus complication detail: with other neurological complication Hypertension, essential I10 Chronic GERD K21.9 Environmental allergies Z91.09 Constipation by delayed colonic transit K59.01
== END 2023-10-07 11:13 | disposition home or self-care (01) ==
LOC: HO.HMGC 08:43
PROVIDERS: PCP Internal Medicine; Visit Provider Internal Medicine
DX: E78.9 Disorder of lipoprotein metabolism, unspecified (principal); E10.21 Type 1 diabetes mellitus with diabetic nephropathy; M35.3 Polymyalgia rheumatica; E10.49 Type 1 diabetes mellitus with other diabetic neurological complication; I10 Essential (primary) hypertension; K21.9 Gastro-esophageal reflux disease without esophagitis; Z91.09 Other allergy status, other than to drugs and biological substances; K59.01 Slow transit constipation
CPT/HCPCS: 99215

== ENCOUNTER 2023-10-14 07:07 | Outpatient (AMB) | payer OTHER, SELFPAY ==
--- NOTE | 2023-10-14 09:01 | MHC.PC.OV ---
Intake Visit Reasons: 1 Wk F/u~ [phone] Allergies No Known Allergies [No Known Allergies*] Allergy (Verified 10/14/23 09:03) Medication List - Last Reconciled 10/14/23 by Roxana Olivarez MD acetaminophen ER (Tylenol 8 Hour) 650 mg PO Q8H PRN apixaban (Eliquis) 5 mg PO BID atorvastatin 80 mg PO DAILY blood sugar diagnostic (FreeStyle Lite Strips) USE DIRECTED TWICE A DAY cetirizine 10 mg PO DAILY chlorthalidone 25 mg PO DAILY cholecalciferol (vitamin D3) 125 mcg PO DAILY donepezil 5 mg PO DAILY 30 days escitalopram oxalate 20 mg PO DAILY 90 days flash glucose scanning reader ([employer] Harvinder 2 [place]) As directed flash glucose sensor (FreeStyle Harvinder 2 Sensor kit) As directed change every 14 days insulin glargine (Lantus Solostar U-100 Insulin) 18 units (0.18 mL) subcut DAILY lancets (FreeStyle Lancets) B.i.d. p.r.n. levothyroxine 25 mcg PO DAILY lisinopril 40 mg PO DAILY melatonin 3 mg PO BEDTIME 30 days memantine 10 mg PO QPM 30 days metformin ER 500 mg PO BID 90 days ondansetron HCl 4 mg PO .PRN pantoprazole 40 mg PO BID 30 days pen needle, diabetic (Comfort EZ Pen [place]) use one needle twice a day for insulin injections sennosides (senna) 8.6 mg PO BEDTIME sennosides-docusate sodium 8.6-50 mg (Senna Plus) 2 tab-caps (2 x 8.6-50 mg) PO BEDTIME PRN 90 days tirzepatide (Mounjaro) 2.5 mg (0.5 mL) subcut QWEEK 4 weeks Tobacco use date assessed: 10/14/23 Fall risk assessment: No Falls in past year Last assessed Fall Risk: 10/14/23 Dental Screening Dental Screen Date: 10/14/23 Did you have a dental visit in the last 12 months?: No Did you have a dental problem in the last 6 months where you did not have access to dental care?: No Was dental information given to patient?: Patient has dentist HPI 1 Wk F/u~ [phone] HPI Details Patient is 68-year-old female this is a telemedicine visit in presence of nurse Patient has stop all her blood pressure medications, blood pressure is running around 118/60, taken by the [facility] visiting nurse Silvia Blood sugars are running around 200 nonfasting Patient is on Lantus 10 units daily, she has stopped taking metformin as the medication pill was too big for her to swallow I am increasing Lantus to 15 units There are to continue monitoring blood sugar She is complaining of abdominal discomfort off and on, patient has an appointment coming up with Gastroenterology in December. Notified if the abdominal discomfort become constant she need to go to emergency room. 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 Mother No problems noted. Social History Housing: House Alcohol intake: never Patient Tobacco Use Status: Never used Tobacco e-Cigarette/Vaping Use: Never Used service: No Current occupational status: retired Current occupation: Left handed Cognitive needs: No Hearing needs: No Vision needs: Yes Questionnaire Thrive Questionnaire Date Thrive assessed: 05/19/23 AUDIT C Alcohol Use Questionnaire (AUDIT-C) 1. How often do you have a drink containing alcohol?: Never 3. How often do you have six or more drinks on one occasion?: Never Total Score: 0 Score Reviewed/Action Taken: Yes GIANLUCA-7 AMB Questionnaire GIANLUCA-7 Date GIANLUCA - 7 assessed: 05/19/23 Source: Developed by Drs. Miles Barkley, Luzma Marino, Calderon Wilkerson and colleagues, with an educational chu from [employer]. Review of Systems Const Denies chills and Denies fever(s) ENT Denies epistaxis and Denies nasal discharge Card Denies chest pain Resp Denies chest congestion, Denies cough and Denies hemoptysis GI Denies diarrhea Skin/Breast Denies rash Neuro Reports no additional complaints Psych Reports no additional complaints Endo Reports no additional complaints Physical exam (Primary Care) Tobacco/Smoking Status: Tobacco use Status Tobacco use date assessed 10/14/23 10/14/23 09:04 Patient Tobacco Use Status Never used Tobacco 10/14/23 09:02 e-Cigarette/Vaping Use Never Used 10/14/23 09:02 Thrive Assessment: Date of Thrive Assessment Date Thrive assessed 05/19/23 10/14/23 09:02 Telehealth Telehealth Telehealth Platform: [employer] Location of provider rendering services: practice address Location of patient: address on file Patient Identification confirmed using: Name, : Yes Telehealth method: video (Was attempted) Patient verbally consented to treatment: Yes Patient verbally consented to billing insurance company: Yes Patient informed of any privacy concerns related to visit: Yes Minutes spent on Phone/Video with Pt.: 14 Assessment and Plan Assessment & Plan (1) Insulin dependent diabetes mellitus: (2) Hypertension, essential: Comment: Stable Code(s): I10 - Essential (primary) hypertension Plan Patient is 68-year-old female this is a telemedicine visit in presence of nurse Patient has stop all her blood pressure medications, blood pressure is running around 118/60, taken by the [facility] visiting nurse Silvia Blood sugars are running around 200 nonfasting Patient is on Lantus 10 units daily, she has stopped taking metformin as the medication pill was too big for her to swallow I am increasing Lantus to 15 units There are to continue monitoring blood sugar She is complaining of abdominal discomfort off and on, patient has an appointment coming up with Gastroenterology in December. Notified if the abdominal discomfort become constant she need to go to emergency room. We will book a follow-up appointment in 3 months Medications: Discontinued chlorthalidone Discontinued Reason: Doctor's Order 25 mg PO DAILY 90 tabs 0RF On Hold lisinopril Hold Comment: Doctor's Order 40 mg PO DAILY 90 tabs 0RF metformin ER Hold Comment: Doctor's Order 500 mg PO BID 90 days 180 tabs 0RF Coding Level of Care Code Tele Est Pt Level 3 (80391) Diagnoses Insulin dependent diabetes mellitus Hypertension, essential I10
== END 2023-10-14 11:50 | disposition home or self-care (01) ==
PROVIDERS: PCP Internal Medicine; Visit Provider Internal Medicine
DX: I10 Essential (primary) hypertension (principal)
CPT/HCPCS: 99213

== ENCOUNTER 2024-01-14 15:09 | Outpatient (AMB) | payer OTHER, SELFPAY ==
[2024-01-14 15:10] VITALS: BP 122/70; PULSE 59; O2SAT 95; BMI 26.5
--- NOTE | 2024-01-14 15:10 | MHC.PC.OV ---
Vital Signs 01/14/24 15:10 Height 4 ft 11 in Weight 131 lb BMI 26.5 BP 122/70 Blood Pressure Location Rt brachial Position Sitting Pulse 59 Pulse Source Pulse Oximeter Pulse Oximetry (%) 95 Oxygen Delivery Method Room Air Intake Visit Reasons: Follow up meds Allergies No Known Allergies [No Known Allergies*] Allergy (Verified 01/14/24 15:10) Medication List - Last Reconciled 01/14/24 by Roxana Olivarez MD acetaminophen ER (Tylenol 8 Hour) 650 mg PO Q8H PRN apixaban (Eliquis) 5 mg PO BID atorvastatin 80 mg PO DAILY blood sugar diagnostic (FreeStyle Lite Strips) USE DIRECTED TWICE A DAY calcium carbonate (Calcium Antacid) mg PO cetirizine 10 mg PO DAILY cholecalciferol (vitamin D3) 125 mcg PO DAILY donepezil 5 mg PO DAILY 30 days escitalopram oxalate 20 mg PO DAILY 90 days flash glucose scanning reader ([employer] Design[employer] Harvinder 2 [place]) As directed flash glucose sensor ([employer] Harvinder 2 Sensor kit) As directed change every 14 days insulin glargine (Lantus Solostar U-100 Insulin) 18 units (0.18 mL) subcut DAILY lancets (FreeStyle Lancets) B.i.d. p.r.n. levothyroxine 25 mcg PO DAILY lisinopril 40 mg PO DAILY melatonin 3 mg PO BEDTIME 30 days memantine 10 mg PO QPM 30 days metformin ER 500 mg PO BID 90 days pantoprazole 40 mg PO BID 30 days pen needle, diabetic (Comfort EZ Pen [place]) use one needle twice a day for insulin injections sennosides (senna) 8.6 mg PO BEDTIME sennosides-docusate sodium 8.6-50 mg (Senna Plus) 2 tab-caps (2 x 8.6-50 mg) PO BEDTIME PRN 90 days sucralfate 1 g PO QID Tobacco use date assessed: 01/14/24 Fall risk assessment: No Falls in past year Last assessed Fall Risk: 01/14/24 Dental Screening Dental Screen Date: 10/14/23 Did you have a dental visit in the last 12 months?: No Did you have a dental problem in the last 6 months where you did not have access to dental care?: No Was dental information given to patient?: No HPI Follow up meds HPI Details Patient is 68-year-old female came in with her son for follow-up appointment Patient is taking multiple medications She was seeing student support counselor, rag shredder, and neurologist It seems as if she has stopped going to all physicians She was also established with the communications operator, but then she was discharged when her sugars were controlled Currently she is on Lantus 18 units Her hemoglobin A1c is 7.7% today Her gastric medications are pantoprazole 40 mg and Carafate Patient have chronic acid reflux and gastroparesis She also suffers from diabetic neuropathy and nephropathy She is due for labs order placed Continue levothyroxine 25 mcg She has stopped taking all blood pressure medications Blood pressure is 122/70 Neurology medications need to be filled through them she is taking them for dementia Patient also continue with Eliquis Last cardiology note from 2021 Dr. Arechiga reviewed At that time Eliquis was stopped She apparently has history of paroxysmal atrial fibrillation it seems as if she is seeing another student support counselor currently I have placed a referral to [facility] to see if she is still need to continue the Eliquis Her heart rate is regular at this time Constipation is stable patient is on Senokot Anxiety and depression is stable with escitalopram 20 mg Continue vitamin-D supplement and cetirizine for allergies She is also on atorvastatin 80 mg Follow-up 3 months PFSH Medical History Cognitive disorder PAF (paroxysmal atrial fibrillation) 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 Mother No problems noted. Social History Housing: House Alcohol intake: never Patient Tobacco Use Status: Never used Tobacco e-Cigarette/Vaping Use: Never Used service: No Current occupational status: retired Current occupation: Left handed Cognitive needs: No Hearing needs: No Vision needs: Yes Questionnaire PHQ-9 Over the last 2 weeks, how often have you been bothered by any of the following problems? 1. Little interest or pleasure in doing things: not at all 2. Feeling down, depressed, or hopeless: not at all 3. Trouble falling or staying asleep, or sleeping too much: not at all 4. Feeling tired or having little energy: several days 5. Poor appetite or overeating: several days 6. Feeling bad about yourself - or that you are a failure or have let yourself or your family down: not at all 7. Trouble concentrating on things, such as reading the newspaper or watching television: several days 8. Moving or speaking so slowly that other people could have noticed. Or the opposite - being so fidgety or restless that you have been moving around a lot more than usual: several days 9. Thoughts that you would be better off or of hurting yourself in some way: not at all Total score: 4 Depression Screening Interpretation: Negative Depression Screening Done: Yes [id number] - PHQ-9 Billing: Yes Source: Developed by Drs. Miles Barkley, Luzma Marino, Calderon Wilkerson and colleagues, with an educational chu from [employer]. Thrive Questionnaire Date Thrive assessed: 05/19/23 I am a: Patient What is your living situation today?: I have a steady place to live Within the past 12 months, did the food you bought not last and you didn't have the money to get more?: I choose not to answer this question Within the past 12 months, did you worry whether your food would run out before you got money to buy more?: I choose not to answer this question Do you have trouble paying for medicines?: No Do you have trouble getting transportation to medical appointments?: No Do you have trouble paying your heating and electricity bill?: No Do you have trouble taking care of your child, family member or friend?: No Do you have trouble with day-to-day activities such as bathing, preparing meals, shopping, managing finances, etc.?: Yes Are you currently unemployed and looking for a job?: I choose not to answer this question Are you interested in more education?: I choose not to answer this question Please select the resources that you would like help with: Housing/Intermediate Currently or been in a relationship where the following occur: No concerns reported THRIVE Score: 0 AUDIT C Alcohol Use Questionnaire (AUDIT-C) 1. How often do you have a drink containing alcohol?: Never Total Score: 0 GIANLUCA-7 AMB Questionnaire GIANLUCA-7 Date GIANLUCA - 7 assessed: 05/19/23 Feeling nervous, anxious, or on edge: 0 = Not at all Not being able to stop or control worryin = Not at all Worrying too much about different things: 0 = Not at all Trouble relaxin = More than half the days Being so restless that it is hard to sit still: 2 = More than half the days Becoming easily annoyed or irritable: 0 = Not at all Feeling afraid as if something awful might happen: 0 = Not at all Total GIANLUCA-7 score (0-4 normal; 5-9 mild; 10-14 moderate; 15-21 severe): 4 Source: Developed by Drs. Miles Barkley, Luzma Marino, Calderon Wilkerson and colleagues, with an educational chu from [employer]. Review of Systems Const Denies chills and Denies fever(s) ENT Denies epistaxis and Denies nasal discharge Card Denies chest pain Resp Denies chest congestion, Denies cough and Denies hemoptysis GI Denies diarrhea and Denies nausea Skin/Breast Denies rash Neuro Reports no additional complaints Psych Reports no additional complaints Endo Reports no additional complaints Physical exam (Primary Care) Vital Signs: Last Vital Signs Pulse 59 01/14/24 15:10 BP 122/70 01/14/24 15:10 Pulse Ox 95 01/14/24 15:10 Oxygen Delivery Method Room Air 01/14/24 15:10 BMI result Body Mass Index 26.5 Tobacco/Smoking Status: Tobacco use Status Tobacco use date assessed 01/14/24 01/14/24 15:16 Patient Tobacco Use Status Never used Tobacco 01/14/24 15:11 e-Cigarette/Vaping Use Never Used 01/14/24 15:11 PHQ-9: PHQ-9 Score PHQ-9: Total score 4 01/14/24 15:31 Depression Screening Interpretation: Negative Thrive Assessment: Date of Thrive Assessment Date Thrive assessed 05/19/23 01/14/24 15:11 Currently or been in a relationship where the following occur: No concerns reported Const General: cooperative, comfortable and no acute distress Orientation/consciousness: patient oriented x3 HENMT Head: Yes normocephalic Eyes General: appearance normal, both eyes and all related structures Neck Neck: Yes supple Resp Effort & Inspection: normal respiratory effort, no cough and no stridor Cardio Rhythm: regular rhythm Heart sounds: S1 normal heart sound present and S2 normal heart sound present Skin General skin exam: turgor normal Neuro General: patient oriented x3, tone normal and moves all extremities Extrem Right lower extremity: no edema Left lower extremity: no edema Assessment and Plan Assessment & Plan (1) Insulin dependent diabetes mellitus: (2) PAF (paroxysmal atrial fibrillation): Comment: Stable Code(s): I48.0 - Paroxysmal atrial fibrillation (3) Lipid disorder: Code(s): E78.9 - Disorder of lipoprotein metabolism, unspecified (4) Chronic GERD: Code(s): K21.9 - Gastro-esophageal reflux disease without esophagitis (5) Diabetic nephropathy: Code(s): E11.21 - Type 2 diabetes mellitus with diabetic nephropathy Qualifiers: Diabetes mellitus type: type 1 Qualified Code(s): E10.21 - Type 1 diabetes mellitus with diabetic nephropathy (6) Diabetic neuropathy: Code(s): E11.40 - Type 2 diabetes mellitus with diabetic neuropathy, unspecified Qualifiers: Diabetes mellitus type: type 1 Diabetes mellitus complication detail: with other neurological complication Qualified Code(s): E10.49 - Type 1 diabetes mellitus with other diabetic neurological complication (7) Anxiety, generalized: Code(s): F41.1 - Generalized anxiety disorder (8) Hx of fci use of blood thinners: Code(s): Z92.29 - Personal history of other drug therapy (9) IBS (irritable bowel syndrome): Code(s): K58.9 - Irritable bowel syndrome without diarrhea Qualifiers: Irritable bowel syndrome type: other Qualified Code(s): K58.8 - Other irritable bowel syndrome (10) Constipation by delayed colonic transit: Code(s): K59.01 - Slow transit constipation (11) Environmental allergies: Code(s): Z91.09 - Other allergy status, other than to drugs and biological substances (12) Polyarthralgia: Code(s): M25.50 - Pain in unspecified joint (13) Cognitive disorder: Comment: ? early dementia , worsened by mood ?. she did not test well on MMSE due to her education level Code(s): F09 - Unspecified mental disorder due to known physiological condition Plan Patient is 68-year-old female came in with her son for follow-up appointment Patient is taking multiple medications She was seeing student support counselor, rag shredder, and neurologist It seems as if she has stopped going to all physicians She was also established with the communications operator, but then she was discharged when her sugars were controlled Currently she is on Lantus 18 units Her hemoglobin A1c is 7.7% today Her gastric medications are pantoprazole 40 mg and Carafate Patient have chronic acid reflux and gastroparesis She also suffers from diabetic neuropathy and nephropathy She is due for labs order placed Continue levothyroxine 25 mcg She has stopped taking all blood pressure medications Blood pressure is 122/70 Neurology medications need to be filled through them she is taking them for dementia Patient also continue with Eliquis Last cardiology note from 2021 Dr. Arechiga reviewed At that time Eliquis was stopped She apparently has history of paroxysmal atrial fibrillation it seems as if she is seeing another student support counselor currently I have placed a referral to [facility] to see if she is still need to continue the Eliquis Her heart rate is regular at this time Constipation is stable patient is on Senokot Anxiety and depression is stable with escitalopram 20 mg Continue vitamin-D supplement and cetirizine for allergies She is also on atorvastatin 80 mg Follow-up 3 months 45 minute spent in care of this patient Orders: Orders Complete Blood Count Auto Diff Today E10.21 - Type 1 diabetes mellitus with diabetic nephropathy, E10.49 - Type 1 diabetes mellitus with other diabetic neurological complication, E78.9 - Disorder of lipoprotein metabolism, unspecified, F09 - Unspecified mental disorder due to known physiological condition, F41.1 - Generalized anxiety disorder, I10 - Essential (primary) hypertension, I48.0 - Paroxysmal atrial fibrillation, K21.9 - Gastro-esophageal reflux disease without esophagitis, K58.9 - Irritable bowel syndrome without diarrhea, K59.01 - Slow transit constipation, M25.50 - Pain in unspecified joint, Z91.09 - Other allergy status, other than to drugs and biological substances, Z92.29 - Personal history of other drug therapy Comprehensive Met. Panel Today E10.21 - Type 1 diabetes mellitus with diabetic nephropathy, E10.49 - Type 1 diabetes mellitus with other diabetic neurological complication, E78.9 - Disorder of lipoprotein metabolism, unspecified, F09 - Unspecified mental disorder due to known physiological condition, F41.1 - Generalized anxiety disorder, I10 - Essential (primary) hypertension, I48.0 - Paroxysmal atrial fibrillation, K21.9 - Gastro-esophageal reflux disease without esophagitis, K58.9 - Irritable bowel syndrome without diarrhea, K59.01 - Slow transit constipation, M25.50 - Pain in unspecified joint, Z91.09 - Other allergy status, other than to drugs and biological substances, Z92.29 - Personal history of other drug therapy TSH reflex Free T4 Today E10.21 - Type 1 diabetes mellitus with diabetic nephropathy, E10.49 - Type 1 diabetes mellitus with other diabetic neurological complication, E78.9 - Disorder of lipoprotein metabolism, unspecified, F09 - Unspecified mental disorder due to known physiological condition, F41.1 - Generalized anxiety disorder, I10 - Essential (primary) hypertension, I48.0 - Paroxysmal atrial fibrillation, K21.9 - Gastro-esophageal reflux disease without esophagitis, K58.9 - Irritable bowel syndrome without diarrhea, K59.01 - Slow transit constipation, M25.50 - Pain in unspecified joint, Z91.09 - Other allergy status, other than to drugs and biological substances, Z92.29 - Personal history of other drug therapy Microalbumin, Random (w Creat) Today E10.21 - Type 1 diabetes mellitus with diabetic nephropathy, E10.49 - Type 1 diabetes mellitus with other diabetic neurological complication, E78.9 - Disorder of lipoprotein metabolism, unspecified, F09 - Unspecified mental disorder due to known physiological condition, F41.1 - Generalized anxiety disorder, I10 - Essential (primary) hypertension, I48.0 - Paroxysmal atrial fibrillation, K21.9 - Gastro-esophageal reflux disease without esophagitis, K58.9 - Irritable bowel syndrome without diarrhea, K59.01 - Slow transit constipation, M25.50 - Pain in unspecified joint, Z91.09 - Other allergy status, other than to drugs and biological substances, Z92.29 - Personal history of other drug therapy LDL Cholesterol Direct Today E10.21 - Type 1 diabetes mellitus with diabetic nephropathy, E10.49 - Type 1 diabetes mellitus with other diabetic neurological complication, E78.9 - Disorder of lipoprotein metabolism, unspecified, F09 - Unspecified mental disorder due to known physiological condition, F41.1 - Generalized anxiety disorder, I10 - Essential (primary) hypertension, I48.0 - Paroxysmal atrial fibrillation, K21.9 - Gastro-esophageal reflux disease without esophagitis, K58.9 - Irritable bowel syndrome without diarrhea, K59.01 - Slow transit constipation, M25.50 - Pain in unspecified joint, Z91.09 - Other allergy status, other than to drugs and biological substances, Z92.29 - Personal history of other drug therapy Referrals Cardiology Referral I48.0 - Paroxysmal atrial fibrillation, Z92.29 - Personal history of other drug therapy Medications: New sennosides (senna) 8.6 mg PO BEDTIME 90 caps 3RF sucralfate 1 g PO BID 90 days 180 tabs 0RF Changed From pantoprazole 40 mg PO BID 30 days 60 tabs 6RF To pantoprazole 40 mg PO ONCE 90 tabs 1RF Refilled escitalopram oxalate 20 mg PO DAILY 90 days 90 tabs 3RF F41.0 - Panic disorder [episodic paroxysmal anxiety] levothyroxine 25 mcg PO DAILY 90 tabs 3RF cholecalciferol (vitamin D3) 125 mcg PO DAILY 30 caps 6RF insulin glargine (Lantus Solostar U-100 Insulin) 18 units (0.18 mL) subcut DAILY 30 mL 4RF Discontinued sennosides-docusate sodium 8.6-50 mg (Senna Plus) Discontinued Reason: Doctor's Order 2 tab-caps (2 x 8.6-50 mg) PO BEDTIME 90 days PRN 180 caps 0RF constipation metformin ER Discontinued Reason: Doctor's Order 500 mg PO BID 90 days 180 tabs 0RF Coding Level of Care Code Est Pt Level 5 (12721) Complex EM visit Add On G2211 Diagnoses Insulin dependent diabetes mellitus PAF (paroxysmal atrial fibrillation) I48.0 Lipid disorder E78.9 Chronic GERD K21.9 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 E10.21 Diabetes mellitus type: type 1 Other diabetic neurological complication associated with type 1 diabetes mellitus E10.49 Diabetes mellitus type: type 1 Diabetes mellitus complication detail: with other neurological complication Anxiety, generalized F41.1 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
== END 2024-01-14 15:42 | disposition home or self-care (01) ==
PROVIDERS: PCP Internal Medicine; Visit Provider Internal Medicine
DX: I48.0 Paroxysmal atrial fibrillation (principal); E10.21 Type 1 diabetes mellitus with diabetic nephropathy; E10.49 Type 1 diabetes mellitus with other diabetic neurological complication; E78.9 Disorder of lipoprotein metabolism, unspecified; K21.9 Gastro-esophageal reflux disease without esophagitis; F41.1 Generalized anxiety disorder; Z92.29 Personal history of other drug therapy; K58.8 Other irritable bowel syndrome; K59.01 Slow transit constipation; Z91.09 Other allergy status, other than to drugs and biological substances; M25.50 Pain in unspecified joint; F09 Unspecified mental disorder due to known physiological condition
CPT/HCPCS: 83036; 99215; G2211

== ENCOUNTER 2024-02-10 10:19 | Outpatient (AMB) | payer OTHER, SELFPAY ==
--- NOTE | 2024-02-10 10:26 | A.OFFVIS_ITS ---
Intake Visit Reasons: 6 mo f/u Intake Note: Patient presents for follow up. Allergies No Known Allergies [No Known Allergies*] Allergy (Verified 02/10/24 10:28) HPI Comments Details: 68-yr-old female presents for f/u visit. Pt is accompanied by her son. Pt denies any significant interval medical changes. Pt's son reports that pt has good days and bad days in terms of her cognition. She lives with her other son. She does need help w/ ADLs- more so for physical help. She no longer cooks. She spends most of her day in the house- somebody is always home with her. She may talk to pictures. She may just stand at the top of the stairs- she does not always say why. She can space off at times. Repeats herself a lot. She can feel a little depressed. Sleeping varies- uses melatonin prn. Her family manages her medications. Review of previous labs: 05/29: ESR 81H. She does endorse joint pain,e specially LUE. Sometimes the LUE can feel numb. She has not seen rheumatology for some time. 06/22/23: MR/MR brain wo con w neuroquant IMPRESSION: Severe bifrontal lobe volume loss with ex vacuo dilatation of the ventricles. Milder temporoparietal volume loss as well. Mild chronic white matter microangiopathy, more so around the frontal horns of the lateral ventricles. Otherwise, no acute intracranial process. 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 Mother No problems noted. Social History Housing: House Alcohol intake: never Patient Tobacco Use Status: Never used Tobacco e-Cigarette/Vaping Use: Never Used service: No Current occupational status: retired Current occupation: Left handed Cognitive needs: No Hearing needs: No Vision needs: Yes Physical Exam Const General: cooperative and no acute distress Orientation/consciousness: patient oriented x3 Resp Effort & Inspection: normal respiratory effort and able to speak in complete sentences Neuro General: patient oriented x3 Cranial nerves: Yes CN's II-XII intact bilaterally Cognition (Neuro): normal cognition Psych Appearance: grossly normal Mental Status: mental status grossly normal Speech and movement: Normal speech and movement present Affect: normal affect Attitude: cooperative Assessment & Plan Assessment & Plan (1) Cognitive disorder: Comment: ? early dementia , worsened by mood ?. she did not test well on MMSE due to her education level Code(s): F09 - Unspecified mental disorder due to known physiological condition Category: Medical (2) Elevated erythrocyte sedimentation rate: Code(s): R70.0 - Elevated erythrocyte sedimentation rate Category: Medical (3) Left arm pain: Code(s): M79.602 - Pain in left arm Category: Medical Plan Will recheck labs. As ESR was markedly elevated, will refer pt back to rheumatology. Increase Memantine form 10mg qhs to Memantine ER 21mg qd- if tolerated well, will increase to 28mg ER when refill due. Continue Donepazil 10mg qhs. Continue Lexapro 10mg qd. f/u in 6 months or sooner prn. Orders: Orders Erythrocyte Sedimentation Rate Today R70.0 - Elevated erythrocyte sedimentation rate MATT Reflex Titer and Pattern Today R70.0 - Elevated erythrocyte sedimentation rate Vitamin B12 and Folate Today R70.0 - Elevated erythrocyte sedimentation rate Rheumatoid Factor Today R70.0 - Elevated erythrocyte sedimentation rate Homocysteine Today R70.0 - Elevated erythrocyte sedimentation rate Methylmalonic Acid Today R70.0 - Elevated erythrocyte sedimentation rate CRP High Sensitivity Today R70.0 - Elevated erythrocyte sedimentation rate Creatine Kinase Total Today R70.0 - Elevated erythrocyte sedimentation rate Referrals Rheumatology Referral M79.602 - Pain in left arm, R70.0 - Elevated erythrocyte sedimentation rate Medications: New memantine then stop and increase to 28mg qd 21 mg PO DAILY 30 ea 1RF 30 days Discontinued memantine Discontinued Reason: Doctor's Order 10 mg PO QPM 30 days 30 tabs 2RF Coding Level of Care Code Est Pt Level 4 (27875) Diagnoses Cognitive disorder F09 Elevated erythrocyte sedimentation rate R70.0 Left arm pain M79.602
== END 2024-02-10 11:21 | disposition home or self-care (01) ==
PROVIDERS: PCP Internal Medicine; Visit Provider Nurse Practitioner Family
DX: R41.89 Other symptoms and signs involving cognitive functions and awareness (principal); R70.0 Elevated erythrocyte sedimentation rate; M79.602 Pain in left arm
CPT/HCPCS: 99214

== ENCOUNTER 2024-02-10 11:23 | Outpatient (REF) | payer OTHER, SELFPAY ==
[2024-02-10 17:46] LABS: MANUAL DIFF FLAG NO
[2024-02-10 17:46] LABS: Appearance Urine Clear; Color Urine Yellow; Glucose Urine UA 100 mg/dL (Negative); Leukocyte Esterase Urine Small (1+) (Negative); Nitrite Urine Negative (Negative); UMIC TRIGGER UACC YES; Urine Blood Negative (Negative); Urine Ketones Negative (Negative); Urine Protein 30 (1+) mg/dL (Neg-Trace)
[2024-02-10 18:01] LABS: Bacteria Urine None Seen (None Seen); Hyaline Casts Urine 0-2 /LPF (0-2); RBC Urine 0-2 /HPF (0-2); UACC Culture Trigger YES
[2024-02-10 18:02] LABS: Basophils Percent Auto 0.5 % (0-2); Eosinophils Absolute Auto 0.1 X10*3/uL (0.0-0.4); Eosinophils Percent Auto 1.6 % (0-4); Hematocrit 37.4 % (37.0-47.0); Hemoglobin 12.2 g/dl (12.0-16.0); Imm Gran Abs Auto 0.01 X10*3/uL (0.00-0.03); Imm Gran Pct Auto 0.2 % (0.0-0.4); Lymphocytes Absolute Auto 1.8 X10*3/uL (1.2-4.9); Lymphocytes Percent Auto 32.3 % (20-40); Mean Corpuscular HGB Conc 32.6 g/dl (31.0-35.0); Mean Corpuscular Hemoglobin 28.1 pg (27.0-33.0); Mean Corpuscular Volume 86.2 fL (80.0-98.0); Mean Platelet Volume 10.8 fL (9.4-12.3); Monocytes Absolute Auto 0.3 X10*3/uL (0.1-1.2); Monocytes Percent Auto 6.2 % (2-11); Neutrophils Absolute Auto 3.2 x10*3/uL (2.0-8.3); Neutrophils Percent Auto 59.2 % (45-73); Platelet Count 379 X10*3/uL (160-400); Red Blood Count 4.34 X10*6/uL (4.20-5.50); Red Cell Distribution Width 12.8 % (11.0-16.0); White Blood Count 5.5 X10*3/uL (4.8-10.8)
[2024-02-10 18:22] LABS: Alanine Aminotransferase 20 U/L (0-31); Albumin Level 4.2 g/dL (3.5-5.0); Alkaline Phosphatase 117 U/L (39-117); Anion Gap 14 (12-20); Aspartate Amino Transferase 21 U/L (5-31); Bilirubin Total 0.5 mg/dL (0.0-1.0); Blood Urea Nitrogen 19 mg/dL (9-16); Carbon Dioxide 29 mmol/L (22-29); Chloride 101 mmol/L (96-108); Estimated Glomerular Filt Rate 57; Glucose Random 189 mg/dL (60-115); Sodium 140 mmol/L (135-145); Total Protein 8.3 g/dL (6.5-8.0)
[2024-02-10 18:30] LABS: Rheumatoid Factor < 13.0 IU/mL (<15.0)
[2024-02-10 18:31] LABS: Creatinine Urine 128.09 mg/dL; Microalbum/Creatinine Ratio Ur 33.5 ug/mg cr (<30)
[2024-02-10 18:38] LABS: TSH reflex Free T4 1.34 uIU/mL (0.32-4.0)
[2024-02-10 18:46] LABS: Erythrocyte Sedimentation Rate 34 MM/HR (0-20); Folate 8.2 ng/mL (> or = 4.0); Vitamin B12 369 pg/mL (200-900)
[2024-02-11 13:33] LABS: CRP High Sensitivity 5.1 mg/L
[2024-02-11 16:47] LABS: Homocysteine 13.8 umol/L (<10.4)
[2024-02-11 17:37] LABS: LDL Cholesterol Direct 123 mg/dL (<100)
[2024-02-13 04:43] LABS: Methylmalonic Acid 478 nmol/L (69-390)
[2024-02-14 11:49] LABS: Anti Nuclear Antibody Screen NEGATIVE (NEGATIVE)
== END 2024-02-10 11:24 | disposition home or self-care (01) ==
LOC: HO.HKASLDS 11:23
PROVIDERS: PCP Internal Medicine; Visit Provider Nurse Practitioner Family
DX: E10.49 Type 1 diabetes mellitus with other diabetic neurological complication (principal); R70.0 Elevated erythrocyte sedimentation rate; E78.9 Disorder of lipoprotein metabolism, unspecified; K59.01 Slow transit constipation; K58.9 Irritable bowel syndrome, unspecified; Z91.09 Other allergy status, other than to drugs and biological substances; K21.9 Gastro-esophageal reflux disease without esophagitis; M25.50 Pain in unspecified joint; E10.21 Type 1 diabetes mellitus with diabetic nephropathy; F41.1 Generalized anxiety disorder; I48.0 Paroxysmal atrial fibrillation; Z92.29 Personal history of other drug therapy; F09 Unspecified mental disorder due to known physiological condition
CPT/HCPCS: 36415; 80053; 81001; 82043; 82550; 82570; 82607; 82746; 83090; 83721; 83921; 84443; 85025; 85652; 86038; 86141; 86431; 87086; 99212

== ENCOUNTER → 2024-02-10 13:53 | Outpatient (RCR) | payer OTHER, SELFPAY ==
[2020-10-30 08:08] VITALS: BP 121/80; PULSE 88; RESP 12; TEMP 36.3; O2SAT 97; BMI 37.0
--- NOTE | 2020-10-30 08:12 | P.CNHO_ITS ---
Subjective - Subjective Chief complaint: Consult for elevated CRP. Patient: new to practice Consult date: 10/30/20 Requesting Physician: Siddharth. Primary Care Provider: Roxana Olivarez MD Medical Summary: DIAGNOSIS: ELEVATED CRP. HPI - Consult Narrative Reason for consult: Consult for: Elevated CRP. Narrative: Shawnee High is a pleasant 65 year old lady, who saw rheumatology for joint pains, left shoulder and hip pain. As part of her work up a CRP was done which came back elevated. On 09/04/2020, it was 1.36. Her sed rate was: 72. ROS: She does feel rather tired all the time. Sometimes she has hot flashes. Her appetite is so-so. She has lost weight. She complains of headaches at times. She feels as if in the morning her voice gets hoarse and it is harder for her to talk. No chest pain or trouble breathing. She has had a few GI complaints. She gets heartburn all the time. She is on Protonix. She has the severe constipation. Denies gross blood in the stools. She had an upper endoscopy on 01/18/2020, by Dr. Ontiveros: This revealed gastric ulcers: Antral type and oxyntic mucosa with mild chronic, focally active inflammation and focal regenerative changes in the antrum. No H pylori eye. Esophagus revealed: Chronic esophagitis. In December of 2018 she had an upper endoscopy and colonoscopy by Dr. Elkins. This revealed: Small-bowel biopsies: Normal. Gastric biopsy: Antral mucosa with reactive gastropathy and focal intestinal metaplasia. Negative for H pylori eye and dysplasia. Colon polyp: Prominent lymphoid aggregate. No hyperplastic or adenoma seen. : she gets frequent UTIs. Related to her diabetes. Musculoskeletal: She complains of pain in her left shoulder which radiates into her arm. Sometimes her arm swells up. She has pain in the left hip it goes into the leg. Now she is starting to develop pain in her right shoulder. She was diagnosed with PMR. She was started on prednisone 20 mg about 3 months ago. It did not help much. She is now on a taper. Down to 12.5 mg. She feels weak all the time. She sleeps a lot. Denies depression. No rashes nor pruritus. Family history: Mom of asthma. Dad had heart problems. No known hem/onc problems in the family. 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 She worked at [employer], at the [employer]. She is . She has 8 children. She denies smoking. Denies alcohol use. She is Zoroastrian. She is originally from [facility]. She arrived here in 1998. Review of Systems - Constitutional Reports no additional constitutional complaints, Reports lack of energy, Reports malaise, Reports weight loss - Eyes Reports no additional eye complaints - ENT Reports no additional ear, nose, mouth, and throat complaints - Cardiovascular Reports no additional cardiovascular complaints - Respiratory Reports no additional respiratory complaints - Gastrointestinal Reports no additional gastrointestinal complaints, Reports abdominal pain, Reports belching, Reports bloating, Reports constipation, Reports dyspepsia, Reports heartburn - Genitourinary Reports no additional female genitourinary complaints - Musculoskeletal Reports no additional musculoskeletal complaints, Reports joint pain, Reports muscle weakness, Reports radiating pain into limb - Integumentary/Breasts Skin/Breast: Reports no additional skin complaints - Neurologic Reports no additional neurologic complaints - Psychiatric Reports no additional psychiatric complaints - Endocrine Reports no additional endocrine complaints - Hematologic/Lymphatic Reports no additional hematologic/lymphatic complaints - Allergic/Immunologic Reports no additional allergic/immunologic complaints Oncology Screenings - ECOG Performance Status ECOG Performance Status: 0 [facility] Medical History: Medical History (Last Reviewed 10/25/20 @ 07:51 by Anthony Messina MD) Anemia Chronic GERD Chronic vertigo Constipation by delayed colonic transit Diabetic neuropathy Environmental allergies History of miscarriage Hypertension, essential IBS (irritable bowel syndrome) Insulin dependent diabetes mellitus Lipid disorder NSTEMI (non-ST elevated myocardial infarction) Functional capacity: independent ambulation Patient : No Family History: Family History (Last Reviewed 10/16/20 @ 09:07 by Roxana Olivarez MD) Father No problems noted. Mother No problems noted. Surgical History: Surgical History (Last Reviewed 10/16/20 @ 09:07 by Roxana Olivarez MD) Hx of cardiac cath Hx of colonoscopy Hx of endoscopy Social History: Social History (Last Updated 10/30/20 @ 08:11 by Claudia Carroll) Alcohol History: Alcohol intake: former Alcohol History Details: Alcohol intake frequency: does not drink Tobacco History: Patient Tobacco Use Status: Never used Tobacco Occupation Assessmet: Current occupation: Left handed Smoking status: Never smoker Home Medications and Allergies Home Medications Medication Instructions Recorded Confirmed Type apixaban 5 mg tablet 5 mg PO BID 03/07/20 10/30/20 History chlorthalidone 25 mg tablet 25 mg PO DAILY 04/03/20 10/30/20 History lisinopril 20 1 tab PO DAILY 10/16/20 10/30/20 History mg-hydrochlorothiazide 12.5 mg tablet Allergies Allergy/AdvReac Type Severity Reaction Status Date / Time No Known Allergies Allergy Verified 10/25/20 07:51 [No Known Allergies*] Physical Exam Vital signs: Vital Signs Temp 97.3 F 10/30/20 08:08 Pulse 88 10/30/20 08:08 Resp 12 10/30/20 08:08 BP 121/80 10/30/20 08:08 Pulse Ox 97 10/30/20 08:08 Intake & Output 10/29/20 10/30/20 10/30/20 18:59 06:59 18:59 Other: Weight 77.7 kg Weight in Grams 33884 Weight 77.7 kg - Constitutional Present: mild distress - Routine HEENT Exam Head: Present: normal inspection ENT: Present: mucous membranes moist - Routine Neck Exam Present: supple - Routine Respiratory Exam Present: CTAB - Routine Cardiovascular Exam Cardiovascular: Present: RRR, S1, S2 - Routine Rectal Exam Patient deferred: digital exam - Routine Extremities Exam Present: joint swelling, nontender - Routine Skin Exam Present: intact - Routine Neurological Exam Present: alert, oriented X3 - Detailed Neurological Exam: Coma Scale Eye Opening: Spontaneous (4) Verbal Response: Oriented (5) - Routine Psychiatric Exam Present: normal affect Hem/Onc Consult Result - Labs CBC & Chem 7: 10/30/20 08:52 10/30/20 08:52 Assessment and Plan (1) Elevated C-reactive protein (CRP) Status: Acute DATABASE: CMP: LYTES WNL. A lb 4.4, Brandon 10. LFTs: 0.4/. This is a pleasant 65-year-old lady with history of diabetes. She has had joint pains involving her left shoulder and left hip radiating into the limbs. She is under the care of Dr. Messina. She proceeded with a workup and diagnosed her with PMR. However the prednisone has not helped her. She is currently on a taper. As part of her evaluation a CRP was done. This came back elevated at 1.36. This could be part of the picture of PMR, since it is an inflammatory marker. Her sed rate is also elevated. Elevated CRP is a marker of inflammation, infection and tissue damage. In general infection is the most prevalent cause of elevated CRP, (55%), followed by the rheumatological disease,(7.5%). Other inflammatory conditions, (5.4%). Drug reaction. Malignancy: Less likely. PLAN: Will check a mammogram. She will be referred to GI, for repeat endoscopy. I will recheck her CRP, to see if it responded to the steroids: 1.39. Will check her sed rate as well: 65. Will check a rheumatological profile: ESR 65, RA: <15. I feel a referral to Infectious Disease would be in order. She will follow-up with Rheumatology, in a couple of weeks. (2) Anemia Status: Acute 65-year-old lady who has been noted to be mildly anemic. Hemoglobin is 11. DIFFERENTIAL DIAGNOSIS: 1. IRON DEFICIENCY ANEMIA: She does have dyspepsia and upper GI complaints. She had an upper endoscopy in January of 2020 which revealed gastric ulcer. 2. ANEMIA OF CHRONIC DISEASE: Could be related to her underlying rheumatological disorder. She does have underlying diabetes. She can have CKD. 3. HEMOLYTIC ANEMIA: His possible. 4. MYELO INFILTRATIVE DISORDER: Is less likely. PLAN: I proceeded with anemia workup. Checked iron studies: 67/375/18/102. Checked B12 and folate levels: B12 323. FOLATE 18.4. Check a hemolytic screen. LDH: 220. Will review the above studies and replace as needed. She has actually seen Dr. Ontiveros. She had an upper endoscopy 01/17 which revealed: Esophagus: GE junction at 40 cm. irregular z line, bx taken from GEJ Stomach: Mild gastric erythema. Biopsies were obtained. Grade 2 flap valve on retroflexed examination of the cardia. There was also a superficial ul cer about 8-9 mm in size at the gastric cardia seen on retroflexion, this was biopsied. Duodenum: Normal bulb and descending duodenum, bx taken. In view of the finding of gastric ulcer, she needs repeat endoscopy to confirm complete healing. In appointment has been set up with Dr. Ontiveros for November 12. She will return in 3 months for a follow-up visit. Thank you, CC: Dr. Susanna Olivarez. Dr. Messina. Dr. Ontiveros.
--- NOTE | 2020-10-30 08:56 | MHC.HEMONCMA ---
Patient came in for a consult today for high level of C- Reactive Protein. Patient's son is interpreting for her. Patient states that she is doing well, even though she has the chronic left shoulder and left hip pain. Clinical summary was reviewed and updated. Patient had labs and will return in [address] Fan would like the patient to be scheduled with Dr Ontiveros for a follow up, she reviewed the patient's endoscopy/colonoscopy from last year and she is due for a follow up. I called and spoke with Fide from Dr Ontiveros's office and scheduled the patient for a follow up on 11/12/2020 at 9am. Patient's son was given the date and time of the appt, and Dr Fan was made aware also.
[2020-10-30 08:58] LABS: MANUAL DIFF FLAG NO
[2020-10-30 09:04] LABS: Basophils Percent Auto 0.3 % (0-2); Eosinophils Absolute Auto 0.1 X10*3/uL (0.0-0.4); Eosinophils Percent Auto 0.7 % (0-4); Hematocrit 35.8 % (37-47); Hemoglobin 11.8 g/dl (12.0-16.0); Imm Gran Abs Auto 0.06 X10*3/uL (0.00-0.03); Imm Gran Pct Auto 0.5 % (0.0-0.4); Lymphocytes Absolute Auto 4.8 X10*3/uL (1.2-4.9); Lymphocytes Percent Auto 41.3 % (20-40); Mean Corpuscular Volume 84.8 fL (80-98); Mean Platelet Volume 9.6 fL (9.4-12.3); Monocytes Absolute Auto 0.7 X10*3/uL (0.1-1.2); Monocytes Percent Auto 5.7 % (2-11); Neutrophils Percent Auto 51.5 % (45-73); Platelet Count 411 X10*3/uL (160-400); Red Blood Count 4.22 X10*6/uL (4.20-5.50); Red Cell Distribution Width 12.9 % (11.0-16.0); White Blood Count 11.7 X10*3/uL (4.8-10.8)
[2020-10-30 09:51] LABS: Erythrocyte Sedimentation Rate 65 MM/HR (0-20)
[2020-10-30 10:13] LABS: Alanine Aminotransferase 26 U/L (0-31); Albumin Level 4.4 g/dL (3.5-5.0); Alkaline Phosphatase 93 U/L (39-117); Anion Gap 17 (12-20); Aspartate Amino Transferase 18 U/L (5-31); Bilirubin Total 0.4 mg/dL (0.0-1.0); Blood Urea Nitrogen 30 mg/dL (9-16); C Reactive Protein 1.39 mg/dL (< or = 0.50); Carbon Dioxide 30 mmol/L (22-29); Chloride 94 mmol/L (96-108); Creatinine Clr Calc Pharmacy 40.5; Estimated Glomerular Filt Rate 45; Glucose Random 106 mg/dL (60-115); Iron 67 mcg/dL (30-160); Lactate Dehydrogenase 220 U/L (122-220); Percent Iron Saturation 18 % (15-50); Potassium 3.3 mmol/L (3.3-5.1); Sodium 138 mmol/L (135-145); Total Iron Binding Capacity 375 mcg/dL (228-428); Total Protein 8.2 g/dL (6.5-8.0); Unsaturated Iron Binding 308 ug/dL
[2020-10-30 10:26] LABS: Folate 18.4 ng/mL (> or = 4.0); Vitamin B12 323 pg/mL (200-900)
[2020-10-30 10:29] LABS: Ferritin 102 ng/mL (10-250); Rheumatoid Factor < 15.0 IU/mL (<15.0)
[2020-10-31 13:47] LABS: Anti Nuclear Antibody Screen NEGATIVE (NEGATIVE)
== END | disposition home or self-care (01) ==
LOC: HO.ONC 10-30 08:00
PROVIDERS: PCP Internal Medicine; Referring Provider Student in an Organized Health Care Education/Training Program; Visit Provider Internal Medicine Medical Oncology
DX: R79.82 Elevated C-reactive protein (CRP) (principal); R70.0 Elevated erythrocyte sedimentation rate; D64.9 Anemia, unspecified; M35.3 Polymyalgia rheumatica; E11.9 Type 2 diabetes mellitus without complications
CPT/HCPCS: 36415; 80053; 82607; 82728; 82746; 83540; 83615; 85025; 85652; 86038; 86039; 86140; 86431; 99204

== ENCOUNTER 2024-03-07 11:38 | Outpatient (AMB) | payer OTHER, SELFPAY ==
--- NOTE | 2024-03-07 11:39 | MHC.PC.OV ---
Vital Signs 03/07/24 11:42 Height 4 ft 11 in Weight 139 lb 4 oz BMI 28.1 BP 126/72 Blood Pressure Location Lt brachial Position Sitting Pulse 55 Pulse Source Pulse Oximeter Pulse Oximetry (%) 95 Oxygen Delivery Method Room Air Intake Visit Reasons: High Glucose Allergies No Known Allergies [No Known Allergies*] Allergy (Verified 03/07/24 11:44) Medication List - Last Reconciled 03/07/24 by Roxana Olivarez MD acetaminophen ER (Tylenol 8 Hour) 650 mg PO Q8H PRN apixaban (Eliquis) 5 mg PO BID atorvastatin 80 mg PO DAILY blood sugar diagnostic (FreeStyle Lite Strips) USE DIRECTED TWICE A DAY calcium carbonate (Calcium Antacid) mg PO cetirizine 10 mg PO DAILY cholecalciferol (vitamin D3) 125 mcg PO DAILY cyanocobalamin (vitamin B-12) 500 mcg PO DAILY 30 days donepezil 5 mg PO DAILY 30 days escitalopram oxalate 20 mg PO DAILY 90 days flash glucose scanning reader (revoPTStyle Harvinder 2 [place]) As directed flash glucose sensor (FreeStyle Harvinder 2 Sensor kit) As directed change every 14 days insulin glargine (Lantus Solostar U-100 Insulin) 18 units (0.18 mL) subcut DAILY lancets (FreeStyle Lancets) B.i.d. p.r.n. levothyroxine 25 mcg PO DAILY lisinopril 40 mg PO DAILY melatonin 3 mg PO BEDTIME 30 days memantine 21 mg PO DAILY 30 days pantoprazole 40 mg PO ONCE pen needle, diabetic (Comfort EZ Pen [place]) use one needle twice a day for insulin injections sennosides (senna) 8.6 mg PO BEDTIME sucralfate 1 g PO BID 90 days Tobacco use date assessed: 03/07/24 Fall risk assessment: 2 + Falls in past year Last assessed Fall Risk: 03/07/24 Dental Screening Dental Screen Date: 03/07/24 Did you have a dental visit in the last 12 months?: Yes Did you have a dental problem in the last 6 months where you did not have access to dental care?: No Was dental information given to patient?: Patient has dentist HPI High Glucose HPI Details Patient is 68-year-old female came in today with her son Who is also a HEALTH AND WELLNESS MANAGER however he is working and not home with the patient He tells me that her sugar has been running high sometimes in 200s and sometimes 300 after eating Patient is currently on long-acting insulin 18 units Last time she has seen endocrinology Dr. Esparza was August of this year Her A1c was in 7 range They have a glucometer but there is no battery in it When I asked the son to put it on a piece of paper next time the readings and bring it along He said patient has dementia and she does not know how Then I confronted him and ask him if you are a HEALTH AND WELLNESS MANAGER then who is staying with patient at home since she is demented He had no answer He agreed to check the sugar in the morning and then at night and put it on a piece of paper and will bring it along in 7 days Patient have Harvinder glucometer and it just need to be scanned He gave her 22 units of long-acting insulin this morning He will continue to add 2 units if morning sugar is above 150. [facility] Medical History Cognitive disorder PAF (paroxysmal atrial fibrillation) penitentiary systemic 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 History of miscarriage Anemia NSTEMI (non-ST elevated myocardial infarction) Chronic vertigo Diabetic neuropathy Hypertension, essential Chronic GERD Environmental allergies Insulin dependent diabetes mellitus Lipid disorder Constipation by delayed colonic transit IBS (irritable bowel syndrome) Surgical History Hx of cardiac cath Hx of endoscopy Hx of colonoscopy Family History Father No problems noted. Mother No problems noted. Social History Housing: House Alcohol intake: never Patient Tobacco Use Status: Never used Tobacco e-Cigarette/Vaping Use: Never Used service: No Current occupational status: retired Current occupation: Left handed Cognitive needs: No Hearing needs: No Vision needs: Yes Questionnaire Thrive Questionnaire Date Thrive assessed: 03/07/24 I am a: Patient What is your living situation today?: I have a steady place to live Within the past 12 months, did the food you bought not last and you didn't have the money to get more?: I choose not to answer this question Within the past 12 months, did you worry whether your food would run out before you got money to buy more?: I choose not to answer this question Do you have trouble paying for medicines?: No Do you have trouble getting transportation to medical appointments?: No Do you have trouble paying your heating and electricity bill?: No Do you have trouble taking care of your child, family member or friend?: No Do you have trouble with day-to-day activities such as bathing, preparing meals, shopping, managing finances, etc.?: Yes Are you currently unemployed and looking for a job?: I choose not to answer this question Are you interested in more education?: I choose not to answer this question Please select the resources that you would like help with: None Currently or been in a relationship where the following occur: No concerns reported THRIVE Score: 0 AUDIT C Alcohol Use Questionnaire (AUDIT-C) 1. How often do you have a drink containing alcohol?: Never 3. How often do you have six or more drinks on one occasion?: Never Total Score: 0 Score Reviewed/Action Taken: Yes GIANLUCA-7 AMB Questionnaire GIANLUCA-7 Date GIANLUCA - 7 assessed: 03/07/24 Feeling nervous, anxious, or on edge: 0 = Not at all Not being able to stop or control worryin = Not at all Worrying too much about different things: 0 = Not at all Trouble relaxin = Not at all Being so restless that it is hard to sit still: 0 = Not at all Becoming easily annoyed or irritable: 0 = Not at all Feeling afraid as if something awful might happen: 0 = Not at all Total GIANLUCA-7 score (0-4 normal; 5-9 mild; 10-14 moderate; 15-21 severe): 0 Source: Developed by Drs. Miles Barkley, Luzma Marino, Calderon Wilkerson and colleagues, with an educational chu from [employer]. GIANLUCA-7 Assessment Billing GIANLUCA-7 Assessment Tool: GIANLUCA-7 Assessment 00159 Review of Systems Const Denies chills and Denies fever(s) ENT Denies epistaxis and Denies nasal discharge Card Denies chest pain Resp Denies chest congestion, Denies cough and Denies hemoptysis GI Denies diarrhea and Denies nausea Skin/Breast Denies rash Neuro Reports no additional complaints Psych Reports no additional complaints Endo Reports no additional complaints Physical exam (Primary Care) Vital Signs: Last Vital Signs Pulse 55 03/07/24 11:42 BP 126/72 03/07/24 11:42 Pulse Ox 95 03/07/24 11:42 Oxygen Delivery Method Room Air 03/07/24 11:42 BMI result Body Mass Index 28.1 Tobacco/Smoking Status: Tobacco use Status Tobacco use date assessed 03/07/24 03/07/24 11:46 Patient Tobacco Use Status Never used Tobacco 03/07/24 11:41 e-Cigarette/Vaping Use Never Used 03/07/24 11:41 Thrive Assessment: Date of Thrive Assessment Date Thrive assessed 03/07/24 03/07/24 11:48 Currently or been in a relationship where the following occur: No concerns reported Const General: cooperative, comfortable and no acute distress HENMT Head: Yes normocephalic Eyes General: appearance normal, both eyes and all related structures Neck Neck: Yes supple Resp Effort & Inspection: normal respiratory effort, no cough and no stridor Cardio Rhythm: regular rhythm Heart sounds: S1 normal heart sound present and S2 normal heart sound present Skin General skin exam: turgor normal Neuro General: tone normal and moves all extremities Extrem Right lower extremity: no edema Left lower extremity: no edema Coding Level of Care Code Est Pt Level 4 (92082) Diagnoses Uncontrolled type 1 diabetes mellitus with hyperglycemia E10.65 Diabetes mellitus type: type 1 Glycemic state: with hyperglycemia Mild cognitive disorder F09 Insulin dependent diabetes mellitus Additional Codes GIANLUCA-7 Assessment Billing - GIANLUCA-7 Assessment Tool: GIANLUCA-7 Assessment 52430 ([id number]) Assessment & Plan Assessment & Plan (1) Uncontrolled diabetes mellitus: Code(s): E11.65 - Type 2 diabetes mellitus with hyperglycemia Category: Medical Qualifiers: Diabetes mellitus type: type 1 Glycemic state: with hyperglycemia Qualified Code(s): E10.65 - Type 1 diabetes mellitus with hyperglycemia (2) Mild cognitive disorder: Code(s): F09 - Unspecified mental disorder due to known physiological condition Category: Medical (3) Insulin dependent diabetes mellitus: Category: Medical Plan Patient is 68-year-old female came in today with her son Who is also a HEALTH AND WELLNESS MANAGER however he is working and not home with the patient He tells me that her sugar has been running high sometimes in 200s and sometimes 300 after eating Patient is currently on long-acting insulin 18 units Last time she has seen endocrinology Dr. Esparza was March of this year Her A1c was in 7 range They have a glucometer but there is no battery in it When I asked the son to put it on a piece of paper next time the readings and bring it along He said patient has dementia and she does not know how Then I confronted him and ask him if you are a HEALTH AND WELLNESS MANAGER then who is staying with patient at home since she is demented He had no answer He agreed to check the sugar in the morning and then at night and put it on a piece of paper and will bring it along in 7 days Patient have Harvinder glucometer and it just need to be scanned He gave her 22 units of long-acting insulin this morning He will continue to add 2 units if morning sugar is above 150.
[2024-03-07 11:42] VITALS: BP 126/72; PULSE 55; O2SAT 95; BMI 28.1
== END 2024-03-07 13:29 | disposition home or self-care (01) ==
PROVIDERS: PCP Internal Medicine; Visit Provider Internal Medicine
DX: E10.65 Type 1 diabetes mellitus with hyperglycemia (principal); F09 Unspecified mental disorder due to known physiological condition

== ENCOUNTER → 2024-03-07 11:38 | Outpatient (BNVA) | payer OTHER, SELFPAY | PROVIDERS: PCP Internal Medicine; Visit Provider Internal Medicine | DX: E10.65 Type 1 diabetes mellitus with hyperglycemia (principal); F09 Unspecified mental disorder due to known physiological condition | CPT/HCPCS: 96127; 99212 ==

== ENCOUNTER 2024-03-14 11:52 | Outpatient (AMB) | payer OTHER, SELFPAY ==
[2024-03-14 11:54] VITALS: BP 122/68; PULSE 58; O2SAT 96; BMI 28.1
--- NOTE | 2024-03-14 11:54 | MHC.PC.OV ---
Vital Signs 03/14/24 11:54 Height 4 ft 11 in Weight 139 lb 6 oz BMI 28.1 BP 122/68 Blood Pressure Location Lt brachial Position Sitting Pulse 58 Pulse Source Pulse Oximeter Pulse Oximetry (%) 96 Oxygen Delivery Method Room Air Intake Visit Reasons: one week follow up Allergies No Known Allergies [No Known Allergies*] Allergy (Verified 03/14/24 11:54) Medication List - Last Reconciled 03/14/24 by Roxana Olivarez MD acetaminophen ER (Tylenol 8 Hour) 650 mg PO Q8H PRN apixaban (Eliquis) 5 mg PO BID atorvastatin 80 mg PO DAILY blood sugar diagnostic (FreeStyle Lite Strips) USE DIRECTED TWICE A DAY calcium carbonate (Calcium Antacid) mg PO cetirizine 10 mg PO DAILY cholecalciferol (vitamin D3) 125 mcg PO DAILY cyanocobalamin (vitamin B-12) 500 mcg PO DAILY 30 days donepezil 5 mg PO DAILY 30 days escitalopram oxalate 20 mg PO DAILY 90 days flash glucose scanning reader ([employer]Style Harvinder 2 [place]) As directed flash glucose sensor (FreeStyle Harvinder 2 Sensor kit) As directed change every 14 days insulin glargine (Lantus Solostar U-100 Insulin) 26 units subcut DAILY lancets (FreeStyle Lancets) B.i.d. p.r.n. levothyroxine 25 mcg PO DAILY lisinopril 40 mg PO DAILY melatonin 3 mg PO BEDTIME 30 days memantine 21 mg PO DAILY 30 days pantoprazole 40 mg PO ONCE pen needle, diabetic (Comfort EZ Pen [place]) use one needle twice a day for insulin injections sennosides (senna) 8.6 mg PO BEDTIME sucralfate 1 g PO BID 90 days Tobacco use date assessed: 03/14/24 Fall risk assessment: No Falls in past year Last assessed Fall Risk: 03/14/24 Dental Screening Dental Screen Date: 03/14/24 Did you have a dental visit in the last 12 months?: Yes Did you have a dental problem in the last 6 months where you did not have access to dental care?: No Was dental information given to patient?: Patient has dentist HPI one week follow up HPI Details Patient came in today to follow up on uncontrolled sugar She is not taking 26 units of long-acting insulin Her fasting sugars are well-controlled now However they still fluctuate as patient's diet is not consistent We talked about the diet today in detail with the son Since patient have a memory issue somebody need to keep an eye on what she is eating She has injured her left big toe few days ago Which is painful to walk now I have ordered x-ray to rule out fracture Further management after the x-ray report Medication list reviewed Vital signs are stable Follow-up 3 months [facility] Medical History Cognitive disorder PAF (paroxysmal atrial fibrillation) intermediate systemic 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 History of miscarriage Anemia NSTEMI (non-ST elevated myocardial infarction) Chronic vertigo Diabetic neuropathy Hypertension, essential Chronic GERD Environmental allergies Insulin dependent diabetes mellitus Lipid disorder Constipation by delayed colonic transit IBS (irritable bowel syndrome) Surgical History Hx of cardiac cath Hx of endoscopy Hx of colonoscopy Family History Father No problems noted. Mother No problems noted. Social History Housing: House Alcohol intake: never Patient Tobacco Use Status: Never used Tobacco e-Cigarette/Vaping Use: Never Used service: No Current occupational status: retired Current occupation: Left handed Cognitive needs: No Hearing needs: No Vision needs: Yes Questionnaire Thrive Questionnaire Date Thrive assessed: 01/14/24 I am a: Patient What is your living situation today?: I have a steady place to live Within the past 12 months, did the food you bought not last and you didn't have the money to get more?: I choose not to answer this question Within the past 12 months, did you worry whether your food would run out before you got money to buy more?: I choose not to answer this question Do you have trouble paying for medicines?: No Do you have trouble getting transportation to medical appointments?: No Do you have trouble paying your heating and electricity bill?: No Do you have trouble taking care of your child, family member or friend?: No Do you have trouble with day-to-day activities such as bathing, preparing meals, shopping, managing finances, etc.?: Yes Are you currently unemployed and looking for a job?: I choose not to answer this question Are you interested in more education?: I choose not to answer this question Please select the resources that you would like help with: None Currently or been in a relationship where the following occur: No concerns reported THRIVE Score: 0 GIANLUCA-7 AMB Questionnaire GIANLUCA-7 Date GIANLUCA - 7 assessed: 03/07/24 Source: Developed by Drs. Miles Barkley, Luzma Marino, Calderon Wilkerson and colleagues, with an educational chu from [employer]. Review of Systems Const Denies chills and Denies fever(s) ENT Denies epistaxis and Denies nasal discharge Card Denies chest pain Resp Denies chest congestion, Denies cough and Denies hemoptysis GI Denies diarrhea and Denies nausea Skin/Breast Denies rash Neuro Reports no additional complaints Psych Reports no additional complaints Endo Reports no additional complaints Physical exam (Primary Care) Vital Signs: Last Vital Signs Pulse 58 03/14/24 11:54 BP 122/68 03/14/24 11:54 Pulse Ox 96 03/14/24 11:54 Oxygen Delivery Method Room Air 03/14/24 11:54 BMI result Body Mass Index 28.1 Tobacco/Smoking Status: Tobacco use Status Tobacco use date assessed 03/14/24 03/14/24 11:56 Patient Tobacco Use Status Never used Tobacco 03/14/24 11:56 e-Cigarette/Vaping Use Never Used 03/14/24 11:56 Thrive Assessment: Date of Thrive Assessment Date Thrive assessed 01/14/24 03/14/24 11:56 Currently or been in a relationship where the following occur: No concerns reported Const General: cooperative, comfortable and no acute distress Orientation/consciousness: patient oriented x3 [facility] Head: Yes normocephalic Eyes General: appearance normal, both eyes and all related structures Neck Neck: Yes supple Resp Effort & Inspection: normal respiratory effort, no cough and no stridor Cardio Rhythm: regular rhythm Heart sounds: S1 normal heart sound present and S2 normal heart sound present Skin General skin exam: turgor normal Neuro General: patient oriented x3, tone normal and moves all extremities Extrem Right lower extremity: no edema Left lower extremity: no edema Ankle/foot/toe images: 1. Site of pain, mild swelling noticed, no ecchymosis Coding Level of Care Code Est Pt Level 4 (76032) Complex EM visit Add On G2211 Diagnoses Injury of toe on left foot, initial encounter S99.922A Encounter type: initial encounter Insulin dependent diabetes mellitus Hypertension, essential I10 Chronic GERD K21.9 Environmental allergies Z91.09 Constipation by delayed colonic transit K59.01 Lipid disorder E78.9 Other diabetic neurological complication associated with type 1 diabetes mellitus E10.49 Diabetes mellitus complication detail: with other neurological complication Diabetes mellitus type: type 1 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 E10.21 Diabetes mellitus type: type 1 PAF (paroxysmal atrial fibrillation) I48.0 Moderate episode of recurrent major depressive disorder F33.1 Active/Remission status: currently active Major depression episode severity: moderate Mild cognitive disorder F09 Hx of nursing home use of blood thinners Z92.29 Assessment & Plan Assessment & Plan (1) Injury of toe on left foot: Code(s): S99.922A - Unspecified injury of left foot, initial encounter Category: Medical Qualifiers: Encounter type: initial encounter Qualified Code(s): S99.922A - Unspecified injury of left foot, initial encounter (2) Insulin dependent diabetes mellitus: Category: Medical (3) Hypertension, essential: Comment: Stable Code(s): I10 - Essential (primary) hypertension Category: Medical (4) Chronic GERD: Code(s): K21.9 - Gastro-esophageal reflux disease without esophagitis Category: Medical (5) Environmental allergies: Code(s): Z91.09 - Other allergy status, other than to drugs and biological substances Category: Medical (6) Constipation by delayed colonic transit: Code(s): K59.01 - Slow transit constipation Category: Medical (7) Lipid disorder: Code(s): E78.9 - Disorder of lipoprotein metabolism, unspecified Category: Medical (8) Diabetic neuropathy: Code(s): E11.40 - Type 2 diabetes mellitus with diabetic neuropathy, unspecified Category: Medical Qualifiers: Diabetes mellitus complication detail: with other neurological complication Diabetes mellitus type: type 1 Qualified Code(s): E10.49 - Type 1 diabetes mellitus with other diabetic neurological complication (9) Diabetic nephropathy: Code(s): E11.21 - Type 2 diabetes mellitus with diabetic nephropathy Category: Medical Qualifiers: Diabetes mellitus type: type 1 Qualified Code(s): E10.21 - Type 1 diabetes mellitus with diabetic nephropathy (10) PAF (paroxysmal atrial fibrillation): Comment: Stable Code(s): I48.0 - Paroxysmal atrial fibrillation Category: Medical (11) Major depression, recurrent: Code(s): F33.9 - Major depressive disorder, recurrent, unspecified Category: Medical Qualifiers: Active/Remission status: currently active Major depression episode severity: moderate Qualified Code(s): F33.1 - Major depressive disorder, recurrent, moderate (12) Mild cognitive disorder: Code(s): F09 - Unspecified mental disorder due to known physiological condition Category: Medical (13) Hx of nursing home use of blood thinners: Code(s): Z92.29 - Personal history of other drug therapy Category: Medical Plan Patient came in today to follow up on uncontrolled sugar Patient has a history of lipid disorder, allergies, vitamin-D deficiency, dementia, Anxiety, depression, hypothyroidism, hypertension, chronic GERD, constipation She is not taking 26 units of long-acting insulin Her fasting sugars are well-controlled now However they still fluctuate as patient's diet is not consistent We talked about the diet today in detail with the son Since patient have a memory issue somebody need to keep an eye on what she is eating She has injured her left big toe few days ago Which is painful to walk now I have ordered x-ray to rule out fracture Further management after the x-ray report Medication list reviewed Vital signs are stable Follow-up 3 months Orders: Orders XR toe LT min 2V Today S99.922A - Unspecified injury of left foot, initial encounter Medications: Changed From insulin glargine (Lantus Solostar U-100 Insulin) 26 units subcut DAILY To insulin glargine (Lantus Solostar U-100 Insulin) 26 units (0.26 mL) subcut DAILY 23.4 mL 0RF 90 days
== END 2024-03-14 12:13 | disposition home or self-care (01) ==
PROVIDERS: PCP Internal Medicine; Visit Provider Internal Medicine
DX: E10.49 Type 1 diabetes mellitus with other diabetic neurological complication (principal); E10.21 Type 1 diabetes mellitus with diabetic nephropathy; F33.1 Major depressive disorder, recurrent, moderate; I48.0 Paroxysmal atrial fibrillation; S99.922A Unspecified injury of left foot, initial encounter; K21.9 Gastro-esophageal reflux disease without esophagitis; I10 Essential (primary) hypertension; Z91.09 Other allergy status, other than to drugs and biological substances; K59.01 Slow transit constipation; E78.9 Disorder of lipoprotein metabolism, unspecified; F09 Unspecified mental disorder due to known physiological condition; Z92.29 Personal history of other drug therapy

== ENCOUNTER → 2024-03-14 11:52 | Outpatient (BNVA) | payer OTHER, SELFPAY | PROVIDERS: PCP Internal Medicine; Visit Provider Internal Medicine | DX: S99.922A Unspecified injury of left foot, initial encounter (principal); I10 Essential (primary) hypertension; K21.9 Gastro-esophageal reflux disease without esophagitis; K59.01 Slow transit constipation; E78.9 Disorder of lipoprotein metabolism, unspecified; E10.49 Type 1 diabetes mellitus with other diabetic neurological complication; E10.21 Type 1 diabetes mellitus with diabetic nephropathy; I48.0 Paroxysmal atrial fibrillation; F33.1 Major depressive disorder, recurrent, moderate; F09 Unspecified mental disorder due to known physiological condition; Z92.29 Personal history of other drug therapy; Z91.09 Other allergy status, other than to drugs and biological substances | CPT/HCPCS: 99212 ==

== ENCOUNTER 2024-03-14 12:14 | Outpatient (REF) | payer OTHER, SELFPAY ==
--- NOTE | ~2024-03-14 | XR_ITS ---
EXAMINATION: XR TOES LEFT 3 VIEWS CLINICAL INFORMATION: Unspecified injury of left foot, initial encounter S99.922A. COMPARISON: XR Left foot complete 10/24/2018 TECHNIQUE: 3 views of the left toes were obtained. FINDINGS: There are no fractures or dislocations. No joint effusion is identified. No bone, joint or soft tissue abnormality is demonstrated. Mild DJD of the interphalangeal joints. XR/XR toe LT min 2V IMPRESSION: No fracture or dislocation. Mild degenerative osteoarthritic changes. Electronically signed by: Tyra Valiente MD 05/17/2024 05:03 PM EST GLO
== END 2024-03-14 12:15 | disposition home or self-care (01) ==
LOC: HO.HMGCX 12:14
PROVIDERS: PCP Internal Medicine; Visit Provider Internal Medicine
DX: S99.922A Unspecified injury of left foot, initial encounter (principal)
CPT/HCPCS: 73660

== ENCOUNTER 2024-03-23 13:24 | Outpatient (AMB) | payer OTHER, SELFPAY ==
[2024-03-23 13:35] VITALS: BP 120/70; PULSE 58; O2SAT 98; BMI 28.5
--- NOTE | 2024-03-23 13:35 | MHC.OFFVIS ---
Vital Signs 03/23/24 13:35 Height 4 ft 11 in Weight 141 lb 1.533 oz BMI 28.5 BP 120/70 Blood Pressure Location Lt brachial Position Sitting Pulse 58 Pulse Source Pulse Oximeter Pulse Oximetry (%) 98 Oxygen Delivery Method Room Air Intake Visit Reasons: Pain in left arm/CM Intake Note: Patient presents as a new patient, internally referred by Neurology for elevated ESR and left shoulder pain. Accompanied by: Son Allergies No Known Allergies [No Known Allergies*] Allergy (Verified 03/23/24 13:38) Medication List - Last Reconciled 03/23/24 by Angelica Raphael MD acetaminophen ER (Tylenol 8 Hour) 650 mg PO Q8H PRN apixaban (Eliquis) 5 mg PO BID atorvastatin 80 mg PO DAILY blood sugar diagnostic (FreeStyle Lite Strips) USE DIRECTED TWICE A DAY calcium carbonate (Calcium Antacid) mg PO cetirizine 10 mg PO DAILY cholecalciferol (vitamin D3) 125 mcg PO DAILY cyanocobalamin (vitamin B-12) 500 mcg PO DAILY 30 days donepezil 5 mg PO DAILY 30 days escitalopram oxalate 20 mg PO DAILY 90 days flash glucose scanning reader (WattbotStyle Harvinder 2 [place]) As directed flash glucose sensor (FreeStyle Harvinder 2 Sensor kit) As directed change every 14 days insulin glargine (Lantus Solostar U-100 Insulin) 26 units (0.26 mL) subcut DAILY 90 days lancets (FreeStyle Lancets) B.i.d. p.r.n. levothyroxine 25 mcg PO DAILY lisinopril 40 mg PO DAILY melatonin 3 mg PO BEDTIME 30 days memantine 21 mg PO DAILY 30 days pantoprazole 40 mg PO ONCE pen needle, diabetic (Comfort EZ Pen [place]) use one needle twice a day for insulin injections sennosides (senna) 8.6 mg PO BEDTIME sucralfate 1 g PO BID 90 days tirzepatide (Mounjaro) 2.5 mg (0.5 mL) subcut QWEEK HPI Comments Details: Patient is a 68-year-old female with hypothyroidism, diabetes on insulin, hypertension, AFib on Eliquis, depression. Last seen 10/25/[address] Messina. At that time given her markedly elevated ESR and CRP and minimal response to prednisone the diagnosis of polymyalgia rheumatica was put into question and her prednisone was tapered. She was supposed to follow up but was lost to follow up for 3 years. She is here today complaining of left shoulder pain. No other joints are affected. 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 Mother No problems noted. Social History Housing: House Alcohol intake: never Patient Tobacco Use Status: Never used Tobacco e-Cigarette/Vaping Use: Never Used service: No Current occupational status: retired Current occupation: Left handed Cognitive needs: No Hearing needs: No Vision needs: Yes Review of Systems Const Details: Review of Systems Constitutional: Denies fever, chills, weight loss ENT: Denies vision changes, eye pain or eye redness, dental caries, dry mouth GI: Denies nausea, vomiting, diarrhea, abdominal pain, change in BM Pulm: Denies SOB, ZAMAN, hemoptysis, wheezing Cards: Denies chest pain, palpitations Skin: Denies Raynaud's, rash, nail changes, photosensitivity, CORN SHREDDER: Denies headaches, weakness, paresthesias, recurrent falls MSK: as per HPI All other systems reviewed and are unremarkable except noted above Physical Exam Vital Signs: Last Vital Signs Pulse 58 03/23/24 13:35 BP 120/70 03/23/24 13:35 Pulse Ox 98 03/23/24 13:35 Oxygen Delivery Method Room Air 03/23/24 13:35 BMI result Body Mass Index 28.5 Physical Examination Patient well appearing and in no apparent painful distress Able to rise from chair without support. ?Gait normal. Constitutional Mucous membranes pink and moist patient alert and cooperative HEENT Conjunctiva and sclera clear. ?Pupils equal round and reactive to light. ?No lymphadenopathy. ?Normal dentition. Respiratory System Normal respiratory effort and able to speak in complete sentences. ?Clear to auscultation bilaterally. ?No crackles, rales, rhonchi, wheezes heard. Cardiac System Regular rate and rhythm. ?S1 and S2 heard no murmurs. ?Radial pulses intact bilaterally MSK No deformity, swelling, abnormalities noted to bilateral hands. ?No evidence of synovitis. ?Able to move all joints with full range of motion, without limitation. Hands:.??Normal pain-free range of motion without tenderness, swelling, increased warmth or erythema. Able to make a full fist and has a good store leader strength. Heberden's nodes noted. Wrists: Normal pain-free range of motion without tenderness, swelling, increased warmth or erythema. Elbows: Full range of motion without pain. No tenderness, weakness, swelling, increased warmth or erythema. Shoulders: Full range of motion both passive and active. Does note pain to the anterior lateral and posterior aspects of the shoulder. No rotator cuff impingement. Hips: Full range of motion without pain. Hip bursa:.??No tenderness. Knees:.???Normal pain-free range of motion without tenderness, swelling, increased warmth or erythema.??There is no effusion or crepitation. tenderness to right lateral, area of fibia head Ankles:.??Normal pain-free range of motion without tenderness, swelling, increased warmth or erythema. Feet:.??Normal pain-free range of motion without tenderness, swelling, increased warmth or erythema. Tender points:??No tenderness to digital palpation at the occiput, trapezius, second rib, lateral epicondyle, knees, greater trochanter bilaterally, and left gluteal. Office Procedures Joint Injection/Aspiration Joint Injection/Aspiration Details: Procedure was explained to the patient and consent was obtained. ? The area of interest was identified and confirmed with patient. ?This was subsequently cleaned with chlorhexidine x3. ? The area was then anesthetized using ethyl chloride spray. 40 mg Kenalog with 1 cc 1% lidocaine was injected without issue. ?Minimal to no bleeding. ?Patient tolerated procedure. Primary Site: left shoulder (Left AC joint) Prep: site was prepped using aseptic technique Injected: 40 mg of, with 1 mL of and 1% plain lidocaine Approach Used: anterior Procedure: The patient tolerated the procedure well Coding - Acromioclavicular Procedure code (CPT) selection complete Results Reviewed Results Reviewed: Reviewed shoulder x-ray 09/04/2020. Patient with significant AC joint osteoarthritis. Glenohumeral joint appears to be well maintained without evidence of osteophytes or joint space narrowing. Assessment & Plan Assessment & Plan (1) Osteoarthritis of left acromioclavicular joint: Code(s): M19.012 - Primary osteoarthritis, left shoulder Category: Medical Plan: #AC Joint OA Patient with evidence of AC joint osteoarthritis on x-ray 09/04/2020. Complaining of pain to that area today. Status post 40 mg Kenalog injection to AC joint. Recommended patient to ice it today. We will check x-rays of the left shoulder to determine if there is any progression of glenohumeral joint OA. There was no evidence of glenohumeral joint OA on the 2020 x-ray. Plan I spent 30 minutes reviewing the record, labs and imaging, seeing the patient, discussing the treatment plan and documenting in the medical record Orders: Orders AMB Joint Injection/Aspiration Today M19.012 - Primary osteoarthritis, left shoulder XR shoulder LT min 2V Today M19.012 - Primary osteoarthritis, left shoulder Coding Level of Care Code New Pt Level 3 (54685) Diagnoses Osteoarthritis of left acromioclavicular joint M19.012 CPT Codes Coding - Joint 5: - Acromioclavicular ([id number])
== END 2024-03-23 14:21 | disposition home or self-care (01) ==
PROVIDERS: PCP Internal Medicine; Visit Provider Student in an Organized Health Care Education/Training Program
DX: M19.012 Primary osteoarthritis, left shoulder (principal)
CPT/HCPCS: 20605; 99203

== ENCOUNTER → 2024-03-23 13:24 | Outpatient (BNVA) | payer OTHER, SELFPAY | PROVIDERS: PCP Internal Medicine; Visit Provider Student in an Organized Health Care Education/Training Program | DX: M19.012 Primary osteoarthritis, left shoulder (principal) | CPT/HCPCS: 20605; 99202 ==

== ENCOUNTER 2024-03-24 09:22 | Outpatient (AMB) | payer OTHER, SELFPAY ==
--- NOTE | 2024-03-24 09:24 | MHC.OFFVIS ---
Vital Signs 03/24/24 09:28 Height 4 ft 11 in Weight 138 lb 10.732 oz BMI 28.0 BP 112/64 Blood Pressure Location Lt brachial Position Sitting Pulse 63 Pulse Source Pulse Oximeter Intake Visit Reasons: T2DM Intake Note: Patient present today for Diabetes Mellitus follow up, last seen by Dr. Esparza on 08/31/23. Last Diabetic Eye exam: Due, approx 2 years Last Podiatry Visit: Due, more than 1 year Random Glucose: 125 mg/dl HgA1C: 7.7% 01/14/24 Diversional Therapist Required: Yes Diversional Therapist Language: Yg Diversional Therapist Services: Diversional Therapist Offered & Declined Diversional Therapist Name: Son will Interpret Information Interpreted: non-clinical & clinical Accompanied by: Son Allergies No Known Allergies [No Known Allergies*] Allergy (Verified 03/24/24 09:32) HPI Comments Details: This is my 1st time seeing this 68-year-old female with a past medical history of cystitis, type 2 diabetes, gastroparesis, paroxysmal atrial fibrillation, diabetic nephropathy, dementia and hypertension. She is accompanied by her son who interprets. He provides most of the history. 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 I reviewed her CGM download: Average glucose 198 GMI 8% Glucose variability 42.3% Very high 29% High 25% Target 43% Low 3% Patient has nocturnal hypoglycemia and hypoglycemia between 6 and 09:00 and hyperglycemia from 10:00 until 22:00. Hemoglobin a1c 7.7% 01/14/2024 POC 125 Current medication regimen: Lantus 26 units nightly, Mounjaro 2.5 mg weekly. Lantus was increased from 20-26 units over the past week. She was previously on Trulicity which was discontinued due to exacerbation of gastroparesis. She never started the Mounjaro because of this reason. She was previously on metformin, and they said she tolerated it well. Her son says that it may have been discontinued because of a concern about her kidney function. He said it did work well for blood sugars, and she did not have GI side effects with it. Compliance issues: Patient has dementia. Her son administers medication. She does not eat 3 regular meals. ROS: Constitutional: No unexplained weight loss, fever, chills. Respiratory: No shortness of breath Cardiovascular: No chest pain Neurologic: No headache, dizziness, syncope Skin: No open wounds Physical exam: Constitutional: Alert, in no distress. Head: Normocephalic. Eyes: Pupils are equal, round and reactive to light. Extraocular muscles intact. Neck: Supple, Full range of motion. No lymphadenopathy. No palpable thyroid masses. Respiratory: Clear to auscultation. Cardiovascular: S1 S2 regular. No murmurs. = Right foot: Warm and well perfused. No clubbing, cyanosis or edema. DP pulse 2+. Decreased vibratory sensation. Intact sensation to monofilament. Left foot: Warm and well perfused. No clubbing, cyanosis or edema. DP pulse 2+. Decreased vibratory sensation. Intact sensation to monofilament. 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 Mother No problems noted. Social History Housing: House Alcohol intake: never Patient Tobacco Use Status: Never used Tobacco e-Cigarette/Vaping Use: Never Used service: No Current occupational status: retired Current occupation: Left handed Cognitive needs: No Hearing needs: No Vision needs: Yes Physical Exam Vital Signs: Last Vital Signs Pulse 63 03/24/24 09:28 BP 112/64 03/24/24 09:28 BMI result Body Mass Index 28.0 Results Reviewed Results Reviewed: Laboratory Last Values Glucose (Clinic) 125 mg/dL (60-115) H 03/24/24 09:40 Laboratory Tests 05/21/23 01/14/24 02/10/24 06:18 16:19 11:35 Creatinine 0.98 Estimated GFR 57 Hgb A1c (Clinic) 7.7 H Triglycerides 120 Cholesterol 137 LDL Cholesterol, Calc 82 HDL Cholesterol 31 L TSH 1.34 Urine Creatinine Urine Microalbumin Microalb/Creat Ratio 02/10/24 11:40 Creatinine Estimated GFR Hgb A1c (Clinic) Triglycerides Cholesterol LDL Cholesterol, Calc HDL Cholesterol TSH Urine Creatinine 128.09 Urine Microalbumin 43.0 Microalb/Creat Ratio 33.5 H Assessment & Plan Assessment & Plan (1) Type 2 diabetes mellitus with hypoglycemia: Code(s): E11.649 - Type 2 diabetes mellitus with hypoglycemia without coma Category: Medical Plan In summary this is a 68-year-old female with type 2 diabetes with micro and macrovascular complications who has treatment is complicated by cognitive decline. Owing to hypoglycemia change Lantus to Tresiba and decrease from 26 to20 units nightly. Reviewed recent renal function tests. Restart metformin extended release 500 mg daily. Advised them to monitor for increased GI symptoms and contact the office if she has any problems with this medication. Refill supplies for her fingerstick glucometer. Reviewed proper treatment of hypoglycemia. Glucose tablets sent to pharmacy. I will see if her insurance will cover the Harvinder 3 monitor which is medically necessary since she is on insulin and has cognitive decline and may not always express symptoms of hypoglycemia. She will follow up in 3 weeks for type 2 diabetes. Medications: New metformin ER 500 mg PO DAILY 90 tabs 0RF glucose (Dex4 Glucose Quick Dissolve) until symptoms of low blood sugar are controlled 16 grams (4 x 4 gram) PO Q15M PRN 10 tabs 3RF hypoglycemia blood-glucose meter,continuous (FreeStyle Harvinder 3 [place]) Use daily to monitor blood glucose levels continuously. 1 ea 0RF insulin degludec (Tresiba FlexTouch U-100 insulin) 20 units (0.2 mL) subcut BEDTIME 15 mL 3RF blood-glucose meter,continuous (FreeStyle Harvinder 3 [place]) Use daily to monitor blood glucose levels continuously. 1 ea 0RF blood-glucose sensor (FreeStyle Harvinder 3 Sensor device) apply new sensor every 14 days 2 ea 11RF lancets (FreeStyle Lancets) Use to monitor blood glucose 4 times daily. 200 ea 5RF blood-glucose sensor (FreeStyle Harvinder 3 Sensor device) apply new sensor every 14 days 2 ea 11RF Changed From blood sugar diagnostic (FreeStyle Lite Strips) USE DIRECTED TWICE A DAY 50 strips 11RF E11.65 - Type 2 diabetes mellitus with hyperglycemia To blood sugar diagnostic (FreeStyle Lite Strips) USE DIRECTED to check blood glucose four times daily 200 strips 3RF E11.65 - Type 2 diabetes mellitus with hyperglycemia Discontinued insulin glargine (Lantus Solostar U-100 Insulin) Discontinued Reason: Doctor's Order 26 units (0.26 mL) subcut DAILY 90 days 23.4 mL 0RF flash glucose sensor (FreeStyle Harvinder 2 Sensor kit) Discontinued Reason: Doctor's Order As directed change every 14 days 2 ea 4RF tirzepatide (Mounjaro) Discontinued Reason: Doctor's Order 2.5 mg (0.5 mL) subcut QWEEK 2 mL 1RF Patient Instructions: Start Metformin ER 500 mg once daily. Stop Lantus and start Tresiba insulin 20 units every evening. I am going new diabetic test supplies, and I am going to see if insurance will cover the libre3 continuous glucose monitor. If you experience low blood sugar, treat this by eating a chewable fruit candy like skittles or jelly beans (about 8 pieces), 4 ounces (1/2 cup) of fruit juice (not diet), 1 tablespoon of honey or 4 glucose tablets. If your blood sugar is under 50, take double the amount of one of the above. Recheck your blood sugar in 15 minutes. I sent glucose tablets to the pharmacy. Coding Level of Care Code Est Pt Level 4 (89073) Complex EM visit Add On G2211 Diagnoses Type 2 diabetes mellitus with hypoglycemia E11.649
[2024-03-24 09:28] VITALS: BP 112/64; PULSE 63; BMI 28.0
[2024-03-24 09:45] LABS: Glucose, Whole Blood 125 mg/dL (60-115)
== END 2024-03-24 10:18 | disposition home or self-care (01) ==
PROVIDERS: PCP Internal Medicine; Visit Provider Physician Assistant Medical
DX: E11.649 Type 2 diabetes mellitus with hypoglycemia without coma (principal)

== ENCOUNTER → 2024-03-24 09:22 | Outpatient (BNVA) | payer OTHER, SELFPAY | PROVIDERS: PCP Internal Medicine; Visit Provider Physician Assistant Medical | DX: E11.43 Type 2 diabetes mellitus with diabetic autonomic (poly)neuropathy (principal); E11.21 Type 2 diabetes mellitus with diabetic nephropathy; E11.40 Type 2 diabetes mellitus with diabetic neuropathy, unspecified; E11.649 Type 2 diabetes mellitus with hypoglycemia without coma; F03.90 Unspecified dementia, unspecified severity, without behavioral disturbance, psychotic disturbance, mood disturbance, and anxiety; Z79.4 Long term (current) use of insulin | CPT/HCPCS: 82947; 99212 ==

== ENCOUNTER 2024-04-04 09:35 | Outpatient (REF) | payer OTHER, SELFPAY ==
--- NOTE | ~2024-04-04 | XR_ITS ---
EXAMINATION: XR SHOULDER, LEFT CLINICAL INFORMATION: Arthritis. Pain COMPARISON: None available. TECHNIQUE: AP external rotation, Grashey, scapular Y, and axillary views of the left shoulder. FINDINGS: There is no fracture, dislocation or destructive process. There is minor narrowing of the left glenohumeral joint and left AC joint. XR/XR shoulder LT min 2V IMPRESSION: Arthritic change but no acute findings. No fracture. Electronically signed by: Seth Marquez MD 04/04/2024 12:19 PM EDT
== END 2024-04-04 09:36 | disposition home or self-care (01) ==
LOC: HO.XRAY 09:35
PROVIDERS: PCP Internal Medicine; Visit Provider Student in an Organized Health Care Education/Training Program
DX: M19.012 Primary osteoarthritis, left shoulder (principal)
CPT/HCPCS: 73030

== ENCOUNTER 2024-04-25 11:06 | Outpatient (AMB) | payer OTHER, SELFPAY ==
--- NOTE | 2024-04-25 11:11 | MHC.OFFVIS ---
Vital Signs 04/25/24 11:15 Height 4 ft 11 in Weight 139 lb 15.896 oz BMI 28.3 BP 102/64 Blood Pressure Location Rt brachial Position Sitting Pulse 68 Pulse Source Pulse Oximeter Intake Visit Reasons: T2DM/LVM Intake Note: Patient present today to follow up on Type 2 Diabetes Mellitus. Last Diabetic Eye exam: DUE Last Podiatry Visit: DUE Random Glucose: 242 mg/dl HgA1C: 9.0% 04/25/24 Energy Projects Lead Required: Yes Energy Projects Lead Language: Yg Energy Projects Lead Services: Energy Projects Lead Offered & Declined Energy Projects Lead Name: Son will interpret Accompanied by: Son Allergies No Known Allergies [No Known Allergies*] Allergy (Verified 04/25/24 11:16) HPI Comments Details: This is a 68-year-old female with a past medical history of cystitis, type 2 diabetes, gastroparesis, paroxysmal atrial fibrillation, diabetic nephropathy, dementia and hypertension. She is accompanied by her son who interprets. He provides most of the history. 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 Hemoglobin a1c 9% 04/25/24. POC 242. Current medication regimen: Tresiba 20 units nightly and metformin extended release 500 mg daily. Trulicity was discontinued in the past due to exacerbation of gastroparesis. She does not have her glucometer with her today. They report blood sugars are between 90 and 140 in the morning. In the evening blood sugars are 180-230. She is checking her sugar most mornings, but she checks inconsistently in the evening. They did not get the freestyle Harvinder 3 yet. Authorization resubmitted today. Patient denies hypoglycemic episodes since changing insulin type and dose. Compliance issues: Patient has dementia. Her son administers medication. Patient is still taking metformin, but she endorses more nausea and abdominal pain since starting it. No fevers, chills, vomiting or diarrhea. She does not eat 3 regular meals per day. ROS: Constitutional: No unexplained weight loss, fever, chills. Respiratory: No shortness of breath Cardiovascular: No chest pain Neurologic: No headache, dizziness, syncope Skin: No open wounds Physical exam: Constitutional: Alert, in no distress. Head: Normocephalic. Eyes: Pupils are equal, round and reactive to light. Extraocular muscles intact. Neck: Supple, Full range of motion. No lymphadenopathy. No palpable thyroid masses. Respiratory: Clear to auscultation. Cardiovascular: S1 S2 regular. No murmurs. 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 Mother No problems noted. Social History Housing: House Alcohol intake: never Patient Tobacco Use Status: Never used Tobacco e-Cigarette/Vaping Use: Never Used service: No Current occupational status: retired Current occupation: Left handed Cognitive needs: No Hearing needs: No Vision needs: Yes Physical Exam Vital Signs: Last Vital Signs Pulse 68 04/25/24 11:15 BP 102/64 04/25/24 11:15 BMI result Body Mass Index 28.3 Results AMB Hemoglobin A1c AMB Hemoglobin A1c 9.0 % Last Edit by LUIS ALBERTO Pineda on 04/25/24 11:33 Results Reviewed Results Reviewed: Laboratory Last Values Glucose (Clinic) 242 mg/dL (60-115) H 04/25/24 11:22 Hgb A1c (Clinic) 9.0 % (4.0-6.0) H 04/25/24 11:32 Laboratory Tests 05/21/23 01/14/24 02/10/24 06:18 16:19 11:35 Creatinine 0.98 Estimated GFR 57 Hgb A1c (Clinic) 7.7 H Triglycerides 120 Cholesterol 137 LDL Cholesterol, Calc 82 HDL Cholesterol 31 L TSH 1.34 Urine Creatinine Urine Microalbumin Microalb/Creat Ratio 02/10/24 11:40 Creatinine Estimated GFR Hgb A1c (Clinic) Triglycerides Cholesterol LDL Cholesterol, Calc HDL Cholesterol TSH Urine Creatinine 128.09 Urine Microalbumin 43.0 Microalb/Creat Ratio 33.5 H Assessment & Plan Assessment & Plan (1) Uncontrolled diabetes mellitus with hyperglycemia, with long-term current use of insulin: Code(s): E11.65 - Type 2 diabetes mellitus with hyperglycemia; Z79.4 - [facility] (current) use of insulin Category: Medical Plan In summary this is a 68-year-old female with type 2 diabetes with micro and macrovascular complications who has treatment is complicated by cognitive decline. They deny further episodes of hypoglycemia. Continue Tresiba 20 units daily. Discontinue metformin due to reported GI side effects. They reports she has frequent urinary tract infections when we discussed possible addition of SGLT2. We discussed Actos and reviewed potential side effects and potential risk of bladder cancer and heart failure. She had a urinalysis in February negative for hematuria. She will start 15 mg Actos daily. Check BNP per ADA guidelines and order echocardiogram if this is elevated. Hopefully she will have Harvinder 3 authorized by insurance prior to her next visit. If not they will bring her fingerstick glucometer to that appointment. CGM is medically necessary due to cognitive decline as she can not always expressed symptoms of hypoglycemia. Reviewed proper treatment of hypoglycemia. She has glucose tablets. Follow up in 4 weeks for type 2 diabetes. Orders: Orders B Type Natriuretic Peptide Today E11.9 - Type 2 diabetes mellitus without complications AMB Hemoglobin A1c Today E11.649 - Type 2 diabetes mellitus with hypoglycemia without coma Medications: New pioglitazone (Actos) 15 mg PO DAILY 90 tabs 0RF Refilled blood-glucose sensor (FreeStyle Harvinder 3 Plus Sensor device) Apply 1 new sensor every 14 days as directed to monitor blood glucose continuously. 2 ea 11RF blood-glucose meter,continuous (FreeStyle Harvinder 3 [place]) Use daily to monitor blood glucose levels continuously. 1 ea 0RF Discontinued metformin ER Discontinued Reason: Doctor's Order 500 mg PO DAILY 90 tabs 0RF Coding Level of Care Code Est Pt Level 4 (37316) Complex EM visit Add On G2211 Diagnoses Uncontrolled diabetes mellitus with hyperglycemia, with long-term current use of insulin E11.65; Z79.4
[2024-04-25 11:15] VITALS: BP 102/64; PULSE 68; BMI 28.3
[2024-04-25 11:28] LABS: Glucose, Whole Blood 242 mg/dL (60-115)
== END 2024-04-25 12:02 | disposition home or self-care (01) ==
PROVIDERS: PCP Internal Medicine; Visit Provider Physician Assistant Medical
DX: E11.65 Type 2 diabetes mellitus with hyperglycemia (principal); Z79.4 Long term (current) use of insulin; E11.649 Type 2 diabetes mellitus with hypoglycemia without coma

== ENCOUNTER → 2024-04-25 11:06 | Outpatient (BNVA) | payer OTHER, SELFPAY | PROVIDERS: PCP Internal Medicine; Visit Provider Physician Assistant Medical | DX: E11.65 Type 2 diabetes mellitus with hyperglycemia (principal); Z79.4 Long term (current) use of insulin | CPT/HCPCS: 82947; 83036; 99212 ==

== ENCOUNTER 2024-05-02 13:30 | Outpatient (AMB) | payer OTHER, SELFPAY ==
[2024-05-02 13:38] VITALS: BP 120/72; PULSE 59; O2SAT 97; BMI 28.5
--- NOTE | 2024-05-02 13:38 | A.OFFPC_ITS ---
Vital Signs 05/02/24 13:38 Height 4 ft 11 in Weight 141 lb 2 oz BMI 28.5 BP 120/72 Blood Pressure Location Lt brachial Position Sitting Pulse 59 Pulse Source Pulse Oximeter Pulse Oximetry (%) 97 Oxygen Delivery Method Room Air Intake Visit Reasons: FoOrestes Allergies No Known Allergies [No Known Allergies*] Allergy (Verified 05/02/24 13:44) Medication List - Last Reconciled 05/02/24 by Roxana Olivarez MD acetaminophen ER (Tylenol 8 Hour) 650 mg PO Q8H PRN apixaban (Eliquis) 5 mg PO BID atorvastatin 80 mg PO DAILY blood sugar diagnostic (FreeStyle Lite Strips) USE DIRECTED to check blood glucose five times daily blood-glucose meter (FreeStyle Lite Meter kit) Check blood glucose 5 times daily blood-glucose meter,continuous (FreeStyle Harvinder 3 [place]) Use daily to monitor blood glucose levels continuously. blood-glucose sensor (FreeStyle Harvinder 3 Plus Sensor device) Apply 1 new sensor every 14 days as directed to monitor blood glucose continuously. blood-glucose sensor (FreeStyle Harvinder 3 Sensor device) apply new sensor every 14 days calcium carbonate (Calcium Antacid) mg PO cetirizine 10 mg PO DAILY cholecalciferol (vitamin D3) 125 mcg PO DAILY cyanocobalamin (vitamin B-12) 500 mcg PO DAILY 30 days donepezil 5 mg PO DAILY 30 days escitalopram oxalate 20 mg PO DAILY 90 days flash glucose scanning reader (FreeStyle Harvinder 2 [place]) As directed glucose (Dex4 Glucose Quick Dissolve) 16 grams (4 x 4 gram) PO Q15M PRN insulin degludec (Tresiba FlexTouch U-100 insulin) 20 units (0.2 mL) subcut BEDTIME lancets (FreeStyle Lancets) B.i.d. p.r.n. lancets (FreeStyle Lancets) Use to monitor blood glucose 5 times daily. levothyroxine 25 mcg PO DAILY lisinopril 40 mg PO DAILY melatonin 3 mg PO BEDTIME 30 days memantine 21 mg PO DAILY 30 days pantoprazole 40 mg PO DAILY pen needle, diabetic (Comfort EZ Pen [place]) use one needle twice a day for insulin injections pioglitazone (Actos) 15 mg PO DAILY sennosides (senna) 8.6 mg PO BEDTIME sucralfate 1 g PO BID 90 days Tobacco use date assessed: 05/02/24 Fall risk assessment: 2 + Falls in past year Last assessed Fall Risk: 05/02/24 Dental Screening Dental Screen Date: 05/02/24 Did you have a dental visit in the last 12 months?: Yes Did you have a dental problem in the last 6 months where you did not have access to dental care?: No Was dental information given to patient?: Patient has dentist HPI MDFollowUp HPI Details Chief Complaint The patient presents for management of her diabetes and chronic health issues. Assessment and Plan 68-year-old female with a history of Typ e 2 Diabetes Mellitus, Essential Hypertension, Hyperlipidemia, Hypothyroidism, Depression, and Anxiety presenting for management of chronic conditions. Her hemoglobin A1c was recently recorded at 9.0%, indicating suboptimal glycemic control. The patient's insulin regimen was revised following consultation with an deputy chief magistrate, now off Lantus and started on 20 units of Tresiba daily. Metformin was trialed but discontinued due to intolerance. Other chronic conditions including hypertension, hyperlipidemia, thyroid dysfunction, and mental health disorders are maintained on current therapies. Allergy management and GERD are also addressed with specific medications. 1. Allergic Rhinitis Continue current allergy medication as prescribed. 2. Essential Hypertension Hypertension management continues with prescribed antihypertensive medication dispensed from this office. 3. Hypothyroidism Thyroid hormone replacement therapy through Levothyroxine continues, with this office handling prescription adjustments. 4. Depression And Anxiety Ongoing management of mental health conditions with medication continues. Regular follow-ups to monitor mental health status are suggested. 5. Hyperlipidemia Continue with current lipid-lowering therapy as prescribed. 6. Type 2 Diabetes Mellitus The patient's insulin therapy has been adjusted to 20 units of Tresiba daily in consultation with her deputy chief magistrate. Metformin was attempted but discontinued due to gastrointestinal distress. Continued monitoring of blood glucose levels is necessary. Her next appointment with the deputy chief magistrate is scheduled in May. 7. Gastroesophageal Reflux Disease Gerd Proton pump inhibitor therapy remains the course for GERD management. 8. Memory issues addressed neurologist 9. Paroxysmal atrial fibrillation manage ment through Cardiology patient is on Eliquis Problem List - Type 2 Diabetes Mellitus - Essential Hypertension - Hyperlipidemia - Hypothyroidism - Depression - Anxiety - Gastroesophageal Reflux Disease (GERD) - Allergic Rhinitis - mild cognitive dysfunction - paroxysmal atrial fibrillation Patient Instructions - Continue taking Tresiba as directed, a nd monitor blood glucose closely. - Maintain current antihypertensive, cho lesterol, thyroid, and allergy medications. - Report any side effects or new symptom s immediately. - Schedule an appointment with endocrino logy in May for diabetes management follow-up. - Adhere to prescribed management for de pression and anxiety, and report any changes in mood or behavior. - Follow up with dietary and lifestyle c hanges as beneficial to overall health management. 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 Mother No problems noted. Social History Housing: House Alcohol intake: never Patient Tobacco Use Status: Never used Tobacco e-Cigarette/Vaping Use: Never Used service: No Current occupational status: retired Current occupation: Left handed Cognitive needs: No Hearing needs: No Vision needs: Yes Questionnaire Thrive Questionnaire Date Thrive assessed: 01/14/24 I am a: Patient What is your living situation today?: I have a steady place to live Within the past 12 months, did the food you bought not last and you didn't have the money to get more?: I choose not to answer this question Within the past 12 months, did you worry whether your food would run out before you got money to buy more?: I choose not to answer this question Do you have trouble paying for medicines?: No Do you have trouble getting transportation to medical appointments?: No Do you have trouble paying your heating and electricity bill?: No Do you have trouble taking care of your child, family member or friend?: No Do you have trouble with day-to-day activities such as bathing, preparing meals, shopping, managing finances, etc.?: Yes Are you currently unemployed and looking for a job?: I choose not to answer this question Are you interested in more education?: I choose not to answer this question Please select the resources that you would like help with: None Currently or been in a relationship where the following occur: No concerns reported THRIVE Score: 0 AUDIT C Alcohol Use Questionnaire (AUDIT-C) 1. How often do you have a drink containing alcohol?: Never 3. How often do you have six or more drinks on one occasion?: Never Total Score: 0 Score Reviewed/Action Taken: Yes GIANLUCA-7 AMB Questionnaire GIANLUCA-7 Date GIANLUCA - 7 assessed: 03/07/24 Source: Developed by Drs. Miles Barkley, Luzma Marino, Calderon Wilkerson and colleagues, with an educational chu from [employer]. Review of Systems Const Denies chills and Denies fever(s) ENT Denies epistaxis and Denies nasal discharge Card Denies chest pain Resp Denies chest congestion, Denies cough and Denies hemoptysis GI Denies diarrhea and Denies nausea Skin/Breast Denies rash Neuro Reports no additional complaints Psych Reports no additional complaints Endo Reports no additional complaints Physical exam (Primary Care) Vital Signs: Last Vital Signs Pulse 59 05/02/24 13:38 BP 120/72 05/02/24 13:38 Pulse Ox 97 05/02/24 13:38 Oxygen Delivery Method Room Air 05/02/24 13:38 BMI result Body Mass Index 28.5 Tobacco/Smoking Status: Tobacco use Status Tobacco use date assessed 05/02/24 05/02/24 13:45 Patient Tobacco Use Status Never used Tobacco 05/02/24 13:38 e-Cigarette/Vaping Use Never Used 05/02/24 13:38 Thrive Assessment: Date of Thrive Assessment Date Thrive assessed 01/14/24 05/02/24 13:38 Currently or been in a relationship where the following occur: No concerns reported Const General: cooperative, comfortable and no acute distress Orientation/consciousness: patient oriented x3 HENMT Head: Yes normocephalic Eyes General: appearance normal, both eyes and all related structures Neck Neck: Yes supple Resp Effort & Inspection: normal respiratory effort, no cough and no stridor Cardio Heart sounds: S1 normal heart sound present and S2 normal heart sound present Skin General skin exam: turgor normal Neuro General: patient oriented x3, tone normal and moves all extremities Extrem Right lower extremity: no edema Left lower extremity: no edema Coding Level of Care Code Est Pt Level 4 (84391) Complex EM visit Add On G2211 Diagnoses Hypertension, essential I10 PAF (paroxysmal atrial fibrillation) I48.0 Moderate episode of recurrent major depressive disorder F33.1 Active/Remission status: currently active Major depression episode severity: moderate Insulin dependent diabetes mellitus Lipid disorder E78.9 Environmental allergies Z91.09 Chronic GERD K21.9 Other diabetic neurological complication associated with type 1 diabetes mellitus E10.49 Diabetes mellitus type: type 1 Diabetes mellitus complication detail: with other neurological complication 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 E10.21 Diabetes mellitus type: type 1 Mild cognitive disorder F09 Assessment & Plan Assessment & Plan (1) Hypertension, essential: Comment: Stable Code(s): I10 - Essential (primary) hypertension Category: Medical (2) PAF (paroxysmal atrial fibrillation): Comment: Stable Code(s): I48.0 - Paroxysmal atrial fibrillation Category: Medical (3) Major depression, recurrent: Code(s): F33.9 - Major depressive disorder, recurrent, unspecified Category: Medical Qualifiers: Active/Remission status: currently active Major depression episode severity: moderate Qualified Code(s): F33.1 - Major depressive disorder, recurrent, moderate (4) Insulin dependent diabetes mellitus: Category: Medical (5) Lipid disorder: Code(s): E78.9 - Disorder of lipoprotein metabolism, unspecified Category: Medical (6) Environmental allergies: Code(s): Z91.09 - Other allergy status, other than to drugs and biological substances Category: Medical (7) Chronic GERD: Code(s): K21.9 - Gastro-esophageal reflux disease without esophagitis Category: Medical (8) Diabetic neuropathy: Code(s): E11.40 - Type 2 diabetes mellitus with diabetic neuropathy, unspecified Category: Medical Qualifiers: Diabetes mellitus type: type 1 Diabetes mellitus complication detail: with other neurological complication Qualified Code(s): E10.49 - Type 1 diabetes mellitus with other diabetic neurological complication (9) Diabetic nephropathy: Code(s): E11.21 - Type 2 diabetes mellitus with diabetic nephropathy Category: Medical Qualifiers: Diabetes mellitus type: type 1 Qualified Code(s): E10.21 - Type 1 diabetes mellitus with diabetic nephropathy (10) Mild cognitive disorder: Code(s): F09 - Unspecified mental disorder due to known physiological condition Category: Medical Plan Chief Complaint The patient presents for management of her diabetes and chronic health issues. Assessment and Plan 68-year-old female with a history of Type 2 Diabetes Mellitus, Essential Hypertension, Hyperlipidemia, Hypothyroidism, Depression, and Anxiety presenting for management of chronic conditions. Her hemoglobin A1c was recently recorded at 9.0%, indicating suboptimal glycemic control. The patient's insulin regimen was revised following consultation with an deputy chief magistrate, now off Lantus and started on 20 units of Tresiba daily. Metformin was trialed but discontinued due to intolerance. Other chronic conditions including hypertension, hyperlipidemia, thyroid dysfunction, and mental health disorders are maintained on current therapies. Allergy management and GERD are also addressed with specific medications. 1. Allergic Rhinitis Continue current allergy medication as prescribed. 2. Essential Hypertension Hypertension management continues with prescribed antihypertensive medication dispensed from this office. 3. Hypothyroidism Thyroid hormone replacement therapy through Levothyroxine continues, with this office handling prescription adjustments. 4. Depression And Anxiety Ongoing management of mental health conditions with medication continues. Regular follow-ups to monitor mental health status are suggested. 5. Hyperlipidemia Continue with current lipid-lowering therapy as prescribed. 6. Type 2 Diabetes Mellitus The patient's insulin therapy has been adjusted to 20 units of Tresiba daily in consultation with her deputy chief magistrate. Metformin was attempted but discontinued due to gastrointestinal distress. Continued monitoring of blood glucose levels is necessary. Her next appointment with the deputy chief magistrate is scheduled in May. 7. Gastroesophageal Reflux Disease Gerd Proton pump inhibitor therapy remains the course for GERD management. 8. Memory issues addressed neurologist 9. Paroxysmal atrial fibrillation management through Cardiology patient is on Eliquis Problem List - Type 2 Diabetes Mellitus - Essential Hypertension - Hyperlipidemia - Hypothyroidism - Depression - Anxiety - Gastroesophageal Reflux Disease (GERD) - Allergic Rhinitis - mild cognitive dysfunction - paroxysmal atrial fibrillation Patient Instructions - Continue taking Tresiba as directed, and monitor blood glucose closely. - Maintain current antihypertensive, cholesterol, thyroid, and allergy medications. - Report any side effects or new symptoms immediately. - Schedule an appointment with endocrinology in May for diabetes management follow-up. - Adhere to prescribed management for depression and anxiety, and report any changes in mood or behavior. - Follow up with dietary and lifestyle changes as beneficial to overall health management. Follow-up 3 months
== END 2024-05-02 14:34 | disposition home or self-care (01) ==
PROVIDERS: PCP Internal Medicine; Visit Provider Internal Medicine
DX: I48.0 Paroxysmal atrial fibrillation (principal); E10.49 Type 1 diabetes mellitus with other diabetic neurological complication; F33.1 Major depressive disorder, recurrent, moderate; E10.21 Type 1 diabetes mellitus with diabetic nephropathy; I10 Essential (primary) hypertension; E78.9 Disorder of lipoprotein metabolism, unspecified; Z91.09 Other allergy status, other than to drugs and biological substances; K21.9 Gastro-esophageal reflux disease without esophagitis; F09 Unspecified mental disorder due to known physiological condition

== ENCOUNTER → 2024-05-02 13:30 | Outpatient (BNVA) | payer OTHER, SELFPAY | PROVIDERS: PCP Internal Medicine; Visit Provider Internal Medicine | DX: I10 Essential (primary) hypertension (principal); I48.0 Paroxysmal atrial fibrillation; F33.1 Major depressive disorder, recurrent, moderate; E78.9 Disorder of lipoprotein metabolism, unspecified; K21.9 Gastro-esophageal reflux disease without esophagitis; E10.49 Type 1 diabetes mellitus with other diabetic neurological complication; E10.21 Type 1 diabetes mellitus with diabetic nephropathy; F09 Unspecified mental disorder due to known physiological condition; Z91.09 Other allergy status, other than to drugs and biological substances | CPT/HCPCS: 99212 ==

== ENCOUNTER 2024-05-22 14:01 | Outpatient (AMB) | payer OTHER, SELFPAY ==
--- NOTE | 2024-05-22 14:36 | MHC.OFFVIS ---
Vital Signs 05/22/24 14:37 Height 4 ft 11 in Weight 143 lb 11.862 oz BMI 29.0 BP 130/60 Blood Pressure Location Lt brachial Position Sitting Pulse 54 Pulse Source Monitor Intake Visit Reasons: overdue followup Intake Note: overdue f/up Tool And Cutter Grinder Required: Yes Tool And Cutter Grinder Services: Tool And Cutter Grinder Offered & Declined Tool And Cutter Grinder Name: linsey/son Accompanied by: Son Allergies No Known Allergies [No Known Allergies*] Allergy (Verified 05/02/24 13:44) Medication List - Last Reconciled 05/22/24 by Imtiaz Arechiga MD acetaminophen ER (Tylenol 8 Hour) 650 mg PO Q8H PRN atorvastatin 80 mg PO DAILY blood sugar diagnostic (FreeStyle Lite Strips) USE DIRECTED to check blood glucose five times daily blood-glucose meter (FreeStyle Lite Meter kit) Check blood glucose 5 times daily blood-glucose meter,continuous (FreeStyle Harvinder 3 [place]) Use daily to monitor blood glucose levels continuously. blood-glucose sensor (FreeStyle Harvinder 3 Plus Sensor device) Apply 1 new sensor every 14 days as directed to monitor blood glucose continuously. blood-glucose sensor (FreeStyle Harvinder 3 Sensor device) apply new sensor every 14 days calcium carbonate (Calcium Antacid) mg PO cetirizine 10 mg PO DAILY cholecalciferol (vitamin D3) 125 mcg PO DAILY cyanocobalamin (vitamin B-12) 500 mcg PO DAILY 30 days donepezil 5 mg PO DAILY 30 days escitalopram oxalate 20 mg PO DAILY 90 days flash glucose scanning reader (FreeStyle Harvinder 2 [place]) As directed glucose (Dex4 Glucose Quick Dissolve) 16 grams (4 x 4 gram) PO Q15M PRN insulin degludec (Tresiba FlexTouch U-100 insulin) 20 units (0.2 mL) subcut BEDTIME lancets (FreeStyle Lancets) B.i.d. p.r.n. lancets (FreeStyle Lancets) Use to monitor blood glucose 5 times daily. levothyroxine 25 mcg PO DAILY melatonin 3 mg PO BEDTIME 30 days memantine 21 mg PO DAILY 30 days pantoprazole 40 mg PO DAILY pen needle, diabetic (Comfort EZ Pen [place]) use one needle twice a day for insulin injections pioglitazone (Actos) 15 mg PO DAILY sennosides (senna) 8.6 mg PO BEDTIME sucralfate 1 g PO BID 90 days HPI Comments Details: 69-year-old female here for f/u. She was at [facility] in early October 2019 with nausea, vomiting, dizziness and central chest tightness. She ruled in for NSTEMI with a troponin I of 0.11. Some distal septal and distal inferior wall motion abnormality was described on echocardiogram but subsequent to that she had Lexiscan at [facility] which was normal. She has atrial fibrillation and has been on Eliquis. She had recurrent chest discomfort and after discussion was taken for cardiac catheterization. Cardiac catheterization showed no significant coronary disease. Her blood pressure was elevated and it is possible that her symptoms were due to elevated blood pressures. After blood pressure control her chest discomfort improved. She had some atypical left-sided sharp chest pains afterwards which also have improved. Today she returns for follow-up. She is complaining of epigastric discomfort which is worst when she is not eating. After eating the pain improved somewhat but she gets nausea and vomiting. She has not followed up with GI for more than a year. She has background of gastritis and esophagitis. She has been taking Eliquis for anticoagulation. She is on pantoprazole 40 mg twice a day. 05/22/2024: She is here for follow-up after 2 years. On last visit 2 years ago she was complaining of epigastric pain and she was referred to GI for further assessment. It appears she was advised to undergo EGD but she did not get it done. She is here because she is not followed up and needs Eliquis filled. She is again complaining of epigastric pain and tenderness is there. She has lost weight. No bleeding. [facility] Medical History (Updated 05/22/24 @ 15:14 by Elly Ontiveros MD) Epigastric abdominal pain Uncontrolled diabetes mellitus with hyperglycemia, with long-term current use of insulin Type 2 diabetes mellitus with hypoglycemia Osteoarthritis of left acromioclavicular joint Cognitive disorder PAF (paroxysmal atrial fibrillation) [facility] systemic 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 History of miscarriage Anemia NSTEMI (non-ST elevated myocardial infarction) Chronic vertigo Diabetic neuropathy Hypertension, essential Chronic GERD Environmental allergies Insulin dependent diabetes mellitus Lipid disorder Constipation by delayed colonic transit IBS (irritable bowel syndrome) Surgical History Hx of cardiac cath Hx of endoscopy Hx of colonoscopy Family History Father No problems noted. Mother No problems noted. Social History Housing: House Alcohol intake: never Patient Tobacco Use Status: Never used Tobacco e-Cigarette/Vaping Use: Never Used service: No Current occupational status: retired Current occupation: Left handed Cognitive needs: No Hearing needs: No Vision needs: Yes Review of Systems Const Denies chills, Denies fatigue, Denies fever(s), Denies frequent falls, Denies weakness, Denies weight gain and Denies weight loss ENT Denies dizziness Card Denies chest pain, Denies leg edema, Denies lightheadedness, Denies palpitations, Denies dyspnea and Denies dyspnea on exertion Resp Denies cough, Denies dyspnea and Denies dyspnea on exertion GI Denies hematochezia Musc Denies abnormal gait, Denies muscle weakness, Denies numbness, Denies radiating pain into limb and Denies tingling Neuro Denies abnormal gait, Denies dizziness, Denies frequent falls, Denies numbness, Denies tingling and Denies weakness Endo Denies fatigue and Denies palpitations Physical Exam Vital Signs: Last Vital Signs Pulse 54 05/22/24 14:37 BP 130/60 05/22/24 14:37 BMI result Body Mass Index 29.0 GENERAL APPEARANCE: in no acute distress. NECK/THYROID: no carotid bruit, no jugular venous distention. SKIN: no suspicious lesions, warm and dry. HEART: no murmurs, regular rate and rhythm, S1, S2 normal. LUNGS: clear to auscultation bilaterally. ABDOMEN: Soft, tenderness epigastrium. EXTREMITIES: no clubbing, cyanosis, or edema. PERIPHERAL PULSES: equal. NEUROLOGIC: nonfocal, alert and oriented. PSYCH: mood/affect full range. Office Procedures EKG Details: Sinus bradycardia 54 beats per minute, normal axis, QTC 438 milliseconds. [id number], Complete Assessment & Plan Assessment & Plan (1) PAF (paroxysmal atrial fibrillation): Comment: Stable Code(s): I48.0 - Paroxysmal atrial fibrillation Category: Medical Plan Pleasant 69-year-old female who is here for follow-up. She has background history of NSTEMI in the setting of elevated blood pressures. No significant coronary disease were noted on her angiography. Blood pressure is currently well controlled. She is here for follow-up and is asking for Eliquis refills. She is complaining of abdominal pain and has epigastric tenderness. She has known history of gastritis and esophagitis. Two years ago she was seen for very similar symptoms and was referred for EGD but apparently did not get it done. I have explained to the patient and the son that she needs to see Gastroenterology. I have discussed with Dr. Ontiveros and I am referring her back for assessment and potential EGD. I am sending Eliquis script and I have told the son not to resume it till she gets GI workup. Thank you for allowing me to participate in the care of your patient. Please feel free to contact me if you have any questions. Medications: New apixaban 5 mg PO BID 60 tabs 6RF I48.0 - Paroxysmal atrial fibrillation Coding Level of Care Code Est Pt Level 2 (88172) Diagnoses PAF (paroxysmal atrial fibrillation) I48.0 CPT Codes EKG - CPT: 39878-[id number], Complete ([id number])
[2024-05-22 14:37] VITALS: BP 130/60; PULSE 54; BMI 29.0
== END 2024-05-22 15:08 | disposition home or self-care (01) ==
PROVIDERS: PCP Internal Medicine; Visit Provider Internal Medicine Cardiovascular Disease
DX: I48.0 Paroxysmal atrial fibrillation (principal)
CPT/HCPCS: 93010; 99212

== ENCOUNTER → 2024-05-22 14:01 | Outpatient (BNVA) | payer OTHER, SELFPAY | PROVIDERS: PCP Internal Medicine; Visit Provider Internal Medicine Cardiovascular Disease | DX: I48.0 Paroxysmal atrial fibrillation (principal); I25.2 Old myocardial infarction; Z79.01 Long term (current) use of anticoagulants | CPT/HCPCS: 93005; 99212 ==

== ENCOUNTER 2024-06-02 10:49 | Outpatient (REF) | payer OTHER, SELFPAY ==
[2024-06-02 12:57] LABS: B Type Natriuretic Peptide 77 pg/mL (<100)
== END 2024-06-02 10:50 | disposition home or self-care (01) ==
LOC: HO.LAB 10:49
PROVIDERS: PCP Internal Medicine; Visit Provider Physician Assistant Medical
DX: E11.65 Type 2 diabetes mellitus with hyperglycemia (principal); Z79.4 Long term (current) use of insulin
CPT/HCPCS: 36415; 82947; 83880; 99212

== ENCOUNTER 2024-06-02 10:49 | Outpatient (AMB) | payer OTHER, SELFPAY ==
--- NOTE | 2024-06-02 10:51 | A.OFFVIS_ITS ---
Vital Signs 06/02/24 10:52 Height 4 ft 11 in Weight 145 lb 8.081 oz BMI 29.4 BP 140/72 H Blood Pressure Location Lt brachial Position Sitting Pulse 58 Pulse Source Pulse Oximeter Intake Visit Reasons: T2DM Intake Note: Patient present today to follow up on Type 2 Diabetes Mellitus. Last Diabetic Eye exam: 06/2022 Last Podiatry Visit: 2021 Random Glucose: 187 mg/dl HgA1C: 9.0% 04/25/24 Hvac Project Engineer Required: Yes Hvac Project Engineer Language: Yg Hvac Project Engineer Services: Hvac Project Engineer Offered & Declined Accompanied by: Son Allergies No Known Allergies [No Known Allergies*] Allergy (Verified 06/02/24 10:57) HPI Comments Details: This is a 68-year-old female with a past medical history of cystitis, type 2 diabetes, gastroparesis, paroxysmal atrial fibrillation, diabetic nephropathy, dementia and hypertension. She is accompanied by her son who interprets. He provides the history. 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 Hemoglobin a1c 9% 04/25/24. POC 187. Harvinder 3 download May 16 2024 through 05/29/2024 CGM active 73% Average glucose 275 GMI 9.9% Glucose variability 31.4% Very high 60% High 25% Target range 15% 0% hypoglycemia. Persistent hyperglycemia throughout 24 hours with postprandial spikes. Current medication regimen: Tresiba 20 units nightly and Actos 15 mg daily. Metformin extended release 500 mg daily discontinued due to GI side effects. Trulicity was discontinued in the past due to exacerbation of gastroparesis. Compliance issues: Patient has dementia. Her son administers medication. ROS: Constitutional: No unexplained weight loss, fever, chills. Respiratory: No shortness of breath Cardiovascular: No chest pain Neurologic: No headache, dizziness, syncope Skin: No open wounds Physical exam: Constitutional: Alert, in no distress. Head: Normocephalic. Eyes: Pupils are equal, round and reactive to light. Extraocular muscles intact. Neck: Supple, Full range of motion. No lymphadenopathy. No palpable thyroid masses. Respiratory: Clear to auscultation. Cardiovascular: S1 S2 regular. No murmurs. Extremities: No lower extremity edema [facility] Medical History (Updated 05/22/24 @ 15:14 by Elly Ontiveros MD) Epigastric abdominal pain Uncontrolled diabetes mellitus with hyperglycemia, with long-term current use of insulin Type 2 diabetes mellitus with hypoglycemia Osteoarthritis of left acromioclavicular joint Cognitive disorder PAF (paroxysmal atrial fibrillation) long-term systemic 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 History of miscarriage Anemia NSTEMI (non-ST elevated myocardial infarction) Chronic vertigo Diabetic neuropathy Hypertension, essential Chronic GERD Environmental allergies Insulin dependent diabetes mellitus Lipid disorder Constipation by delayed colonic transit IBS (irritable bowel syndrome) Surgical History Hx of cardiac cath Hx of endoscopy Hx of colonoscopy Family History Father No problems noted. Mother No problems noted. Social History Housing: House Alcohol intake: never Patient Tobacco Use Status: Never used Tobacco e-Cigarette/Vaping Use: Never Used service: No Current occupational status: retired Current occupation: Left handed Cognitive needs: No Hearing needs: No Vision needs: Yes Physical Exam Vital Signs: Last Vital Signs Pulse 58 06/02/24 10:52 BP 140/72 H 06/02/24 10:52 BMI result Body Mass Index 29.4 Results Reviewed Results Reviewed: Laboratory Last Values Glucose (Clinic) 187 mg/dL (60-115) H 06/02/24 10:59 Assessment & Plan Assessment & Plan (1) Uncontrolled diabetes mellitus with hyperglycemia, with long-term current use of insulin: Code(s): E11.65 - Type 2 diabetes mellitus with hyperglycemia; Z79.4 - termination clerk (current) use of insulin Category: Medical Plan In summary this is a 68-year-old female with type 2 diabetes with micro and macrovascular complications who has treatment is complicated by cognitive decline. Increase Tresiba to 24 units daily. Increase Actos from 15-30 mg daily. Check BNP per ADA guidelines and order echocardiogram if this is elevated. Dietary modifications reviewed. This is difficult due to her dementia. Reviewed proper treatment of hypoglycemia. She has glucose tablets. Follow up in 4 weeks for type 2 diabetes. Orders: Referrals Podiatry Referral E11.65 - Type 2 diabetes mellitus with hyperglycemia, Z79.4 - termination clerk (current) use of insulin, Z91.89 - Other specified personal risk factors, not elsewhere classified Medications: New pioglitazone (Actos) 30 mg PO DAILY 90 tabs 0RF Changed From insulin degludec (Tresiba FlexTouch U-100 insulin) 20 units (0.2 mL) subcut BEDTIME 30 mL 5RF To insulin degludec (Tresiba FlexTouch U-100 insulin) 24 units (0.24 mL) subcut BEDTIME 30 mL 5RF Discontinued pioglitazone (Actos) Discontinued Reason: Doctor's Order 15 mg PO DAILY 90 tabs 0RF Coding Level of Care Code Est Pt Level 4 (62907) Complex EM visit Add On G2211 Diagnoses Uncontrolled diabetes mellitus with hyperglycemia, with long-term current use of insulin E11.65; Z79.4
[2024-06-02 10:52] VITALS: BP 140/72; PULSE 58; BMI 29.4
[2024-06-02 11:03] LABS: Glucose, Whole Blood 187 mg/dL (60-115)
== END 2024-06-02 11:41 | disposition home or self-care (01) ==
PROVIDERS: PCP Internal Medicine; Visit Provider Physician Assistant Medical
DX: E11.65 Type 2 diabetes mellitus with hyperglycemia (principal); Z79.4 Long term (current) use of insulin

== ENCOUNTER 2024-07-04 10:10 | Outpatient (AMB) | payer OTHER, SELFPAY ==
--- NOTE | 2024-07-04 10:19 | MHC.OFFVIS ---
Vital Signs 07/04/24 10:22 Height 4 ft 11 in Weight 153 lb 14.122 oz BMI 31.1 BP 124/74 Blood Pressure Location Lt brachial Position Sitting Pulse 56 Pulse Source Pulse Oximeter Intake Visit Reasons: Type II diabetes Intake Note: Patient present today to follow up on Type 2 Diabetes Mellitus. Last Diabetic Eye exam: Has an appointment 07/25/24 Last Podiatry Visit: Does not see a Rubber Calender Helper Random Glucose: 127 mg/dl HgA1C: 9.0% 04/25/2024 Natural Resources Professor Required: Yes Natural Resources Professor Language: Yg Natural Resources Professor Services: Natural Resources Professor Offered & Declined Natural Resources Professor Name: Son will Interpret Accompanied by: Son Allergies insulin glargine [From Lantus U-100 Insulin] Adverse Reaction (Mild, Verified 07/04/24 10:22) hypoglycemia Medication List - Last Reconciled 07/04/24 by MARCEL Jenkins acetaminophen ER (Tylenol 8 Hour) 650 mg PO Q8H PRN apixaban 5 mg PO BID atorvastatin 80 mg PO DAILY blood sugar diagnostic (FreeStyle Lite Strips) USE DIRECTED to check blood glucose five times daily blood-glucose meter (FreeStyle Lite Meter kit) Check blood glucose 5 times daily blood-glucose meter,continuous (FreeStyle Harvinder 3 [place]) Use daily to monitor blood glucose levels continuously. blood-glucose sensor (FreeStyle Harvinder 3 Plus Sensor device) Apply 1 new sensor every 14 days as directed to monitor blood glucose continuously. blood-glucose sensor (FreeStyle Harvinder 3 Sensor device) apply new sensor every 14 days calcium carbonate (Calcium Antacid) mg PO cetirizine 10 mg PO DAILY cholecalciferol (vitamin D3) 125 mcg PO DAILY cyanocobalamin (vitamin B-12) 500 mcg PO DAILY 30 days donepezil 5 mg PO DAILY 30 days escitalopram oxalate 20 mg PO DAILY 90 days flash glucose scanning reader (FreeStyle Harvindre 2 [place]) As directed glucose (Dex4 Glucose Quick Dissolve) 16 grams (4 x 4 gram) PO Q15M PRN insulin degludec (Tresiba FlexTouch U-100 insulin) 22 units subcut BEDTIME lancets (FreeStyle Lancets) B.i.d. p.r.n. lancets (FreeStyle Lancets) Use to monitor blood glucose 5 times daily. levothyroxine 25 mcg PO DAILY melatonin 3 mg PO BEDTIME 30 days memantine 28 mg PO DAILY 30 days pantoprazole 40 mg PO DAILY pen needle, diabetic (Comfort EZ Pen [place]) use one needle twice a day for insulin injections pioglitazone (Actos) 30 mg PO DAILY sennosides (senna) 8.6 mg PO BEDTIME sucralfate 1 g PO BID 90 days HPI Comments Details: This is a 69-year-old female with a past medical history of cystitis, type 2 diabetes, gastroparesis, paroxysmal atrial fibrillation, diabetic nephropathy, dementia and hypertension. She is accompanied by her son who interprets. He provides the history. 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 Hemoglobin a1c 9% 04/25/24. POC 127 They forgot the meter today. Son reports that every few days very early in the morning CGM alerts to low glucose in the high 60s. They treat with juice and this resolves and 15 minutes. He notes that she does not complain of symptoms, but she is generally asleep at this time. Current medication regimen: Tresiba 24 units nightly and Actos 30 mg daily. She has gained 13 lb since starting Actos in April. Her son notices that she is eating a lot more, and she forgets that she eats an eats again. No shortness a breath, chest pain or lower extremity swelling. Normal BNP May 2024. Metformin extended release 500 mg daily discontinued due to GI side effects. Trulicity was discontinued in the past due to exacerbation of gastroparesis. Compliance issues: Patient has dementia. Her son administers medication. Complications: Nephropathy ROS: Constitutional: No unexplained weight loss, fever, chills. Respiratory: No shortness of breath Cardiovascular: No chest pain Neurologic: No headache, dizziness, syncope Skin: No open wounds Physical exam: Constitutional: Alert, in no distress. Head: Normocephalic. Eyes: Pupils are equal, round and reactive to light. Extraocular muscles intact. Neck: Supple, Full range of motion. No lymphadenopathy. No palpable thyroid masses or enlargement. Respiratory: Clear to auscultation. Cardiovascular: S1 S2 regular. No murmurs. 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 Mother No problems noted. Social History Housing: House Alcohol intake: never Patient Tobacco Use Status: Never used Tobacco e-Cigarette/Vaping Use: Never Used service: No Current occupational status: retired Current occupation: Left handed Cognitive needs: No Hearing needs: No Vision needs: Yes Physical Exam Vital Signs: Last Vital Signs Pulse 56 07/04/24 10:22 BP 124/74 07/04/24 10:22 BMI result Body Mass Index 31.1 Results Reviewed Results Reviewed: Laboratory Last Values Glucose (Clinic) 127 mg/dL (60-115) H 07/04/24 10:27 Laboratory Tests 05/21/23 01/14/24 02/10/24 06:18 16:19 11:35 Creatinine 0.98 Estimated GFR 57 Hgb A1c (Clinic) 7.7 H Triglycerides 120 Cholesterol 137 LDL Cholesterol, Calc 82 HDL Cholesterol 31 L TSH 1.34 Urine Creatinine Urine Microalbumin Microalb/Creat Ratio 02/10/24 11:40 Creatinine Estimated GFR Hgb A1c (Clinic) Triglycerides Cholesterol LDL Cholesterol, Calc HDL Cholesterol TSH Urine Creatinine 128.09 Urine Microalbumin 43.0 Microalb/Creat Ratio 33.5 H Laboratory Tests 04/28/23 02/10/24 09:47 11:35 Creatinine 0.81 0.98 Estimated GFR > 60 57 Laboratory Tests 06/02/24 11:59 B-Natriuretic Peptide 77 Assessment & Plan Assessment & Plan (1) Uncontrolled diabetes mellitus with hyperglycemia, with long-term current use of insulin: Code(s): E11.65 - Type 2 diabetes mellitus with hyperglycemia; Z79.4 - custodial (current) use of insulin Category: Medical Plan In summary this is a 69-year-old female with uncontrolled type 2 diabetes. Reduce Tresiba to 22 units daily. We discussed that weight gain is a common side effect on Actos. We discussed options including reducing the dose and adding glipizide as a trial. They would like to continue the current regimen and monitor over the next 4 weeks. We discussed dietary guidelines, and her son we will try to monitor her intake more carefully. They will have labs drawn prior to next appointment. TSH ordered due to weight gain, but I suspect this is due to dietary indiscretion and Actos. Reviewed proper treatment of hypoglycemia. She has glucose tablets. Follow up in 4 weeks for type 2 diabetes. Reminded to bring meter with them to the next appointment so we can review data. Orders: Orders Lipid Panel Today E11.65 - Type 2 diabetes mellitus with hyperglycemia, E78.5 - Hyperlipidemia, unspecified, Z79.4 - terminal block assembler (current) use of insulin Comprehensive Met. Panel Today E11.65 - Type 2 diabetes mellitus with hyperglycemia, Z79.4 - terminal block assembler (current) use of insulin Hemoglobin A1c Today E11.65 - Type 2 diabetes mellitus with hyperglycemia, E11.9 - Type 2 diabetes mellitus without complications, Z79.4 - custodial (current) use of insulin TSH reflex Free T4 Today E11.65 - Type 2 diabetes mellitus with hyperglycemia, Z79.4 - terminal block assembler (current) use of insulin Coding Level of Care Code Est Pt Level 4 (14146) Complex EM visit Add On G2211 Diagnoses Uncontrolled diabetes mellitus with hyperglycemia, with long-term current use of insulin E11.65; Z79.4
[2024-07-04 10:22] VITALS: BP 124/74; PULSE 56; BMI 31.1
[2024-07-04 10:32] LABS: Glucose, Whole Blood 127 mg/dL (60-115)
--- OUTSIDE RECORDS SUMMARY | 2024-07-04 10:59 | XMS_ITS | Data Portability ---
Author Organization [employer] Address [address] [place] [id number] Care Team Providers Care Enterprise Software Developer Name Role Phone HIM [facility] OTHER Assessment Encounter Date Assessment Date Assessment LastModified by Organization Details LastModified Time 04/24/2022 04/24/2022 I have reviewed and agree with the assessment and plan as documented by the brim molder. I provided real-time medical direction for this encounter and was immediately available to provide additional phone-based assistance as needed. 66F diabetic with urinary symptoms, burning, increase urination. Pt indicates it has been going on for one year, with no change. Glucose 442. Discussion with family, patient was informed by provider to discontinue Lantus, unclear reason. Pt alert and oriented, no distress noted. No urinary symptoms, Urine clear. Patient education and counseling, supportive care, and strict return precautions given. For care team to coordinate close PCP follow up to determine diabetic medications. paysola Not available 04/24/2022 12:40:53 Plan of Treatment Reminders Order Date Submit Date Provider Last Modified By Organization Details Last Modified Time Details Appointments None recorde d. Lab culture , urine 022 04/24/20 [place] [facility], [address] [place], [id number], 09:38:12 Referral None recorde d. Procedures None recorde d. Surgeries None recorde d. Imaging None recorde d. Medication Orders None recorde d. Patient TargetsNo targets recorded. Patient InstructionsNo instructions recorded. Reason for Referral None Reported. Results Created Date Observation Date Name Description Value Unit Range Abnormal Flag Note LastModifiedBy Organization Detail LastModifiedTime 04/24/20 22 04/24/2022 URINE CULTU RE specimen description URINE Not Available [facility] [address] [place], [id number], 04/26/2022 09:38:12 04/24/20 22 04/24/2022 URINE CULTU RE special requests NONE Not Available [facility] [address] [place], [id number], 04/26/2022 09:38:12 04/24/20 22 04/26/2022 URINE CULTU RE culture Mixed bacter ial marie, indica tive of urogen ital contam inatio n. Not Available [facility] [address] [place], [id number], 04/26/2022 09:38:12 04/24/20 22 04/26/2022 URINE CULTU RE report status FINAL 2021 Not Available [facility] [address] [place], [id number], 04/26/2022 09:38:12 Result Notes None recorded. Medical Equipment None Reported. Medications Name Sig Start Date Stop Date Status Note LastModified by Organization Details LastModified Time atorvastatin 80 mg tablet TAKE 1 TABLET BY MOUTH EVERY DAY active Not Available Not Available No t Available cefuroxime axetil 250 mg tablet TAKE 1 TABLET BY MOUTH TWICE A DAY active Not Available Not Available No t Available polyethylene glycol 3350 17 gram oral powder packet MIX AND TAKE 17 GRAMS BY MOUTH DAILY active Not Available Not Available Not Available cetirizine 10 mg tablet TAKE 1 TABLET BY MOUTH EVERY DAY active Not Available Not Available No t Available sucralfate 100 mg/mL oral suspension TAKE 10 ML BY MOUTH TWICE A DAY active Not Available Not Available Not Available FreeStyle Lancets 28 gauge USE TWICE DAILY NEEDED active Not Available Not Available No t Available ondansetron HCl 4 mg tablet TAKE 1 TAB ORALLY EVERY 8 HOURS NEEDED FOR NAUSEA AND VOMITING FOR 7 DAYS active Not Available Not Available N ot Available Lantus U-100 Insulin 100 unit/mL subcutaneous solution INJECT 30 UNITS SUBCUTANEOU SLY DAILY active Not Available Not Available No t Available amlodipine 5 mg tablet TAKE 1 TABLET BY MOUTH EVERY DAY active Not Available Not Available No t Available pantoprazole 40 mg tablet,delay ed release TAKE 1 TABLET BY MOUTH TWICE A DAY active Not Available Not Available No t Available ferrous sulfate 325 mg (65 mg iron) tablet TAKE 1 TABLET BY MOUTH EVERY DAY active Not Available Not Available No t Available nystatin 100,000 unit/gram topical cream APPLY TO AFFECTED AREA EVERY DAY active Not Available Not Available No t Available gabapentin 300 mg capsule TAKE 1 CAPSULE BY MOUTH AT BEDTIME active Not Available Not Available No t Available ondansetron 4 mg disintegrati ng tablet DISSOLVE 1 TABLET EVERY 8 HOURS NEEDED FOR NAUSEA AND VOMITTING active Not Available Not Available No t Available metocloprami de 10 mg tablet TAKE 1 TABLET BY MOUTH 3 TIMES A DAY NEEDED FOR NAUSEA AND VOMITTING active Not Available Not Available No t Available escitalopram 10 mg tablet TAKE 1 TABLET BY MOUTH EVERY DAY FOR 90 DAYS active Not Available Not Available No t Available nitrofuranto in monohydrate/ macrocrystal s 100 mg capsule TAKE 1 CAP ORALLY EVERY 12 HOURS FOR 3 DAYS MUST ADMINISTER WITH A MEAL/FOOD active Not Available Not Available No t Available lactulose 10 gram/15 mL oral solution TAKE 30 GM (45 MLS) BY MOUTH DAILY NEEDED FOR CONSTIPATIO N active Not Available Not Available No t Available FreeStyle Lite Strips USE DIRECTED TWICE A DAY active Not Available Not Available Not Available Lantus Solostar U-100 Insulin 100 unit/mL (3 mL) subcutaneous pen INJECT 40 UNITS SUBCUTANEOU SLY TWICE DAILY active Not Available Not Available No t Available Eliquis 5 mg tablet TAKE 1 TABLET 2 TIMES A DAY KEEP APPT W/ ON 04/20/22 10:15AM TO RECEIVE FUTURE REILLS active Not Available Not Available No t Available Trulicity 1.5 mg/0.5 mL subcutaneous pen injector INJECT 1.5 MG SUBCUTANEOU SLY EVERY WEEK active Not Available Not Available No t Available Trulicity 0.75 mg/0.5 mL subcutaneous pen injector INJECT 0.75 MG SUBCUTANEOU SLY EVERY WEEK active Not Available Not Available No t Available BD Sarah 2nd Gen Pen Needle 32 gauge x 32 USE ONE NEEDLE TWICE A DAY FOR INSULIN INJECTIONS active Not Available Not Available N ot Available Baqsimi 3 mg/actuation nasal spray USE 3 MG INTRANASALL Y ONCE active Not Available Not Available No t Available Vitals Date Recorded Oxygen saturation Oxygen saturation in Arterial blood by Pulse oximetry Heart rate Respiratory rate Body temperature Systolic blood pressure Diastolic blood pressure Provider Name and Address Organization Details Last Updated DateTime 2 98 % 98 % 76 /min 16 /min 96.9 [degF] 140 mm[Hg] 88 mm[Hg] Not Available [facility] - production 12:33:32 Social History None recorded. Functional Status None recorded. Mental Status None recorded. Family History Nothing Reported. Medical History No medical history recorded. Gynecological HistoryNo gynecological history recorded. Obstetrics History GPAL:G 0 P 0 0 0 0 Past Encounters Encounter ID Performer Location Encounter Start Date Encounter Closed Date Diagnosis/Indication Diagnosis SNOMED-CT Code Diagnosis ICD10 Code Diagnosis Note [id number] Brittney Churchill MD [facility] [address] [place] [phone] 04/24/2022 12:33:23 04/27/2022 12:35:27 Dysuria [id number] R30.0 Health Concerns Section Related Observation LastModified by Organization Detai ls LastModified Time None Recorded Concern Status LastModified by Organization Details LastModified Time None Recorded Advance Directives Directive None Recorded Payers Encounter Date Sequence Insurance Name Policy Number Policy Alas Covered Member ID Alas Member ID Guarantor Name 04/24/[address] [facility] - DOS PRIOR TO 2022 - DUAL ELIGIBLE (MEDICARE REPLACEMENT/ADV ANTAGE - HMO) [place] [id number] [facility] Notes Date Note Type Note Provider Name and Address Organization Details Recorded Time 04/24/2022 text/html HPI: Spoke with member and her son. she reports burning sensation with urination, flank pain, dark colored urine and urgency. Reports saw PCP but didnt get have time to address. Denies any fever/chills. ................ ................ ................ ................ ................ ................ ................ ................ ............. CRC Nursing Assessment: Comments: CRC RN DID NOT NEED FURTHER INFO Brittney Churchill MD [address] [facility],[address], [place], [phone], [employer] 04/24/2022 12:41:05 OBGyn Episode No OBEpisode recorded.
--- OUTSIDE RECORDS SUMMARY | 2024-07-04 10:59 | XMS_ITS | Clinical Summary ---
Author Organization [facility] Address [address] [place] [address] Phone Care Team Providers Care Malariologist Name Role Phone Roxana Olivarez MD Primary Care Provider [phone] Allergies Active Allergy Reactions Criticality Noted Date Comments Sulfamethoxazole-Trimethoprim Nausea And Vomiting 03/18/2011 Medications Medication Sig Dispensed Refills Start Date End Date Status chlorthalidone (HYGROTON) 25 mg tablet Take 1 tablet (25 mg total) by mouth 1 (one) time each day. 03/11/2021 Active apixaban (Eliquis) 5 mg tablet Take 1 tablet (5 mg total) by mouth 2 (two) times a day. 11/13/2020 Active blood sugar diagnostic (FreeStyle Lite Strips) test strip TEST UP TO 4 TIMES A DAY DIRECTED BY DOCTOR 06/21/2015 Active metFORMIN XR (GLUCOPHAGE-XR) 500 mg 24 hr tablet Take 1 tablet (500 mg total) by mouth 1 (one) time each day with breakfast. 12/18/2014 Active insulin lispro (HumaLOG KwikPen Insulin) 100 unit/mL injection pen INJECT 7 UNITS INTO THE SKIN 3 TIMES DAILY (BEFORE MEALS). 08/20/2014 Active lisinopriL (PRINIVIL,ZESTRIL) 2.5 mg tablet Take 1 tablet (2.5 mg total) by mouth 1 (one) time each day. 05/14/2014 Active pen needle, diabetic (BD ULTRA-FINE SHORT PEN NEEDLE MISC) 1 Each by Does not apply route 3 times daily (with meals). 05/14/2014 Active insulin glargine (Lantus Solostar U-100 Insulin) 100 unit/mL (3 mL) injection pen Inject 27 Units under the skin 1 (one) time each day. 10/13/2013 Active lactose-reduced food (NUTRITIONAL SUPPLEMENT ORAL) Nutritional Supplements (GLUCOSE MANAGEMENT) TABS Take 2 Tabs by mouth daily as needed (low blood sugar). 10/13/2013 Active FREESTYLE LANCETS MISC Test up to 4 times as directed by doctor 07/13/2013 Active syringe-needle,insu eriberto,0.5 mL (INSULIN SYRINGE MISC) Insulin Syringes, Disposable, U-100 0.3 ML MISC by Does not apply route. One daily 07/13/2013 Active albuterol 2.5 mg /3 mL (0.083 %) nebulizer solution Take 1 Vial by nebulization every 4 hours as needed for Wheezing. 07/13/2013 Active pen needle, diabetic 32 gauge x 5/32 needle Inject 1 each under the skin 4 (four) times a day. 06/16/2013 Active insulin syringe-needle U-100 0.3 mL 30 gauge x 5/16 syringe Use to draw up lantus insulin daily 03/14/2013 Active blood-glucose meter (FREESTYLE LITE METER MISC) Test up to 4 times a day as directed by doctor 02/11/2012 Active Active Problems Problem Noted Date Diagnosed Date Microalbuminuria 02/02/2014 Nuclear sclerosis 02/02/2014 Overview (06/15/2024): Dr Mejia note 8-17-10 Rotator cuff tear arthropathy 08/18/2013 Morbid obesity 07/31/2013 Overview (06/15/2024): BMI 50.12 on 07/26/13. 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 Hilar lymphadenopathy 09/09/2012 Overview (06/15/2024): Increased per repeat CXR at [facility] visit 06/2012 Abdominal pain 02/02/2011 Schwannoma 11/24/2010 Overview (06/15/2024): S/p left upper quadrant resection January 2011 Fatty liver 08/09/2010 Type II or unspecified type diabetes mellitus with renal manifestations, uncontrolled(250.42) 02/10/2010 Overview (06/15/2024): microalbuminuria Hyperlipidemia with target LDL less than 100 03/2009 Overview (06/15/2024): IMO update Esophageal reflux 07/16/2005 Overview (06/15/2024): Saw Dr Christie during hospitalization at [facility] 05/2012. Underwent upper endoscopy- gastritis, erosive esophagitis. Biopsies taken. Has FU with GI. Immunizations Name Administration Dates Next Due Influenza trivalent, with pr eservative (Fluzone; Afluria) 6mo and older 05/14/2014,03/14/2013,03/29/2012,05/07,03/27/2008 Pneumococcal polysaccharide 23 valent (Pneumovax 23) 2yo and older 03/14/2013 Tdap Tetanus diptheria acell ular pertussis (Boostrix; Adacel) 7yo and older 02/07/2010 Surgical History Surgery Date Site/Laterality Comments ESOPHAGOGASTRODUODENOSCOPY 09/21/07 PROCEDURE: SD EGD TRANSORAL BIOPSY SINGLE/MULTIPLE; COMMENT: Multiple gastric erosions-bx:chronic gastritis-HPylori+(treated), SB-bx:Normal COLONOSCOPY 11/07/07 PROCEDURE: SD COLONOSCOPY STOMA DX INCLUDING COLLJ SPEC SPX; COMMENT: Up to cecum, good preparation, normal colon exam OTHER SURGICAL HISTORY PROCEDURE: DENIES PREVIOUS SURGERY; COMMENT: otherwise Medical History Medical History Date Comments Esophageal reflux 07/16/2005 DX:Esophageal reflux Headache(784.0) 07/16/2005 DX:Headache(784. 0) Type II or unspecified type diabetes mellitus with unspecified complication, not stated as uncontrolled DX:Type II or unspecified ty pe diabetes mellitus with unspecified complication, not stated as uncontrolled Unspecified disorder of lipo id metabolism 10/14/2008 DX:Unspecified disorder of l ipoid metabolism Family History Medical History Relation Name Comments Other: no known health problems Father during his lifetime Other: no known health problems Mother during her lifetime Blindness Neg Hx Cataracts Neg Hx Glaucoma Neg Hx Macular degeneration Neg Hx Strabismus Neg Hx Relation Name Status Comments Father Mother Social History Tobacco Use Types Packs/Day Years Used Date Smoking Tobacco: Never Smokeless Tobacco: Never Alcohol Use Standard Drinks/Week Comments No 0 (1 standard drink = 0.6 oz pur e alcohol) Sex and Gender Information Value Date Recorded Sex Assigned at Not on file Gender Identity Not on file Sexual Orientation Not on file Obstetrics History Plan of Treatment Health Maintenance Due Date Last Done Comments Breast Cancer Screening 1956 Diabetes: Annual Foot Exam 1966 Diabetes: Annual Retina Eye Exam 1966 Zoster Vaccines (1 of 2) 2006 Pneumococcal Vaccine: 65+ Years (2 of 2 - PCV) 03/14/2014 03/14/2013 Diabetes: Annual GFR (Glomerular Filtration Rate) 05/14/2015 05/14/2014 RSV Immunization Patients 60+ Years Old (1 - Risk 60-74 years 1-dose series) 2016 DTaP,Tdap,and Td Vaccines (2 - Td or Tdap) 02/08/2020 02/07/2010 Cholesterol Screening (Lipid Panel) 05/04/2022 05/14/2014 Colorectal Cancer Screening: Colonoscopy 05/04/2022 11/07/2007 Depression Screening 05/04/2022 Falls Risk Assessment 05/04/2022 Medicare Annual Wellness Visit 05/04/2022 Osteoporosis Screening (Bone Density Screening) 05/04/2022 Social Influencers of Health Screening 05/04/2022 Diabetes: Annual Urine Albumin-Creatinine Ratio (uACR) 07/21/2023 05/14/2014 Diabetes: Blood Sugar Control Test (HGBA1C) 07/21/2023 05/14/2014 COVID-19 Vaccine ( season) 2024 Influenza Vaccine (#1) 2024 4, 03/14/2013, 03/29/2012, Additional history exists Hepatitis C Screening Completed 05/14/2014 HIB Vaccines Aged Out No longer eligi ble based on patient's age to complete this topic HPV Vaccines Aged Out No longer eligi ble based on patient's age to complete this topic Hepatitis A Vaccines Aged Out No long er eligible based on patient's age to complete this topic Hepatitis B Vaccines Aged Out No long er eligible based on patient's age to complete this topic IPV Vaccines Aged Out No longer eligi ble based on patient's age to complete this topic MMR Vaccines Aged Out No longer eligi ble based on patient's age to complete this topic Meningococcal ACWY Vaccine Aged Out N o longer eligible based on patient's age to complete this topic RSV Immunization Patients Under 20 months Aged Out No longer eligible based on patient's age to complete this topic Varicella Vaccines Aged Out No longer eligible based on patient's age to complete this topic Procedures Procedure Name Priority Date/Time Associated Diagnosis Comments HEPATITIS C SCREENING Routine 05/14/2014 URINE ALBUMIN CREATININE RATIO Routine 05/14/2014 ANNUAL BMP BLOOD TEST Routine 05/14/2014 HEMOGLOBIN A1C Routine 05/14/2014 LIPID PANEL Routine 05/14/2014 COLONOSCOPY Routine 11/07/2007 from Last 3 Months or Most Recently Relevant to Health Maintenance Results * Urine Albumin Creatinine Ratio (05/14/2014) Pathologist [facility] Urine Albumin Creatinine Ratio Abstracted Historical Provider MD HOLLIE JENKINS * Annual BMP Blood Test (05/14/2014) Pathologist [facility] Annual BMP Blood Test Abstracted Historical Provider MD HOLLIE JENKINS E * Hepatitis C Screening (05/14/2014) Pathologist [facility] Hepatitis C Screening Abstracted Historical Provider MD HOLLIE JENKINS E * (ABNORMAL) Hemoglobin A1c (05/14/2014) [facility] Hemoglobin A1C 10.0(A) 4.0 - 6.0 % Blood Venous blood specimen / Unknown Historical Provider LAB BLOOD ORDERAB LES * (ABNORMAL) Lipid panel (05/14/2014) [facility] LDL/HDL Ratio 6(A) 0 - 4 Triglycerides 322(A) 0 - 150 mg/dL Cholesterol 245(A) 0 - 200 mg/dL HDL 43 40 mg/dL LDL Cholesterol 138(A) 0 - 100 mg/dL Blood Venous blood specimen / Unknown Historical Provider LAB BLOOD ORDERAB LES * Colonoscopy (11/07/2007) [facility] Colonoscopy No Interpretation , Abstracted Anatomical Region Laterality Modality Other Historical Provider HEALTH MAINTENANC E from Last 3 Months or Most Recently Relevant to Health Maintenance Care Teams Malariologist Relationship Specialty Start Date End Date Roxana Olivarez MD [address] [place] [id number] PCP - General Internal Medicine 06/30/24
== END 2024-07-04 10:55 | disposition home or self-care (01) ==
PROVIDERS: PCP Internal Medicine; Visit Provider Physician Assistant Medical
DX: E11.65 Type 2 diabetes mellitus with hyperglycemia (principal); Z79.4 Long term (current) use of insulin

== ENCOUNTER → 2024-07-04 10:10 | Outpatient (BNVA) | payer OTHER, SELFPAY | PROVIDERS: PCP Internal Medicine; Visit Provider Physician Assistant Medical | DX: E11.65 Type 2 diabetes mellitus with hyperglycemia (principal); Z79.4 Long term (current) use of insulin | CPT/HCPCS: 82947; 99212 ==

== ENCOUNTER 2024-07-10 08:29 | Outpatient (REF) | payer OTHER, SELFPAY ==
--- NOTE | ~2024-07-10 | US_ITS ---
CLINICAL HISTORY: R10.13 - Epigastric pain US abdomen complete Comparison: None Findings: The visualized pancreas is normal. The aorta and inferior vena cava are normal caliber. Mildly coarse hepatic echotexture. Hepatic size was not measured. There is no intrahepatic bile duct dilatation. The common duct is 4 mm in diameter. The gallbladder is normal (except for questionable mild adenomyomatosis). There is no sonographic Rico sign. The main portal vein is antegrade. The right kidney is 10.5 cm in length. The left kidney is 11.7 cm in length. The spleen is normal. Spleen measures 9 cm in length. No ascites. IMPRESSION: Questionable mild gallbladder adenomyomatosis. Mild coarse hepatic echotexture may be incidental or due to hepatic disease. LFT correlation recommended. This document has been electronically signed by: Margot Wood MD on 07/10/2024 11:02:27
== END 2024-07-10 08:30 | disposition home or self-care (01) ==
LOC: HO.HMGCX 08:29
PROVIDERS: PCP Internal Medicine; Visit Provider Internal Medicine Gastroenterology
DX: R10.13 Epigastric pain (principal)
CPT/HCPCS: 76700

== ENCOUNTER → 2024-07-10 08:54 | Outpatient (BNV) | payer OTHER, SELFPAY | PROVIDERS: PCP Internal Medicine; Visit Provider Radiology Diagnostic Radiology | DX: R10.13 Epigastric pain (principal) | CPT/HCPCS: 76700 ==

== ENCOUNTER 2024-08-01 10:36 | Outpatient (AMB) | payer OTHER, SELFPAY ==
[2024-08-01 10:46] VITALS: BP 138/68; PULSE 61; O2SAT 97; BMI 31.6
--- NOTE | 2024-08-01 10:46 | A.OFFVIS_ITS ---
Vital Signs 08/01/24 10:46 Height 4 ft 11 in Weight 156 lb 8.451 oz BMI 31.6 BP 138/68 Blood Pressure Location Rt brachial Position Sitting Pulse 61 Pulse Source Pulse Oximeter Pulse Oximetry (%) 97 Oxygen Delivery Method Room Air Intake Visit Reasons: T2DM Intake Note: Patient presents today for a follow-up on Type 2 Diabetes Mellitus: Last Diabetic eye exam was on: 07/25/2024 Last Podiatry exam was on: Patient does not see a Oracle Soa Architect Most recent HbA1c: 9.8%, 08/01/2024 Urine Ketone Dip- Negative Random Glucose- 485 mg/dL, Today Re-check Random Glucose- 261 mg/dL Jboss Developer Required: Yes Jboss Developer Language: Yg Jboss Developer Services: Jboss Developer Offered & Declined Accompanied by: Son Allergies insulin glargine [From Lantus U-100 Insulin] Adverse Reaction (Mild, Verified 07/04/24 10:22) hypoglycemia Medication List - Last Reconciled 08/01/24 by MARCEL Jenkins acetaminophen ER (Tylenol 8 Hour) 650 mg PO Q8H PRN apixaban 5 mg PO BID atorvastatin 80 mg PO DAILY blood sugar diagnostic (FreeStyle Lite Strips) USE DIRECTED to check blood glucose five times daily blood-glucose meter (FreeStyle Lite Meter kit) Check blood glucose 5 times daily blood-glucose meter,continuous (FreeStyle Harvinder 3 [place]) Use daily to monitor blood glucose levels continuously. blood-glucose sensor (FreeStyle Harvinder 3 Plus Sensor device) Apply 1 new sensor every 14 days as directed to monitor blood glucose continuously. blood-glucose sensor (FreeStyle Harvinder 3 Sensor device) apply new sensor every 14 days calcium carbonate (Calcium Antacid) mg PO cetirizine 10 mg PO DAILY cholecalciferol (vitamin D3) 125 mcg PO DAILY cyanocobalamin (vitamin B-12) 500 mcg PO DAILY 30 days donepezil 5 mg PO DAILY 30 days escitalopram oxalate 20 mg PO DAILY 90 days flash glucose scanning reader (KPAStyle Harvinder 2 [place]) As directed glucose (Dex4 Glucose Quick Dissolve) 16 grams (4 x 4 gram) PO Q15M PRN insulin degludec (Tresiba FlexTouch U-100 insulin) 30 units subcut DAILY lancets (FreeStyle Lancets) B.i.d. p.r.n. lancets (FreeStyle Lancets) Use to monitor blood glucose 5 times daily. levothyroxine 25 mcg PO DAILY melatonin 3 mg PO BEDTIME 30 days memantine 28 mg PO DAILY 30 days pantoprazole 40 mg PO DAILY pen needle, diabetic (Comfort EZ Pen [place]) use one needle twice a day for insulin injections pioglitazone (Actos) 15 mg PO DAILY sennosides (senna) 8.6 mg PO BEDTIME sucralfate 1 g PO BID 90 days HPI Comments Details: This is a 69-year-old female with a past medical history of cystitis, type 2 diabetes, gastroparesis, paroxysmal atrial fibrillation, diabetic nephropathy, dementia and hypertension. The patient's son and a video rn labor delivery are used for the visit. Hemoglobin a1c 9% 04/25/24. Today it is 9.8%. CGM active 55% Average glucose 303 GMI 10.6% Glucose variability 29.6 % Very high 73% High 17% Target range 10% 0% hypoglycemia. She ate a bagel and cream cheese and coffee with splenda at 8:30 am. Her POC is 485. She denies symptoms of hyperglycemia. Current medication regimen: Tresiba 22 units in the morning and Actos 30 mg daily. She has gained 16 lb since starting Actos in April. Her son notices that she is eating a lot more, and she forgets that she eats an eats again. No shortness a breath, chest pain or lower extremity swelling. Normal BNP May 2024. Past medications: Metformin extended release 500 mg daily discontinued due to GI side effects. Trulicity was discontinued in the past due to exacerbation of gastroparesis. Compliance issues: Patient has dementia. Both of her sons administer medication. She lives with her other son. Complications: Nephropathy ROS: Constitutional: No unexplained weight loss, fever, chills, fatigue or night sweats. Eyes: No vision changes, blurry vision, double vision, eye pain Respiratory: No shortness of breath, cough or sputum production. Cardiovascular: No chest pain, chest pressure or chest discomfort. No palpitations or pedal edema. Gastrointestinal: No anorexia, nausea, vomiting or diarrhea. No abdominal pain Genitourinary: No dysuria, hematuria, urinary frequency. Neurologic: No headache, dizziness, syncope and increased confusion. Endocrine: No cold or heat intolerance. No polyuria or polydipsia. Physical exam: Constitutional: Alert, in no distress. Head: Normocephalic. Eyes: Pupils are equal, round and reactive to light. Extraocular muscles intact. Neck: Supple, Full range of motion. No lymphadenopathy. No palpable thyroid masses or enlargement. Abdomen: Soft, nontender Respiratory: Clear to auscultation. Cardiovascular: S1 S2 regular. No murmurs. 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 Mother No problems noted. Social History Housing: House Alcohol intake: never Patient Tobacco Use Status: Never used Tobacco e-Cigarette/Vaping Use: Never Used service: No Current occupational status: retired Current occupation: Left handed Cognitive needs: No Hearing needs: No Vision needs: Yes Physical Exam Vital Signs: Last Vital Signs Pulse 61 08/01/24 10:46 BP 138/68 08/01/24 10:46 Pulse Ox 97 08/01/24 10:46 Oxygen Delivery Method Room Air 08/01/24 10:46 BMI result Body Mass Index 31.6 Office Meds Humalog U-100 Insulin 100 unit/mL subcutaneous solution Performing Provider: MARCEL Jenkins Performing Location: [facility] Administered by: Le Orosco RN on 08/01/24 11:19 Dose Route Admin Location Dispensed Lot Number Expiration Date NDC Magneto Repairer 10 unit subcut right upper arm 0.1 mL [id number] 05/18/25 [id number] [employer] Comments: Jboss Developer present after son had to step at to move his vehicle Ali rn labor delivery ID # [id number]. Pt with elevated blood sugar to 485 verbal order given to give 10 units of Humalog. Verified insulin dosage visually with Yoli Aguila once humalog was drawn up in insulin syringe. Pt given 10 units in right upper arm as sensor is in left upper arm. Pt tolerated injection well. Pt is pushing fluids as well. Advised MARVIN Melendez 10 units were given at 11:17am and will recheck per protocol. Pt has not further questions or needs at this time. Results AMB Hemoglobin A1c AMB Hemoglobin A1c 9.8 % Last Edit by LUIS ALBERTO Caballero on 08/01/24 11:03 UR Ketone Dip UR Ketone Dip Negative Last Edit by LUIS ALBERTO Caballero on 08/01/24 11:23 Results Reviewed Results Reviewed: Laboratory Last Values Glucose (Clinic) 261 mg/dL (60-115) H 08/01/24 12:14 Hgb A1c (Clinic) 9.8 % (4.0-6.0) H 08/01/24 11:02 Ur Ketones (Stick) Negative 08/01/24 11:02 Laboratory Tests 05/21/23 01/14/24 02/10/24 06:18 16:19 11:35 Creatinine 0.98 Estimated GFR 57 Hgb A1c (Clinic) 7.7 H Triglycerides 120 Cholesterol 137 LDL Cholesterol, Calc 82 HDL Cholesterol 31 L TSH 1.34 Urine Creatinine Urine Microalbumin Microalb/Creat Ratio 02/10/24 11:40 Creatinine Estimated GFR Hgb A1c (Clinic) Triglycerides Cholesterol LDL Cholesterol, Calc HDL Cholesterol TSH Urine Creatinine 128.09 Urine Microalbumin 43.0 Microalb/Creat Ratio 33.5 H Laboratory Tests 04/28/23 02/10/24 09:47 11:35 Creatinine 0.81 0.98 Estimated GFR > 60 57 Laboratory Tests 06/02/24 11:59 B-Natriuretic Peptide 77 Assessment & Plan Assessment & Plan (1) Uncontrolled diabetes mellitus with hyperglycemia, with long-term current use of insulin: Code(s): E11.65 - Type 2 diabetes mellitus with hyperglycemia; Z79.4 - manager intermediate (current) use of insulin Category: Medical Plan In summary this is a 69-year-old female with uncontrolled type 2 diabetes. She presents today with severe hyperglycemia. She denies symptoms of hyperglycemia. Urine ketone testing is negative. The patient was given oral hydration with water and 10 units of Humalog. Her blood sugar decreased to 261 after 1 hour. Urine ketone strips sent to pharmacy. See instructions below that were given and reviewed to the patient and her son today. Diabetic diet reviewed. They declined referral for mcc. Increase Tresiba to 30 units daily. Start Humalog 2 units three times daily 15 minutes before meals. Do not administer Humalog if she is not going to eat a meal. If her blood sugars after meals are still over 180 after 3 days, increase Humalog to 4 units before meals. Decrease Actos to 15 mg daily due to weight gain. If you experience low blood sugar, treat this by eating a chewable fruit candy like skittles or jelly beans (about 8 pieces), 4 ounces (1/2 cup) of fruit juice (not diet), 1 tablespoon of honey or 4 glucose tablets. If your blood sugar is under 55, take double the amount of one of the above. Recheck your blood sugar in 15 minutes. Diabetic ketoacidosis (DKA) A serious condition that can lead to diabetic coma (passing out for a long time) or even When your cells don't get the glucose they need for energy, your body begins to burn fat for energy, which produces ketones. Ketones are chemicals that the body creates when it breaks down fat to use for energy. The body does this when it doesn?t have enough insulin to use glucose, the body?s normal source of energy. When ketones build up in the blood, they make it more acidic. They are a warning sign that your diabetes is out of control or that you are getting sick. Symptoms of Diabetic Ketoacidosis (DKA) DKA usually develops slowly. But when vomiting occurs, this life-threatening condition can develop in a few hours. Early symptoms include the following: ? Thirst or a very dry mouth ? Frequent urination ? High blood glucose (blood sugar) levels ? High levels of ketones in the urine Then, other symptoms appear: ? Constantly feeling tired ? Dry or flushed skin ? Nausea, vomiting, or abdominal pain ? (Vomiting can be caused by many illnesses, not just ketoacidosis. If vomiting continues for more than 2 hours, contact your health care provider.) ? Difficulty breathing ? Fruity odor on breath ? A hard time paying attention, or confusion When should you test for ketones? It is advisable to check for ketones under the following conditions when: Your blood glucose is higher than 250mg/dl. Feeling nauseated, throwing up, or have pains in your abdominal region. Have a cold or flu. Have general body fatigue. Feel thirsty or have a very dry mouth. Have flushed skin. Have a fruity breath or a hard time breathing. You feel confused or in fog. Follow up in 2 weeks for Type II diabetes. Orders: Orders AMB Hemoglobin A1c Today E11.65 - Type 2 diabetes mellitus with hyperglycemia, Z79.4 - manager intermediate (current) use of insulin AMB Ketone Urine Dipstick Today E11.65 - Type 2 diabetes mellitus with hyperglycemia, Z79.4 - manager intermediate (current) use of insulin AMB Insulin Lispro Injection Practice Supplied Today E11.65 - Type 2 diabetes mellitus with hyperglycemia, Z79.4 - halfway (current) use of insulin Medications: New pioglitazone (Actos) Replaces pioglitazone 30 mg. 15 mg PO DAILY 90 tabs 0RF acetone (urine) test (Ketone Urine Test strips) As directed 100 ea 0RF insulin degludec (Tresiba FlexTouch U-100 insulin) 32 units (0.32 mL) subcut DAILY 15 mL 5RF insulin lispro (Humalog KwikPen (U-100) Insulin) Administer 2 units three times daily 15 minutes before meals. 2 units (0.02 mL) subcut TID 15 mL 5RF Discontinued pioglitazone (Actos) Discontinued Reason: Doctor's Order 30 mg PO DAILY 90 tabs 0RF Patient Instructions: Increase Tresiba to 30 units daily. Start Humalog 2 units three times daily 15 minutes before meals. Do not administer Humalog if she is not going to eat a meal. If her blood sugars after meals are still over 180 after 3 days, increase Humalog to 4 units before meals. Decrease Actos to 15 mg daily. If you experience low blood sugar, treat this by eating a chewable fruit candy like skittles or jelly beans (about 8 pieces), 4 ounces (1/2 cup) of fruit juice (not diet), 1 tablespoon of honey or 4 glucose tablets. If your blood sugar is under 55, take double the amount of one of the above. Recheck your blood sugar in 15 minutes. Diabetic ketoacidosis (DKA) A serious condition that can lead to diabetic coma (passing out for a long time) or even When your cells don't get the glucose they need for energy, your body begins to burn fat for energy, which produces ketones. Ketones are chemicals that the body creates when it breaks down fat to use for energy. The body does this when it doesn?t have enough insulin to use glucose, the body?s normal source of energy. When ketones build up in the blood, they make it more acidic. They are a warning sign that your diabetes is out of control or that you are getting sick. Symptoms of Diabetic Ketoacidosis (DKA) DKA usually develops slowly. But when vomiting occurs, this life-threatening condition can develop in a few hours. Early symptoms include the following: ? Thirst or a very dry mouth ? Frequent urination ? High blood glucose (blood sugar) levels ? High levels of ketones in the urine Then, other symptoms appear: ? Constantly feeling tired ? Dry or flushed skin ? Nausea, vomiting, or abdominal pain ? (Vomiting can be caused by many illnesses, not just ketoacidosis. If vomiting continues for more than 2 hours, contact your health care provider.) ? Difficulty breathing ? Fruity odor on breath ? A hard time paying attention, or confusion When should you test for ketones? It is advisable to check for ketones under the following conditions when: Your blood glucose is higher than 250mg/dl. Feeling nauseated, throwing up, or have pains in your abdominal region. Have a cold or flu. Have general body fatigue. Feel thirsty or have a very dry mouth. Have flushed skin. Have a fruity breath or a hard time breathing. You feel confused or in fog. Negative, trace or light ketones: hydrate, bring sugars down with insulin You should go to the ER if you have moderate or large ketones. Coding Level of Care Code Est Pt Level 5 (20923) Complex EM visit Add On G2211 Diagnoses Uncontrolled diabetes mellitus with hyperglycemia, with long-term current use of insulin E11.65; Z79.4 Time Spent (min) 60 Comment Direct patient care and completing documentation
[2024-08-01 10:56] LABS: Glucose, Whole Blood 485 mg/dL (60-115)
[2024-08-01 12:17] LABS: Glucose, Whole Blood 261 mg/dL (60-115)
--- OUTSIDE RECORDS SUMMARY | 2024-08-01 12:40 | XMS_ITS | Clinical Summary ---
Author Organization [address] [facility] Address [address] [place] [address] Phone Care Team Providers Care Remote Encoding Operations Supervisor Name Role Phone Roxana Olivarez MD Primary Care Provider [phone] Allergies Active Allergy Reactions Criticality Noted Date Comments Sulfamethoxazole-Trimethoprim Nausea And Vomiting 03/18/2011 Medications chlorthalidone (HYGROTON) 25 mg tablet Take 1 tablet (25 mg total) by mouth 1 (one) time each day. 1 Active apixaban (Eliquis) 5 mg tablet Take 1 tablet (5 mg total) by mouth 2 (two) times a day. 1 Active blood sugar diagnostic (FreeStyle Lite Strips) test strip TEST UP TO 4 TIMES A DAY DIRECTED BY DOCTOR 6 Active metFORMIN XR (GLUCOPHAGE-XR) 500 mg 24 hr tablet Take 1 tablet (500 mg total) by mouth 1 (one) time each day with breakfast. 5 Active insulin lispro (HumaLOG KwikPen Insulin) 100 unit/mL injection pen INJECT 7 UNITS INTO THE SKIN 3 TIMES DAILY (BEFORE MEALS). 5 Active lisinopriL (PRINIVIL,ZESTR IL) 2.5 mg tablet Take 1 tablet (2.5 mg total) by mouth 1 (one) time each day. 4 Active pen needle, diabetic (BD ULTRA-FINE SHORT PEN NEEDLE MISC) 1 Each by Does not apply route 3 times daily (with meals). 4 Active insulin glargine (Lantus Solostar U-100 Insulin) 100 unit/mL (3 mL) injection pen Inject 27 Units under the skin 1 (one) time each day. 4 Active lactose-reduced food (NUTRITIONAL SUPPLEMENT ORAL) Nutritional Supplements (GLUCOSE MANAGEMENT) TABS Take 2 Tabs by mouth daily as needed (low blood sugar). 4 Active FREESTYLE LANCETS MISC Test up to 4 times as directed by doctor 4 Active syringe-needle, insulin,0.5 mL (INSULIN SYRINGE MISC) Insulin Syringes, Disposable, U-100 0.3 ML MISC by Does not apply route. One daily 4 Active albuterol 2.5 mg /3 mL (0.083 %) nebulizer solution Take 1 Vial by nebulization every 4 hours as needed for Wheezing. 4 Active pen needle, diabetic 32 gauge x 5/32 needle Inject 1 each under the skin 4 (four) times a day. 4 Active insulin syringe-needle U-100 0.3 mL 30 gauge x 5/16 syringe Use to draw up lantus insulin daily 3 Active blood-glucose meter (FREESTYLE LITE METER MISC) Test up to 4 times a day as directed by doctor 2 Active Active Problems Problem Noted Date Diagnosed [...] (06/15/2024): Saw Dr Christie during hospitalization at [facility] 05/2012. Underwent upper endoscopy- gastritis, erosive esophagitis. Biopsies taken. Has FU with GI. Immunizations Name Administration Dates Next Due Influenza trivalent, with pr eservative (Fluzone; Afluria) 6mo and older 05/14/2014,03/14/2013,03/29/2012,05/07,03/27/2008 Pneumococcal polysaccharide 23 valent (Pneumovax 23) 2yo and older 03/14/2013 Tdap Tetanus diptheria acell ular pertussis (Boostrix; Adacel) 7yo and older 02/07/2010 Surgical History Surgery Date Site/Laterality Comments ESOPHAGOGASTRODUODENOSCOPY 09/21/07 PROCEDURE: RI EGD TRANSORAL BIOPSY SINGLE/MULTIPLE; COMMENT: Multiple gastric erosions-bx:chronic gastritis-HPylori+(treated), SB-bx:Normal COLONOSCOPY 11/07/07 PROCEDURE: RI COLONOSCOPY STOMA DX INCLUDING COLLJ SPEC SPX; [...] drink = 0.6 oz pur e alcohol) Comments Unknown Sex and Gender Information Value Date Recorded Sex Assigned at Not on file Legal Sex Female 9:29 AM EST Gender Identity Not on file Sexual Orientation Not on file Obstetrics History Plan of Treatment Health Maintenance Due Date Last Done Comments Breast Cancer Screening 1956 Diabetes: Annual Foot Exam 1966 Diabetes: Annual Retina Eye Exam 1966 Zoster Vaccines (1 of 2) 2006 Pneumococcal Vaccine: 50+ Years (2 of 2 - PCV) 03/14/2014 [...] patient's age to complete this topic Meningococcal B Vacine Aged Out No lo nger eligible based on patient's age to complete [...] * Urine Albumin Creatinine Ratio (05/14/2014) Pathologist [facility] Urine Albumin Creatinine Ratio Abstracted Result [facility] Provider HEALTH MAINTENANCE Final Result * Annual BMP Blood Test (05/14/2014) Pathologist [facility] Annual BMP Blood Test Abstracted Result [facility] Provider HEALTH MAINTENANCE Final Result * Hepatitis C Screening (05/14/2014) Pathologist [facility] Hepatitis C Screening Abstracted Result [facility] Provider HEALTH MAINTENANCE Final Result * (ABNORMAL) Hemoglobin A1c (05/14/2014) [facility] Hemoglobin A1C 10.0(A) 4.0 - 6.0 % Blood Venous blood specimen / Unknown us Historical Provider LAB BLOOD ORDERABLES Mara l Result * (ABNORMAL) Lipid panel (05/14/2014) LDL/HDL Ratio 6(A) 0 - 4 Triglycerides 322(A) 0 - 150 mg/dL Cholesterol 245(A) 0 - 200 mg/dL HDL 43 >=40 mg/dL LDL Cholesterol 138(A) 0 - 100 mg/dL Blood Venous blood specimen / Unknown Historical Provider LAB BLOOD ORDERABLES Mara l Result * Hm Colonoscopy (11/07/2007) Colonoscopy No Interpretation , Abstracted Anatomical Region Laterality Modality Other Historical Provider HEALTH MAINTENANCE Final Result from Last 3 Months or Most Recently Relevant to Health Maintenance Insurance MEDICAID - [place] [employer] MEDICARE Member Subscriber Plan / Payer (Ef fective 2014-Present) Name:Shawnee High Relation to Subscriber:Self Name:Shawnee High Payer ID:[id number] Group ID:[id number] Type:Not on file Address: [address] [place] [id number] Care Teams Remote Encoding Operations Supervisor Relationship Specialty Start Date End Date Roxana Olivarez MD [address] [place] [id number] PCP - General Internal Medicine 06/30/24
--- OUTSIDE RECORDS SUMMARY | 2024-08-01 12:40 | XMS_ITS | Data Portability ---
Author Organization [facility] Address [address] [place] [id number] Care Team Providers Care Thermodynamics Engineer Name Role Phone HIM CCA OTHER Assessment Encounter Date Assessment Date Assessment LastModified by Organization Details LastModified Time 04/24/2022 04/24/2022 I have reviewed and agree with the assessment and plan as documented by the restaurant assistant manager. I provided real-time medical direction for this [...] d. Lab culture , urine 022 04/24/20 [facility] (Centralized Electronic Ordering - All Locations), Patient Can Go To The Location Of Their Choice, [id number] 09:38:12 Referral None recorde d. Procedures None recorde d. Surgeries None recorde d. Imaging None recorde d. Medication Orders None recorde d. Patient TargetsNo targets recorded. Patient InstructionsNo instructions recorded. Reason for Referral None Reported. Results Created Date Observation Date Name Description Value Unit Range Abnormal Flag Note LastModifiedBy Organization Detail LastModifiedTime 04/24/2004/24/2022 URINE CULTU RE specimen description URINE Not Available [facility] (Centralized Electronic Ordering - All Locations) Patient Can Go To The Location Of Their Choice, [id number] 04/26/2022 09:38:12 04/24/2004/24/2022 URINE CULTU RE special requests NONE Not Available [facility] (Centralized Electronic Ordering - All Locations) Patient Can Go To The Location Of Their Choice, [id number] 04/26/2022 09:38:12 04/24/2004/26/2022 URINE CULTU RE culture Mixed bacter ial marie, indica tive of urogen ital contam inatio n. Not Available [facility] (Centralized Electronic Ordering - All Locations) Patient Can Go To The Location Of Their Choice, [id number] 04/26/2022 09:38:12 04/24/2004/26/2022 URINE CULTU RE report status FINAL 2021 Not Available [facility] (Centralized Electronic Ordering - All Locations) Patient Can Go To The Location Of Their Choice, [id number] 04/26/2022 09:38:12 Result Notes None recorded. Medical [...] 2nd Gen Pen Needle 32 gauge x 5/32 USE ONE NEEDLE TWICE A DAY FOR [...] [address] Brittney Churchill MD [address] - [address] [place] [address] 04/24/2022 12:33:23 04/27/2022 12:35:27 Dysuria [id number] R30.0 Health Concerns Section Related Observation LastModified by Organization Detai ls LastModified Time None Recorded Concern Status LastModified by Organization Details LastModified Time None Recorded Advance Directives Directive None Recorded Payers Encounter Date Sequence Insurance Name Policy Number Policy Alas Covered Member ID Alas Member ID Guarantor Name 04/24/2022 1 [facility] - DOS PRIOR TO 2022 - DUAL ELIGIBLE (MEDICARE REPLACEMENT/ADV ANTAGE - HMO) Yudithnenita High [id number] YudithnyGrace Notes Date Note Type Note Provider Name [...] NEED FURTHER INFO Brittney Churchill MD [address], [place], [address], [place] - [employer] 04/24/2022 12:41:05 OBGyn Episode No OBEpisode recorded.
== END 2024-08-01 12:17 | disposition home or self-care (01) ==
PROVIDERS: PCP Internal Medicine; Visit Provider Physician Assistant Medical
DX: E11.65 Type 2 diabetes mellitus with hyperglycemia (principal); Z79.4 Long term (current) use of insulin

== ENCOUNTER → 2024-08-01 10:36 | Outpatient (BNVA) | payer OTHER, SELFPAY | PROVIDERS: PCP Internal Medicine; Visit Provider Physician Assistant Medical | DX: E11.65 Type 2 diabetes mellitus with hyperglycemia (principal); Z79.4 Long term (current) use of insulin | CPT/HCPCS: 81002; 82947; 83036; 96372; 99212; J1815 ==

== ENCOUNTER 2024-08-15 09:17 | Outpatient (AMB) | payer OTHER, SELFPAY ==
--- NOTE | 2024-08-15 09:19 | A.OFFVIS_ITS ---
Vital Signs 08/15/24 09:21 Height 4 ft 11 in Weight 157 lb 6.561 oz BMI 31.8 BP 122/60 Blood Pressure Location Rt brachial Position Sitting Pulse 60 Pulse Source Pulse Oximeter Pulse Oximetry (%) 98 Oxygen Delivery Method Room Air Intake Visit Reasons: T2DM Intake Note: Patient present today to follow up on Type 2 Diabetes Mellitus. Last Diabetic Eye exam: 07/25/2024 Last Podiatry Visit: Patient does not see a Roof Mechanic Random Glucose: 314 mg/dl HgA1C: 9.8% 08/01/2024 Cloth Finishing Range Operator Required: Yes Cloth Finishing Range Operator Language: Yg Cloth Finishing Range Operator Services: Cloth Finishing Range Operator Offered & Declined Accompanied by: Son Allergies insulin glargine [From Lantus U-100 Insulin] Adverse Reaction (Mild, Verified 08/15/24 09:21) hypoglycemia Medication List - Last Reconciled 08/15/24 by MARCEL Jenkins acetaminophen ER (Tylenol 8 Hour) 650 mg PO Q8H PRN acetone (urine) test (Ketone Urine Test strips) As directed apixaban 5 mg PO BID atorvastatin 80 mg PO DAILY blood sugar diagnostic (FreeStyle Lite Strips) USE DIRECTED to check blood glucose five times daily blood-glucose meter (FreeStyle Lite Meter kit) Check blood glucose 5 times daily blood-glucose meter,continuous (FreeStyle Harvinder 3 Pratts) Use daily to monitor blood glucose levels continuously. blood-glucose sensor (FreeStyle Harvinder 3 Plus Sensor device) Apply 1 new sensor every 14 days as directed to monitor blood glucose continuously. blood-glucose sensor (FreeStyle Harvinder 3 Sensor device) apply new sensor every 14 days calcium carbonate (Calcium Antacid) mg PO cetirizine 10 mg PO DAILY cholecalciferol (vitamin D3) 125 mcg PO DAILY cyanocobalamin (vitamin B-12) 500 mcg PO DAILY 30 days donepezil 5 mg PO DAILY 30 days escitalopram oxalate 20 mg PO DAILY 90 days flash glucose scanning reader (FreeStyle Harvinder 2 Pratts) As directed glucose (Dex4 Glucose Quick Dissolve) 16 grams (4 x 4 gram) PO Q15M PRN insulin degludec (Tresiba FlexTouch U-100 insulin) 26 units subcut DAILY insulin lispro (Humalog KwikPen (U-100) Insulin) 6 units subcut TID lancets (FreeStyle Lancets) B.i.d. p.r.n. lancets (FreeStyle Lancets) Use to monitor blood glucose 5 times daily. levothyroxine 25 mcg PO DAILY melatonin 3 mg PO BEDTIME 30 days memantine 28 mg PO DAILY 30 days pantoprazole 40 mg PO DAILY pen needle, diabetic (Comfort EZ Pen [place]) use one needle twice a day for insulin injections sennosides (senna) 8.6 mg PO BEDTIME sucralfate 1 g PO BID 90 days HPI Comments Details: This is a 69-year-old female with a past medical history of cystitis, type 2 diabetes, gastroparesis, paroxysmal atrial fibrillation, diabetic nephropathy, dementia and hypertension presents for diabetic management accompanied by her son who interprets. They declined quality officer. Hemoglobin a1c 9% 04/25/24. Today it is 9.8%. Reviewed Harvinder 3 download today CGM active 96% Average glucose 205 GMI 8.2% Glucose variability 44.1% Very high 32% High 25% Target range 38% Low 5% Very low 0% She has a pattern of hypoglycemia between 6 and 10:00am and hyperglycemia in the afternoon, evening and overnight. Compared to her last visit CGM active 55% Average glucose 303 GMI 10.6% Glucose variability 29.6 % Very high 73% High 17% Target range 10% 0% hypoglycemia. The patient required Humalog in the office at her last visit and oral hydration due to POC greater than 400. Current medication regimen: Tresiba 30 units in the morning (increased at last visit) and Actos 15 mg (decreased at last visit due to weight gain), and Humalog. Humalog was prescribed at 2 units 3 times a day before meals with instructions to increase to 4 units if her postprandial glucose readings were still greater than 180. Her son says they have been using 2-3 units before meals. They do not always administer the afternoon dose before lunch. Past medications: Metformin extended release 500 mg daily discontinued due to GI side effects. Trulicity was discontinued in the past due to exacerbation of gastroparesis. Compliance issues: Patient has dementia. Both of her sons administer medication. She lives with her other son. Complications: Nephropathy ROS: Constitutional: No unexplained weight loss, fever, chills, fatigue or night sweats. Eyes: No vision changes, blurry vision, double vision, eye pain Respiratory: No shortness of breath, cough or sputum production. Cardiovascular: No chest pain, chest pressure or chest discomfort. No palpitations or pedal edema. Gastrointestinal: No anorexia, nausea, vomiting or diarrhea. No abdominal pain Genitourinary: No dysuria, hematuria, urinary frequency. Neurologic: No headache, dizziness, syncope and increased confusion. Endocrine: No cold or heat intolerance. No polyuria or polydipsia. Physical exam: Constitutional: Alert, in no distress. Head: Normocephalic. Eyes: Pupils are equal, round and reactive to light. Extraocular muscles intact. Neck: Supple, Full range of motion. No lymphadenopathy. No palpable thyroid masses or enlargement. Abdomen: Soft, nontender Respiratory: Clear to auscultation. Cardiovascular: S1 S2 regular. No murmurs. 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 Mother No problems noted. Social History Housing: House Alcohol intake: never Patient Tobacco Use Status: Never used Tobacco e-Cigarette/Vaping Use: Never Used service: No Current occupational status: retired Current occupation: Left handed Cognitive needs: No Hearing needs: No Vision needs: Yes Physical Exam Vital Signs: Last Vital Signs Pulse 60 08/15/24 09:21 BP 122/60 08/15/24 09:21 Pulse Ox 98 08/15/24 09:21 Oxygen Delivery Method Room Air 08/15/24 09:21 BMI result Body Mass Index 31.8 Results Reviewed Results Reviewed: Laboratory Last Values Glucose (Clinic) 314 mg/dL (60-115) H 08/15/24 09:26 Laboratory Tests 05/21/23 01/14/24 02/10/24 06:18 16:19 11:35 Creatinine 0.98 Estimated GFR 57 Hgb A1c (Clinic) 7.7 H Triglycerides 120 Cholesterol 137 LDL Cholesterol, Calc 82 HDL Cholesterol 31 L TSH 1.34 Urine Creatinine Urine Microalbumin Microalb/Creat Ratio 02/10/24 11:40 Creatinine Estimated GFR Hgb A1c (Clinic) Triglycerides Cholesterol LDL Cholesterol, Calc HDL Cholesterol TSH Urine Creatinine 128.09 Urine Microalbumin 43.0 Microalb/Creat Ratio 33.5 H Laboratory Tests 04/28/23 02/10/24 09:47 11:35 Creatinine 0.81 0.98 Estimated GFR > 60 57 Laboratory Tests 06/02/24 11:59 B-Natriuretic Peptide 77 Assessment & Plan Assessment & Plan (1) Uncontrolled diabetes mellitus with hyperglycemia, with long-term current use of insulin: Code(s): E11.65 - Type 2 diabetes mellitus with hyperglycemia; Z79.4 - wireless sales associate (current) use of insulin Category: Medical Plan In summary this is a 69-year-old female with uncontrolled type 2 diabetes. Reviewed case with MD. Decrease Tresiba to 26 units daily due to hypoglycemic episodes. Increase Humalog to 6 units three times daily 15 minutes before meals to address postprandial hyperglycemia.. Do not administer Humalog if she is not going to eat a meal. Discontinue Actos. She gained weight since starting it though her son also reports considerable dietary indiscretion. Declines referral for intermediate to help with medication administration. Declines referral to ems educator and dietitian. If you experience low blood sugar, treat this by eating a chewable fruit candy like skittles or jelly beans (about 8 pieces), 4 ounces (1/2 cup) of fruit juice (not diet), 1 tablespoon of honey or 4 glucose tablets. If your blood sugar is under 55, take double the amount of one of the above. Recheck your blood sugar in 15 minutes. Patient was given a printout about DKA and urine ketone testing at her last visit. Follow up in 2 weeks for Type II diabetes. Orders: Orders AMB Glucose Monitoring Today E11.9 - Type 2 diabetes mellitus without complications Creatinine Today E11.65 - Type 2 diabetes mellitus with hyperglycemia, Z79.4 - retirement (current) use of insulin Medications: Changed From insulin degludec (Tresiba FlexTouch U-100 insulin) 30 units (0.3 mL) subcut DAILY 15 mL 5RF To insulin degludec (Tresiba FlexTouch U-100 insulin) 26 units subcut DAILY From insulin lispro (Humalog KwikPen (U-100) Insulin) Administer 2 units three times daily 15 minutes before meals. 2 units (0.02 mL) subcut TID 15 mL 5RF To insulin lispro (Humalog KwikPen (U-100) Insulin) Administer 6 units three times daily 15 minutes before meals. 6 units subcut TID Patient Instructions: If you experience low blood sugar, treat this by eating a chewable fruit candy like skittles or jelly beans (about 8 pieces), 4 ounces (1/2 cup) of fruit juice (not diet), 1 tablespoon of honey or 4 glucose tablets. If your blood sugar is under 55, take double the amount of one of the above. Recheck your blood sugar in 15 minutes. Decrease Tresiba to 26 units daily. Increase Humalog to 6 units three times daily 15 minutes before meals. Stop Actos. Coding Level of Care Code Est Pt Level 4 (26718) Diagnoses Uncontrolled diabetes mellitus with hyperglycemia, with long-term current use of insulin E11.65; Z79.4
[2024-08-15 09:21] VITALS: BP 122/60; PULSE 60; O2SAT 98; BMI 31.8
[2024-08-15 09:30] LABS: Glucose, Whole Blood 314 mg/dL (60-115)
--- OUTSIDE RECORDS SUMMARY | 2024-08-15 10:23 | XMS_ITS | Data Portability ---
Author Organization [employer] [place] [facility] Address [address] [place] [id number] Care Team Providers Care Metrology Manager Name Role Phone HIM CCA OTHER Assessment Encounter Date Assessment Date Assessment LastModified by Organization Details LastModified Time 04/24/2022 04/24/2022 I have reviewed and agree with the assessment and plan as documented by the accountant. I provided real-time medical direction for this [...] Go To The Location Of Their Choice, [id number] 09:38:12 Referral None recorde d. Procedures None [...] Go To The Location Of Their Choice, [id number] 04/26/2022 09:38:12 04/24/2004/24/2022 URINE CULTU RE special requests NONE Not Available [facility] (Centralized Electronic Ordering - All Locations) Patient Can Go To The Location Of Their Choice, [id number] 04/26/2022 09:38:12 04/24/2004/26/2022 URINE CULTU RE culture Mixed bacter ial marie, indica tive of urogen ital contam inatio n. Not Available [facility] (Centralized Electronic Ordering - All Locations) Patient Can Go To The Location Of Their Choice, [id number] 04/26/2022 09:38:12 04/24/2004/26/2022 URINE CULTU RE report status FINAL 2021 Not Available [facility] (Centralized Electronic Ordering - All Locations) Patient Can Go To The Location Of Their Choice, [id number] 04/26/2022 09:38:12 Result Notes None recorded. Medical [...] Brittney Churchill MD Main - [facility] [address] [place] [address] 04/24/2022 12:33:23 04/27/2022 12:35:27 Dysuria [id number] R30.0 Health Concerns Section Related Observation LastModified by Organization Detai ls LastModified Time None Recorded Concern Status LastModified by Organization Details LastModified Time None Recorded Advance Directives Directive None Recorded Payers Encounter Date Sequence Insurance Name Policy Number Policy Alas Covered Member ID Alas Member ID Guarantor Name 04/24/2022 1 [facility] - DOS PRIOR TO 2022 - DUAL ELIGIBLE (MEDICARE REPLACEMENT/ADV ANTAGE - HMO) Yudithnenita High [id number] YudithvaGrace Notes Date Note Type Note Provider Name [...] Brittney Churchill MD [address], [place], [address], [employer] 04/24/2022 12:41:05 OBGyn Episode No OBEpisode recorded.
--- OUTSIDE RECORDS SUMMARY | 2024-08-15 10:23 | XMS_ITS | Clinical Summary ---
Author Organization [address] [facility] Address [address] [place] [address] Phone Care Team Providers Care Promotion Specialist Name Role Phone Roxana Olivarez MD Primary Care Provider [phone] Allergies Active Allergy Reactions Criticality Noted Date [...] (06/15/2024): Saw Dr Christie during hospitalization at [facility] 05/2012. Underwent upper endoscopy- gastritis, erosive esophagitis. Biopsies taken. Has FU with GI. Immunizations Name Administration Dates Next Due Influenza trivalent, with pr eservative (Fluzone; Afluria) 6mo and older 05/14/2014,03/14/2013,03/29/2012,05/07,03/27/2008 Pneumococcal polysaccharide 23 valent (Pneumovax 23) 2yo and older 03/14/2013 Tdap Tetanus diptheria acell ular pertussis (Boostrix; Adacel) 7yo and older 02/07/2010 Surgical History Surgery Date Site/Laterality Comments ESOPHAGOGASTRODUODENOSCOPY 09/21/07 PROCEDURE: TX EGD TRANSORAL BIOPSY SINGLE/MULTIPLE; COMMENT: Multiple gastric erosions-bx:chronic gastritis-HPylori+(treated), SB-bx:Normal COLONOSCOPY 11/07/07 PROCEDURE: TX COLONOSCOPY STOMA DX INCLUDING COLLJ SPEC SPX; [...] Albumin Creatinine Ratio (05/14/2014) Pathologist [facility] Urine Albumin Creatinine Ratio Abstracted Result [facility] Provider HEALTH MAINTENANCE Final Result * Annual BMP Blood Test (05/14/2014) Pathologist [facility] Annual BMP Blood Test Abstracted Result [facility] Provider HEALTH MAINTENANCE Final Result * Hepatitis C Screening (05/14/2014) Pathologist [facility] Hepatitis C Screening Abstracted Result [facility] Provider HEALTH MAINTENANCE Final Result * (ABNORMAL) Hemoglobin A1c (05/14/2014) [facility] Hemoglobin A1C 10.0(A) 4.0 - 6.0 [...] ID:ICO Type:Not on file Address: [address] [place] [address] Care Teams Promotion Specialist Relationship Specialty Start Date End Date Roxana Olivarez MD [address] [place] [id number] PCP - General Internal Medicine 06/30/24
== END 2024-08-15 09:56 | disposition home or self-care (01) ==
LOC: HO.ENCR 09:18
PROVIDERS: PCP Internal Medicine; Visit Provider Physician Assistant Medical
DX: E11.65 Type 2 diabetes mellitus with hyperglycemia (principal); Z79.4 Long term (current) use of insulin

== ENCOUNTER → 2024-08-15 09:17 | Outpatient (BNVA) | payer OTHER, SELFPAY | PROVIDERS: PCP Internal Medicine; Visit Provider Physician Assistant Medical | DX: E11.65 Type 2 diabetes mellitus with hyperglycemia (principal); Z79.4 Long term (current) use of insulin | CPT/HCPCS: 82947; 99212 ==

== ENCOUNTER 2024-08-16 13:01 | Outpatient (AMB) | payer OTHER, SELFPAY ==
[2024-08-16 13:13] VITALS: BP 128/78; PULSE 86; O2SAT 98; BMI 27.9
--- NOTE | 2024-08-16 13:13 | A.OFFPC_ITS ---
Vital Signs 08/16/24 13:13 Height 4 ft 11 in Weight 138 lb 6 oz BMI 27.9 BP 128/78 Blood Pressure Location Rt brachial Position Sitting Pulse 86 Pulse Source Pulse Oximeter Pulse Oximetry (%) 98 Oxygen Delivery Method Room Air Intake Visit Reasons: Annual PE Allergies insulin glargine [From Lantus U-100 Insulin] Adverse Reaction (Mild, Verified 08/16/24 13:13) hypoglycemia Medication List - Last Reconciled 08/16/24 by Roxana Olivarez MD acetaminophen ER (Tylenol 8 Hour) 650 mg PO Q8H PRN acetone (urine) test (Ketone Urine Test strips) As directed apixaban 5 mg PO BID atorvastatin 80 mg PO DAILY blood sugar diagnostic (FreeStyle Lite Strips) USE DIRECTED to check blood glucose five times daily blood-glucose meter (FreeStyle Lite Meter kit) Check blood glucose 5 times daily blood-glucose meter,continuous (FreeStyle Harvinder 3 [place]) Use daily to monitor blood glucose levels continuously. blood-glucose sensor (FreeStyle Harvinder 3 Plus Sensor device) Apply 1 new sensor every 14 days as directed to monitor blood glucose continuously. blood-glucose sensor (FreeStyle Harvinder 3 Sensor device) apply new sensor every 14 days calcium carbonate (Calcium Antacid) mg PO cetirizine 10 mg PO DAILY cholecalciferol (vitamin D3) 125 mcg PO DAILY cyanocobalamin (vitamin B-12) 500 mcg PO DAILY 30 days donepezil 5 mg PO DAILY 30 days escitalopram oxalate 20 mg PO DAILY 90 days flash glucose scanning reader (FreeStyle Harvinder 2 [place]) As directed glucose (Dex4 Glucose Quick Dissolve) 16 grams (4 x 4 gram) PO Q15M PRN insulin degludec (Tresiba FlexTouch U-100 insulin) 26 units subcut DAILY insulin lispro (Humalog KwikPen (U-100) Insulin) 6 units subcut TID lancets (FreeStyle Lancets) B.i.d. p.r.n. lancets (FreeStyle Lancets) Use to monitor blood glucose 5 times daily. levothyroxine 25 mcg PO DAILY melatonin 3 mg PO BEDTIME 30 days memantine 28 mg PO DAILY 30 days pantoprazole 40 mg PO DAILY pen needle, diabetic (Comfort EZ Pen [place]) use one needle twice a day for insulin injections sennosides (senna) 8.6 mg PO BEDTIME sucralfate 1 g PO BID 90 days Tobacco use date assessed: 08/16/24 Fall risk assessment: No Falls in past year Last assessed Fall Risk: 08/16/24 Dental Screening Dental Screen Date: 08/16/24 Did you have a dental visit in the last 12 months?: No Did you have a dental problem in the last 6 months where you did not have access to dental care?: No Was dental information given to patient?: Patient has dentist HPI Annual PE HPI Details Physical exam appointment Assessment and Plan 69-year-old female with a history of Typ e 2 Diabetes Mellitus, insulin- dependent, Essential Hypertension, Hyperlipidemia, Hypothyroidism, Depression, and Anxiety presenting for management of chronic conditions. She is now established with endocrinology for the management of uncontrolled diabetes 1. Allergic Rhinitis Continue curr ent allergy medication as prescribed. 2. Essential Hypertension Hyperten ida management continues with prescribed antihypertensive medication dispensed from this office. 3. Hypothyroidism Thyroid hormone replacement therapy through Levothyroxine continues, with this office handling prescription adjustments. 4. Depression And Anxiety Ongoing management of mental health conditions with medication continues. Continue Lexapro 20 mg 5. Hyperlipidemia Continue atorvas tatin 80 mg through Cardiology office 6. Type 2 Diabetes Mellitus manage ment through endocrinology 7. Gastroesophageal Reflux Disease Gerd and gastroparesis, patient is established with [facility] heading and priming operator Proton pump inhibitor therapy remains the course for GERD management. 8. Memory issues addressed neurologist 9. Paroxysmal atrial fibrillation manage ment through Cardiology patient is on Eliquis Problem List - Type 2 Diabetes Mellitus - Essential Hypertension - Hyperlipidemia - Hypothyroidism - Depression - Anxiety - Gastroesophageal Reflux Disease (GERD) - Allergic Rhinitis - mild cognitive dysfunction - paroxysmal atrial fibrillation Health Maintenance - Due for mammogram and bone density scr eening. - Referral to systems technologist placed Colonoscopy management through Gastroenterology [facility] of Care: Fiberglass Technician Casting Repairer Telegraph Repeater Installer Patient Instructions - Schedule mammogram and bone density sc reening. - Visit the systems technologist for routine exa mination. - Complete laboratory tests today for bl ood sugar assessment. - Follow up with heading and priming operator ray carmen ultrasound results. - Adjust daily schedule to improve night time sleep by reducing daytime naps. Review of Systems - Neurological: No headaches no dizzin ess - Ear nose throat: No sore throat no hearing difficulty no ear pain - Cardiovascular: No syncope, no chest pain, no palpitations - Gastrointestinal: No vomiting or diarrhea - Endocrine: no heat intolerance - Genitourinary: No dysuria - Skin: No new complaints Physical Exam General: Cooperative, healthy appearing, comfortable, no acute distress Orientation: Patient oriented x3 Head: Normal to inspection Ears: Within normal limit visually Nose: Normal external nose present Face and sinus: Normal facial exam Eyes: Appearance normal, extraocular movement intact pupils reactive Neck: Normal visual inspection and supple Respiratory: Normal respiratory effort and able to speak in complete sentences. Clear to auscultation, no stridor Breast exam benign Cardiovascular: S1 and S2 GI: Normal to inspection. Soft to palpation and nontender Skin: Turgor normal, no acute findings Neuro: Patient oriented x3, motor sensory intact, balance intact Extremities: Normal to inspection [facility] Medical History Epigastric abdominal pain Uncontrolled diabetes mellitus with hyperglycemia, with long-term current use of insulin Type 2 diabetes mellitus with hypoglycemia Osteoarthritis of left acromioclavicular joint Cognitive disorder PAF (paroxysmal atrial fibrillation) half-way systemic 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 History of miscarriage Anemia NSTEMI (non-ST elevated myocardial infarction) Chronic vertigo Diabetic neuropathy Hypertension, essential Chronic GERD Environmental allergies Insulin dependent diabetes mellitus Lipid disorder Constipation by delayed colonic transit IBS (irritable bowel syndrome) Surgical History Hx of cardiac cath Hx of endoscopy Hx of colonoscopy Family History Father No problems noted. Mother No problems noted. Social History Housing: House Alcohol intake: never Patient Tobacco Use Status: Never used Tobacco e-Cigarette/Vaping Use: Never Used service: No Current occupational status: retired Current occupation: Left handed Cognitive needs: No Hearing needs: No Vision needs: Yes Questionnaire PHQ-9 Over the last 2 weeks, how often have you been bothered by any of the following problems? 1. Little interest or pleasure in doing things: not at all 2. Feeling down, depressed, or hopeless: not at all 3. Trouble falling or staying asleep, or sleeping too much: several days 4. Feeling tired or having little energy: several days 5. Poor appetite or overeating: several days 6. Feeling bad about yourself - or that you are a failure or have let yourself or your family down: not at all 7. Trouble concentrating on things, such as reading the newspaper or watching television: several days 8. Moving or speaking so slowly that other people could have noticed. Or the opposite - being so fidgety or restless that you have been moving around a lot more than usual: not at all 9. Thoughts that you would be better off or of hurting yourself in some way: not at all Total score: 4 Depression Screening Interpretation: Negative Depression Screening Done: Yes 89827 - PHQ-9 Billing: Yes Source: Developed by Drs. Miles Barkley, Luzma Marino, Calderon Wilkerson and colleagues, with an educational chu from [employer]. Thrive Questionnaire Date Thrive assessed: 08/16/24 I am a: Patient What is your living situation today?: I have a steady place to live Within the past 12 months, did the food you bought not last and you didn't have the money to get more?: Never true Within the past 12 months, did you worry whether your food would run out before you got money to buy more?: Never true Do you have trouble paying for medicines?: No Do you have trouble getting transportation to medical appointments?: No Do you have trouble paying your heating and electricity bill?: No Do you have trouble taking care of your child, family member or friend?: No Do you have trouble with day-to-day activities such as bathing, preparing meals, shopping, managing finances, etc.?: Yes Are you currently unemployed and looking for a job?: No Are you interested in more education?: No Please select the resources that you would like help with: None Currently or been in a relationship where the following occur: No concerns reported THRIVE Score: 0 AUDIT C Alcohol Use Questionnaire (AUDIT-C) 1. How often do you have a drink containing alcohol?: Never 3. How often do you have six or more drinks on one occasion?: Never Total Score: 0 Score Reviewed/Action Taken: Yes GIANLUCA-7 AMB Questionnaire GIANLUCA-7 Date GIANLUCA - 7 assessed: 08/16/24 Feeling nervous, anxious, or on edge: 0 = Not at all Not being able to stop or control worryin = Not at all Worrying too much about different things: 0 = Not at all Trouble relaxin = Not at all Being so restless that it is hard to sit still: 1 = Several days Becoming easily annoyed or irritable: 1 = Several days Feeling afraid as if something awful might happen: 0 = Not at all Total GIANLUCA-7 score (0-4 normal; 5-9 mild; 10-14 moderate; 15-21 severe): 2 Source: Developed by Drs. Miles Barkley, Luzma Marino, Calderon Wilkerson and colleagues, with an educational chu from [employer]. GIANLUCA-7 Assessment Billing GIANLUCA-7 Assessment Tool: GIANLUCA-7 Assessment 31737 Physical exam (Primary Care) Vital Signs: Last Vital Signs Pulse 86 08/16/24 13:13 BP 128/78 08/16/24 13:13 Pulse Ox 98 08/16/24 13:13 Oxygen Delivery Method Room Air 08/16/24 13:13 BMI result Body Mass Index 27.9 Tobacco/Smoking Status: Tobacco use Status Tobacco use date assessed 08/16/24 08/16/24 13:14 Patient Tobacco Use Status Never used Tobacco 08/16/24 13:14 e-Cigarette/Vaping Use Never Used 08/16/24 13:14 PHQ-9: PHQ-9 Score PHQ-9: Total score 4 08/16/24 13:30 Depression Screening Interpretation: Negative Thrive Assessment: Date of Thrive Assessment Date Thrive assessed 08/16/24 08/16/24 13:14 Currently or been in a relationship where the following occur: No concerns reported Coding Level of Care Code Est Pt Level 4 (51453) Est Pt Prev Care >65y(36903) Diagnoses Encounter for general adult medical examination with abnormal findings Z00.01 Uncontrolled diabetes mellitus with hyperglycemia, with long-term current use of insulin E11.65; Z79.4 Difficulty sleeping G47.9 Cognitive disorder F09 Moderate episode of recurrent major depressive disorder F33.1 Active/Remission status: currently active Major depression episode severity: moderate PAF (paroxysmal atrial fibrillation) I48.0 Anxiety, generalized F41.1 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 E10.21 Diabetes mellitus type: type 1 Hypertension, essential I10 Lipid disorder E78.9 Osteopenia, unspecified location M85.80 Osteopenia location: unspecified Additional Codes GIANLUCA-7 Assessment Billing - GIANLUCA-7 Assessment Tool: GIANLUCA-7 Assessment 07761 ([id number]) PHQ-9 - 85478 - PHQ-9 Billing: Yes ([id number]) Assessment & Plan Assessment & Plan (1) Encounter for general adult medical examination with abnormal findings: Code(s): Z00.01 - Encounter for general adult medical examination with abnormal findings Category: Medical (2) Uncontrolled diabetes mellitus with hyperglycemia, with long-term current use of insulin: Code(s): E11.65 - Type 2 diabetes mellitus with hyperglycemia; Z79.4 - half-way (current) use of insulin Category: Medical (3) Difficulty sleeping: Code(s): G47.9 - Sleep disorder, unspecified Category: Medical (4) Cognitive disorder: Comment: ? early dementia , worsened by mood ?. she did not test well on MMSE due to her education level Code(s): F09 - Unspecified mental disorder due to known physiological condition Category: Medical (5) Major depression, recurrent: Code(s): F33.9 - Major depressive disorder, recurrent, unspecified Category: Medical Qualifiers: Active/Remission status: currently active Major depression episode severity: moderate Qualified Code(s): F33.1 - Major depressive disorder, recurrent, moderate (6) PAF (paroxysmal atrial fibrillation): Comment: Stable Code(s): I48.0 - Paroxysmal atrial fibrillation Category: Medical (7) Anxiety, generalized: Code(s): F41.1 - Generalized anxiety disorder Category: Medical (8) Diabetic nephropathy: Code(s): E11.21 - Type 2 diabetes mellitus with diabetic nephropathy Category: Medical Qualifiers: Diabetes mellitus type: type 1 Qualified Code(s): E10.21 - Type 1 diabetes mellitus with diabetic nephropathy (9) Hypertension, essential: Comment: Stable Code(s): I10 - Essential (primary) hypertension Category: Medical (10) Lipid disorder: Code(s): E78.9 - Disorder of lipoprotein metabolism, unspecified Category: Medical (11) Osteopenia: Code(s): M85.80 - Other specified disorders of bone density and structure, unspecified site Category: Medical Qualifiers: Osteopenia location: unspecified Qualified Code(s): M85.80 - Other specified disorders of bone density and structure, unspecified site Plan Physical exam appointment Assessment and Plan 69-year-old female with a history of Type 2 Diabetes Mellitus, insulin- dependent, Essential Hypertension, Hyperlipidemia, Hypothyroidism, Depression, and Anxiety presenting for management of chronic conditions. She is now established with endocrinology for the management of uncontrolled diabetes 1. Allergic Rhinitis Continue current allergy medication as prescribed. 2. Essential Hypertension Hypertension management continues with prescribed antihypertensive medication dispensed from this office. 3. Hypothyroidism Thyroid hormone replacement therapy through Levothyroxine continues, with this office handling prescription adjustments. 4. Depression And Anxiety Ongoing management of mental health conditions with medication continues. Continue Lexapro 20 mg 5. Hyperlipidemia Continue atorvastatin 80 mg through Cardiology office 6. Type 2 Diabetes Mellitus management through endocrinology 7. Gastroesophageal Reflux Disease Gerd and gastroparesis, patient is established with [facility] heading and priming operator Proton pump inhibitor therapy remains the course for GERD management. 8. Memory issues addressed neurologist 9. Paroxysmal atrial fibrillation management through Cardiology patient is on Eliquis Problem List - Type 2 Diabetes Mellitus - Essential Hypertension - Hyperlipidemia - Hypothyroidism - Depression - Anxiety - Gastroesophageal Reflux Disease (GERD) - Allergic Rhinitis - mild cognitive dysfunction - paroxysmal atrial fibrillation Health Maintenance - Due for mammogram and bone density screening. - Referral to systems technologist placed Colonoscopy management through Gastroenterology [facility] of Care: Fiberglass Technician Casting Repairer Telegraph Repeater Installer Patient Instructions - Schedule mammogram and bone density screening. - Visit the systems technologist for routine examination. - Complete laboratory tests today for blood sugar assessment. - Follow up with heading and priming operator regarding ultrasound results. - Adjust daily schedule to improve nighttime sleep by reducing daytime naps. Orders: Orders MM tomosynthesis screening BI Today M85.80 - Other specified disorders of bone density and structure, unspecified site, Z12.31 - Encounter for screening mammogram for malignant neoplasm of breast Complete Blood Count Auto Diff Today E10.21 - Type 1 diabetes mellitus with diabetic nephropathy, E11.65 - Type 2 diabetes mellitus with hyperglycemia, E78.9 - Disorder of lipoprotein metabolism, unspecified, F09 - Unspecified mental disorder due to known physiological condition, F33.1 - Major depressive disorder, recurrent, moderate, F41.1 - Generalized anxiety disorder, G47.9 - Sleep disorder, unspecified, I10 - Essential (primary) hypertension, I48.0 - Paroxysmal atrial fibrillation, Z79.4 - watermelon inspector (current) use of insulin Comprehensive Met. Panel Today E10.21 - Type 1 diabetes mellitus with diabetic nephropathy, E11.65 - Type 2 diabetes mellitus with hyperglycemia, E78.9 - Disorder of lipoprotein metabolism, unspecified, F09 - Unspecified mental disorder due to known physiological condition, F33.1 - Major depressive disord er, recurrent, moderate, F41.1 - Generalized anxiety disorder, G47.9 - Sleep disorder, unspecified, I10 - Essential (primary) hypertension, I48.0 - Paroxysmal atrial fibrillation, Z79.4 - watermelon inspector (current) use of insulin LDL Cholesterol Direct Today E10.21 - Type 1 diabetes mellitus with diabetic nephropathy, E11.65 - Type 2 diabetes mellitus with hyperglycemia, E78.9 - Disorder of lipoprotein metabolism, unspecified, F09 - Unspecified mental disorder due to known physiological condition, F33.1 - Major depressive disorder, recurrent, moderate, F41.1 - Generalized anxiety disorder, G47.9 - Sleep disorder, unspecified, I10 - Essential (primary) hypertension, I48.0 - Paroxysmal atrial fibrillation, Z79.4 - watermelon inspector (current) use of insulin TSH reflex Free T4 Today E10.21 - Type 1 diabetes mellitus with diabetic nephropathy, E11.65 - Type 2 diabetes mellitus with hyperglycemia, E78.9 - Disorder of lipoprotein metabolism, unspecified, F09 - Unspecified mental disorder due to known physiological condition, F33.1 - Major depressive disorder, recurrent, moderate, F41.1 - Generalized anxiety disorder, G47.9 - Sleep disorder, unspecified, I10 - Essential (primary) hypertension, I48.0 - Paroxysmal atrial fibrillation, Z79.4 - half-way (current) use of insulin Microalbumin, Random (w Creat) Today E10.21 - Type 1 diabetes mellitus with diabetic nephropathy, E11.65 - Type 2 diabetes mellitus with hyperglycemia, E78.9 - Disorder of lipoprotein metabolism, unspecified, F09 - Unspecified mental disorder due to known physiological condition, F33.1 - Major depressive disorder, recurrent, moderate, F41.1 - Generalized anxiety disorder, G47.9 - Sleep disorder, unspecified, I10 - Essential (primary) hypertension, I48.0 - Paroxysmal atrial fibrillation, Z79.4 - watermelon inspector (current) use of insulin XR DEXA axial skeleton Today M85.80 - Other specified disorders of bone density and structure, unspecified site, Z12.31 - Encounter for screening mammogram for malignant neoplasm of breast Referrals WOOD MILLING MACHINE TENDER Referral Z01.419 - Encounter for gynecological examination (general) (routine) without abnormal findings
--- OUTSIDE RECORDS SUMMARY | 2024-08-16 15:12 | XMS_ITS | Data Portability ---
Author Organization [place] [place] [facility] Address [address] [place] [id number] Care Team Providers Care Direct Chill Casting Operator Name Role Phone HIM CCA OTHER Assessment Encounter Date Assessment Date Assessment LastModified by Organization Details LastModified Time 04/24/2022 04/24/2022 I have reviewed and agree with the assessment and plan as documented by the physics technician. I provided real-time medical direction for this [...] Go To The Location Of Their Choice, [id number] 09:38:12 Referral None recorde d. Procedures None [...] Go To The Location Of Their Choice, [id number] 04/26/2022 09:38:12 04/24/2004/24/2022 URINE CULTU RE special requests NONE Not Available [facility] (Centralized Electronic Ordering - All Locations) Patient Can Go To The Location Of Their Choice, [id number] 04/26/2022 09:38:12 04/24/2004/26/2022 URINE CULTU RE culture Mixed bacter ial marie, indica tive of urogen ital contam inatio n. Not Available [facility] (Centralized Electronic Ordering - All Locations) Patient Can Go To The Location Of Their Choice, [id number] 04/26/2022 09:38:12 04/24/2004/26/2022 URINE CULTU RE report status FINAL 2021 Not Available [facility] (Centralized Electronic Ordering - All Locations) Patient Can Go To The Location Of Their Choice, [id number] 04/26/2022 09:38:12 Result Notes None recorded. Medical [...] Brittney Churchill MD [address] - [facility] [address] [place] [address] 04/24/2022 12:33:23 04/27/2022 12:35:27 Dysuria [id number] R30.0 Health Concerns Section Related Observation LastModified by Organization Detai ls LastModified Time None Recorded Concern Status LastModified by Organization Details LastModified Time None Recorded Advance Directives Directive None Recorded Payers Encounter Date Sequence Insurance Name Policy Number Policy Alas Covered Member ID Alas Member ID Guarantor Name 04/24/2022 1 [facility] - DOS PRIOR TO 2022 - DUAL ELIGIBLE (MEDICARE REPLACEMENT/ADV ANTAGE - HMO) Yudithnenita High [id number] YudithorGrace Notes Date Note Type Note Provider Name [...] Brittney Churchill MD [address], [place], [address], [place] - Next Performance 04/24/2022 12:41:05 OBGyn Episode No OBEpisode recorded.
--- OUTSIDE RECORDS SUMMARY | 2024-08-16 15:12 | XMS_ITS | Clinical Summary ---
Author Organization [facility] Address [address] [place] [address] Phone Care Team Providers Care Restaurant Operations Manager Name Role Phone Roxana Olivarez MD Primary Care Provider [phone] Allergies Active Allergy Reactions Criticality Noted Date [...] (06/15/2024): Saw Dr Christie during hospitalization at [facility] 05/2012. Underwent upper endoscopy- gastritis, erosive esophagitis. Biopsies taken. Has FU with GI. Immunizations Name Administration Dates Next Due Influenza trivalent, with pr eservative (Fluzone; Afluria) 6mo and older 05/14/2014,03/14/2013,03/29/2012,05/07,03/27/2008 Pneumococcal polysaccharide 23 valent (Pneumovax 23) 2yo and older 03/14/2013 Tdap Tetanus diptheria acell ular pertussis (Boostrix; Adacel) 7yo and older 02/07/2010 Surgical History Surgery Date Site/Laterality Comments ESOPHAGOGASTRODUODENOSCOPY 09/21/07 PROCEDURE: MD EGD TRANSORAL BIOPSY SINGLE/MULTIPLE; COMMENT: Multiple gastric erosions-bx:chronic gastritis-HPylori+(treated), SB-bx:Normal COLONOSCOPY 11/07/07 PROCEDURE: MD COLONOSCOPY STOMA DX INCLUDING COLLJ SPEC SPX; [...] * Urine Albumin Creatinine Ratio (05/14/2014) Pathologist [facility] Urine Albumin Creatinine Ratio Abstracted Result [facility] Provider HEALTH MAINTENANCE Final Result * Annual BMP Blood Test (05/14/2014) Pathologist [facility] Annual BMP Blood Test Abstracted Result [facility] Provider HEALTH MAINTENANCE Final Result * Hepatitis C Screening (05/14/2014) Pathologist [facility] Hepatitis C Screening Abstracted Result [facility] Provider HEALTH MAINTENANCE Final Result * (ABNORMAL) Hemoglobin A1c (05/14/2014) [facility] Hemoglobin A1C 10.0(A) 4.0 - 6.0 [...] ID:ICO Type:Not on file Address: [address] [place] [address] Care Teams Restaurant Operations Manager Relationship Specialty Start Date End Date Roxana Olivarez MD [address] [place] [id number] PCP - General Internal Medicine 06/30/24
== END 2024-08-16 13:40 | disposition home or self-care (01) ==
LOC: HO.HMCC 13:02
PROVIDERS: PCP Internal Medicine; Visit Provider Internal Medicine
DX: Z00.01 Encounter for general adult medical examination with abnormal findings (principal); E11.65 Type 2 diabetes mellitus with hyperglycemia; Z79.4 Long term (current) use of insulin; F33.1 Major depressive disorder, recurrent, moderate; I48.0 Paroxysmal atrial fibrillation; E10.21 Type 1 diabetes mellitus with diabetic nephropathy; G47.9 Sleep disorder, unspecified; F09 Unspecified mental disorder due to known physiological condition; F41.1 Generalized anxiety disorder; I10 Essential (primary) hypertension; E78.9 Disorder of lipoprotein metabolism, unspecified; M85.80 Other specified disorders of bone density and structure, unspecified site

== ENCOUNTER 2024-08-16 13:01 | Outpatient (REF) | payer OTHER, SELFPAY ==
--- OUTSIDE RECORDS SUMMARY | 2024-08-16 16:08 | XMS_ITS | Clinical Summary ---
Author Organization [address] [facility] Address [address] [place] [address] Phone Care Team Providers Care Whitesmith Name Role Phone Roxana Olivarez MD Primary Care Provider [phone] Allergies Active Allergy Reactions Criticality Noted Date [...] (06/15/2024): Saw Dr Christie during hospitalization at [facility] 05/2012. Underwent upper endoscopy- gastritis, erosive esophagitis. Biopsies taken. Has FU with GI. Immunizations Name Administration Dates Next Due Influenza trivalent, with pr eservative (Fluzone; Afluria) 6mo and older 05/14/2014,03/14/2013,03/29/2012,05/07,03/27/2008 Pneumococcal polysaccharide 23 valent (Pneumovax 23) 2yo and older 03/14/2013 Tdap Tetanus diptheria acell ular pertussis (Boostrix; Adacel) 7yo and older 02/07/2010 Surgical History Surgery Date Site/Laterality Comments ESOPHAGOGASTRODUODENOSCOPY 09/21/07 PROCEDURE: MI EGD TRANSORAL BIOPSY SINGLE/MULTIPLE; COMMENT: Multiple gastric erosions-bx:chronic gastritis-HPylori+(treated), SB-bx:Normal COLONOSCOPY 11/07/07 PROCEDURE: MI COLONOSCOPY STOMA DX INCLUDING COLLJ SPEC SPX; [...] * Urine Albumin Creatinine Ratio (05/14/2014) Pathologist [facility] Urine Albumin Creatinine Ratio Abstracted Result [facility] Provider HEALTH MAINTENANCE Final Result * Annual BMP Blood Test (05/14/2014) Pathologist [facility] Annual BMP Blood Test Abstracted Result [facility] Provider HEALTH MAINTENANCE Final Result * Hepatitis C Screening (05/14/2014) Pathologist [facility] Hepatitis C Screening Abstracted Result [facility] Provider HEALTH MAINTENANCE Final Result * (ABNORMAL) Hemoglobin A1c (05/14/2014) [facility] Hemoglobin A1C 10.0(A) 4.0 - 6.0 [...] ID:ICO Type:Not on file Address: [address] [place] [address] Care Teams Whitesmith Relationship Specialty Start Date End Date Roxana Olivarez MD [address] [place] [id number] PCP - General Internal Medicine 06/30/24
[2024-08-16 16:23] LABS: MANUAL DIFF FLAG NO
[2024-08-16 16:32] LABS: Basophils Percent Auto 0.3 % (0-2); Eosinophils Absolute Auto 0.1 X10*3/uL (0.0-0.4); Eosinophils Percent Auto 2.1 % (0-4); Hematocrit 35.2 % (37.0-47.0); Hemoglobin 11.3 g/dl (12.0-16.0); Imm Gran Abs Auto 0.02 X10*3/uL (0.00-0.03); Imm Gran Pct Auto 0.3 % (0.0-0.4); Lymphocytes Absolute Auto 2.2 X10*3/uL (1.2-4.9); Lymphocytes Percent Auto 37.8 % (20-40); Mean Corpuscular HGB Conc 32.1 g/dl (31.0-35.0); Mean Corpuscular Hemoglobin 28.8 pg (27.0-33.0); Mean Corpuscular Volume 89.6 fL (80.0-98.0); Monocytes Absolute Auto 0.4 X10*3/uL (0.1-1.2); Monocytes Percent Auto 6.2 % (2-11); Neutrophils Absolute Auto 3.1 x10*3/uL (2.0-8.3); Neutrophils Percent Auto 53.3 % (45-73); Platelet Count 333 X10*3/uL (160-400); Red Blood Count 3.93 X10*6/uL (4.20-5.50); Red Cell Distribution Width 13.2 % (11.0-16.0); White Blood Count 5.8 X10*3/uL (4.8-10.8)
[2024-08-16 17:07] LABS: Alanine Aminotransferase 20 U/L (0-31); Albumin Level 3.9 g/dL (3.5-5.0); Alkaline Phosphatase 92 U/L (39-117); Anion Gap 10 (12-20); Aspartate Amino Transferase 29 U/L (5-31); Bilirubin Total 0.3 mg/dL (0.0-1.0); Blood Urea Nitrogen 20 mg/dL (9-16); Calcium 9.3 mg/dL (8.4-10.2); Carbon Dioxide 29 mmol/L (22-29); Chloride 106 mmol/L (96-108); Estimated Glomerular Filt Rate > 60; Glucose Random 70 mg/dL (60-115); Potassium 3.9 mmol/L (3.3-5.1); Sodium 141 mmol/L (135-145); Total Protein 8.1 g/dL (6.5-8.0)
[2024-08-16 17:25] LABS: TSH reflex Free T4 2.14 uIU/mL (0.32-4.0)
[2024-08-17 08:22] LABS: LDL Cholesterol Direct 86 mg/dL (<100)
== END 2024-08-16 13:02 | disposition home or self-care (01) ==
LOC: HO.HMGCLDS 13:01
PROVIDERS: PCP Internal Medicine; Visit Provider Internal Medicine
DX: Z00.01 Encounter for general adult medical examination with abnormal findings (principal); E11.65 Type 2 diabetes mellitus with hyperglycemia; Z79.4 Long term (current) use of insulin; G47.9 Sleep disorder, unspecified; F09 Unspecified mental disorder due to known physiological condition; F33.1 Major depressive disorder, recurrent, moderate; I48.0 Paroxysmal atrial fibrillation; F41.1 Generalized anxiety disorder; I10 Essential (primary) hypertension; E78.9 Disorder of lipoprotein metabolism, unspecified; E11.21 Type 2 diabetes mellitus with diabetic nephropathy; M85.80 Other specified disorders of bone density and structure, unspecified site
CPT/HCPCS: 36415; 80053; 83721; 84443; 85025; 96127; 99397

== ENCOUNTER 2024-08-28 09:49 | Outpatient (AMB) | payer OTHER, SELFPAY ==
[2024-08-28 10:05] VITALS: BP 110/76; PULSE 58; O2SAT 98; BMI 40.6
--- NOTE | 2024-08-28 10:05 | A.OFFVIS_ITS ---
Vital Signs 08/28/24 10:05 Height 4 ft 11 in Weight 201 lb BMI 40.6 BP 110/76 Blood Pressure Location Rt brachial Position Sitting Pulse 58 Pulse Source Pulse Oximeter Pulse Oximetry (%) 98 Oxygen Delivery Method Room Air Intake Visit Reasons: Follow Up Intake Note: Patient presents follow up cognitive medication. Rheum seen 03/23/24 Shipping Clerk Crating Required: Yes Shipping Clerk Crating Services: Shipping Clerk Crating Offered & Declined Shipping Clerk Crating Name: Daughter Interpreting Accompanied by: Daughter Allergies insulin glargine [From Lantus U-100 Insulin] Adverse Reaction (Mild, Verified 08/28/24 10:05) hypoglycemia HPI Comments Details: 69-yr-old female presents for f/u visit. Pt is accompanied by her dtr Cathy, who assists w/ Yoruba translation. Pt denies any significant interval medical changes. Pt has been removing her new diabetic glucose monitor in the middle of the night- pt states it bothers her. Dtr notices her skin looks purplish under the adhesive- and pt prone to itch the area during the day. Patient has reestablished care with Rheumatology. Interval labs were notable for elevated ESR 34 and CRP 5.1, increase hemoglobin A1c from 7.1% a year ago to 9.8% last month, vitamin B12 low normal at 360 and elevated methylmalonic acid level 478 and elevated homocystine 13.8, with normal folate 8.2 and TSH 1.34. Since, pt has started on vit b12 supplement. Pt's dtr reports she is worse- however, daughter also notes that when patients cognition and behavior are much worse, it is usually associated with elevated blood sugar levels. She lives with her other son. Dtr helps out 1-2 days per week. She does need help w/ ADLs- more so for physical help. She no longer cooks. She spends most of her day in the house- somebody is always home with her. Somebody has to be with her at all times now- as when not supervised she will turn the stove on or leaves the house. For instance, even with son at home when using the bathroom, pt left the house and got in the vehicle of a stranger who brought her to the police station. She may still talk to pictures or the TV- or does not realize that what is playing on the TV is not really happening in her home. She can space off at times. Repeats herself a lot. She does seem a little depressed to dtr. She has recently started having urinary incontinence- pt states that she is unaware of need to void until she is wet. Dtr states pt has chronic UTIs. She is not sleeping at night- walking around the house. She does take daytime naps- family tries to prevent naps but she can just fall asleep. Her family manages her medications. 06/22/23: MR/MR brain wo con w neuroquant IMPRESSION: Severe bifrontal lobe volume loss with ex vacuo dilatation of the ventricles. Milder temporoparietal volume loss as well. Mild chronic white matter microangiopathy, more so around the frontal horns of the lateral ventricles. Otherwise, no acute intracranial process. 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 Mother No problems noted. Social History Housing: House Alcohol intake: never Patient Tobacco Use Status: Never used Tobacco e-Cigarette/Vaping Use: Never Used service: No Current occupational status: retired Current occupation: Left handed Cognitive needs: No Hearing needs: No Vision needs: Yes Physical Exam Vital Signs: Last Vital Signs Pulse 58 08/28/24 10:05 BP 110/76 08/28/24 10:05 Pulse Ox 98 08/28/24 10:05 Oxygen Delivery Method Room Air 08/28/24 10:05 BMI result Body Mass Index 40.6 Const General: cooperative and no acute distress Resp Effort & Inspection: normal respiratory effort and able to speak in complete sentences Neuro Other: Patient is alert and responsive. Cranial nerves: Yes CN's II-XII intact bilaterally Cognition (Neuro): normal cognition Psych Appearance: grossly normal Mental Status: mental status grossly normal Speech and movement: Normal speech and movement present Affect: normal affect Attitude: cooperative Assessment & Plan Assessment & Plan (1) Cognitive disorder: Comment: ? early dementia , worsened by mood ?. she did not test well on MMSE due to her education level Code(s): F09 - Unspecified mental disorder due to known physiological condition Category: Medical (2) Anemia: Code(s): D64.9 - Anemia, unspecified Category: Medical (3) Elevated erythrocyte sedimentation rate: Code(s): R70.0 - Elevated erythrocyte sedimentation rate Category: Medical Plan Continue supportive 28/12 care. Understanding the limitations, pt would benefit from optimizing her blood sugar control. Continue vitamin B12 supplement Check labs to f/u on b12 def and round out cognitive work-up. Continue Memantine ER 28 mg daily. Continue Donepazil 10mg qhs. Continue Lexapro 10mg qd. Due to the language barrier and patient's history of limited formal education, as well as fluctuating cognitive difficulties in setting of diabetes/hyperglycemia, it is difficult to presiding judge the exact degree of patient's cognitive impairment. Discussed ordering amyloid PET scan to see if patient does have any signs of intracranial amyloid pathology. Daughter denies any family history of AD/dementia. f/u in 6 months or sooner prn. Orders: Orders Vitamin B12 and Folate Today D64.9 - Anemia, unspecified, E11.649 - Type 2 diabetes mellitus with hypoglycemia without coma, F09 - Unspecified mental disorder due to known physiological condition Vitamin B6 Today D64.9 - Anemia, unspecified, E11.649 - Type 2 diabetes mellitus with hypoglycemia without coma, F09 - Unspecified mental disorder due to known physiological condition IRON PROFILE Today D64.9 - Anemia, unspecified, E11.649 - Type 2 diabetes mellitus with hypoglycemia without coma, F09 - Unspecified mental disorder due to known physiological condition Homocysteine Today D64.9 - Anemia, unspecified, E11.649 - Type 2 diabetes mellitus with hypoglycemia without coma, F09 - Unspecified mental disorder due to known physiological condition Syphilis Screen Today D64.9 - Anemia, unspecified, E11.649 - Type 2 diabetes mellitus with hypoglycemia without coma, F09 - Unspecified mental disorder due to known physiological condition Vitamin B1 Today D64.9 - Anemia, unspecified, E11.649 - Type 2 diabetes mellitus with hypoglycemia without coma, F09 - Unspecified mental disorder due to known physiological condition Ferritin Today D64.9 - Anemia, unspecified, E11.649 - Type 2 diabetes mellitus with hypoglycemia without coma, F09 - Unspecified mental disorder due to known physiological condition Methylmalonic Acid Today D64.9 - Anemia, unspecified, E11.649 - Type 2 diabetes mellitus with hypoglycemia without coma, F09 - Unspecified mental disorder due to known physiological condition Lyme IgG/IgM w/reflex to WB Today D64.9 - Anemia, unspecified, E11.649 - Type 2 diabetes mellitus with hypoglycemia without coma, F09 - Unspecified mental disorder due to known physiological condition Vitamin D 25-OH (D2 and D3) Today D64.9 - Anemia, unspecified, E11.649 - Type 2 diabetes mellitus with hypoglycemia without coma, F09 - Unspecified mental disorder due to known physiological condition Coding Level of Care Code Est Pt Level 4 (82807) Diagnoses Cognitive disorder F09 Anemia D64.9 Elevated erythrocyte sedimentation rate R70.0
== END 2024-08-28 11:09 | disposition home or self-care (01) ==
LOC: HO.HSMS 09:50
PROVIDERS: PCP Internal Medicine; Visit Provider Nurse Practitioner Family
DX: R41.89 Other symptoms and signs involving cognitive functions and awareness (principal); D64.9 Anemia, unspecified; R70.0 Elevated erythrocyte sedimentation rate
CPT/HCPCS: 99214

== ENCOUNTER → 2024-08-28 09:49 | Outpatient (BNVA) | payer OTHER, SELFPAY | PROVIDERS: PCP Internal Medicine; Visit Provider Nurse Practitioner Family | DX: E11.649 Type 2 diabetes mellitus with hypoglycemia without coma (principal); D64.9 Anemia, unspecified; R70.0 Elevated erythrocyte sedimentation rate; F09 Unspecified mental disorder due to known physiological condition; Z79.4 Long term (current) use of insulin | CPT/HCPCS: 99212 ==

== ENCOUNTER 2024-09-15 13:24 | Outpatient (AMB) | payer OTHER, SELFPAY ==
--- NOTE | 2024-09-15 13:31 | A.OFFVIS_ITS ---
Vital Signs 09/15/24 13:35 Height 4 ft 11 in Weight 161 lb 9.581 oz BMI 32.6 BP 114/74 Blood Pressure Location Rt brachial Position Sitting Pulse 64 Pulse Source Pulse Oximeter Pulse Oximetry (%) 95 Oxygen Delivery Method Room Air Intake Visit Reasons: T2DM Intake Note: Patient present today to follow up on Type 2 Diabetes Mellitus. Last Diabetic Eye exam: 07/25/2024 Last Podiatry Visit: Patient does not see a Point Of Care Specialist Random Glucose: 117 mg/dl HgA1C: 9.8% 08/01/2024 Stringer Up Soldering Machine Required: Yes Stringer Up Soldering Machine Language: Yg Stringer Up Soldering Machine Services: Stringer Up Soldering Machine Offered & Declined Accompanied by: Son Allergies insulin glargine [From Lantus U-100 Insulin] Adverse Reaction (Mild, Verified 09/15/24 13:37) hypoglycemia Medication List - Last Reconciled 09/15/24 by MARCEL Jenkins acetaminophen ER (Tylenol 8 Hour) 650 mg PO Q8H PRN acetone (urine) test (Ketone Urine Test strips) As directed apixaban 5 mg PO BID apixaban (Eliquis) 5 mg PO BID atorvastatin 80 mg PO DAILY blood sugar diagnostic (FreeStyle Lite Strips) USE DIRECTED to check blood glucose five times daily blood-glucose meter (FreeStyle Lite Meter kit) Check blood glucose 5 times daily blood-glucose sensor (FreeStyle Harvinder 3 Plus Sensor device) Apply 1 new sensor every 14 days as directed to monitor blood glucose continuously. blood-glucose sensor (FreeStyle Harvinder 3 Sensor device) apply new sensor every 14 days blood-glucose,seating upholsterer,cont (FreeStyle Harvinder 3 [place]) Use daily to monitor blood glucose levels continuously. calcium carbonate (Calcium Antacid) 200 mg PO DAILY cetirizine 10 mg PO DAILY cholecalciferol (vitamin D3) 125 mcg PO DAILY cyanocobalamin (vitamin B-12) 500 mcg PO DAILY 30 days donepezil 5 mg PO DAILY 30 days escitalopram oxalate 20 mg PO DAILY 90 days flash glucose scanning reader (BioMedomicsStyle Harvinder 2 [place]) As directed glucose (Dex4 Glucose Quick Dissolve) 16 grams (4 x 4 gram) PO Q15M PRN insulin degludec (Tresiba FlexTouch U-100 insulin) 24 units (0.24 mL) subcut DAILY insulin lispro (Humalog KwikPen (U-100) Insulin) subcutaneously 3 times a day; Administer 4 units before breakfast, 8 units before lunch and 4 units before dinner. lancets (FreeStyle Lancets) B.i.d. p.r.n. lancets (FreeStyle Lancets) Use to monitor blood glucose 5 times daily. levothyroxine 25 mcg PO DAILY melatonin 3 mg PO BEDTIME 30 days memantine 28 mg PO DAILY 30 days pantoprazole 40 mg PO DAILY pen needle, diabetic (Comfort EZ Pen [place]) use one needle twice a day for insulin injections sennosides (senna) 8.6 mg PO BEDTIME sucralfate 1 g PO BID 90 days HPI Comments Details: This is a 69-year-old female with a past medical history of cystitis, type 2 diabetes, gastroparesis, paroxysmal atrial fibrillation, diabetic nephropathy, dementia and hypertension presents for diabetic management accompanied by her son who interprets. They declined breaker layer. 07/25/24 hemoglobin A1c 9.8%. Reviewed Harvinder 3 download Average glucose 210 GMI 8.3% Glucose variability 45.7% Very high 33% High 24% Target range 41% 2% hypoglycemia 0% less than 54 Patient has a pattern of nocturnal and fire pilot hypoglycemia and hyperglycemia in the afternoon and evening. Current medication regimen: Tresiba 26 units in the morning and Humalog 6 units TID before meals. Past medications: Metformin extended release 500 mg daily discontinued due to GI side effects. Trulicity was discontinued in the past due to exacerbation of gastroparesis. Actos discontinued due to weight gain. Compliance issues: Patient has dementia. Both of her sons administer medication. She lives with her other son. She is not taking Humalog in the morning. She snacks during the day. They are not able to prepare all of her foods so she is eating carbohydrates and sugars. Complications: Nephropathy ROS: Constitutional: No unexplained weight loss, fever, chills, fatigue or night sweats. Eyes: No vision changes, blurry vision, double vision, eye pain Respiratory: No shortness of breath, cough or sputum production. Cardiovascular: No chest pain, chest pressure or chest discomfort. No palpitations Gastrointestinal: No anorexia, nausea, vomiting or diarrhea. No abdominal pain Neurologic: No headache, dizziness, syncope and increased confusion. Endocrine: No cold or heat intolerance. No polyuria or polydipsia. Physical exam: Constitutional: Alert, in no distress. Head: Normocephalic. Eyes: Pupils are equal, round and reactive to light. Extraocular muscles intact. Neck: Supple, Full range of motion. No lymphadenopathy. No palpable thyroid masses or enlargement. Respiratory: Clear to auscultation. Cardiovascular: S1 S2 regular. No murmurs. Right foot: Warm and well perfused. No clubbing, cyanosis or edema. Intact DP pulse. Intact vibratory sensation. Intact sensation to monofilament. Left foot: Warm and well perfused. No clubbing, cyanosis or edema. Intact DP pulse. Intact vibratory sensation. Intact sensation to monofilament. 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 Mother No problems noted. Social History Housing: House Alcohol intake: never Patient Tobacco Use Status: Never used Tobacco e-Cigarette/Vaping Use: Never Used service: No Current occupational status: retired Current occupation: Left handed Cognitive needs: No Hearing needs: No Vision needs: Yes Physical Exam Vital Signs: Last Vital Signs Pulse 64 09/15/24 13:35 BP 114/74 09/15/24 13:35 Pulse Ox 95 09/15/24 13:35 Oxygen Delivery Method Room Air 09/15/24 13:35 BMI result Body Mass Index 32.6 Office Procedures Glucose Monitoring Details Details: See HPI 06968 - Glucose monitoring, continuous-physician I&R Procedure code (CPT) selection complete Results Reviewed Results Reviewed: Laboratory Last Values Glucose (Clinic) 117 mg/dL (60-115) H 09/15/24 13:43 Laboratory Tests 05/21/23 01/14/24 02/10/24 06:18 16:19 11:35 Creatinine 0.98 Estimated GFR 57 Hgb A1c (Clinic) 7.7 H Triglycerides 120 Cholesterol 137 LDL Cholesterol, Calc 82 HDL Cholesterol 31 L TSH 1.34 Urine Creatinine Urine Microalbumin Microalb/Creat Ratio 02/10/24 11:40 Creatinine Estimated GFR Hgb A1c (Clinic) Triglycerides Cholesterol LDL Cholesterol, Calc HDL Cholesterol TSH Urine Creatinine 128.09 Urine Microalbumin 43.0 Microalb/Creat Ratio 33.5 H Laboratory Tests 04/28/23 02/10/24 09:47 11:35 Creatinine 0.81 0.98 Estimated GFR > 60 57 Laboratory Tests 06/02/24 11:59 B-Natriuretic Peptide 77 Assessment & Plan Assessment & Plan (1) Uncontrolled diabetes mellitus with hyperglycemia, with long-term current use of insulin: Code(s): E11.65 - Type 2 diabetes mellitus with hyperglycemia; Z79.4 - correction (current) use of insulin Category: Medical Plan In summary this is a 69-year-old female with uncontrolled type 2 diabetes. She has not tolerated oral medications and GLP 1. Treatment is also complicated by dementia. A1c goal 7.5-8%. Decrease Tresiba to 24 units daily due to nocturnal hypoglycemia. Administer 4 units of Humalog before breakfast, 8 units before lunch and 4 units before dinner. Declines referral for senior care to help with medication administration. Declines referral to office machine servicer apprentice and dietitian. If you experience low blood sugar, treat this by eating a chewable fruit candy like skittles or jelly beans (about 8 pieces), 4 ounces (1/2 cup) of fruit juice (not diet), 1 tablespoon of honey or 4 glucose tablets. If your blood sugar is under 55, take double the amount of one of the above. Recheck your blood sugar in 15 minutes. She has ketone urine strips and has instructions about DKA and ketone testing at home. Follow up in 6 weeks for type 2 diabetes. Orders: Orders Creatinine Today E11.9 - Type 2 diabetes mellitus without complications Hemoglobin A1c Today E11.9 - Type 2 diabetes mellitus without complications AMB Glucose Monitoring Today E11.9 - Type 2 diabetes mellitus without complications Lipid Panel Today E78.5 - Hyperlipidemia, unspecified Medications: New insulin degludec (Tresiba FlexTouch U-100 insulin) 24 units (0.24 mL) subcut DAILY 15 mL 5RF Patient Instructions: New medication plan: Tresiba 24 units every morning Humalog: take 4 units before breakfast, 8 units before lunch and 4 units before dinner. Coding Level of Care Code Est Pt Level 4 (78360) Diagnoses Uncontrolled diabetes mellitus with hyperglycemia, with long-term current use of insulin E11.65; Z79.4 CPT Codes Details - CPT: 61270 - Glucose monitoring, continuous-physician I&R ([id number])
[2024-09-15 13:35] VITALS: BP 114/74; PULSE 64; O2SAT 95; BMI 32.6
--- OUTSIDE RECORDS SUMMARY | 2024-09-15 13:45 | XMS_ITS | Data Portability ---
Author Organization [facility] Address [address] [place] [phone] Care Team Providers Care White Washer Name Role Phone HIM CCA OTHER Assessment Encounter Date Assessment Date Assessment LastModified by Organization Details LastModified Time 04/24/2022 04/24/2022 I have reviewed and agree with the assessment and plan as documented by the service order dispatcher. I provided real-time medical direction for this [...] Go To The Location Of Their Choice, [id number] 09:38:12 Referral None recorde d. Procedures None [...] Go To The Location Of Their Choice, [id number] 04/26/2022 09:38:12 04/24/2004/24/2022 URINE CULTU RE special requests NONE Not Available [facility] (Centralized Electronic Ordering - All Locations) Patient Can Go To The Location Of Their Choice, [id number] 04/26/2022 09:38:12 04/24/2004/26/2022 URINE CULTU RE culture Mixed bacter ial marie, indica tive of urogen ital contam inatio n. Not Available [facility] (Centralized Electronic Ordering - All Locations) Patient Can Go To The Location Of Their Choice, [id number] 04/26/2022 09:38:12 04/24/2004/26/2022 URINE CULTU RE report status FINAL 2021 Not Available [facility] (Centralized Electronic Ordering - All Locations) Patient Can Go To The Location Of Their Choice, [id number] 04/26/2022 09:38:12 Result Notes None recorded. Medical [...] Brittney Churchill MD [address] - [facility] [address] [place] [address] 04/24/2022 12:33:23 04/27/2022 12:35:27 Dysuria [id number] R30.0 Health Concerns Section Related Observation LastModified by Organization Detai ls LastModified Time None Recorded Concern Status LastModified by Organization Details LastModified Time None Recorded Advance Directives Directive None Recorded Payers Encounter Date Sequence Insurance Name Policy Number Policy Alas Covered Member ID Alas Member ID Guarantor Name 04/24/2022 1 [facility] - DOS PRIOR TO 2022 - DUAL ELIGIBLE (MEDICARE REPLACEMENT/ADV ANTAGE - HMO) Yudithnenita High [id number] YudithndGrace Notes Date Note Type Note Provider Name [...] Brittney Churchill MD [address], [place], [address], [place] - [employer] 04/24/2022 12:41:05 OBGyn Episode No OBEpisode recorded.
--- OUTSIDE RECORDS SUMMARY | 2024-09-15 13:45 | XMS_ITS | Clinical Summary ---
Author Organization 175 [facility] Address [address] [place] [address] Phone Care Team Providers Care Garment Folder Name Role Phone Roxana Olivarez MD Primary Care Provider [phone] Allergies Active Allergy Reactions Criticality Noted Date [...] Rotator cuff tear arthropathy 08/18/2013 Morbid obesity ([facility] V24, [facility] V28) 2013 Overview (06/15/2024): BMI 50.12 on 07/26/13. 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 Hilar lymphadenopathy 09/09/2012 Overview (06/15/2024): Increased per repeat CXR at [facility] visit 06/2012 Abdominal pain 02/02/2011 Schwannoma 11/24/2010 Overview (06/15/2024): S/p left upper quadrant resection January 2011 Fatty liver 08/09/2010 Type II or unspecified type diabetes mellitus with renal manifestations, uncontrolled(250.42) ([facility] V24, [facility] V28) 02/10/2010 Overview (06/15/2024): microalbuminuria Hyperlipidemia with target LDL less than 100 03/2009 Overview (06/15/2024): IMO update Esophageal reflux 07/16/2005 Overview (06/15/2024): Saw Dr Christie during hospitalization at [facility] 05/2012. Underwent upper endoscopy- gastritis, erosive esophagitis. Biopsies taken. Has FU with GI. Immunizations Name Administration Dates Next Due Influenza trivalent, with pr eservative (Fluzone; Afluria) 6mo and older 05/14/2014,03/14/2013,03/29/2012,05/07,03/27/2008 Pneumococcal polysaccharide 23 valent (Pneumovax 23) 2yo and older 03/14/2013 Tdap Tetanus diptheria acell ular pertussis (Boostrix; Adacel) 7yo and older 02/07/2010 Surgical History Surgery Date Site/Laterality Comments ESOPHAGOGASTRODUODENOSCOPY 09/21/07 PROCEDURE: [place] EGD TRANSORAL BIOPSY SINGLE/MULTIPLE; COMMENT: Multiple gastric erosions-bx:chronic gastritis-HPylori+(treated), SB-bx:Normal COLONOSCOPY 11/07/07 PROCEDURE: [place] COLONOSCOPY STOMA DX INCLUDING COLLJ SPEC SPX; [...] (Glomerular Filtration Rate) 05/14/2015 05/14/2014 RSV Immunization Adult Patients (1 - Risk 60-74 years 1-dose series) [...] COVID-19 Vaccine ( season) 2024 Influenza Vaccine (Season Ended) 2025 05/14/2014, 03/14/2013, 03/29/2012, Additional history exists Hepatitis C [...] age to complete this topic Meningococcal B Vaccine Aged Out No l onger eligible based on patient's age to complete [...] Albumin Creatinine Ratio (05/14/2014) Pathologist [facility] Urine Albumin Creatinine Ratio Abstracted Historical Provider [place] [facility] Final Result * Annual BMP Blood Test (05/14/2014) Pathologist [facility] Annual BMP Blood Test Abstracted [facility] Provider [place] [facility] Final Result * Hepatitis C Screening (05/14/2014) Pathologist [facility] Hepatitis C Screening Abstracted [facility] Provider [place] [facility] Final Result * (ABNORMAL) Hemoglobin A1c (05/14/2014) [facility] Hemoglobin A1C 10.0(A) 4.0 - 6.0 % Blood Venous blood specimen / Unknown Historical Provider LAB BLOOD ORDERABLES Mara l Result * (ABNORMAL) Lipid panel (05/14/2014) LDL/HDL Ratio 6(A) 0 - 4 Triglycerides 322(A) 0 - 150 mg/dL Cholesterol 245(A) 0 - 200 mg/dL HDL 43 >=40 mg/dL LDL Cholesterol 138(A) 0 - 100 mg/dL Blood Venous blood specimen / Unknown [facility] Provider LAB BLOOD ORDERABLES Mara l Result * Hm Colonoscopy (11/07/2007) Colonoscopy No Interpretation , Abstracted Anatomical Region Laterality Modality Other Historical Provider HEALTH MAINTENANCE Final Result from Last 3 Months or Most Recently Relevant to Health Maintenance Insurance [place] - [place] [facility] MEDICARE Member Subscriber Plan / Payer (Ef fective 2014-Present) Name:Shawnee High Relation to Subscriber:Self Name:Shawnee High Payer ID:[id number] Group ID:[id number] Type:Not on file Address: [address] [place] [address] Care Teams Garment Folder Relationship Specialty Start Date End Date Roxana Olivarez MD [address] [place] [address] PCP - General Internal Medicine 06/30/24
[2024-09-15 13:47] LABS: Glucose, Whole Blood 117 mg/dL (60-115)
== END 2024-09-15 14:17 | disposition home or self-care (01) ==
LOC: HO.ENCR 13:25
PROVIDERS: PCP Internal Medicine; Visit Provider Physician Assistant Medical
DX: E11.65 Type 2 diabetes mellitus with hyperglycemia (principal); Z79.4 Long term (current) use of insulin

== ENCOUNTER → 2024-09-15 13:24 | Outpatient (BNVA) | payer OTHER, SELFPAY | PROVIDERS: PCP Internal Medicine; Visit Provider Physician Assistant Medical | DX: E11.21 Type 2 diabetes mellitus with diabetic nephropathy (principal); E11.65 Type 2 diabetes mellitus with hyperglycemia; E78.5 Hyperlipidemia, unspecified; Z79.4 Long term (current) use of insulin | CPT/HCPCS: 82947; 99212 ==

== ENCOUNTER 2024-09-28 09:20 | Day surgery (SDC) | payer OTHER, SELFPAY ==
--- NOTE | 2024-09-27 09:59 | HO.ANESPROP2 ---
Documented by User: Kelli Bazzi NP 09/27/24 10:01 HPI - Anesthesia Eval Consult details Narrative: 69yo F for Upper Endoscopy Follows [facility] Cardiology for afib (eliquis), hx NSTEMI (r/t bp, no CAD). 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 (Acute) Difficulty sleeping (Acute) Acute cystitis (Acute) Vertigo (Chronic) Cognitive disorder (Acute) Mild cognitive disorder (Acute) Fracture of forearm, left, closed (Acute) Major depression, recurrent (Acute) PAF (paroxysmal atrial fibrillation) (Acute) Dysuria (Acute) Fatigue (Acute) Gastroparesis (Acute) Nausea (Acute) Anxiety, generalized (Acute) Diabetic nephropathy (Acute) Uncontrolled diabetes mellitus (Acute) Medicare annual wellness visit, initial (Acute) Edema of face (Acute) Epigastric abdominal pain (Acute) Musculoskeletal chest pain (Acute) Polymyalgia rheumatica (Acute) Trochanteric bursitis, left hip (Acute) Polyarthralgia (Acute) Elevated C-reactive protein (CRP) (Acute) Anemia (Acute) Rotator cuff impingement syndrome of right shoulder (Acute) Pelvic pain (Acute) Chronic vertigo (Acute) Diabetic neuropathy (Acute) Hypertension, essential (Acute) Chronic GERD (Acute) Environmental allergies (Acute) Insulin dependent diabetes mellitus (Acute) Lipid disorder (Acute) Constipation by delayed colonic transit (Acute) IBS (irritable bowel syndrome) (Acute) Past Medical History Medical History Epigastric abdominal pain Uncontrolled diabetes mellitus with hyperglycemia, with long-term current use of insulin Type 2 diabetes mellitus with hypoglycemia Osteoarthritis of left acromioclavicular joint Cognitive disorder PAF (paroxysmal atrial fibrillation) 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 Mother No problems noted. Surgical History Surgical History Hx of cardiac cath Hx of endoscopy Hx of colonoscopy Social History Social History Housing: House Alcohol intake: never Patient Tobacco Use Status: Never used Tobacco e-Cigarette/Vaping Use: Never Used Advance Directives: No Advance Directives Information Provided: Yes service: No Current occupational status: retired Current occupation: Left handed Cognitive needs: No Hearing needs: No Vision needs: Yes Meds Allergies Allergy/AdvReac Type Severity Reaction Status Date / Time insulin glargine AdvReac Mild hypoglycemi Verified 09/15/24 13:37 [From Lantus U-100 Insulin] a Home Medications ?Medication ?Instructions ?Recorded ?Confirmed ?Last Taken ?Type calcium carbonate (Calcium Antacid) 200 mg PO DAILY 01/14/24 09/15/24 Unknown History insulin lispro 100 unit/mL See Rx Instructions subcut TID 09/15/24 09/15/24 Unknown History subcutaneous pen (Humalog KwikPen (U-100) Insulin) Exam Pertinent Lab Results Pertinent Lab Results: Laboratory Tests 08/16/24 13:45 WBC 5.8 Hgb 11.3 L Hct 35.2 L Plt Count 333 Sodium 141 Potassium 3.9 Chloride 106 Carbon Dioxide 29 BUN 20 H Creatinine 0.83 Narrative Narrative: EKG 05/2024 EKG Details: Sinus bradycardia 54 beats per minute, normal axis, QTC 438 milliseconds Assessment and Plan Assessment Anesthesia Assessment: Chart Reviewed Documented by User: Cait Duffy MD 09/28/24 09:54 [facility] Past Medical History Medical History Epigastric abdominal pain Uncontrolled diabetes mellitus with hyperglycemia, with long-term current use of insulin Type 2 diabetes mellitus with hypoglycemia Osteoarthritis of left acromioclavicular joint Cognitive disorder PAF (paroxysmal atrial fibrillation) 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 Mother No problems noted. Family history of problems with anesthesia: No Surgical History Surgical History Hx of cardiac cath Hx of endoscopy Hx of colonoscopy History of Problems with Anesthesia: No Social History Social History Housing: House Alcohol intake: never Patient Tobacco Use Status: Never used Tobacco e-Cigarette/Vaping Use: Never Used Advance Directives: No Advance Directives Information Provided: Yes service: No Current occupational status: retired Current occupation: Left handed Cognitive needs: No Hearing needs: No Vision needs: Yes Meds Allergies Allergy/AdvReac Type Severity Reaction Status Date / Time insulin glargine AdvReac Mild hypoglycemi Verified 09/15/24 13:37 [From Lantus U-100 Insulin] a Home Medications ?Medication ?Instructions ?Recorded ?Confirmed ?Last Taken ?Type calcium carbonate (Calcium Antacid) 200 mg PO DAILY 01/14/24 09/15/24 Unknown History insulin lispro 100 unit/mL See Rx Instructions subcut TID 09/15/24 09/15/24 Unknown History subcutaneous pen (Humalog KwikPen (U-100) Insulin) Exam Airway Mallampati Class: II TM Dist: >3cm Neck ROM: Limited Heart: af Lungs: cta Assessment and Plan Assessment Anesthesia Assessment: Anesthesia Plan Discussed Final Anesthetic Review Family History of Problems with Anesthesia: No History of Problems with Anesthesia: No NPO: Yes ASA Class: III Final Preanesthetic Review: No Changes in Pt Med Stat, Meds/Allgs Chart Reviewed, Consent Obtained/Reviewed and Anes Risks/Benef Reviewed Patient Risk: Intermediate Procedure Risk: Low Anesthetic Plan Anesthetic Plan: MAC: Disposition: Standard PACU
[2024-09-28 09:49] LABS: Glucose, Whole Blood 144 mg/dL (60-115)
[2024-09-28 09:54] VITALS: BP 157/83; PULSE 61; RESP 12; TEMP 36.4; O2SAT 96; BMI 31.7
--- NOTE | 2024-09-28 09:57 | MHC.SHP ---
Pre-Procedural Eval Section A - 24 Hr Update-Section A only Date of Service: 09/28/24 Section B - Complete if H&P > 30 days Chief Complaint: Unspecified abdominal pain Relevant Family History (Specify if Yes): No Relevant Social History: None Present Medications: see Short Stay Collaborative assessment Medical History: Significant History (Epigastric abdominal pain Uncontrolled diabetes mellitus with hyperglycemia, with long-term current use of insulin Type 2 diabetes mellitus with hypoglycemia Osteoarthritis of left acromioclavicular joint Cognitive disorder PAF (paroxysmal atrial fibrillation) 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 care systemic 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 History) History of Previous Operations: Relevant previous surgery/procedure and date(s) (Hx of cardiac cath Hx of endoscopy Hx of colonoscopy) Allergies: Allergies Allergy/AdvReac Type Severity Reaction Status Date / Time insulin glargine AdvReac Mild hypoglycemi Verified 09/15/24 13:37 [From Lantus U-100 Insulin] a Review of Systems Sugical H&P ROS: Negative: Constitution, Cardiovascular, Respiratory, Neurological, Psychiatric, Hem-Onc, Allergic/Immunologic, Gastrointestinal, Genitourinary, Musculoskeletal, Integumentary, Endocrine and Eyes/Ears/Nose/Throat Exam Surgical H&P Exam: Normal: HEENT, Normal: Heart, Normal: Lungs, Normal: Extremities, Normal: Skin and Normal: Neurological and Significant Findings: Abdomen (tender epigastrium) Plan Diagnosis/Plan: Unchanged I have reviewed the history and physical and performed a pertinent physical examination on my patient. No changes have occurred unless specified. EGD for assessment of abdominal pain Time Spent With Patient Time: Total time managing care of this patient today ____ minutes.
[2024-09-28] MEDS: Lactated Ringers 1,000 ML 100 ML IVCONT (09:58)
--- NOTE | 2024-09-28 10:55 | W.PM.OPN ---
Operative Note Operative Note Date of Service: 09/28/24 Narrative: Procedure Description: EGD Indication: epigastric pain Anesthesia: MAC FLEXIBLE TRANSORAL UPPER GASTROINTESTINAL ENDOSCOPY UPPER ENDOSCOPY Consent: Indications for the procedure and potential complications of bleeding, perforation, reaction to medications and missed diagnosis were discussed with the patient and informed consent was obtained. Instrument: Olympus GIF H 190 J mid size upper endoscope Monitoring: Vital signs and clinical assessment, continuous EKG monitoring, Pulse oximetry, Carbon Dioxide monitoring and blood pressure monitoring were done throughout the procedure. Procedure: The patient was placed in the left lateral decubitis position and pre-procedure medications were administered and a bite block was placed. The endoscope was inserted into the mouth and advanced under direct vision to the third part of duodenum. A careful inspection was made as the upper endoscope was withdrawn including a retroflexed examination of the proximal stomach; Findings and interventions are described below. Findings: Larynx:normal Esophagus: GE junction at 37 cm, diaphragm hiatus at 37 cm, mild esophagitis at GEJ, bx taken from here and distal esophagus Stomach: patchy erythema . Biopsies were obtained. Grade 2 flap valve on retroflexed examination of the cardia. good peristalsis was noted. Duodenum: mild bulbar duodenitis Intervention: Biopsies as noted above, Impression/Findings: gastritis duodenitis PLAN: cont PPI, await bx, might change if h pylori pos then treat add carafate and see if helps if ongoing sx then trial of TCA GERD precautions
[2024-09-28 11:03] VITALS: BP 149/79; PULSE 63; RESP 16; TEMP 36.7; O2SAT 95
[2024-09-28 11:15] VITALS: BP 159/77; PULSE 62; RESP 16; O2SAT 96
[2024-09-28 11:30] VITALS: BP 156/64; PULSE 58; RESP 16; TEMP 36.8; O2SAT 97
== END 2024-09-28 12:22 | disposition home or self-care (01) ==
PROVIDERS: PCP Internal Medicine; Visit Provider Internal Medicine Gastroenterology
PROC: 0DJ08ZZ Inspection of Upper Intestinal Tract, Via Natural or Artificial Opening Endoscopic (ICD-10-PCS; CPT 43235; principal; 2024-09-28 11:40)
DX: R10.13 Epigastric pain (principal); K29.50 Unspecified chronic gastritis without bleeding; K29.80 Duodenitis without bleeding; K20.80 Other esophagitis without bleeding; K44.9 Diaphragmatic hernia without obstruction or gangrene; K21.9 Gastro-esophageal reflux disease without esophagitis; K59.01 Slow transit constipation; I10 Essential (primary) hypertension; R41.89 Other symptoms and signs involving cognitive functions and awareness; I48.0 Paroxysmal atrial fibrillation; D64.9 Anemia, unspecified; M19.012 Primary osteoarthritis, left shoulder; E11.65 Type 2 diabetes mellitus with hyperglycemia; E11.649 Type 2 diabetes mellitus with hypoglycemia without coma; E11.40 Type 2 diabetes mellitus with diabetic neuropathy, unspecified; Z79.4 Long term (current) use of insulin; Z79.01 Long term (current) use of anticoagulants; Z79.52 Long term (current) use of systemic steroids; Z79.899 Other long term (current) drug therapy; Z88.8 Allergy status to other drugs, medicaments and biological substances
CPT/HCPCS: 43239; 82947; 88305; 88313; 88342; J2003; J2704; J3010

== ENCOUNTER → 2024-09-28 09:20 | Outpatient (BNV) | payer OTHER, SELFPAY | PROVIDERS: PCP Internal Medicine; Visit Provider Internal Medicine Gastroenterology | DX: K29.70 Gastritis, unspecified, without bleeding (principal); K20.90 Esophagitis, unspecified without bleeding; K29.80 Duodenitis without bleeding | CPT/HCPCS: 43239 ==

== ENCOUNTER 2024-10-10 13:04 | Outpatient (REF) | payer OTHER, SELFPAY ==
--- NOTE | ~2024-10-10 | MM_ITS ---
EXAMINATION: DXA BONE DENSITY AXIAL HISTORY: Z12.31 - Encounter for screening mammogram for malignant neoplasm of breast TECHNIQUE: [facility] Dual energy absorptiometry (DEXA) of the lumbar spine, total left hip, and femoral neck was performed. COMPARISON: Comparison is made with the prior examination dated 07/25/2020. FINDINGS: The bone mineral density of the lumbar spine is 0.904 with a T-score of -2.3, and a Z-score of -1.1. This is indicative of osteopenia. This represents a BMD change of -7.5% compared to the prior exam. This is statistically significant. The bone mineral density of the left total hip is 0.879 with a T-score of -1.0, and a Z-score of 0.0. This is indicative of normal bone mineral density. This represents a BMD change of -13.5% compared to the prior exam. This is statistically significant. The bone mineral density of the left femoral neck is 0.755 with a T-score of -2.0, and a Z-score of -0.7. This is indicative of osteopenia. This represents a BMD change of -8.9% compared to the prior exam. FRACTURE RISK: The FRAX index suggests a ten year probability of major osteoporotic fracture of 14.2%, and of hip fracture 2.7%. MM/XR DEXA axial skeleton IMPRESSION: Based on bone mineral density, and according to World Health Organization (WHO) criteria, the diagnosis is consistent with osteopenia. All bone density values are in grams per centimeter squared (g/cm2). Statistically, 68% of repeat scans fall within 1 SD (+/- 0.010 g/cm2 for AP spine L1-L4) and 1 SD (+/- 0.012 g/cm2 for femur total) FRAX is a trademark of the [employer] [place] [facility] Met[employer] Disease, a World Health Organization (WHO) Collaborating Center. Electronically signed by: Miles Guerrero MD 10/10/2024 02:03 PM EDT
--- OUTSIDE RECORDS SUMMARY | 2024-10-10 14:20 | XMS_ITS | Data Portability ---
Author Organization [employer] [facility] [employer] Address [address] [place] [id number] Care Team Providers Care Desk Attendant Name Role Phone HIM CCA OTHER Assessment Encounter Date Assessment Date Assessment LastModified by Organization Details LastModified Time 04/24/2022 04/24/2022 I have reviewed and agree with the assessment and plan as documented by the executive director sheltered workshop. I provided real-time medical direction for this [...] Go To The Location Of Their Choice, [id number] 09:38:12 Referral None recorde d. Procedures None [...] Go To The Location Of Their Choice, [id number] 04/26/2022 09:38:12 04/24/2004/24/2022 URINE CULTU RE special requests NONE Not Available [facility] (Centralized Electronic Ordering - All Locations) Patient Can Go To The Location Of Their Choice, [id number] 04/26/2022 09:38:12 04/24/2004/26/2022 URINE CULTU RE culture Mixed bacter ial marie, indica tive of urogen ital contam inatio n. Not Available [facility] (Centralized Electronic Ordering - All Locations) Patient Can Go To The Location Of Their Choice, [id number] 04/26/2022 09:38:12 04/24/2004/26/2022 URINE CULTU RE report status FINAL 2021 Not Available [facility] (Centralized Electronic Ordering - All Locations) Patient Can Go To The Location Of Their Choice, [id number] 04/26/2022 09:38:12 Result Notes None recorded. Medical [...] Brittney Churchill MD [address] - [facility] [address] [place] [address] 04/24/2022 12:33:23 04/27/2022 12:35:27 Dysuria [id number] R30.0 Health Concerns Section Related Observation LastModified by Organization Detai ls LastModified Time None Recorded Concern Status LastModified by Organization Details LastModified Time None Recorded Advance Directives Directive None Recorded Payers Encounter Date Sequence Insurance Name Policy Number Policy Alas Covered Member ID Alas Member ID Guarantor Name 04/24/2022 1 [facility] - DOS PRIOR TO 2022 - DUAL ELIGIBLE (MEDICARE REPLACEMENT/ADV ANTAGE - HMO) Yudithnenita High [id number] YudithlaGrace Notes Date Note Type Note Provider Name [...] Brittney Churchill MD [address], [place], [address], [place] [employer] 04/24/2022 12:41:05 OBGyn Episode No OBEpisode recorded.
--- OUTSIDE RECORDS SUMMARY | 2024-10-10 14:20 | XMS_ITS | Clinical Summary ---
Author Organization 175 [facility] Address [address] [place] [address] Phone Care Team Providers Care Customer Account Administrator Name Role Phone Roxana Olivarez MD Primary Care Provider [phone] Allergies Active Allergy Reactions Criticality Noted Date [...] Rotator cuff tear arthropathy 08/18/2013 Morbid obesity ([facility] V24, [facility] V28) 2013 Overview (06/15/2024): BMI 50.12 on 07/26/13. Type II or unspecified type diabetes mellitus with ophthalmic manifestations, uncontrolled(250.52) ([facility] V24, [facility] V28) 07/31/2013 Overview (06/15/2024): Neuclear Sclerosis eye exam 02/21/2010. Hilar lymphadenopathy 09/09/2012 Overview (06/15/2024): Increased per repeat CXR at [facility] visit 06/2012 Abdominal pain 02/02/2011 Schwannoma 11/24/2010 Overview (06/15/2024): S/p left upper quadrant resection January 2011 Fatty liver 08/09/2010 Type II or unspecified type diabetes mellitus with renal manifestations, uncontrolled(250.42) ([facility] V24, [facility] V28) 02/10/2010 Overview (06/15/2024): microalbuminuria Hyperlipidemia with target LDL less than 100 03/2009 Overview (06/15/2024): IMO update Esophageal reflux 07/16/2005 Overview (06/15/2024): Saw Dr Christie during hospitalization at [facility] 05/2012. Underwent upper endoscopy- gastritis, erosive esophagitis. Biopsies taken. Has FU with GI. Immunizations Name Administration Dates Next Due Influenza trivalent, with pr eservative (Fluzone; Afluria) 6mo and older 05/14/2014,03/14/2013,03/29/2012,05/07,03/27/2008 Pneumococcal polysaccharide 23 valent (Pneumovax 23) 2yo and older 03/14/2013 Tdap Tetanus diptheria acell ular pertussis (Boostrix; Adacel) 7yo and older 02/07/2010 Surgical History Surgery Date Site/Laterality Comments ESOPHAGOGASTRODUODENOSCOPY 09/21/07 PROCEDURE: [place] EGD TRANSORAL BIOPSY SINGLE/MULTIPLE; COMMENT: Multiple gastric erosions-bx:chronic gastritis-HPylori+(treated), SB-bx:Normal COLONOSCOPY 11/07/07 PROCEDURE: [place] COLONOSCOPY STOMA DX INCLUDING COLLJ SPEC SPX; [...] * Urine Albumin Creatinine Ratio (05/14/2014) Pathologist [facility] Urine Albumin Creatinine Ratio Abstracted Historical Provider [place] [facility]TE[facility] Final Result * Annual BMP Blood Test (05/14/2014) Pathologist [facility] Annual BMP Blood Test Abstracted [facility] Provider [place] [facility]TE[facility] Final Result * Hepatitis C Screening (05/14/2014) Pathologist [facility] Hepatitis C Screening Abstracted [facility] Provider [place] [facility]TE[facility] Final Result * (ABNORMAL) Hemoglobin A1c (05/14/2014) [facility] Hemoglobin A1C 10.0(A) 4.0 - 6.0 % Blood Venous blood specimen / Unknown Historical Provider LAB BLOOD ORDERABLES Mara l Result * (ABNORMAL) Lipid panel (05/14/2014) LDL/HDL Ratio 6(A) 0 - 4 Triglycerides 322(A) 0 - 150 mg/dL Cholesterol 245(A) 0 - 200 mg/dL HDL 43 >=40 mg/dL LDL Cholesterol 138(A) 0 - 100 mg/dL Blood Venous blood specimen / Unknown [facility] Provider LAB BLOOD ORDERABLES Mara l Result * Hm Colonoscopy (11/07/2007) Colonoscopy No Interpretation , Abstracted Anatomical Region Laterality Modality Other Historical Provider HEALTH MAINTENANCE Final Result from Last 3 Months or Most Recently Relevant to Health Maintenance Insurance [place] - [place] [facility] MEDICARE Member Subscriber Plan / Payer (Ef fective 2014-Present) Name:Shawnee High Relation to Subscriber:Self Name:Shawnee High Payer ID:[id number] Group ID:[id number] Type:Not on file Address: [address] [place] [address] Care Teams Customer Account Administrator Relationship Specialty Start Date End Date Roxana Olivarez MD [address] [place] [address] PCP - General Internal Medicine 06/30/24
== END 2024-10-10 13:05 | disposition home or self-care (01) ==
LOC: HO.MAMMO 13:04
PROVIDERS: PCP Internal Medicine; Visit Provider Internal Medicine
DX: Z12.31 Encounter for screening mammogram for malignant neoplasm of breast (principal); Z13.820 Encounter for screening for osteoporosis; M85.89 Other specified disorders of bone density and structure, multiple sites
CPT/HCPCS: 77063; 77067; 77080

== ENCOUNTER → 2024-10-10 13:30 | Outpatient (BNV) | payer OTHER, SELFPAY | PROVIDERS: PCP Internal Medicine; Visit Provider Radiology Diagnostic Radiology | DX: E28.39 Other primary ovarian failure (principal) | CPT/HCPCS: 77080 ==

== ENCOUNTER 2024-11-17 09:56 | Outpatient (AMB) | payer OTHER, SELFPAY ==
--- NOTE | 2024-11-17 09:58 | MHC.OFFVIS ---
Vital Signs 11/17/24 10:03 Height 4 ft 11 in Weight 168 lb 10.458 oz BMI 34.1 BP 116/76 Blood Pressure Location Rt brachial Position Sitting Pulse 75 Pulse Source Pulse Oximeter Pulse Oximetry (%) 96 Oxygen Delivery Method Room Air Intake Visit Reasons: T2DM Intake Note: Patient present today to follow up on Type 2 Diabetes Mellitus. Last Diabetic Eye exam: 07/25/2024 Last Podiatry Visit: Patient does not see a Air Brake Rigger Random Glucose: 186 mg/dl HgA1C: 11.4% 11/17/2024 Interior Block Wirer Required: No Accompanied by: Self / Same As Patient Allergies insulin glargine [From Lantus U-100 Insulin] Adverse Reaction (Mild, Verified 09/15/24 13:37) hypoglycemia HPI Comments Details: This is a 69-year-old female with a past medical history of cystitis, type 2 diabetes, gastroparesis, paroxysmal atrial fibrillation, diabetic nephropathy, dementia and hypertension presents for diabetic management accompanied by her son who interprets. They declined clinic office coordinator. Hemoglobin A1c 11/17/2024 11.4% up from 07/25/24 hemoglobin A1c 9.8%. Current medication regimen: Tresiba to 24 units daily, Administer 4 units of Humalog before breakfast, 8 units before lunch and 4 units before dinner. She is actually taking Tresiba 26 units in the morning and 4 units of Humalog with breakfast and dinner and 6 units with lunch. She does not have a glucometer today because they had to electrical supervisor sensor refills at the pharmacy. Son states they are there. He says her blood sugars in the morning are in the target range. He tells me that her blood sugars after meals are in the high 200s and 300s. She continues to gain weight though we did discontinue Actos months ago. He says that her appetite is out of control, and she eats a lot of carbs and sugars. Due to dementia she will eat a meal, and 30 minutes later she will ask when it is time to eat the same meal. He says that if he is not keeping a close eye on her he finds her snacking frequently. He reports she is more confused with hyperglycemia. Denies episodes of hypoglycemia. Past medications: Metformin extended release 500 mg daily discontinued due to GI side effects. Trulicity was discontinued in the past due to exacerbation of gastroparesis. Actos discontinued due to weight gain. Compliance issues: Patient has dementia. Both of her sons administer medication. She lives with her other son. She is not taking Humalog in the morning. She snacks during the day. They are not able to prepare all of her foods so she is eating carbohydrates and sugars. Complications: Nephropathy ROS: Constitutional: No unexplained weight loss, fever, chills, fatigue or night sweats. Eyes: No vision changes, blurry vision, double vision, eye pain Respiratory: No shortness of breath, cough or sputum production. Cardiovascular: No chest pain, chest pressure or chest discomfort. No palpitations Gastrointestinal: No anorexia, nausea, vomiting or diarrhea. No abdominal pain Neurologic: No headache, dizziness, syncope and increased confusion. Endocrine: No cold or heat intolerance. No polyuria or polydipsia. Physical exam: Constitutional: Alert, in no distress. Head: Normocephalic. Eyes: Pupils are equal, round and reactive to light. Extraocular muscles intact. Neck: Supple, Full range of motion. No lymphadenopathy. No palpable thyroid masses or enlargement. Respiratory: Clear to auscultation. Cardiovascular: S1 S2 regular. No murmurs. Right foot: Warm and well perfused. No clubbing, cyanosis or edema. No open wounds. Left foot: Warm and well perfused. No clubbing, cyanosis or edema. no open wounds. 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 Mother No problems noted. Social History Housing: House Alcohol intake: never Patient Tobacco Use Status: Never used Tobacco e-Cigarette/Vaping Use: Never Used service: No Current occupational status: retired Current occupation: Left handed Cognitive needs: No Hearing needs: No Vision needs: Yes Physical Exam Vital Signs: Last Vital Signs Pulse 75 11/17/24 10:03 BP 116/76 11/17/24 10:03 Pulse Ox 96 11/17/24 10:03 Oxygen Delivery Method Room Air 11/17/24 10:03 BMI result Body Mass Index 34.1 Results AMB Hemoglobin A1c AMB Hemoglobin A1c 11.4 % Last Edit by LUIS ALBERTO Pineda on 11/17/24 10:20 Results Reviewed Results Reviewed: Laboratory Last Values Glucose (Clinic) 186 mg/dL (60-115) H 11/17/24 10:08 Laboratory Tests 05/21/23 01/14/24 02/10/24 06:18 16:19 11:35 Creatinine 0.98 Estimated GFR 57 Hgb A1c (Clinic) 7.7 H Triglycerides 120 Cholesterol 137 LDL Cholesterol, Calc 82 HDL Cholesterol 31 L TSH 1.34 Urine Creatinine Urine Microalbumin Microalb/Creat Ratio 02/10/24 11:40 Creatinine Estimated GFR Hgb A1c (Clinic) Triglycerides Cholesterol LDL Cholesterol, Calc HDL Cholesterol TSH Urine Creatinine 128.09 Urine Microalbumin 43.0 Microalb/Creat Ratio 33.5 H Laboratory Tests 04/28/23 02/10/24 09:47 11:35 Creatinine 0.81 0.98 Estimated GFR > 60 57 Laboratory Tests 06/02/24 11:59 B-Natriuretic Peptide 77 Assessment & Plan Assessment & Plan (1) Uncontrolled diabetes mellitus with hyperglycemia, with long-term current use of insulin: Code(s): E11.65 - Type 2 diabetes mellitus with hyperglycemia; Z79.4 - residential (current) use of insulin Category: Medical Plan In summary this is a 69-year-old female with uncontrolled type 2 diabetes. Treatment is complicated by dementia. A1c goal 7.5-8%. Continue Tresiba 26 units every morning. Increase Humalog to 6 units before breakfast, 8 units before and 6 units before dinner. Her son is asking if we can attempt another GLP 1 to help curb her appetite and help with weight loss. I advised him that we can try this at a low dosage, but she may experience adverse GI side effects including worsening of gastroparesis like she experienced on Trulicity. We will need to monitor her closely. Trial of Mounjaro 2.5 mg weekly. Declines referral for [place] [facility] to help with medication administration. Declines referral to consumer educator and dietitian. If you experience low blood sugar, treat this by eating a chewable fruit candy like skittles or jelly beans (about 8 pieces), 4 ounces (1/2 cup) of fruit juice (not diet), 1 tablespoon of honey or 4 glucose tablets. If your blood sugar is under 55, take double the amount of one of the above. Recheck your blood sugar in 15 minutes. She has ketone urine strips and has instructions about DKA and ketone testing at home. Follow up in 4 weeks for type 2 diabetes. Labs ordered. Orders: Orders Vitamin B12 Today E11.649 - Type 2 diabetes mellitus with hypoglycemia without coma, Z91.89 - Other specified personal risk factors, not elsewhere classified Lipid Panel Today E11.649 - Type 2 diabetes mellitus with hypoglycemia without coma, E78.5 - Hyperlipidemia, unspecified Alanine Aminotransferase Today E11.649 - Type 2 diabetes mellitus with hypoglycemia without coma, R79.89 - Other specified abnormal findings of blood chemistry TSH reflex Free T4 Today E11.649 - Type 2 diabetes mellitus with hypoglycemia without coma Creatinine Today E11.649 - Type 2 diabetes mellitus with hypoglycemia without coma, E11.9 - Type 2 diabetes mellitus without complications Aspartate Amino Transferase Today E11.649 - Type 2 diabetes mellitus with hypoglycemia without coma Platelet Count Today E11.649 - Type 2 diabetes mellitus with hypoglycemia without coma, E11.9 - Type 2 diabetes mellitus without complications AMB Hemoglobin A1c Today E11.65 - Type 2 diabetes mellitus with hyperglycemia, Z79.4 - truck 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 To insulin lispro (Humalog KwikPen (U-100) Insulin) subcutaneously 3 times a day; Administer 6 units before breakfast, 8 units before lunch and 6 units before dinner. 15 mL 5RF Patient Instructions: Continue Tresiba 26 units every morning. Increase Humalog to 6 units before breakfast, 8 units before lunch and 6 units before dinner. Start Mounjaro 2.5 mg daily. Coding Level of Care Code Est Pt Level 4 (23175) Complex EM visit Add On G2211 Diagnoses Uncontrolled diabetes mellitus with hyperglycemia, with long-term current use of insulin E11.65; Z79.4
[2024-11-17 10:03] VITALS: BP 116/76; PULSE 75; O2SAT 96; BMI 34.1
[2024-11-17 10:14] LABS: Glucose, Whole Blood 186 mg/dL (60-115)
--- OUTSIDE RECORDS SUMMARY | 2024-11-17 10:39 | XMS_ITS | Data Portability ---
Author Organization [employer] [facility] Address [address] [place] [address] Care Team Providers Care Cashier Wrapper Name Role Phone HIM CCA OTHER Assessment Encounter Date Assessment Date Assessment LastModified by Organization Details LastModified Time 04/24/2022 04/24/2022 I have reviewed and agree with the assessment and plan as documented by the glue wheel operator. I provided real-time medical direction for this [...] d. Lab culture , urine 022 04/24/20 [place] [facility] (Centralized Electronic Ordering - All Locations), Patient Can Go To The Location Of Their Choice, [id number] 09:38:12 Referral None recorde d. Procedures None recorde d. Surgeries None recorde d. Imaging None recorde d. Medication Orders None recorde d. Patient TargetsNo targets recorded. Patient InstructionsNo instructions recorded. Reason for Referral None Reported. Results Created Date Observation Date Name Description Value Unit Range Abnormal Flag Note LastModifiedBy Organization Detail LastModifiedTime 04/24/2004/24/2022 URINE CULTU RE specimen description URINE Not Available [facility] (Centralized Electronic Ordering - All Locations) Patient Can Go To The Location Of Their Choice, [id number] 04/26/2022 09:38:12 04/24/2004/24/2022 URINE CULTU RE special requests NONE Not Available [facility] (Centralized Electronic Ordering - All Locations) Patient Can Go To The Location Of Their Choice, [id number] 04/26/2022 09:38:12 04/24/2004/26/2022 URINE CULTU RE culture Mixed bacter ial marie, indica tive of urogen ital contam inatio n. Not Available [facility] (Centralized Electronic Ordering - All Locations) Patient Can Go To The Location Of Their Choice, [id number] 04/26/2022 09:38:12 04/24/2004/26/2022 URINE CULTU RE report status FINAL 2021 Not Available [facility] (Centralized Electronic Ordering - All Locations) Patient Can Go To The Location Of Their Choice, [id number] 04/26/2022 09:38:12 Result Notes None recorded. Medical [...] Note [id number] Brittney Churchill MD Main - [address] [address] 04/24/2022 12:33:23 04/27/2022 12:35:27 Dysuria [id number] R30.0 Health Concerns Section Related Observation LastModified by Organization Detai ls LastModified Time None Recorded Concern Status LastModified by Organization Details LastModified Time None Recorded Advance Directives Directive None Recorded Payers Insurance Date Sequence Insurance Name Policy Number Policy Alas Covered Member ID Alas Member ID Guarantor Name 09/17/2023 1 [facility]LY [facility] - DOS PRIOR TO 2022 - DUAL ELIGIBLE (MEDICARE REPLACEMENT/ADV ANTAGE - HMO) Shehide Ademi [id number] Shehide Ademi 11/10/2023 1 [facility]LY [facility] - DOS ON OR AFTER 2022 - DUAL ELIGIBLE - [facility] OPTIONS AND ONE CARE (MEDICARE REPLACEMENT/ADV ANTAGE - HMO) Shehide Ademi [id number] [place] Notes Date Note Type Note Provider Name [...] NOT NEED FURTHER INFO Brittney Churchill MD [address] [place] [address],[address], [place], [address], [place] 04/24/2022 12:41:05 OBGyn Episode No OBEpisode recorded.
== END 2024-11-17 10:34 | disposition home or self-care (01) ==
LOC: HO.ENCR 09:56
PROVIDERS: PCP Internal Medicine; Visit Provider Physician Assistant Medical
DX: E11.65 Type 2 diabetes mellitus with hyperglycemia (principal); Z79.4 Long term (current) use of insulin

== ENCOUNTER → 2024-11-17 09:56 | Outpatient (BNVA) | payer OTHER, SELFPAY | PROVIDERS: PCP Internal Medicine; Visit Provider Physician Assistant Medical | DX: E11.65 Type 2 diabetes mellitus with hyperglycemia (principal); Z79.4 Long term (current) use of insulin | CPT/HCPCS: 82947; 83036; 99212 ==

== ENCOUNTER 2024-12-19 14:19 | Outpatient (AMB) | payer OTHER, SELFPAY ==
--- NOTE | 2024-12-19 14:24 | A.OFFVIS_ITS ---
Vital Signs 12/19/24 14:30 Height 4 ft 11 in Weight 165 lb 5.547 oz BMI 33.4 BP 112/70 Blood Pressure Location Rt brachial Position Sitting Pulse 72 Pulse Source Pulse Oximeter Intake Visit Reasons: T2DM Intake Note: Patient present today to follow up on Type 2 Diabetes Mellitus. Last Diabetic Eye exam: 07/25/2024 Last Podiatry Visit: Patient does not see a Jacker Random Glucose: 215 mg/dL, Today HgA1C: 11.4% 11/17/2024 Chinese Language Professor Required: Yes Chinese Language Professor Language: Swiss Chinese Language Professor Services: Chinese Language Professor Present Chinese Language Professor Name: Bernard #[id number] Accompanied by: [id number] Allergies insulin glargine (From Lantus U-100 Insulin) Adverse Reaction (Mild, Verified 12/19/24 14:25) hypoglycemia pioglitazone (From Actos) Adverse Reaction (Mild, Verified 12/19/24 14:28) Unknown HPI Comments Details: This is a 69-year-old female with a past medical history of cystitis, type 2 diabetes, gastroparesis, paroxysmal atrial fibrillation, diabetic nephropathy, dementia and hypertension presents for diabetic management accompanied by her [id number]. Swiss video spanish medical interpreter used. Hemoglobin A1c 11/17/2024 11.4% up from 07/25/24 hemoglobin A1c 9.8%. Current medication regimen: Tresiba 26 units every morning. Humalog to 6 units before breakfast, 8 units before and 6 units before dinner. Mounjaro 2.5 mg weekly. Denies side effects on Mounjaro. It has helped curb her appetite, and they repo rt blood sugars are doing better. Denies episodes of hypoglycemia. There is no sensor data to review today because they just placed a new sensor late last night. Past medications: Metformin extended release 500 mg daily discontinued due to GI side effects. Trulicity was discontinued in the past due to exacerbation of gastroparesis. Actos discontinued due to weight gain. Compliance issues: Patient has dementia. Both of her sons administer medication. She lives with her other son. She is not taking Humalog in the morning. She snacks during the day. They are not able to prepare all of her foods so she is eating carbohydrates and sugars. Complications: Nephropathy ROS: Constitutional: No unexplained weight loss, fever, chills, fatigue or night sweats. Eyes: No vision changes, blurry vision, double vision, eye pain Respiratory: No shortness of breath, cough or sputum production. Cardiovascular: No chest pain, chest pressure or chest discomfort. No palpitations Gastrointestinal: No anorexia, nausea, vomiting or diarrhea. No abdominal pain Neurologic: No headache, dizziness, syncope and increased confusion. Endocrine: No cold or heat intolerance. No polyuria or polydipsia. Physical exam: Constitutional: Alert, in no distress. Neck: Supple, Full range of motion. No lymphadenopathy. No palpable thyroid masses or enlargement. Respiratory: Clear to auscultation. Cardiovascular: S1 S2 regular. No murmurs. 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 Mother No problems noted. Social History Housing: House Alcohol intake: never Patient Tobacco Use Status: Never used Tobacco e-Cigarette/Vaping Use: Never Used service: No Current occupational status: retired Current occupation: Left handed Cognitive needs: No Hearing needs: No Vision needs: Yes Physical Exam Vital Signs: Last Vital Signs Pulse 72 12/19/24 14:30 BP 112/70 12/19/24 14:30 BMI result Body Mass Index 33.4 Results Reviewed Results Reviewed: Laboratory Last Values Glucose (Clinic) 215 mg/dL (60-115) H 12/19/24 14:34 Laboratory Tests 05/21/23 01/14/24 02/10/24 06:18 16:19 11:35 Creatinine 0.98 Estimated GFR 57 Hgb A1c (Clinic) 7.7 H Triglycerides 120 Cholesterol 137 LDL Cholesterol, Calc 82 HDL Cholesterol 31 L TSH 1.34 Urine Creatinine Urine Microalbumin Microalb/Creat Ratio 02/10/24 11:40 Creatinine Estimated GFR Hgb A1c (Clinic) Triglycerides Cholesterol LDL Cholesterol, Calc HDL Cholesterol TSH Urine Creatinine 128.09 Urine Microalbumin 43.0 Microalb/Creat Ratio 33.5 H Laboratory Tests 04/28/23 02/10/24 09:47 11:35 Creatinine 0.81 0.98 Estimated GFR > 60 57 Laboratory Tests 06/02/24 11:59 B-Natriuretic Peptide 77 Assessment & Plan Assessment & Plan (1) Uncontrolled diabetes mellitus with hyperglycemia, with long-term current use of insulin: Code(s): E11.65 - Type 2 diabetes mellitus with hyperglycemia; Z79.4 - manager terminal (current) use of insulin Category: Medical Plan In summary this is a 69-year-old female with uncontrolled type 2 diabetes. Treatment is complicated by dementia. A1c goal 7.5-8%. Continue Tresiba 26 units every morning. Continue Humalog 6 units before breakfast, 8 units before lunch and 6 units before dinner. Increase Mounjaro to 5 mg weekly. Monitor carefully for adverse GI side effects including worsening of gastroparesis. They have declined referral for longterm to help with medication administration and supervisor poultry processing/dietitian. If you experience low blood sugar, treat this by eating a chewable fruit candy like skittles or jelly beans (about 8 pieces), 4 ounces (1/2 cup) of fruit juice (not diet), 1 tablespoon of honey or 4 glucose tablets. If your blood sugar is under 55, take double the amount of one of the above. Recheck your blood sugar in 15 minutes. She has ketone urine strips and has instructions about DKA and ketone testing at home. Follow up in 8 weeks for type 2 diabetes. Reminded to have lab work done. Medications: New tirzepatide (Mounjaro) 5 mg (0.5 mL) subcut QWEEK 2 mL 3RF Discontinued tirzepatide (Mounjaro) for 4 weeks Discontinued Reason: Doctor's Order 2.5 mg (0.5 mL) subcut QWEEK 2 mL 1RF Patient Instructions: Current medication regimen: Tresiba 26 units every morning. Humalog 6 units before breakfast, 8 units before lunch and 6 units before dinner. Increase Mounjaro to 5 mg weekly. Please call the office if she has low blood sugars after increasing the dose of Mounjaro. If you experience low blood sugar, treat this by eating a chewable fruit candy like skittles or jelly beans (about 8 pieces), 4 ounces (1/2 cup) of fruit juice (not diet), 1 tablespoon of honey or 4 glucose tablets. If your blood sugar is under 55, take double the amount of one of the above. Recheck your blood sugar in 15 minutes. Coding Level of Care Code Est Pt Level 4 (20486) Complex EM visit Add On G2211 Diagnoses Uncontrolled diabetes mellitus with hyperglycemia, with long-term current use of insulin E11.65; Z79.4
[2024-12-19 14:30] VITALS: BP 112/70; PULSE 72; BMI 33.4
[2024-12-19 14:38] LABS: Glucose, Whole Blood 215 mg/dL (60-115)
--- OUTSIDE RECORDS SUMMARY | 2024-12-19 15:33 | XMS_ITS | Clinical Summary ---
Author Organization [facility] Address [address] [place] [address] Phone Care Team Providers Care Commercial Lines Account Manager Name Role Phone Roxana Olivarez MD Primary Care Provider [phone] Allergies Active Allergy Reactions Criticality Noted Date [...] Rotator cuff tear arthropathy 08/18/2013 Morbid obesity ([facility] V24, [facility] V28) 2013 Overview (06/15/2024): BMI 50.12 on 07/26/13. Type II or unspecified type diabetes mellitus with ophthalmic manifestations, uncontrolled(250.52) ([facility] V24, [facility] V28) 07/31/2013 Overview (06/15/2024): Neuclear Sclerosis eye exam 02/21/2010. Hilar lymphadenopathy 09/09/2012 Overview (06/15/2024): Increased per repeat CXR at [facility] visit 06/2012 Abdominal pain 02/02/2011 Schwannoma 11/24/2010 Overview (06/15/2024): S/p left upper quadrant resection January 2011 Fatty liver 08/09/2010 Type II or unspecified type diabetes mellitus with renal manifestations, uncontrolled(250.42) ([facility] V24, [facility] V28) 02/10/2010 Overview (06/15/2024): microalbuminuria Hyperlipidemia with target LDL less than 100 03/2009 Overview (06/15/2024): IMO update Esophageal reflux 07/16/2005 Overview (06/15/2024): Saw Dr Christie during hospitalization at [facility] 05/2012. Underwent upper endoscopy- gastritis, erosive esophagitis. [...] Vaccine ( season) 2024 Influenza Vaccine (#1) 2025 4, 03/14/2013, 03/29/2012, Additional history exists Hepatitis [...] * Urine Albumin Creatinine Ratio (05/14/2014) Pathologist [facility] Urine Albumin Creatinine Ratio Abstracted Historical Provider [place] HEALTH MAINTENANCE Final Result * Annual BMP Blood Test (05/14/2014) Pathologist [facility] Annual BMP Blood Test Abstracted [facility] Provider MD HEALTH MAINTENANCE Final Result * Hepatitis C Screening (05/14/2014) Pathologist [facility] Hepatitis C Screening Abstracted [facility] Provider HEALTH MAINTENANCE Final Result * (ABNORMAL) Hemoglobin A1c (05/14/2014) [facility] Hemoglobin A1C 10.0(A) 4.0 - 6.0 % Blood Venous blood specimen / Unknown Historical Provider MD LAB BLOOD ORDERABLES Mara l Result * (ABNORMAL) Lipid panel (05/14/2014) LDL/HDL Ratio 6(A) 0 - 4 Triglycerides 322(A) 0 - 150 mg/dL Cholesterol 245(A) 0 - 200 mg/dL HDL 43 >=40 mg/dL LDL Cholesterol 138(A) 0 - 100 mg/dL Blood Venous blood specimen / Unknown Historical Provider LAB BLOOD ORDERABLES Mara l Result * Hm Colonoscopy (11/07/2007) [facility] Colonoscopy No Interpretation , Abstracted Anatomical Region Laterality Modality Other Historical Provider HEALTH MAINTENANCE Final Result from Last 3 Months or Most Recently Relevant to Health Maintenance Insurance MEDICAID - [place] [facility] MEDICARE Member Subscriber Plan / Payer (Ef fective 2014-Present) Name:[place] High Relation to Subscriber:Self Name:Sh[place]nee High Payer ID:[id number] Group ID:[id number] Type:Not on file Address: [address] [place] [id number] Care Teams Commercial Lines Account Manager Relationship Specialty Start Date End Date Roxana Olivarez MD [address] [place] [address] PCP - General Internal Medicine 06/30/24
--- OUTSIDE RECORDS SUMMARY | 2024-12-19 15:33 | XMS_ITS | Data Portability ---
Author Organization [facility], [facility] Address [address] [place] [id number] Care Team Providers Care Traffic Monitor Specialist Name Role Phone HIM CCA OTHER Assessment Encounter Date Assessment Date Assessment LastModified by Organization Details LastModified Time 04/24/2022 04/24/2022 I have reviewed and agree with the assessment and plan as documented by the dramatic coach. I provided real-time medical direction for this [...] d. Lab culture , urine 022 04/24/20 [place] [facility] (Centralized Electronic Ordering - All Locations), Patient Can Go To The Location Of Their Choice, [id number] 09:38:12 Referral None recorde d. Procedures None [...] Go To The Location Of Their Choice, [id number] 04/26/2022 09:38:12 04/24/20 22 04/24/2022 URINE CULTU RE special requests NONE Not Available [facility] (Centralized Electronic Ordering - All Locations) Patient Can Go To The Location Of Their Choice, [id number] 04/26/2022 09:38:12 04/24/20 22 04/26/2022 URINE CULTU RE culture Mixed bacter ial marie, indica tive of urogen ital contam inatio n. Not Available [facility] (Centralized Electronic Ordering - All Locations) Patient Can Go To The Location Of Their Choice, [id number] 04/26/2022 09:38:12 04/24/20 22 04/26/2022 URINE CULTU RE report status FINAL 2021 Not Available [facility] (Centralized Electronic Ordering - All Locations) Patient Can Go To The Location Of Their Choice, [id number] 04/26/2022 09:38:12 Result Notes None recorded. Medical [...] Heart rate Respiratory rate Body temperature Systolic And Diastolic Provider Name and Address Organization Details Last Updated DateTime 2 98 % 98 % 76 /min 16 /min 96.9 [degF] 140/88 mm[Hg] Not Available [facility] - production 12:33:32 [...] Note [id number] Brittney Churchill MD Main - [address] [id number] 04/24/2022 12:33:23 04/27/2022 12:35:27 Dysuria [id number] R30.0 Health Concerns Section Related Observation LastModified by Organization Detai ls LastModified Time None Recorded Concern Status LastModified by Organization Details LastModified Time None Recorded Advance Directives Directive None Recorded Payers Insurance Date Sequence Insurance Name Policy Number Policy Alas Covered Member ID Alas Member ID Guarantor Name 09/17/2023 1 [facility] - DOS PRIOR TO 2022 - DUAL ELIGIBLE (MEDICARE REPLACEMENT/ADV ANTAGE - HMO) Shehide Ademi [id number] Shehide Ademi 11/10/2023 1 [facility] - DOS ON OR AFTER 2022 - DUAL ELIGIBLE - ASSISTED OPTIONS AND ONE CARE (MEDICARE REPLACEMENT/ADV ANTAGE - HMO) Shehide Ademi [id number] Shehide Anila Notes Date Note Type Note Provider Name [...] NOT NEED FURTHER INFO Brittney Churchill MD [address] [place] [address],[address], [place], [address], [employer] - [employer] 04/24/2022 12:41:05 OBGyn Episode No OBEpisode recorded.
== END 2024-12-19 14:53 | disposition home or self-care (01) ==
LOC: HO.ENCR 14:19
PROVIDERS: PCP Internal Medicine; Visit Provider Physician Assistant Medical
DX: E11.65 Type 2 diabetes mellitus with hyperglycemia (principal); Z79.4 Long term (current) use of insulin

== ENCOUNTER → 2024-12-19 14:19 | Outpatient (BNVA) | payer OTHER, SELFPAY | PROVIDERS: PCP Internal Medicine; Visit Provider Physician Assistant Medical | DX: E11.65 Type 2 diabetes mellitus with hyperglycemia (principal); Z79.4 Long term (current) use of insulin | CPT/HCPCS: 82947; 99212 ==

== ENCOUNTER 2025-03-05 10:54 | Outpatient (REF) | payer OTHER, SELFPAY ==
[2025-03-05 17:50] LABS: Platelet Count 350 X10*3/uL (160-400)
[2025-03-05 18:15] LABS: Alanine Aminotransferase 15 U/L (0-31); Aspartate Amino Transferase 28 U/L (5-31); Cholesterol 152 mg/dL (<200); HDL Cholesterol 33 mg/dL (>40); Iron 79 mcg/dL (30-160); Percent Iron Saturation 31 % (15-50); Total Iron Binding Capacity 257 mcg/dL (228-428); Triglycerides 235 mg/dL (<150); Unsaturated Iron Binding 178 ug/dL
[2025-03-05 18:24] LABS: Microalbum/Creatinine Ratio Ur 57.2 ug/mg cr (<30)
[2025-03-05 18:33] LABS: Ferritin 250 ng/mL (10-250)
[2025-03-05 18:43] LABS: Folate 13.1 ng/mL (> or = 4.0); Vitamin B12 1385 pg/mL (200-900)
[2025-03-05 19:26] LABS: Free T4 (Free Thyroxine) 1.19 ng/dL (0.71-1.85)
[2025-03-06 05:11] LABS: Syphilis Screen Nonreactive (Nonreactive)
[2025-03-06 10:08] LABS: Lyme Abs Screen <0.90 index
[2025-03-09 13:53] LABS: Vitamin D 25-OH, D2 <4 ng/mL; Vitamin D 25-OH, D3 74 ng/mL; Vitamin D 25-OH, Total 74 ng/mL (30-100)
== END 2025-03-05 10:55 | disposition home or self-care (01) ==
LOC: HO.HKASLDS 10:54
PROVIDERS: Physician Assistant Medical; PCP Internal Medicine; Visit Provider Nurse Practitioner Family
DX: F09 Unspecified mental disorder due to known physiological condition (principal); E11.649 Type 2 diabetes mellitus with hypoglycemia without coma; E11.65 Type 2 diabetes mellitus with hyperglycemia; D64.9 Anemia, unspecified; I10 Essential (primary) hypertension; G47.9 Sleep disorder, unspecified; F33.1 Major depressive disorder, recurrent, moderate; I48.0 Paroxysmal atrial fibrillation; F41.1 Generalized anxiety disorder; E78.9 Disorder of lipoprotein metabolism, unspecified; F51.3 Sleepwalking [somnambulism]; W10.8XXA Fall (on) (from) other stairs and steps, initial encounter; Z79.899 Other long term (current) drug therapy; Z79.4 Long term (current) use of insulin; Z79.01 Long term (current) use of anticoagulants
CPT/HCPCS: 36415; 80061; 82043; 82306; 82570; 82607; 82728; 82746; 83090; 83540; 83921; 84439; 84443; 84450; 84460; 85049; 86617; 86618; 86780; 99212

== ENCOUNTER 2025-03-05 10:54 | Outpatient (AMB) | payer OTHER, SELFPAY ==
--- NOTE | 2025-03-05 11:16 | A.OFFVIS_ITS ---
Vital Signs 03/05/25 11:19 Height 4 ft 11 in Weight 165 lb BMI 33.3 BP 122/70 Blood Pressure Location Rt brachial Position Sitting Pulse 87 Pulse Source Pulse Oximeter Pulse Oximetry (%) 95 Oxygen Delivery Method Room Air Intake Visit Reasons: 6 mo follow up Hedis Analyst Required: Yes Hedis Analyst Services: Hedis Analyst Offered & Declined Hedis Analyst Name: son Accompanied by: Son Allergies insulin glargine (From Lantus U-100 Insulin) Adverse Reaction (Mild, Verified 03/05/25 11:19) hypoglycemia pioglitazone (From Actos) Adverse Reaction (Mild, Verified 03/05/25 11:19) Unknown Medication List - Last Reconciled 03/05/25 by RHONDA Willson acetaminophen ER (Tylenol 8 Hour) 650 mg PO Q8H PRN acetone (urine) test (Ketone Urine Test strips) As directed apixaban 5 mg PO BID atorvastatin 80 mg PO DAILY blood sugar diagnostic (FreeStyle Lite Strips) USE DIRECTED to check blood glucose five times daily blood-glucose meter (FreeStyle Lite Meter kit) Check blood glucose 5 times daily blood-glucose sensor (FreeStyle Harvinder 3 Plus Sensor device) Apply 1 new sensor every 14 days as directed to monitor blood glucose continuously. blood-glucose sensor (FreeStyle Harvinder 3 Sensor device) apply new sensor every 14 days blood-glucose,bpm architect,cont (FreeStyle Harvinder 3 Crescent) Use daily to monitor blood glucose levels continuously. calcium carbonate (Calcium Antacid) 200 mg PO DAILY cetirizine 10 mg PO DAILY cholecalciferol (vitamin D3) 125 mcg PO DAILY cyanocobalamin (vitamin B-12) 500 mcg PO DAILY 30 days donepezil 5 mg PO DAILY 30 days donepezil 10 mg PO BEDTIME 30 days escitalopram oxalate 20 mg PO DAILY 90 days flash glucose scanning reader (EmergentDetectionStyle Harvinder 2 Crescent) As directed glucose (Dex4 Glucose Quick Dissolve) 16 grams (4 x 4 gram) PO Q15M PRN insulin degludec (Tresiba FlexTouch U-100 insulin) 26 units (0.26 mL) subcut DAILY insulin lispro (Humalog KwikPen (U-100) Insulin) subcutaneously 3 times a day; Administer 6 units before breakfast, 8 units before lunch and 6 units before dinner. lancets (EmergentDetectionStyle Lancets) B.i.d. p.r.n. lancets (FreeStyle Lancets) Use to monitor blood glucose 5 times daily. levothyroxine 25 mcg PO DAILY melatonin 3 - 6 mg (1 - 2 x 3 mg) PO DAILY 30 days melatonin 3 mg PO BEDTIME 30 days memantine 28 mg PO DAILY 30 days pantoprazole 40 mg PO DAILY pen needle, diabetic (Sarah 2nd Gen Pen Needle) USE ONE NEEDLE TWICE A DAY FOR INSULIN INJECTIONS sennosides (senna) 8.6 mg PO BEDTIME sucralfate (Carafate) 10 mL PO BID sucralfate 1 g PO BID 90 days tirzepatide (Mounjaro) 5 mg (0.5 mL) subcut QWEEK HPI Comments Details: 69-yr-old female presents for follow-up visit of cognitive difficulties. Pt is accompanied by her son, who assists w/ Hungarian translation. Patient's son reports that patient recently fell down 12 basement stairs, while wandering in the middle of the night. There is a door knob cover, however patient was still able to open up the door. Patient was evaluated in the [facility] ER, and workup was negative for any acute fracture or head injury. However, patient is bruised all over the body, and she is still quite sore. The patient has not yet had interval blood work previously ordered. Pt's son reports she is gradually doing worse in terms of her cognition. Her daughter previously reported that when patients cognition and behavior are much worse, it is usually associated with elevated blood sugar levels. She lives with her other son. Dtr helps out 1-2 days per week. She does need help w/ ADLs. She no longer cooks. She spends most of her day in the house- somebody is always home with her. She may still talk to pictures or the TV- or does not realize that what is playing on the TV is not really happening in her home. She can space off at times. Repeats herself a lot. She seems a bit more irritable- snappy. She has some urinary incontinence, may not realize that she needs to void until too late. She is not sleeping at night- walking around the house. She does take daytime naps- family tries to prevent naps but she can just fall asleep. Her family manages her medications. 06/22/23: MR/MR brain wo con w neuroquant IMPRESSION: Severe bifrontal lobe volume loss with ex vacuo dilatation of theventricles. Milder temporoparietal volume loss as well. Mild chronicwhite matter microangiopathy, more so around the frontal horns of the lateral ventricles. Otherwise, no acute intracranial process. 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 Mother No problems noted. Social History Housing: House Alcohol intake: never Patient Tobacco Use Status: Never used Tobacco e-Cigarette/Vaping Use: Never Used service: No Current occupational status: retired Current occupation: Left handed Cognitive needs: No Hearing needs: No Vision needs: Yes Physical Exam Vital Signs: Last Vital Signs Pulse 87 03/05/25 11:19 BP 122/70 03/05/25 11:19 Pulse Ox 95 03/05/25 11:19 Oxygen Delivery Method Room Air 03/05/25 11:19 BMI result Body Mass Index 33.3 Const General: cooperative and no acute distress Resp Effort & Inspection: normal respiratory effort and able to speak in complete sentences Neuro Other: Patient is alert and responsive. Patient responds to very simple sentences with short simple answers. Bruising across left forehead and left lower face Cranial nerves: Yes CN's II-XII intact bilaterally Cognition (Neuro): normal cognition Psych Appearance: grossly normal Mental Status: mental status grossly normal Speech and movement: Normal speech and movement present Affect: normal affect Attitude: cooperative Assessment & Plan Assessment & Plan (1) Cognitive disorder: Comment: ? early dementia , worsened by mood ?. she did not test well on MMSE due to her education level Code(s): F09 - Unspecified mental disorder due to known physiological condition Category: Medical (2) Anemia: Code(s): D64.9 - Anemia, unspecified Category: Medical Qualifiers: Anemia type: unspecified type Qualified Code(s): D64.9 - Anemia, unspecified (3) Nocturnal wandering: Code(s): F51.3 - Sleepwalking [somnambulism] Category: Medical (4) Fall down stairs: Comment: Feb 2025- fell down her basement stairs while wandering around her home at night . Code(s): W10.8XXA - Fall (on) (from) other stairs and steps, initial encounter Category: Medical Plan Continue supportive / care. Understanding the limitations, pt would benefit from optimizing her blood sugar control. Continue vitamin B12 supplement Again check labs to f/u on b12 def and round out cognitive work-up. Trial melatonin 3 mg-6 mg daily at [place], in hopes this improve sleep and decreases nocturnal wandering. Advised to add a more secure lab to the basement door, as patient's bedroom is on the same level as the basement. Continue Memantine ER 28 mg daily. Increase Donepazil from 5 mg to 10mg qhs. Continue Lexapro 10mg qd. Due to the language barrier and patient's history of limited formal education, as well as fluctuating cognitive difficulties in setting of diabetes/hyperglycemia, it is difficult to travertine installer the exact degree of patient's cognitive impairment. Discussed ordering amyloid PET scan to see if patient does have any signs of intracranial amyloid pathology- sudden we will discuss with family and let us know if they are interested. Additionally, patient could undergo AD genetic testing. Daughter previously denied any family history of AD/dementia. f/u in 6 months or sooner prn. Medications: New melatonin daily in the evening 3 - 6 mg (1 - 2 x 3 mg) PO DAILY 60 caps 6RF 30 days donepezil 10 mg PO BEDTIME 30 tabs 6RF 30 days Coding Level of Care Code Est Pt Level 4 (44017) Diagnoses Cognitive disorder F09 Anemia, unspecified type D64.9 Anemia type: unspecified type Nocturnal wandering F51.3 Fall down stairs W10.8XXA
[2025-03-05 11:19] VITALS: BP 122/70; PULSE 87; O2SAT 95; BMI 33.3
--- OUTSIDE RECORDS SUMMARY | 2025-03-05 12:24 | XMS_ITS | Clinical Summary ---
Author Organization [facility] Address [address] [place] [address] Phone Care Team Providers Care Secretary Of State Name Role Phone Roxana Olivarez MD Primary Care Provider [phone] Allergies Active Allergy Reactions Criticality Noted Date [...] Rotator cuff tear arthropathy 08/18/2013 Morbid obesity ([facility] V24, [facility] V28) 2013 Overview (06/15/2024): BMI 50.12 on 07/26/13. Type II or unspecified type diabetes mellitus with ophthalmic manifestations, uncontrolled(250.52) ([facility] V24, [facility] V28) 07/31/2013 Overview (06/15/2024): Neuclear Sclerosis eye exam 02/21/2010. Hilar lymphadenopathy 09/09/2012 Overview (06/15/2024): Increased per repeat CXR at [facility] visit 06/2012 Abdominal pain 02/02/2011 Schwannoma 11/24/2010 Overview (06/15/2024): S/p left upper quadrant resection January 2011 Fatty liver 08/09/2010 Type II or unspecified type diabetes mellitus with renal manifestations, uncontrolled(250.42) ([facility] V24, [facility] V28) 02/10/2010 Overview (06/15/2024): microalbuminuria Hyperlipidemia with target LDL less than 100 03/2009 Overview (06/15/2024): IMO update Esophageal reflux 07/16/2005 Overview (06/15/2024): Saw Dr Christie during hospitalization at [facility] 05/2012. Underwent upper endoscopy- gastritis, erosive esophagitis. Biopsies taken. Has FU with GI. Immunizations Immunization Administration Dates Next Due Influenza trivalent, with [...] 05/14/2014 Colorectal Cancer Screening: Colonoscopy 05/04/2022 11/07/2007 Falls Risk Assessment 05/04/2022 Medicare Annual Wellness Visit 05/04/2022 Osteoporosis Screening (Bone Density Screening) 05/04/2022 Social Influencers of Health Screening 05/04/2022 Diabetes: Annual Urine Albumin-Creatinine Ratio (uACR) 07/21/2023 05/14/2014 Diabetes: Blood Sugar Control Test (HGBA1C) 07/21/2023 05/14/2014 Depression Screening 06/07/2024 COVID-19 Vaccine ( season) 2025 Influenza Vaccine (#1) 2025 4, 03/14/2013, 03/29/2012, [...] Albumin Creatinine Ratio (05/14/2014) Pathologist [facility] Urine Albumin Creatinine Ratio Abstracted Historical Provider [place] HEALTH MAINTENANCE Final Result * Annual BMP Blood Test (05/14/2014) Pathologist [facility] Annual BMP Blood Test Abstracted [facility] Provider MD HEALTH MAINTENANCE Final Result * Hepatitis C Screening (05/14/2014) Pathologist [facility] Hepatitis C Screening Abstracted [facility] Provider HEALTH MAINTENANCE Final Result * (ABNORMAL) Hemoglobin A1c (05/14/2014) [facility] Hemoglobin A1C 10.0(A) 4.0 - 6.0 [...] Maintenance Insurance MEDICAID - [place] [facility] MEDICARE Member Subscriber Plan / Payer (Ef fective 2014-Present) Name:Shawnee High Relation to Subscriber:Self Name:Shawnee High Payer ID:[id number] Group ID:[id number] Type:Not on file Address: [address] [place] [address] Care Teams Secretary Of State Relationship Specialty Start Date End Date Roxana Olivarez MD [address] [place] [address] PCP - General Internal Medicine 06/30/24
== END 2025-03-05 11:59 | disposition home or self-care (01) ==
LOC: HO.HSMS 10:55
PROVIDERS: PCP Internal Medicine; Visit Provider Nurse Practitioner Family
DX: R41.89 Other symptoms and signs involving cognitive functions and awareness (principal); D64.9 Anemia, unspecified; F51.3 Sleepwalking [somnambulism]; W10.8XXA Fall (on) (from) other stairs and steps, initial encounter
CPT/HCPCS: 99214

== ENCOUNTER 2025-03-13 13:15 | Outpatient (AMB) | payer OTHER, SELFPAY ==
--- NOTE | 2025-03-13 13:20 | A.OFFVIS_ITS ---
Vital Signs 03/13/25 13:22 Height 4 ft 11 in Weight 163 lb 2.273 oz BMI 32.9 BP 118/76 Blood Pressure Location Rt brachial Position Sitting Pulse 84 Pulse Source Pulse Oximeter Pulse Oximetry (%) 95 Oxygen Delivery Method Room Air Intake Visit Reasons: T2DM Intake Note: Patient present today to follow up on Type 2 Diabetes Mellitus. Last Diabetic Eye exam: 07/25/2024 Last Podiatry Visit: Patient does not see a News Anchor Random Glucose: 250 mg/dL, Today HgA1C: 9.6%, 03/13/2025 Boxing Inspector Required: Yes Boxing Inspector Language: Yg Boxing Inspector Services: Boxing Inspector Present Accompanied by: [id number] Allergies insulin glargine (From Lantus U-100 Insulin) Adverse Reaction (Mild, Verified 03/13/25 13:34) hypoglycemia pioglitazone (From Actos) Adverse Reaction (Mild, Verified 03/13/25 13:34) Unknown Medication List - Last Reconciled 03/13/25 by MARCEL Jenkins acetaminophen ER (Tylenol 8 Hour) 650 mg PO Q8H PRN acetone (urine) test (Ketone Urine Test strips) As directed apixaban 5 mg PO BID atorvastatin 80 mg PO DAILY blood sugar diagnostic (FreeStyle Lite Strips) USE DIRECTED to check blood glucose five times daily blood-glucose meter (FreeStyle Lite Meter kit) Check blood glucose 5 times daily blood-glucose sensor (FreeStyle Harvinder 3 Plus Sensor device) Apply 1 new sensor every 14 days as directed to monitor blood glucose continuously. blood-glucose sensor (FreeStyle Harvinder 3 Sensor device) apply new sensor every 14 days blood-glucose,process laboratory specialist,cont (FreeStyle Harvinder 3 Hessmer) Use daily to monitor blood glucose levels continuously. calcium carbonate (Calcium Antacid) 200 mg PO DAILY cetirizine 10 mg PO DAILY cholecalciferol (vitamin D3) 125 mcg PO DAILY cyanocobalamin (vitamin B-12) 500 mcg PO DAILY 30 days donepezil 5 mg PO DAILY 30 days donepezil 10 mg PO BEDTIME 30 days escitalopram oxalate 20 mg PO DAILY 90 days flash glucose scanning reader (Circa Harvinder 2 Hessmer) As directed glucose (Dex4 Glucose Quick Dissolve) 16 grams (4 x 4 gram) PO Q15M PRN insulin degludec (Tresiba FlexTouch U-100 insulin) 24 units subcut DAILY insulin lispro (Humalog KwikPen (U-100) Insulin) subcutaneously 3 times a day; Administer 4 units before breakfast, 6 units before lunch and 4 units before dinner. lancets (VoAPPsStyle Lancets) B.i.d. p.r.n. lancets (VoAPPsStyle Lancets) Use to monitor blood glucose 5 times daily. levothyroxine 25 mcg PO DAILY melatonin 3 - 6 mg (1 - 2 x 3 mg) PO DAILY 30 days melatonin 3 mg PO BEDTIME 30 days memantine 28 mg PO DAILY 30 days pantoprazole 40 mg PO DAILY pen needle, diabetic (Sarah 2nd Gen Pen Needle) USE ONE NEEDLE TWICE A DAY FOR INSULIN INJECTIONS sennosides (senna) 8.6 mg PO BEDTIME sucralfate (Carafate) 10 mL PO BID sucralfate 1 g PO BID 90 days tirzepatide (Mounjaro) 7.5 mg (0.5 mL) subcut QWEEK HPI Comments Details: This is a 69-year-old female with a past medical history of cystitis, type 2 diabetes, gastroparesis, paroxysmal atrial fibrillation, diabetic nephropathy, dementia and hypertension presents for diabetic management accompanied by her [id number]. 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 She was evaluated at the hospital. No fractures. They tell me she had no significant injuries aside from bruising and soreness. Hemoglobin A1c today 9.6% 03/13/2025 down from 11.4%. There is only 3 days' worth of data on her sensor downloaded today. For the past 2 days most of the blood sugars are within target range with some postprandial highs. The prior 2 days she had more frequent hyperglycemia in the afternoon and evening. Current medication regimen: Tresiba 24 units every morning. Humalog to 4 units before breakfast, 6 units before and 4 units before dinner Mounjaro 5 mg weekly. Denies side effects on Mounjaro. It has helped curb her appetite, and they report blood sugars are doing better. Denies episodes of hypoglycemia. Past medications: Metformin extended release 500 mg daily discontinued due to GI side effects. Trulicity was discontinued in the past due to exacerbation of gastroparesis. Actos discontinued due to weight gain. Compliance issues: Patient has dementia. Both of her sons administer medication. She lives with 1 of her sons, and she spends 2 or 3 days a week with her daughter in-law and other son. Complications: Nephropathy (microalbuminuria) ROS: Constitutional: No unexplained weight loss, fever, chills, fatigue or night sweats. Eyes: No vision changes, blurry vision, double vision, eye pain Respiratory: No shortness of breath, cough or sputum production. Cardiovascular: No chest pain, chest pressure or chest discomfort. No palpitations Gastrointestinal: No anorexia, nausea, vomiting or diarrhea. No abdominal pain Neurologic: No headache, dizziness, syncope and increased confusion. Physical exam: Head: Fading ecchymosis on the left advent and cheek Constitutional: Alert, in no distress. Neck: Supple, Full range of motion. No lymphadenopathy. No palpable thyroid masses or enlargement. Respiratory: Clear to auscultation. Cardiovascular: S1 S2 regular. No murmurs. Feet:: Warm and well perfused. No clubbing, cyanosis or edema. Intact DP pulses. No open wounds. 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 Mother No problems noted. Social History Housing: House Alcohol intake: never Patient Tobacco Use Status: Never used Tobacco e-Cigarette/Vaping Use: Never Used service: No Current occupational status: retired Current occupation: Left handed Cognitive needs: No Hearing needs: No Vision needs: Yes Physical Exam Vital Signs: Last Vital Signs Pulse 84 03/13/25 13:22 BP 118/76 03/13/25 13:22 Pulse Ox 95 03/13/25 13:22 Oxygen Delivery Method Room Air 03/13/25 13:22 BMI result Body Mass Index 32.9 Results AMB Hemoglobin A1c AMB Hemoglobin A1c 9.6 % Last Edit by LUIS ALBERTO Caballero on 03/13/25 13:47 Results Reviewed Results Reviewed: Laboratory Tests 08/16/24 03/05/25 13:45 12:14 Creatinine 0.83 Estimated GFR > 60 AST 28 ALT 15 Triglycerides 235 H Cholesterol 152 LDL Cholesterol, Calc 72 HDL Cholesterol 33 L TSH 5.53 H Free T4 1.19 Urine Creatinine 57.65 Urine Microalbumin 33.0 Microalb/Creat Ratio 57.2 H Assessment & Plan Assessment & Plan (1) Uncontrolled diabetes mellitus with hyperglycemia, with long-term current use of insulin: Code(s): E11.65 - Type 2 diabetes mellitus with hyperglycemia; Z79.4 - terminal block assembler (current) use of insulin Category: Medical (2) Diabetic nephropathy: Code(s): E11.21 - Type 2 diabetes mellitus with diabetic nephropathy Category: Medical Qualifiers: Diabetes mellitus type: type 1 Qualified Code(s): E10.21 - Type 1 diabetes mellitus with diabetic nephropathy Plan: There is mild protein in the urine from diabetes. I discussed that we sometimes use a low-dose of her an Ric or an Arb to protect the kidneys, but she does not have high blood pressure, and I am hesitant to start this because it could cause dizziness, and she is at an increased risk of falls and fell recently. If she develops high blood pressure we can start this type of medication. Plan In summary this is a 69-year-old female with uncontrolled type 2 diabetes. Treatment is complicated by dementia. She is back and forth between 2 households. Target A1c goal 7.5-8%. Continue Tresiba 24 units every morning. Continue Humalog 4 units before breakfast, 6 units before lunch and 4 units before dinner. Increase Mounjaro to 7.5 mg weekly. Monitor carefully for adverse GI side effects including worsening of gastroparesis. They have declined referral for care home to help with medication administration and unit educator/dietitian. Reviewed treatment of low blood sugar. Written instructions provided. She has ketone urine strips and has instructions about DKA and ketone testing at home. Follow up in 6 weeks for type 2 diabetes. Orders: Orders AMB Hemoglobin A1c Today E11.65 - Type 2 diabetes mellitus with hyperglycemia, Z79.4 - terminal block assembler (current) use of insulin Medications: New tirzepatide (Mounjaro) 7.5 mg (0.5 mL) subcut QWEEK 2 mL 3RF Changed From insulin lispro (Humalog KwikPen (U-100) Insulin) subcutaneously 3 times a day; Administer 6 units before breakfast, 8 units before lunch and 6 units before dinner. 15 mL 5RF To insulin lispro (Humalog KwikPen (U-100) Insulin) subcutaneously 3 times a day; Administer 4 units before breakfast, 6 units before lunch and 4 units before dinner. From insulin degludec (Tresiba FlexTouch U-100 insulin) 26 units (0.26 mL) subcut DAILY 15 mL 5RF To insulin degludec (Tresiba FlexTouch U-100 insulin) 24 units subcut DAILY Discontinued tirzepatide (Mounjaro) Discontinued Reason: Doctor's Order 5 mg (0.5 mL) subcut QWEEK 2 mL 3RF Patient Instructions: Hemoglobin A1c today 9.6% today down from 11.4%. Current medications: Tresiba 24 units every morning. Humalog 4 units before breakfast, 6 units before and 4 units before dinner. Increase Mounjaro to 7.5 mg weekly. Start this 1 week after the last dose of 5 mg Mounjaro. If you experience low blood sugar, treat this by eating a chewable fruit candy like skittles or jelly beans (about 8 pieces), 4 ounces (1/2 cup) of fruit juice (not diet), 1 tablespoon of honey or 4 glucose tablets. If your blood sugar is under 50, take double the amount of one of the above. Recheck your blood sugar in 15 minutes. There is mild protein in the urine from diabetes. We sometimes use a low dose of blood pressure medication to protect the kidneys, but she does not have high blood pressure, and I am hesitant to start this because it could be her tired or dizzy and increase her risk of falls. If she develops high blood pressure we could start this type of medication. Coding Level of Care Code Est Pt Level 4 (49126) Complex EM visit Add On G2211 Diagnoses Uncontrolled diabetes mellitus with hyperglycemia, with long-term current use of insulin E11.65; Z79.4 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 E10.21 Diabetes mellitus type: type 1
[2025-03-13 13:22] VITALS: BP 118/76; PULSE 84; O2SAT 95; BMI 32.9
[2025-03-13 13:34] LABS: Glucose, Whole Blood 250 mg/dL (60-115)
--- OUTSIDE RECORDS SUMMARY | 2025-03-13 16:13 | XMS_ITS | Clinical Summary ---
Author Organization [address] [facility] Address [address] [place] [address] Phone Care Team Providers Care Burglary Investigator Name Role Phone Roxana Olivarez MD Primary Care Provider [phone] Allergies Active Allergy Reactions Criticality Noted Date [...] Rotator cuff tear arthropathy 08/18/2013 Morbid obesity ([facility] V24, [facility] V28) 2013 Overview (06/15/2024): BMI 50.12 on 07/26/13. Type II or unspecified type diabetes mellitus with ophthalmic manifestations, uncontrolled(250.52) ([facility] V24, [facility] V28) 07/31/2013 Overview (06/15/2024): Neuclear Sclerosis eye exam 02/21/2010. Hilar lymphadenopathy 09/09/2012 Overview (06/15/2024): Increased per repeat CXR at [facility] visit 06/2012 Abdominal pain 02/02/2011 Schwannoma 11/24/2010 Overview (06/15/2024): S/p left upper quadrant resection January 2011 Fatty liver 08/09/2010 Type II or unspecified type diabetes mellitus with renal manifestations, uncontrolled(250.42) ([facility] V24, [facility] V28) 02/10/2010 Overview (06/15/2024): microalbuminuria Hyperlipidemia with target LDL less than 100 03/2009 Overview (06/15/2024): IMO update Esophageal reflux 07/16/2005 Overview (06/15/2024): Saw Dr Christie during hospitalization at [facility] 05/2012. Underwent upper endoscopy- gastritis, erosive esophagitis. Biopsies taken. Has FU with GI. Immunizations Immunization Administration Dates Next Due Influenza trivalent, with pr eservative (Fluzone; Afluria) 6mo and older 05/14/2014,03/14/2013,03/29/2012,05/07,03/27/2008 Pneumococcal polysaccharide 23 valent (Pneumovax 23) 2yo and older 03/14/2013 Tdap Tetanus diptheria acell ular pertussis (Boostrix; Adacel) 7yo and older 02/07/2010 Surgical History Surgery Date Site/Laterality Comments ESOPHAGOGASTRODUODENOSCOPY 09/21/07 PROCEDURE: [place] EGD TRANSORAL BIOPSY SINGLE/MULTIPLE; COMMENT: Multiple gastric erosions-bx:chronic gastritis-HPylori+(treated), SB-bx:Normal COLONOSCOPY 11/07/07 PROCEDURE: [place] COLONOSCOPY STOMA DX INCLUDING COLLJ SPEC SPX; [...] - Risk 60-74 years 1-dose series) 2016 Colorectal Cancer Screening: Colonoscopy 11/06/2017 11/07/2007 DTaP,Tdap,and Td Vaccines (2 - Td or Tdap) 02/08/2020 02/07/2010 Cholesterol Screening (Lipid Panel) 05/04/2022 05/14/2014 Falls Risk Assessment 05/04/2022 Medicare Annual Wellness [...] Albumin Creatinine Ratio (05/14/2014) Pathologist [facility] Urine Albumin Creatinine Ratio Abstracted Historical Provider [place] [facility] Final Result * Annual BMP Blood Test (05/14/2014) Pathologist [facility] Annual BMP Blood Test Abstracted [facility] Provider [place] [facility] Final Result * Hepatitis C Screening (05/14/2014) Pathologist [facility] Hepatitis C Screening Abstracted [facility] Provider [place] [facility] Final Result * (ABNORMAL) Hemoglobin A1c (05/14/2014) [facility] Hemoglobin A1C 10.0(A) 4.0 - 6.0 % Blood Venous blood specimen / Unknown Historical Provider LAB BLOOD ORDERABLES Mara l Result * (ABNORMAL) Lipid panel (05/14/2014) LDL/HDL Ratio 6(A) 0 - 4 Triglycerides 322(A) 0 - 150 mg/dL Cholesterol 245(A) 0 - 200 mg/dL HDL 43 >=40 mg/dL LDL Cholesterol 138(A) 0 - 100 mg/dL Blood Venous blood specimen / Unknown [facility] Provider LAB BLOOD ORDERABLES Mara l Result * Hm Colonoscopy (11/07/2007) Colonoscopy No Interpretation , Abstracted Anatomical Region Laterality Modality Other Historical Provider HEALTH MAINTENANCE Final Result from Last 3 Months or Most Recently Relevant to Health Maintenance Insurance [place] - [place] [facility] MEDICARE Member Subscriber Plan / Payer (Ef fective 2014-Present) Name:Shawnee High Relation to Subscriber:Self Name:Shawnee High Payer ID:[id number] Group ID:[id number] Type:Not on file Address: [address] [place] [id number] Care Teams Burglary Investigator Relationship Specialty Start Date End Date Roxana Olivarez MD [address] [place] [address] PCP - General Internal Medicine 06/30/24
== END 2025-03-13 13:59 | disposition home or self-care (01) ==
LOC: HO.ENCR 13:16
PROVIDERS: PCP Internal Medicine; Visit Provider Physician Assistant Medical
DX: E11.65 Type 2 diabetes mellitus with hyperglycemia (principal); Z79.4 Long term (current) use of insulin

== ENCOUNTER → 2025-03-13 13:15 | Outpatient (BNVA) | payer OTHER, SELFPAY | PROVIDERS: PCP Internal Medicine; Visit Provider Physician Assistant Medical | DX: E11.65 Type 2 diabetes mellitus with hyperglycemia (principal); E11.21 Type 2 diabetes mellitus with diabetic nephropathy; E11.649 Type 2 diabetes mellitus with hypoglycemia without coma; E11.40 Type 2 diabetes mellitus with diabetic neuropathy, unspecified; R80.9 Proteinuria, unspecified; Z79.4 Long term (current) use of insulin | CPT/HCPCS: 82947; 83036; 99212 ==

== ENCOUNTER 2025-03-22 09:52 | Outpatient (AMB) | payer OTHER, SELFPAY ==
[2025-03-22 09:59] VITALS: BP 116/80; PULSE 68; TEMP 36.7; O2SAT 97; BMI 32.9
--- NOTE | 2025-03-22 09:59 | AM.OFFWIN_ITS ---
Intake Vital Signs 03/22/25 09:59 Height 4 ft 11 in Weight 163 lb BMI 32.9 BP 116/80 Blood Pressure Location Lt brachial Position Sitting Pulse 68 Pulse Source Pulse Oximeter Temp 98.1 F Temp Source Oral Pulse Oximetry (%) 97 Oxygen Delivery Method Room Air Intake Visit Reasons: EP-urinary infection, fever Intake Note: pt presents with vaginal itching and burning when she goes pee, wetting the bed without remembering Patient Tobacco Use Status: Never used Tobacco Allergies insulin glargine (From Lantus U-100 Insulin) Adverse Reaction (Mild, Verified 03/22/25 10:14) hypoglycemia pioglitazone (From Actos) Adverse Reaction (Mild, Verified 03/22/25 10:14) Unknown Do you need a note to return to daycare/school/sports/work: No HPI HPI Comments History of Present Illness Details History - The patient is a 69-year-old female 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 - The patient has experienced nocturnal enuresis and daytime urinary incontinence, with episodes of not recognizing the need to urinate. - The urine has a malodorous quality, as noted by the patient's . - There is uncertainty regarding the pre sence of pain associated with urination. - The patient has a history of diabetes mellitus, which may contribute to the current urinary symptoms. - She has been complaining of itching an d burning. - She denies fever, abd pain, hematuria, discharge, back pain, CP, or SOB. Physical Exam General: Cooperative, healthy appearing, comfortable, no acute distress and well developed Cardiac: Normal S1 and S2. RRR, no M/R/G noted. Respiratory: Normal respiratory effort and able to speak in complete sentences. Clear to auscultation bilaterally. No w/r/r noted. Skin: No rashes or lesions noted. GI: Normal inspection. Normal BS noted. Soft, non-tender, non-distended. No TTP of all 4 quadrants. No guarding or rebound tenderness noted. Back: Negative CVA bilaterally Patient was informed and verbally consented to the use of an ambient scribe for clinic note documentation during this visit. 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 Mother No problems noted. Social History Housing: House Alcohol intake: never Patient Tobacco Use Status: Never used Tobacco e-Cigarette/Vaping Use: Never Used service: No Current occupational status: retired Current occupation: Left handed Cognitive needs: No Hearing needs: No Vision needs: Yes Review of Systems Const All systems reviewed & are unremarkable except as noted in HPI and below Physical Exam Vital Signs: Last Vital Signs Temp 98.1 F 03/22/25 09:59 Pulse 68 03/22/25 09:59 BP 116/80 03/22/25 09:59 Pulse Ox 97 03/22/25 09:59 Oxygen Delivery Method Room Air 03/22/25 09:59 BMI result Body Mass Index 32.9 Assessment & Plan Assessment & Plan (1) Dysuria: Code(s): R30.0 - Dysuria Plan Most likely UTI vs yeast infection Plan - Initiate empirical antibiotic therapy for suspected urinary tract infection. - Obtain a urine sample for urinalysis and culture to confirm the presence of a urinary tract infection. - Conduct a vaginal swab to assess for yeast infection. - Monitor blood glucose levels due to the patient's history of diabetes mellitus. - will call her with the results and treat accordingly. - follow up with PCP Orders: Orders Bacterial Vaginosis Panel Today N89.8 - Other specified noninflammatory disorders of vagina Urine Culture Today N39.0 - Urinary tract infection, site not specified Coding Level of Care Code Est Pt Level 3 (73766) Diagnoses Dysuria R30.0
--- OUTSIDE RECORDS SUMMARY | 2025-03-22 11:33 | XMS_ITS | Clinical Summary ---
Author Organization [address] [facility] Address [address] [place] [address] Phone Care Team Providers Care Copyright Clerk Name Role Phone Roxana Olivarez MD Primary Care Provider [phone] Allergies Active Allergy Reactions Criticality Noted Date [...] Rotator cuff tear arthropathy 08/18/2013 Morbid obesity ([facility] V24, [facility] V28) 2013 Overview (06/15/2024): BMI 50.12 on 07/26/13. Type II or unspecified type diabetes mellitus with ophthalmic manifestations, uncontrolled(250.52) ([facility] V24, [facility] V28) 07/31/2013 Overview (06/15/2024): Neuclear Sclerosis eye exam 02/21/2010. Hilar lymphadenopathy 09/09/2012 Overview (06/15/2024): Increased per repeat CXR at [facility] visit 06/2012 Abdominal pain 02/02/2011 Schwannoma 11/24/2010 Overview (06/15/2024): S/p left upper quadrant resection January 2011 Fatty liver 08/09/2010 Type II or unspecified type diabetes mellitus with renal manifestations, uncontrolled(250.42) ([facility] V24, [facility] V28) 02/10/2010 Overview (06/15/2024): microalbuminuria Hyperlipidemia with target LDL less than 100 03/2009 Overview (06/15/2024): IMO update Esophageal reflux 07/16/2005 Overview (06/15/2024): Saw Dr Christie during hospitalization at [facility] 05/2012. Underwent upper endoscopy- gastritis, erosive esophagitis. Biopsies taken. Has FU with GI. Immunizations Immunization Administration Dates Next Due Influenza trivalent, with pr eservative (Fluzone; Afluria) 6mo and older 05/14/2014,03/14/2013,03/29/2012,05/07,03/27/2008 Pneumococcal polysaccharide 23 valent (Pneumovax 23) 2yo and older 03/14/2013 Tdap Tetanus diptheria acell ular pertussis (Boostrix; Adacel) 7yo and older 02/07/2010 Surgical History Surgery Date Site/Laterality Comments ESOPHAGOGASTRODUODENOSCOPY 09/21/07 PROCEDURE: [place] EGD TRANSORAL BIOPSY SINGLE/MULTIPLE; COMMENT: Multiple gastric erosions-bx:chronic gastritis-HPylori+(treated), SB-bx:Normal COLONOSCOPY 11/07/07 PROCEDURE: [place] COLONOSCOPY STOMA DX INCLUDING COLLJ SPEC SPX; [...] 1966 Diabetes: Annual Retina Eye Exam 1966 RSV Immunization Adult Patients (1 - Risk 50-74 years 1-dose series) 2006 Zoster Vaccines (1 of 2) 2006 Pneumococcal Vaccine: 50+ Years (2 of 2 - PCV) 03/14/2014 03/14/2013 Diabetes: Annual GFR (Glomerular Filtration Rate) 05/14/2015 05/14/2014 Colorectal Cancer Screening: Colonoscopy 11/06/2017 11/07/2007 DTaP,Tdap,and [...] * Urine Albumin Creatinine Ratio (05/14/2014) Pathologist On license of [facility] Urine Albumin Creatinine Ratio Abstracted Historical Provider [place] HEALTH MAINTENANCE Final Result * Annual BMP Blood Test (05/14/2014) Pathologist On license of [facility] Annual BMP Blood Test Abstracted [facility] Provider [place] [facility] MAINTENA[facility] Final Result * Hepatitis C Screening (05/14/2014) Pathologist On license of [facility] Hepatitis C Screening Abstracted [facility] Provider [place] [facility] MAINTENA[facility] Final Result * (ABNORMAL) Hemoglobin A1c (05/14/2014) [facility] Hemoglobin A1C 10.0(A) 4.0 - 6.0 % [...] to Health Maintenance Insurance [place] - [place] [facility] MEDIC[facility] Member Subscriber Plan / Payer (Ef fective 2014-Present) Name:Shawnee High Relation to Subscriber:Self Name:Shawnee High Payer ID:[id number] Group ID:[id number] Type:Not on file Address: [address] [place] [phone] Care Teams Copyright Clerk Relationship Specialty Start Date End Date Roxana Olivarez MD [address] [place] [id number] PCP - General Internal Medicine 06/30/24
== END 2025-03-22 11:16 | disposition home or self-care (01) ==
PROVIDERS: PCP Internal Medicine; Visit Provider Physician Assistant Medical
DX: R30.0 Dysuria (principal)

== ENCOUNTER 2025-03-22 09:52 | Outpatient (REF) | payer OTHER, SELFPAY ==
--- OUTSIDE RECORDS SUMMARY | 2025-03-22 13:47 | XMS_ITS | Data Portability ---
Author Organization [employer], 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 I provided real-time medical direction for this [...] d. Lab culture , urine 022 04/24/20 [place] (Centralized Electronic Ordering - All Locations), Patient Can Go To The Location Of Their Choice, [id number] 09:38:12 Referral None recorde d. Procedures None [...] Go To The Location Of Their Choice, [id number] 04/26/2022 09:38:12 04/24/20 22 04/24/2022 URINE CULTU RE special requests NONE Not Available [facility] (Centralized Electronic Ordering - All Locations) Patient Can Go To The Location Of Their Choice, [id number] 04/26/2022 09:38:12 04/24/20 22 04/26/2022 URINE CULTU RE culture Mixed bacter ial marie, indica tive of urogen ital contam inatio n. Not Available [facility] (Centralized Electronic Ordering - All Locations) Patient Can Go To The Location Of Their Choice, [id number] 04/26/2022 09:38:12 04/24/20 22 04/26/2022 URINE CULTU RE report status FINAL 2021 Not Available [facility] (Centralized Electronic Ordering - All Locations) Patient Can Go To The Location Of Their Choice, [id number] 04/26/2022 09:38:12 Result Notes None recorded. Medical [...] Diagnosis SNOMED-CT Code Diagnosis ICD10 Code Diagnosis IMO Codes Diagnosis Note [id number] Brittney Churchill MD Main - instED [address] [place] [phone] 04/24/2022 12:33:23 04/27/2022 12:35:27 Dysuria [id number] R30.0 Health Concerns Section Related Observation LastModified by Organization Detai ls LastModified Time None Recorded Concern Status LastModified by Organization Details LastModified Time None Recorded Advance Directives Directive None Recorded Payers Insurance Date Sequence Insurance Name Policy Number Policy Alas Covered Member ID Alas Member ID Guarantor Name 09/17/2023 1 [facility] - DOS PRIOR TO 2022 - DUAL ELIGIBLE (MEDICARE REPLACEMENT/ADV ANTAGE - HMO) Shehide Ademi [id number] Shehide Ademi 11/10/2023 1 [facility] - DOS ON OR AFTER 2022 - DUAL ELIGIBLE - INTERMEDIATE OPTIONS AND ONE CARE (MEDICARE REPLACEMENT/ADV ANTAGE - HMO) Shehide Ademi [id number] Shehide Ademi Notes Date Note Type Note Provider Name [...] NOT NEED FURTHER INFO Brittney Churchill MD [address] [place] [address],[address], [place], [phone], [employer] 04/24/2022 12:41:05 OBGyn Episode No OBEpisode recorded.
[2025-03-22 15:47] LABS: Bacterial Vaginosis PCR NEGATIVE (Negative); Candida Group PCR NOT DETECTED (Not Detect); Candida glab krusei PCR NOT DETECTED (Not Detect); Trichomonas vaginalis PCR NOT DETECTED (Not Detect)
== END 2025-03-22 09:53 | disposition home or self-care (01) ==
LOC: HO.LAB 09:52
PROVIDERS: PCP Internal Medicine; Visit Provider Physician Assistant Medical
DX: N39.0 Urinary tract infection, site not specified (principal); N89.8 Other specified noninflammatory disorders of vagina; R30.0 Dysuria
CPT/HCPCS: 81003; 81515; 87086; 99212

== ENCOUNTER 2025-04-24 09:59 | Outpatient (AMB) | payer OTHER, SELFPAY ==
[2025-04-24 10:08] VITALS: BP 122/72; PULSE 83; O2SAT 96; BMI 32.9
--- NOTE | 2025-04-24 10:08 | MHC.OFFVIS ---
Vital Signs 04/24/25 10:08 Height 4 ft 11 in Weight 163 lb 2.273 oz BMI 32.9 BP 122/72 Blood Pressure Location Rt brachial Position Sitting Pulse 83 Pulse Source Pulse Oximeter Pulse Oximetry (%) 96 Oxygen Delivery Method Room Air Intake Visit Reasons: Type II diabetes Intake Note: Patient present today to follow up on Type 2 Diabetes Mellitus. Last Diabetic Eye exam: 07/25/2024 Last Podiatry Visit: Patient does not see a Supervisor [employer] Random Glucose: 150 mg/dL, Today HgA1C: 9.6%, 03/13/2025 Protection Officer Required: Yes Protection Officer Language: Yg Protection Officer Services: Protection Officer Offered & Declined Accompanied by: Daughter in law Allergies insulin glargine (From Lantus U-100 Insulin) Adverse Reaction (Mild, Verified 04/24/25 10:13) hypoglycemia pioglitazone (From Actos) Adverse Reaction (Mild, Verified 04/24/25 10:13) Unknown Medication List - Last Reconciled 04/24/25 by MARCEL Jenkins acetaminophen ER (Tylenol 8 Hour) 650 mg PO Q8H PRN acetone (urine) test (Ketone Urine Test strips) As directed apixaban 5 mg PO BID atorvastatin 80 mg PO DAILY blood sugar diagnostic (FreeStyle Lite Strips) USE DIRECTED to check blood glucose five times daily blood-glucose meter (FreeStyle Lite Meter kit) Check blood glucose 5 times daily blood-glucose sensor (FreeStyle Harvinder 3 Plus Sensor device) Apply 1 new sensor every 14 days as directed to monitor blood glucose continuously. blood-glucose sensor (FreeStyle Harvinder 3 Sensor device) apply new sensor every 14 days blood-glucose,frozen food selector,cont (FreeStyle Harvinder 3 [place]) Use daily to monitor blood glucose levels continuously. calcium carbonate (Calcium Antacid) 200 mg PO DAILY cetirizine 10 mg PO DAILY cholecalciferol (vitamin D3) 125 mcg PO DAILY cyanocobalamin (vitamin B-12) 500 mcg orally Every other day; 90 days dextrose (TRUEplus Glucose) 15 grams (32 mL) PO Q15M PRN donepezil 5 mg PO DAILY 30 days donepezil 10 mg PO BEDTIME 30 days escitalopram oxalate 20 mg PO DAILY 90 days flash glucose scanning reader (isango!StTrackBill Harvinder 2 [place]) As directed glucose (Dex4 Glucose Quick Dissolve) 16 grams (4 x 4 gram) PO Q15M PRN insulin degludec (Tresiba FlexTouch U-100 insulin) 20 units subcut DAILY insulin lispro (Humalog KwikPen (U-100) Insulin) subcutaneously 3 times a day; Administer 4 units before breakfast, 6 units before lunch and 4 units before dinner. lancets (FreeStyle Lancets) B.i.d. p.r.n. lancets (FreeStyle Lancets) Use to monitor blood glucose 5 times daily. levothyroxine 25 mcg PO DAILY melatonin 3 - 6 mg (1 - 2 x 3 mg) PO DAILY 30 days melatonin 3 mg PO BEDTIME 30 days memantine 28 mg PO DAILY 30 days pantoprazole 40 mg PO DAILY pen needle, diabetic (Sarah 2nd Gen Pen Needle) USE ONE NEEDLE TWICE A DAY FOR INSULIN INJECTIONS sennosides (senna) 8.6 mg PO BEDTIME sucralfate (Carafate) 10 mL PO BID sucralfate 1 g PO BID 90 days tirzepatide (Mounjaro) 7.5 mg (0.5 mL) subcut QWEEK HPI Comments Details: This is a 69-year-old female with a past medical history of cystitis, type 2 diabetes, gastroparesis, paroxysmal atrial fibrillation, diabetic nephropathy, dementia and hypertension presents for diabetic management accompanied by her [id number], Lokesh. Her son, Héctor, interprets on the phone. Declined provisioning specialist. Héctor's has taken over most of her home care as her dementia progresses. She was treated for a UTI in March. Completed antibiotics. Request urine culture because she has wet the bed a few times in the past week. Denies fevers, chills, vomiting, nausea. She has been removing the sensor due to confusion/dementia. Hemoglobin A1c 9.6% 03/13/2025 down from 11.4%. We reviewed her CGM data CGM active 71% Average glucose 159 G AZ 7.1% Glucose variability 31.9% Very high 7% High 20% Target range 73% 0% hypoglycemia She is having occasional hyperglycemia during the day, but there has been significant improvement in her glycemic control. They report occasional low blood sugars around 3 or 4 in the morning. Blood sugars are in the 60s, and they treat this by giving her something sweet. Current medication regimen: Tresiba 24 units every morning. Humalog to 4 units before breakfast, 6 units before and 4 units before dinner Mounjaro 7.5 mg weekly Denies side effects on Mounjaro. It has helped curb her appetite. Past medications: Metformin extended release 500 mg daily discontinued due to GI side effects. Trulicity was discontinued in the past due to exacerbation of gastroparesis. Actos discontinued due to weight gain. Complications: Nephropathy (microalbuminuria) ROS: Constitutional: No fevers or chills. Eyes: No vision changes, blurry vision, double vision, eye pain Gastrointestinal: No diarrhea or nausea or vomiting. Neurologic: No headaches or dizziness. Physical exam: Constitutional: Alert, in no distress. Neck: Supple, Full range of motion. No lymphadenopathy. No palpable thyroid masses or enlargement. Respiratory: Clear to auscultation. Cardiovascular: S1 S2 regular. No murmurs. Abdomen, soft, nontender : No CVA tenderness Feet: Warm and well perfused. No clubbing, cyanosis or edema. Intact DP pulses. No open wounds. [facility] Medical History (Updated 04/24/25 @ 10:44 by MARCEL Jenkins) Dementia Epigastric abdominal pain Uncontrolled diabetes mellitus with hyperglycemia, with long-term current use of insulin Type 2 diabetes mellitus with hypoglycemia Osteoarthritis of left acromioclavicular joint Cognitive disorder PAF (paroxysmal atrial fibrillation) halfway systemic 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 History of miscarriage Anemia NSTEMI (non-ST elevated myocardial infarction) Chronic vertigo Diabetic neuropathy Hypertension, essential Chronic GERD Environmental allergies Insulin dependent diabetes mellitus Lipid disorder Constipation by delayed colonic transit IBS (irritable bowel syndrome) Surgical History Hx of cardiac cath Hx of endoscopy Hx of colonoscopy Family History Father No problems noted. Mother No problems noted. Social History Housing: House Alcohol intake: never Patient Tobacco Use Status: Never used Tobacco e-Cigarette/Vaping Use: Never Used service: No Current occupational status: retired Current occupation: Left handed Cognitive needs: No Hearing needs: No Vision needs: Yes Physical Exam Vital Signs: Last Vital Signs Pulse 83 11/18/25 10:08 BP 122/72 04/24/25 10:08 Pulse Ox 96 04/24/25 10:08 Oxygen Delivery Method Room Air 04/24/25 10:08 BMI result Body Mass Index 32.9 Office Procedures Glucose Monitoring Details Details: See [facility] [address] - Glucose monitoring, continuous-physician I&R Procedure code (CPT) selection complete Results Reviewed Results Reviewed: Laboratory Last Values Glucose (Clinic) 150 mg/dL (60-115) H 04/24/25 10:15 Laboratory Tests 08/16/24 03/05/25 13:45 12:14 Creatinine 0.83 Estimated GFR > 60 AST 28 ALT 15 Triglycerides 235 H Cholesterol 152 LDL Cholesterol, Calc 72 HDL Cholesterol 33 L TSH 5.53 H Free T4 1.19 Urine Creatinine 57.65 Urine Microalbumin 33.0 Microalb/Creat Ratio 57.2 H Assessment & Plan Assessment & Plan (1) Uncontrolled diabetes mellitus with hyperglycemia, with long-term current use of insulin: Code(s): E11.65 - Type 2 diabetes mellitus with hyperglycemia; Z79.4 - halfway (current) use of insulin Category: Medical (2) Diabetic nephropathy: Code(s): E11.21 - Type 2 diabetes mellitus with diabetic nephropathy Category: Medical Qualifiers: Diabetes mellitus type: type 1 Qualified Code(s): E10.21 - Type 1 diabetes mellitus with diabetic nephropathy Plan: There is mild protein in the urine from diabetes. I discussed that we sometimes use a low-dose of her an Ric or an Arb to protect the kidneys, but she does not have high blood pressure, and I am hesitant to start this because it could cause dizziness, and she is at an increased risk of falls and fell recently. If she develops high blood pressure we can start this type of medication. (3) Dementia: Code(s): F03.90 - Unspecified dementia, unspecified severity, without behavioral disturbance, psychotic disturbance, mood disturbance, and anxiety Category: Medical Plan In summary this is a 69-year-old female with uncontrolled type 2 diabetes. Treatment is complicated by dementia. Target A1c goal 7.5-8%. She is actually below this goal per CGM data. Reduce Tresiba to 20 units daily since she has nocturnal hypoglycemia. Continue Humalog 4 units before breakfast, 6 units before lunch and 4 units before dinner. Continue Mounjaro to 7.5 mg weekly. Monitor carefully for adverse GI side effects including worsening of gastroparesis. They have declined referral for residential to help with medication administration and certified diabetes educator/dietitian. Reviewed treatment of low blood sugar. Written instructions provided. She has ketone urine strips and has instructions about DKA and ketone testing at home. She will go to the lab for blood work today and check urinalysis and culture given family's concerns. Warning signs warranting ER evaluation reviewed. Follow up in 8 weeks for type 2 diabetes. Orders: Orders AMB Glucose Monitoring Today E11.9 - Type 2 diabetes mellitus without complications UA w Microscopic Today R39.9 - Unspecified symptoms and signs involving the genitourinary system Urine Culture Today R39.9 - Unspecified symptoms and signs involving the genitourinary system Creatinine Today E11.9 - Type 2 diabetes mellitus without complications Lipid Panel Today E78.5 - Hyperlipidemia, unspecified Microalbumin, Random (w Creat) Today E11.9 - Type 2 diabetes mellitus without complications Medications: New dextrose (TRUEplus Glucose) until symptoms of low blood sugar are controlled 15 grams (32 mL) PO Q15M PRN 128 mL 3RF hypoglycemia Patient Instructions: Current medication regimen: Tresiba 20 units every morning. Humalog to 4 units before breakfast, 6 units before lunch and 4 units before dinner Mounjaro 7.5 mg weekly If you experience low blood sugar (under 70), treat this by eating a chewable fruit candy like skittles or jelly beans (about 8 pieces), 4 ounces (1/2 cup) of fruit juice (not diet), 1 tablespoon of honey or 4 glucose tablets. If your blood sugar is under 50, take double the amount of one of the above. Recheck your blood sugar in 15 minutes. Coding Level of Care Code Est Pt Level 4 (99710) Diagnoses Uncontrolled diabetes mellitus with hyperglycemia, with long-term current use of insulin E11.65; Z79.4 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 E10.21 Diabetes mellitus type: type 1 Dementia F03.90 CPT Codes Details - CPT: 32478 - Glucose monitoring, continuous-physician I&R ([id number])
[2025-04-24 10:19] LABS: Glucose, Whole Blood 150 mg/dL (60-115)
== END 2025-04-24 10:40 | disposition home or self-care (01) ==
LOC: HO.ENCR 10:00
PROVIDERS: PCP Internal Medicine; Visit Provider Physician Assistant Medical
DX: E11.65 Type 2 diabetes mellitus with hyperglycemia (principal); Z79.4 Long term (current) use of insulin; E11.21 Type 2 diabetes mellitus with diabetic nephropathy; F03.90 Unspecified dementia, unspecified severity, without behavioral disturbance, psychotic disturbance, mood disturbance, and anxiety

== ENCOUNTER 2025-04-24 10:52 | Outpatient (REF) | payer OTHER, SELFPAY ==
[2025-04-24 12:16] LABS: Cholesterol 147 mg/dL (<200); Estimated Glomerular Filt Rate > 60; HDL Cholesterol 41 mg/dL (>40); Triglycerides 126 mg/dL (<150)
[2025-04-24 14:05] LABS: Appearance Urine Clear; Glucose Urine UA Negative (Negative); PH 5.5 (5.0-9.0); Specific Gravity - Urine 1.025 (1.005-1.025); UMIC TRIGGER UA YES
[2025-04-24 14:38] LABS: Microalbum/Creatinine Ratio Ur 9.7 ug/mg cr (<30)
== END 2025-04-24 10:53 | disposition home or self-care (01) ==
LOC: HO.10HDL 10:52
PROVIDERS: Visit Provider Physician Assistant Medical
DX: E11.9 Type 2 diabetes mellitus without complications (principal); R39.9 Unspecified symptoms and signs involving the genitourinary system; E78.5 Hyperlipidemia, unspecified
CPT/HCPCS: 36415; 80061; 81001; 82043; 82565; 82570; 82947; 87086; 99212